=== PATIENT | male | born 1975 | race Caucasian/White ===

== ENCOUNTER 2024-04-26 06:52 | Emergency (ER) | payer MEDICARE, SELFPAY ==
[2024-04-26 06:56] VITALS: BP 160/100; PULSE 75; TEMP 36.6; O2SAT 98; BMI 27.1
[2024-04-26 06:58] VITALS: BP 160/100
[2024-04-26 07:22] VITALS: PULSE 76
--- NOTE | 2024-04-26 07:26 | ECG_ITS ---
[facility] Test Date: 2024-04-26 Pat Name: JEFFRY MARTIN Department: Room: - Gender: Male [employer]: : 1975 Requested By: [id number] Order Number: [id number] Reading MD: OTILIA SAEZ Measurements Intervals [place] Rate: 73 P: 51 NV: 142 QRS: -5 QRSD: 94 T: 39 QT: 372 QTc: 399 Interpretive Statements 1100 Sinus rhythm 2420 RSR (QR) in lead V1/V2, consistent with right ventricular conduction delay 9130 borderline ECG No previous ECG available for comparison Electronically Signed On 04-26-2024 8:58:15 EST by OTILIA SAEZ
--- NOTE | 2024-04-26 07:31 | ED.GENADUL1 ---
HPI HPI - General Adult General Chief complaint: Eye Problems Stated complaint: HEADCH, EYE REDNESS Time Seen by Provider: 04/26/24 07:17 Source: patient Mode of arrival: walk-in History of Present Illness HPI narrative: 49 old male presents to the emergency department for elevated blood pressure and headache. He has been off of his lisinopril for about 5 months. He states he moved to this area a few months ago and has been having trouble finding a PCP. The headache was not of sudden onset. He reports that he saw some redness on the white part of his left eye and there was no direct trauma to it. He states he coughs a great deal and he did not even notice it until a family member pointed it out to him. Denies chest pain or shortness of breath or back pain. Related Data Previous Rx's ?Medication ?Instructions ?Recorded lisinopril 5 mg tablet 5 mg PO DAILY #30 tabs 04/26/24 Allergies Allergy/AdvReac Type Severity Reaction Status Date / Time codeine Allergy Severe Hives Verified 04/26/24 07:00 narcotics AdvReac recovering Uncoded 04/26/24 07:38 addict Opioid HPI Opioid Management Most Recent Opioid Data: No Data to Display Review of Systems ROS Narrative A ten point review of systems is negative except as noted above. PFSH PFSH Social History Little interest or pleasure in doing things: not at all Feeling down, depressed, or hopeless: not at all Exam Narrative Exam Narrative: Nurses note and vital signs reviewed and patient is not hypoxic. General: The patient appears in no apparent distress. Patient is resting comfortably on cart. Skin: Warm, dry, no pallor noted. There is no rash noted. Head: Normocephalic, atraumatic Eye: Left medial subconjunctival hemorrhage present. Ears, Nose, Mouth, and Throat: oral mucosa is moist. Nares patent. Cardiovascular: Regular Rate and Rhythm Respiratory: Patient is in no distress, no accessory muscle use, lungs are clear to auscultation, no wheezing, rales or rhonchi Back: non-tender GI: Soft and nontender Musculoskeletal: The patient has no evidence of calf tenderness, no pitting edema, symmetrical pulses noted bilaterally Neurological: A&O, normal speech Psychiatric: Cooperative Constitutional Vital Signs, click to edit/add: Last Vital Signs Temp 98 F 04/26/24 06:56 Pulse 76 04/26/24 07:22 Resp 17 04/26/24 07:22 BP 142/92 H 04/26/24 08:57 Pulse Ox 98 04/26/24 06:56 Course Vital Signs Vital signs: Vital Signs Temperature 98 F 04/26/24 06:56 Pulse Rate 75 04/26/24 06:56 Respiratory Rate 18 04/26/24 06:56 Blood Pressure 160/100 H 04/26/24 06:56 Pulse Oximetry 98 04/26/24 06:56 Temperature 98 F 04/26/24 06:56 Pulse Rate 76 04/26/24 07:22 Respiratory Rate 17 04/26/24 07:22 Blood Pressure 142/92 H 04/26/24 08:57 Pulse Oximetry 98 04/26/24 06:56 Medical Decision Making MDM Narrative Medical decision making narrative: The latest blood pressure is 142/92 which is down slightly from his presentation blood pressure. He will be placed on a low-dose of lisinopril and was given a list of PCPs that he can follow-up with. Renal function is normal. Additionally he has a subconjunctival hemorrhage on the left and he was reassured. Treatment diagnosis and follow-up were discussed with the patient. Differential Diagnosis Differential Diagnosis: Hypertension, kidney failure Lab Data Lab results reviewed: Yes I reviewed the patient's lab results Labs: Lab Results 04/26/24 Range/Units 07:55 WBC 6.6 (4.0-11.0) 10^3/uL RBC 5.19 (4.70-6.10) 10^6/uL Hgb 17.2 (14.0-18.0) g/dL Hct 47.6 (42.0-54.0) % MCV 91.7 (80.0-94.0) fL MCH 33.1 (25.9-34.0) pg MCHC 36.1 H (29.9-35.2) g/dL RDW 13.1 (11.0-15.0) % Plt Count 146 L (150-450) 10^3/uL MPV 12.0 (9.5-13.5) fL Neut % (Auto) 52.0 (43.0-75.0) % Lymph % (Auto) 38.7 (20.5-60.0) % [place] % (Auto) 6.2 (1.7-12.0) % Eos % (Auto) 2.1 (0.9-7.0) % Baso % (Auto) 0.8 (0.2-2.0) % Neut # (Auto) 3.4 (1.4-6.5) 10^3/uL Lymph # (Auto) 2.6 (1.2-3.8) 10^3/uL [place] # (Auto) 0.4 (0.3-0.8) 10^3/uL Eos # (Auto) 0.1 (0.0-0.7) 10^3/uL Baso # (Auto) 0.1 (0.0-0.1) 10^3/uL Abs Immat Gran (auto) 0.01 (0.00-0.03) 10^3/uL Imm/Tot Granulo (auto) 0.2 (0.0-0.5) % Sodium 143 (136-145) mmol/L Potassium 4.2 (3.5-5.1) mmol/L Chloride 106 (98-107) mmol/L Carbon Dioxide 26.9 (21.0-32.0) mmol/L Anion Gap 14.3 BUN 8.0 (7.0-18.0) mg/dL Creatinine 1.03 (0.70-1.30) mg/dL Est GFR ( Amer) >60 (>=60 mL/min/1.73m^2) Est GFR (Non-Af Amer) >60 (>=60 mL/min/1.73m^2) BUN/Creatinine Ratio 7.8 Glucose 99 (74-106) mg/dL Calcium 9.2 (8.5-10.1) mg/dL ECG Data Attestation: I personally reviewed and interpreted this ECG as follows: (EKG on my interpretation shows sinus rhythm with a rate of 73 and no acute change.) Discharge Plan Discharge Chief Complaint: Eye Problems Clinical Impression: Hypertension, Subconjunctival hemorrhage Patient Disposition: Home, Self-Care Time of Disposition Decision: 09:15 Condition: Good Mode of Transportation: Private Vehicle Prescriptions / Home Meds: New lisinopril 5 mg tablet 5 mg PO DAILY Qty: 30 0RF Print Language: Sudanese Instructions: Chronic Hypertension (ED) Additional Instructions: See list of primary care providers Referrals: Physician,Non-Staff, [Primary Care Provider] - 1 week
[2024-04-26 08:11] LABS: Basophils Absolute Auto 0.1 10^3/uL (0.0-0.1); Basophils Percent Auto 0.8 % (0.2-2.0); Eosinophils Absolute Auto 0.1 10^3/uL (0.0-0.7); Eosinophils Percent Auto 2.1 % (0.9-7.0); Hematocrit 47.6 % (42.0-54.0); Hemoglobin 17.2 g/dL (14.0-18.0); Immature Granulocytes Abs Auto 0.01 10^3/uL (0.00-0.03); Immature Granulocytes Pct Auto 0.2 % (0.0-0.5); Lymphocytes Absolute Auto 2.6 10^3/uL (1.2-3.8); Lymphocytes Percent Auto 38.7 % (20.5-60.0); Mean Corpuscular HGB Conc 36.1 g/dL (29.9-35.2); Mean Corpuscular Hemoglobin 33.1 pg (25.9-34.0); Mean Corpuscular Volume 91.7 fL (80.0-94.0); Monocytes Absolute Auto 0.4 10^3/uL (0.3-0.8); Monocytes Percent Auto 6.2 % (1.7-12.0); Neutrophils Absolute Auto 3.4 10^3/uL (1.4-6.5); Platelet Count 146 10^3/uL (150-450); Red Blood Count 5.19 10^6/uL (4.70-6.10); Red Cell Distribution Width 13.1 % (11.0-15.0); White Blood Count 6.6 10^3/uL (4.0-11.0)
[2024-04-26 08:31] LABS: Anion Gap 14.3; BUN Creatinine Ratio 7.8; Calcium 9.2 mg/dL (8.5-10.1); Carbon Dioxide 26.9 mmol/L (21.0-32.0); Chloride 106 mmol/L (98-107); Estimated GFR (African America >60 (>=60 mL/min/1.73m^2); Estimated GFR (Non-African Ame >60 (>=60 mL/min/1.73m^2); Glucose 99 mg/dL (74-106); Potassium 4.2 mmol/L (3.5-5.1); Sodium 143 mmol/L (136-145)
[2024-04-26 08:37] VITALS: BP 124/82
[2024-04-26 08:57] VITALS: BP 142/92
== END 2024-04-26 09:22 | disposition home or self-care (01) ==
PROVIDERS: Emergency Provider Emergency Medicine
DX: H11.32 Conjunctival hemorrhage, left eye (principal); I10 Essential (primary) hypertension
CPT/HCPCS: 36415; 80048; 85025; 93005; 99284

== ENCOUNTER 2024-07-02 11:26 | Outpatient (OUT) | payer MEDICAID, SELFPAY ==
--- OUTSIDE RECORDS SUMMARY | 2024-07-02 11:43 | XMS_ITS | CCD ---
Author Organization [facility] Care Team Providers Care [employer] Name Role Phone August Unavailable Unavailable August Unavailable Unavailable Sebastian Chirinos Attending Unavailable Sebastian Chirinos Admitting Unavailable Provider, None Primary Care Unavailable Allergies Allergy Classification Reported Allergen(s) Allergy Type Date of Onset Reaction(s) Facility (1 source) NKDA/NO FOOD OR LATEX ALLERGIES; Translations: [NKDA/NO FOOD OR LATEX ALLERGIES] Propensity to adverse reactions (disorder) [facility] Repository (1 source) Codeine; Translations: [codeine] Drug Allergy [facility] Repository Problems Active Problems Problem Classification Problem Date Documented Da te Episodic/Chronic Unclassified (1 source) Unknown / UNK(Unknown) Onset: 11-22-2016 Past or Other Problems Problem Classification Problem Date Documented Da te Episodic/Chronic Cardiac dysrhythmias (2 sources) Tachycardia, unspecified; Translations: [Tachycardia, unspecified] Onset: 11-22-2016 Episodic Nonspecific chest pain (4 sources) Chest pain, unspecified; Translations: [Chest pain] Onset: 11-22-2016 Episodic Results Test Name Value Interpretation Reference Range Facility Coding Summaryon 01-31-2024 [facility] XevdtdjrTDo7ePa+PG hlYWQ+SE3FAVTvG40j rLAsjX5mR4SHGCoUPp wgQVBQTElOSyIgbmFt KI8abGQfIDWr IC8+CR6fZMJhWbzwpG Seh8Q2tOZ6Q16hdn8w XVnctYN5XERaRnCduq txx6xtyXe5TIodKrsu OyBt UWMokQ18GBO9xP37Yq 10sFHswLTyh9ehvTk3 GrLhRFGiCYN0vItwWU amy9MxHWMfV46teVYs c2U6 IGNvbGxhcHNlOyBlbX X2zG4bLPxwvahkp7an cmweUdv3kv26yHMyc8 P1cKM6K5VcamH2GPVz bGQg NdvzxWTHiZ5orsbme7 xvcjogIzAwMDAwMDt0 YLs6NADtjNlnKeWgHI 84AAV1BIYhdfXwB7Ke LWFs tZlzIxF1y0K5Kh9SU2 MQSsmzZ0LIYFZEAYyg dGQ+II00dl18W9QcGo jtBet7ZADsNPE9iQU1 aD0n SEBiCOifk4O9iBJ7Z7 JyaqMmns1gu8lfPKCc JCglW51flUKfg1X2WM HgfKJ8BGNujYosSwXz aG93 Oyc+TXDcuMdoq8LzJm ome5quk2hmzNw6Acfe NBKuwoMqqBeyDSY2d1 JaBu9tAVSoyTE7zZV9 aD0i CvBnQvW9RZfpJ915Jp EjaOXtTgmkE83vT4Vl dXA+PXEgQcq0AXFkvW toNW4iF5DmNJIssbrm bGVm bYvrEE3sAAMzhyulKD NebB3tIHEqX5t2VrEu EvM5IYgvM1TcEEWobl nqTt73wX6xQjDjJcX8 MGlu V3IbusY0IZAhgEAhKZ vdMUK3J15mo4M3QMUc OLVlUER0bAP6oW5jiY lnbjogbGVmdDsgdmVy dGlj BUjyMUllL615ADFloY snPkNvZGluZyBEYXRl OiAgMDkvMTIvMjAyND wvdGQ+UGAmFFY6gJll PSAn pEJbMIxpOh8dgLnbfZ hfAU3mFQFcprduKXDp fD4iJERctTTcsEkwAP 6uTWYqwgkdu165NtJw MHB0 TRLnsOEwL0OfsY0sYr UgQUOrAANaV5FbkRNa JIizU892MFqtSwX8MD KgnjEjX6PkWRTxnHwt OiB0 y7I7Ln6Xw1WemmvjF7 RhdHVzOiAgRmluYWw8 I5BePbefdPP+PC90YW FsFT74GNp8JDQ8eVhi PSdi WXEiZ7ErrR8qYhAaOI RkZGRkOyc+PHRhYmxl IHdpZHRoPScxMDAlJy NfsHywWI5jGm6kOFYu LWNv pAsurHQbYiKro4wgWH RtJPpkMX9prVggH7El yHJ4CHUbp2y2Nq79V2 1oR5HpjAX+PGNvbCB3 aWR0 oJ1qSiCcLqB6IPtsB6 67IbNpdCMmAekbp7te c0vlaBr4FqP5OMQeqz AoxBebZVS1u1KrQy13 Y29s IHdpZHRoPSIxNSUiIH IzcKpoes7hiG4cBk1+ MYHekQW9qDT0fX0iBx RgBoY4EUntP665UsWj cCIv Permx0tes0cfqHy9Fc IwJSIgdmFsaWduPSJ0 j4FoPc50S5KsbQyrd2 DoLmt1cb93kKZmh4M1 bGU9 A2BhYCKmnflblAOqiN xdAK9iACYpxxdlYNTs pT6xVLFaY8k2ZeKcRl Z0MGjfB4TyllB8HHJf bGQg VZDnaKUXsP9jbmdkn4 xvcjogIzAwMDAwMDt0 DSa5FJSxdYkmTuUzET B9OgW9XHA9nJUfuD6i bGln cbcjsP0xAml+UGF0aW OsrQSRQX2aQcbatDN+ LOMhCDI8hFxbKJugZF MszA9pUZRtA9e5NyCx LjA1 TXioZ9KmvhX4CVVorH TsQYWvgGQWwD1tooch l7rpdbvuXlTbTZXcLS m8UGu4JXWomFcrCwGv ZWZ0 QrG3TOP2cSIfxQ5fmB jaoteweY4hCyr+Qmly oXpfIRW9CBa3L7RaCf j9YPYyhEgzZN2ijUHf ZGlu Vl6mfMyfbDqfBD5qXR Mfhxwnp018KcQpk4bj EBVwuUNxMEmuMTH7H0 3zc1F2KXMlKUIfJBM4 dGV4 yH7edYlwbpzpcRLmaE sgdmVydGljYWwtYWxp V471DFUleMdjDkYyAC p2H6SoHcn0DYNyfUof ZT0n zPDbCQhdBx7wnSkdcQ uhQH9fMEXwdbwdu834 YfBls8rgAEGifLDiMZ lxKJM5Q74ng0J4JRLa MDAw AKD6dOF3sL6lzXwurr ogbGVmdDsgdmVydGlj GLufJDlwA880WEUdjQ cmCjUgbQr4I5MvMmm2 ZCBz hNshIB5tbVEmDUkrTu 2amFnslSkgFP5wSYCb cmkuf013AqRhh7iySA XlaSMgZYovYAS9O30u b3I6 ARZvKIWuPKS2sXV5zR 1hbGlnbjogbGVmdDsg dmVydGljYWwtYWxpZ2 46IHRvcDsnPlBhdGll bnQg KKqhFQh8Z6RbPpvruQ I+WJ69GUVxIX06wAZf sDFhd3ktlRj2LzKlUA WdYNP5rPbpZLbyd2Dr ZXIt A28vgBCff2Q2QESyvT kwgNXwNfJtaLF7rJ9m USctflngq0vxrftxVe azz5fjtm30rS63M01n IHdp ZHRoPSIzMCUiIHZhbG nusd3zmD4lGo5+PGNv cSL7nAK0iT1rNCMfQi S2GYfmM390EpWvzDNz Pjxj p8kck7vduYv8DeA0KN AjypVjeMonXSG6v2Ls Xa31K09aISugRNPzAH MnLMTxOEFpxWkeiy2j dG9w Ii8+YYZvzHO1bDW4jF 8hLwEaFmN9VVigU581 RvIplWNbHsizR16rR8 JvdXA+MLQnVfp1VTEu dHls IS0hjFHcKWpxTz7iFD X6QpGeMlPsMWrrT3Pk DLYcdeopnafikEM3QY OuUTPrkT90Ad0ldPzy MTBw aZHCmX5mudlij6vbbg ihYyQaXZSfURl3NGr7 MQOblOboDaAqVVF6Vf T4VNX8uELuxM8zrPav bjog fR4wG2FyISUeqsfnTf 08vA4iOhSyCfM1OLms Oyc+W5KXGF3CEHgwQS FWSUQgRVJJQzwvdGQ+ PHRk CBY1rYnkRDxaYICrnT 8hWVJhP2k9ZqBjHuG6 UHbiM9KyUDUxmgnxAj 34mQ8jVxElNsY7RLlg O2Zv zaH0QWHvhACkYMmbTO W3Q47bd3Z6PSMvQGYe EJU3aMD4gD5poTortz ogbGVmdDsgdmVydGlj YWwt OIgqS125UYWglPavAb D8CaB2PeH4LyL6W7Qu Asm2QMErhCooFM5ayY PxMYxgUk0zbVggaCco MC4w QAYyoiqwMWTqeI4uMK NehPFktQuiEB5oJVRy lgkfl457FpCkZCC6HY SuzHKvG4ZpaH4qIkPf MDAw KBKhN4GcoOSiIZwsY0 55ZDqsRqT2QDJndqOv P4BjNVKczPovBoT4w6 V8Vi05KUHJUVRzsggb dGQ+ OJGaDGG1zXrkDYvcVR XxpV6gIRHpP7y4CcGe NzW9MQobS0GpZGNxxx joCr73vS2pBsYbOxA4 MGlu M2CikwE3CGYynNFvFN lnMAR3R48ip3V6KQTq HNXaPYS7zAM1hS0hvL lnbjogbGVmdDsgdmVy dGlj SFhxANwsA264OYZuhO hwTn4USXP6Y2QgHob4 ECFavIqrXG6xzUVyUU pfQf6adIqsjCipYX1o NTBp loteWLZzpY5uCLUxiA XvnSihIK4pWIMvlnvc r088AwTbZWZ4THCyfL ReT6TywH6sNcCsVVOx MDAw A1YllJYpLCxhU898LO vgKpZ3AGBubfLoX4Ha SRNzgOatSjX9v2K1Hi 9RzDYlF4WrH3p3H2Ny Pjwv dHI+IY05EAUeSQ74jN OrrFWev8trbYb1PvZl YOVzSOW6jGtfMKxtw4 PaGNVcK64saXAbi1T1 IGNv gUxceDCwSuCdoTP2nY 9vWWzfzljxz6uevubw Afgcr5bczp89bX30U5 9sIHdpZHRoPSIzMCUi IHZh fRcapl6ofM1rZd1+PG AtvVN6hBT4nU5oLeIp RaF0LElaC030ZoFqdY TsUcsbg5kos0vhtAe7 IjIw PMPxuoTfxPjdYCE0q5 KxBr39F10kTOphLYMp PSIyMCUiIHZhbGlnbj 2qvF1gPj3+SV7od8cl cm91 fD98lLU+NOFrAFW2sS ynMVtrCHJzdL7bZZfe ZqA3ELNlVrQmtG92fK UnIQwkVn5gaQwhrXnr MC4w NAVnlskbz888IkAgz7 xkIDEwcHQgVGltZXM7 I14bz9K6DJYjYMPxCP I1cRR7yV1okViajoyy bGVm dDsgdmVydGljYWwtYW ncS290IXCndZumBlBq qWTnE8hmunPBVS5nZh wvdGQ+WLJdTUH7eYnd PSdw UAHvtM0wGDSpS8x1Vu YsOkU5ADovU2BkzjA9 IGJvbGQgMTBwdCBUaW 3qsnykx7wozxymOeWk MDAw YEz6NCk6ZWRukKejSv QaOXD6MrK2YLU7wSPh iQ9syVedasflbO6xZs c+RklOOjwvdGQ+PHRk IHN0 jUtyOWjnSHFnyZ9wAW DuJ1e1QpQvFnN1BQtp Y9BibtG2ZKMjeCBcPP ImcKEBqX3kphwld0qm cjog GzNeIHUvCKn0BLc1JQ CitLanXkDyZMC0VqC6 KVS3jKIhmX9wsKyyur civN1xPak+TVJOOjwv dGQ+ EFWuAFC1nYzaQIqkZA KydY3qQSAmH9a3WcIo HvL7RBtfY2ZkedE1UB KjvMTpJHYxiCFKhA0u cztj i3lyoxteHzCwGRIbRI x3FOm4TLMeyBvwMbAq SFU8HlY5YKD6tWAcrU 6rsQjycjkszK6bFri+ UGF5 FLV1ZC37AC39R1DiAp wvdGFibGU+PHRhYmxl IHdpZHRoPScxMDAlJy OvxSdtLX1hLs9kSBTl LWNv bGx (more content not included)... [facility] Coding Summary HTMLBase 64 DlpejhbvECz3wDu+PG hlYWQ+WF6UEZViG05p zUYtcH4qP9LVTNyATr wgQVBQTElOSyIgbmFt UT2mgKFwVHDj IC8+DU3fOCRaSqeroU Ntl4U4pSC1C52yjw6v HLiwrEJ9IFGmRyBbxn kvr2laqRu6BAvzThah OyBt VAGrkO25EIV6aD50Ta 39lYHuvUZzf2kkiEk4 DhGcARVeRTT5hAkwTY vtl7KyRIQfE60qkFZg c2U6 IGNvbGxhcHNlOyBlbX C6uQ1fYXqmieslu3ke ayygSor9xq82mDOfq7 E5oPA6C4FwocZ5WNHw bGQg WotvvCRJrS2akinwz7 xvcjogIzAwMDAwMDt0 BDw4WJBvcBjqDmZcYC 66GBL9SOAefyAnS0Eo LWFs cGsqPnS8y4N6Tr7QX8 TDSotiH7SQYNRMSCmo dGQ+DA85hg82G7VwNp cdXjz8BUFnJNX5yFS6 aD0n HSLdEZvgl5D6dZR0Z7 XvdzYbdn8af3pzCJFw EUqoP58xbYAyt7A5VT NgvAS8HYCnhTjiTiRj aG93 Oyc+OTMbrXpsx8ZmZd kbc5csy9lhhFe6Jzdv BBSzkgLhrGdiWIE1b9 XxZr1bMBRagYX1aNR7 aD0i VyGqSqM7QXifB338Ps QfwXNqZhlrD36vY9Dm dXA+IPRtMvc0MEGnsW zqFL0jK8PtEVLndwgn bGVm uKxvKJ3rDCRybiddWY TodO2bYAAwW1h2KuBs GyE0HWokH3QnNYAduu mnWt44eU4xImLfJzE4 MGlu O9ZmdqV1ZORvkOGgUV sdZGS5V44gb9A4OPBf KBCfAAQ9yHC4cW6ytL lnbjogbGVmdDsgdmVy dGlj FEtfDPjtA911MDToaV snPkNvZGluZyBEYXRl OiAgMDkvMTIvMjAyND wvdGQ+YYUmKST1rIda PSAn qBWnUNnpHn4fsXtguY mvNK3zKMJnuoujKTKs vL8cZMYysPAfuLhnKY 5iLYWpzexrw235AoFc MHB0 HTLehIGqG4OsxF4qUm EwXCFaCRLjE0WqlDJp HApzE039MHguWeA6BL HkfsPvP7IwMOGmnUdg OiB0 e3I2Rc8Is5WzjrwhT5 RhdHVzOiAgRmluYWw8 G5HeQypgdPX+PC90YW QpVT68FXv9BTR5oRpb PSdi JJNkP4YngE8mHiFqIG RkZGRkOyc+PHRhYmxl IHdpZHRoPScxMDAlJy DshTwaRO1zHj9kMNSm LWNv kWxoqKPkZcPuf1lrJA AdVRkvUG4szViuF5Ys mBB2UWJby4u3Tq95D4 1xQ7NhaJJ+PGNvbCB3 aWR0 eH9jVxQeYsY1NLnfB8 62GaOfiZCuFkxim7uz a1boyIe0LnR4ZIHbif AwcBfxOWL4e1ZvIv01 Y29s IHdpZHRoPSIxNSUiIH OptMsxyu4vhO3kJa9+ WEDdwCB2nKF7wA5fWp SkGrX8UCafE022EsZg cCIv Riumx5fpu8rsoKs3Mx IwJSIgdmFsaWduPSJ0 c6VvEg65T9SatGopg9 XqEol7tw36hUQrq7P2 bGU9 D4YiJWOxhdjbxRDgwC crRX0pLOSkdfpuUKUx nS2nTGTkC4u3YrLsKi W3BQksN2AecwH4OYWl bGQg HAOtaLXElX3htkogr8 xvcjogIzAwMDAwMDt0 WGz1EXNwwTynWfIqFT S3CbO2FDN2oAYxaG1f bGln aygkfT4vKmj+UGF0aW NcnBWGQB1qIhlrwSU+ WZXzJBZ0sQanMHstND WhfR6bGPFnQ7e2VnZd LjA1 AAvfT9GhfiW9IGVxcK OkJPHrxZLDeC7dnbip b9xavfyyEyFnOEXpSH n4ZGn6XFNfjDbqDyRj ZWZ0 SmL9PNP1nUOrpV0lcI hazzfwjB1gBtm+Qmly aTnuMPQ6IIi3Y5IaPh o8MTMwbKoqFG6rzOLn ZGlu Hd7lgYxxzYtsAJ8rQE Qovfwpy658NxFqi7gs ADIdmJHnWRnyDCS7V8 3gj0L3XSOnBTMcDWH2 dGV4 pN3vbXtjxxhflSKohF sgdmVydGljYWwtYWxp Q122UWTgpJaiPgQtNB e5S4WaPmx0NFBzxYwf ZT0n fZWcBXcoEd0vrCojuY awBX7aOJFvzykmm901 KdWwd9qfVHBwkLMvPB sgUWI5D83in4J2MADw MDAw UYF7bPH5tZ5hvNerfz ogbGVmdDsgdmVydGlj AOxjJCzmD085FHGveF dyNnJceNd6S8AkLwx4 ZCBz rGjkZK6ynMHgQQpkRf 8arAdzfAfgNT1nZDBz yigax577QdPpv9mvBV GpsVUdGLabKEH7P39n b3I6 QSReGHHmUUO0zZC4cV 1hbGlnbjogbGVmdDsg dmVydGljYWwtYWxpZ2 46IHRvcDsnPlBhdGll bnQg EKqgNNm6Z6ShWdlauE I+BW44PQQsMA25sLXe dVIpv9gydJk7DrOpTE CpMQP3xAjfWTipz1Wp ZXIt R24pfXPvw7E9ASGmvS eqoKIjWrYjbFN6lY6m FFhvuaaqp0sqdxavYd mqq2zcfp02aL48H32v IHdp ZHRoPSIzMCUiIHZhbG pfoa8fsM8pDx7+PGNv uXM1fFV6iG1pTPGuGw A6NWqeJ543RuMbbSOt Pjxj z4bhz8qkmWh0YzE6VJ KrzmFyfSmoVWF3e2Jj Ku62C05oAZulGWMtND BeOSOzRRJeyFfjhv5p dG9w Ii8+OQVpdSW1jKI7nZ 6kRhLzQdL9OEmqD297 GqZizVGmPvmqX89oY2 JvdXA+JHSrEbg1LQIy dHls PJ1luXNsRRxxIi8hPA P3JgZwZdMlFVsqD4Jv EJSwgktijcfueUR3GB OeSQAuxO96Fy5rxJzi MTBw tWWFbS2bkerin5vkho knIiKwJFOnEAn4FSy2 EDMycHkvUsQpMCE6Fj F0SSO4hQHdvV2boMgr bjog bM6hV5NjVAMwldsvFw 08zG9mNhAsBkG0QMfv Oyc+T2SFQL6YNFcyII FWSUQgRVJJQzwvdGQ+ PHRk UEX9pMhgEEqsRYDtyJ 8gUUGnM9r6QyLwHoM0 XWmzI1KaIWJkgcmeAw 92iI4iJtFsRmM2UMoh O2Zv voF0ZGZuhPAwDBbrXZ Z6P39kx6R6XNSlMSVq DWM1zJT6gZ9toMpcrj ogbGVmdDsgdmVydGlj YWwt WItnB513UCBtrSqgOj I5BhY4NqX7ZoR3U1Ly Snr8CXQytXpwOW6wwR GlYJvnOv0nrCwilIog MC4w PUUmrwecJPLtgB6aQT FqpJBfkDcaQK9dMCZy cucdl500QpEmSDN0BM EbyDUiR4WeeS3tIzNs MDAw NDXpF1UprKReKXhbB8 86CGguKmB6VKJvieEa O8EuQREzoYqqQzD0h5 G1Je35YKHHDZRsjdzr dGQ+ YAKaYTK6iGxvHKifCU CqiF9rVASvA8a1UjHs MhN7BKraY7HtITLqmf cwOk42eO0gPsUnYvZ7 MGlu Z7XucoL0GTCkhLVsFK bnGTP8Q14sk7Q4GJMd TZMdHYA9yKX5tZ2hyZ lnbjogbGVmdDsgdmVy dGlj OTswHOkxJ662DUGcsA hoUl0IVUW1Z0WfDfc6 UOYeaFtjOX1txUEpPQ igIn9njCvluGhvCR9h NTBp mzpaTWWsdW8gSVJafP XwsHjxGZ3vAWFpesxr a037JlVcEJU9WRPpuY NsM2YejK8qVnKcLUWl MDAw X5CogHUiMVlsU018YR zaCnI1LDYqsjEtM9Dq YRLurXcmQgB5x5U1Qc 7TgFBxT4TgB7o1U0Zf Pjwv dHI+TJ25KJQwYY55yF UrbVAzw8vxiLm3XkAl RVOzMTM9cVtgVQfte4 PgOJYdC70qwHTje6X5 IGNv cCxhdXNgXsVsbHL5oD 0dOUpskayzj2hbwjpp Cfhbl4jvip46eH92L1 9sIHdpZHRoPSIzMCUi IHZh tGuapf6ynA0vHl4+PG QxsMY7jLK6rX9jMzMc GxB8ZKarR560IhYyyW ObIftkh3aag5nucJk1 IjIw ZRQwjyYdwYyrKHG9f3 SdAc85S76xMOdqQAPm PSIyMCUiIHZhbGlnbj 8okP8vMh3+GT2pe2vt cm91 yE91jUB+IQWnHNM2bX olYRdcSDMzhP8fKOtw SqE8KGCmGuOakO31cR ClPWfjGu5cnUgdcSaq MC4w DNTdvjlgc538XeUpc2 xkIDEwcHQgVGltZXM7 N43jr2R5YKWjIJWmGO H2aVO0pV6bgCgwobep bGVm dDsgdmVydGljYWwtYW mtH278FANloClsSrNi sJOwJ7pqybWGAW5pEv wvdGQ+CUBwVFZ4gJyh PSdw PNGcgT4dGGEwJ8k3Xn RdQiE0NFdnP2KwuxY5 IGJvbGQgMTBwdCBUaW 1ngwfis7jwlvsnHqZn MDAw FZn6TZi0ZYVetNsqXt VyTYC2KaG6JND3wSFk rD2lxShmdybidQ1jAw c+RklOOjwvdGQ+PHRk IHN0 ePmdCHluAFBnwE2oLT NzN3z5TyGhRxW6JObe M9AgkgG1PQUaiLYmKJ YbdQXNzK2ggnmdu7sn cjog FtKnGNTgTMg3CCd5XE UoqAqjSbKjLGD1ZhG4 RRP1oYImjU8pkBbyry qcxY5uIdo+TVJOOjwv dGQ+ ABWiAPN4sEgeLJivUF CfoR5iTLOlL6s0HkUk JcJ9CXkjG0WhxyU8OW NzhWWeXAOlmQDIdA1h cztj b4dqjoayGkUwYSCiTA o4VLq8XKXneKuoTfLi SLO9MpD1MAO5kCGgrW 7nlXkblqcumV4dUha+ UGF5 RZM0US50NS39C7DkIk wvdGFibGU+PHRhYmxl IHdpZHRoPScxMDAlJy KnvGrcKA3xUd9nYWTo LWNv bGx (more content not included)... [facility] .Auto Diff 01-24-2024 Auto Owen % 6 % Normal -12 [facility] Comment on above: Performed By: #### 1 [id number] #### [facility] (DEFAULT) [address] [place] [address] 90204 Baso Abs# 0.1 x10 Normal 0.0-0.2 [facility] Comment on above: Performed By: #### 1 [id number], [id number], [id number] #### [facility] (DEFAULT) [address] [place] [address] 89857 Basophils/100 WBC (Bld) 1.3 % Normal 0.2-2.0 [facility] Comment on above: Performed By: #### 1 [id number], [id number], [id number] #### [facility] (DEFAULT) [address] [place] [address] 06373 Eos Abs# 0.1 x10 Normal 0.0-0.4 [facility] Comment on above: Performed By: #### 1 [id number], [id number], [id number], [id number] #### [facility] (DEFAULT) [address] [place] [address] 12408 Eosinophils/100 WBC (Bld) 1.3 % Normal 0.9-4.0 [facility] Comment on above: Performed By: #### 1 [id number], [id number], [id number], [id number] #### [facility] (DEFAULT) [address] [place] [address] 83461 Lymph Abs# 3.5 x10 High 1.3-2.9 [facility] Comment on above: Performed By: #### 1 [id number], [id number], [id number], [id number], [id number], [id number] #### [facility] (DEFAULT) [address] [place] [address] Lymphocytes/100 WBC (Bld) 44 % Normal 14-48 [facility] Comment on above: Performed By: #### 1 [id number], [id number], [id number], [id number], [id number], [id number] #### [facility] (DEFAULT) [address] [place] [address] Owen Abs# 0.5 x10 Normal 0.0-0.8 [facility] Comment on above: Performed By: #### 1 [id number], [id number], 0015499, 23868841, 1964766353, 1701638 #### [facility] (DEFAULT) [address] [place] [address] Neut Abs# 3.8 x10 Normal 1.5-9.2 [facility] Comment on above: Performed By: #### 1 [id number], 3863912072, 3791277, 66931002, 6865520879, 9230568 #### [facility] (DEFAULT) [address] [place] [address] Neutrophils/100 WBC (Bld) 48 % Normal 44-88 [facility] Comment on above: Performed By: #### 1 [id number], 0001700614, 6760091, 47392647, 6530714318, 4729161 #### [facility] (DEFAULT) [address] [place] [address] CBC w/ Auto Diffon 4 Erythrocyte distribution width (RBC) [Ratio] 13.9 % Normal 11.5-15.0 [facility] Comment on above: Performed By: #### 1 [id number], 6384222179, 6776716, 72670054, 9167451011, 4902688 #### [facility] (DEFAULT) [address] [place] [address] Hematocrit (Bld) [Volume fraction] 46.8 % Normal 34.8-51.9 [facility] Comment on above: Performed By: #### 1 [id number], 9884479112, 2603393, 99524507, 0921945831, 4488178 #### [facility] (DEFAULT) [address] [place] [address] 91767 Hemoglobin (Bld) [Mass/Vol] 16.3 g/dL Normal 11.8-17.7 [facility] Comment on above: Performed By: #### 1 [id number], 4815439663, 4960968, 22700942, 5726245619, 7668133 #### [facility] (DEFAULT) [address] [place] [address] 33521 Man Diff? Auto Invalid Interpretation Code [facility] Comment on above: Performed By: #### 1 [id number], 8486742081, 0636076, 17440893, 2117026047, 8651619 #### [facility] (DEFAULT) [address] [place] [address] 69421 MCH (RBC) [Entitic mass] 32 pg Normal 24-34 [facility] Comment on above: Performed By: #### 1 [id number], 5179168777, 2568740, 83124969, 8204771094, 6317045 #### [facility] (DEFAULT) [address] [place] [address] 09419 MCHC (RBC) [Mass/Vol] 35 g/dL Normal 26-37 [facility] Comment on above: Performed By: #### 1 [id number], 2065666137, 8050795, 58067222, 0362288330, 5421735 #### [facility] (DEFAULT) [address] [place] [address] 46499 MCV (RBC) [Entitic vol] 94 fL Normal 81-100 [facility] Comment on above: Performed By: #### 1 [id number], 5979986791, 8729647, 25450247, 8725061351, 5688821 #### [facility] (DEFAULT) [address] [place] [address] 90561 Platelet 144 x10 Normal 138-427 [facility] Comment on above: Performed By: #### 1 [id number], 2717363263, 4779118, 95590269, 3879013847, 1889724 #### [facility] (DEFAULT) [address] [place] [address] 50281 Platelet mean volume (Bld) [Entitic vol] 11.0 fL High 6.3-10.2 [facility] Comment on above: Performed By: #### 1 [id number], 2478384264, 6088651, 73171550, 9252213473, 3243763 #### [facility] (DEFAULT) [address] [place] [address] RBC 5.00 x10 Normal 3.70-5.30 [facility] Comment on above: Performed By: #### 1 [id number], 7195729451, 0483695, 18370082, 6502421867, 5653974 #### [facility] (DEFAULT) [address] [place] [address] WBC 8.0 x10 Normal 3.5-10.5 [facility] Comment on above: Result Comment: Slid e Reviewed Performed By: #### 1 [id number], 5414043094, 8826181, 37899523, 2200390021, 2095887 #### [facility] (DEFAULT) [address] [place] [address] CMP Standardon 01-24-2024 eGFR Non AA >60 Invalid Interpretation Code [facility] Comment on above: Performed By: #### 1 [id number], 4659331266, 8280125, 55704402, 9706383303, 9428470 #### [facility] (DEFAULT) [address] [place] [address] 80130 eGFR AA >60 Invalid Interpretation Code [facility] Comment on above: Performed By: #### 1 [id number], 7158428400, 4638028, 51865288, 3026212691, 4638854 #### [facility] (DEFAULT) [address] [place] [address] Albumin [Mass/Vol] 4.1 g/dL Normal 3.5-5.0 [facility] Comment on above: Performed By: #### 1 [id number], 2682772184, 0685290, 96405162, 8410767089, 0827413 #### [facility] (DEFAULT) [address] [place] [address] 86423 Albumin/Globulin [Mass ratio] 1.1 {ratio} Low 1.4-2.6 [facility] Comment on above: Performed By: #### 1 [id number], 8409723248, 4805817, 35658961, 2268732962, 9294334 #### [facility] (DEFAULT) [address] [place] [address] 14750 Alk Phos 40 IU/L Normal 32-91 [facility] Comment on above: Performed By: #### 1 [id number], 7899276832, 9317871, 47678032, 5121450729, 7408488 #### [facility] (DEFAULT) [address] [place] [address] 08408 ALT [Catalytic activity/Vol] 145.0 U/L High 17.0-63.0 [facility] Comment on above: Performed By: #### 1 [id number], 2960692943, 9461456, 60627610, 1007912737, 2887372 #### [facility] (DEFAULT) [address] [place] [address] 46191 Anion gap [Moles/Vol] 8.3 mmol/L Normal 5.0-19.0 [facility] Comment on above: Performed By: #### 1 [id number], 8293202185, 8107823, 94137072, 5695153479, 0423576 #### [facility] (DEFAULT) [address] [place] [address] 63001 AST [Catalytic activity/Vol] 97 U/L High 15-41 [facility] Comment on above: Performed By: #### 1 [id number], 0551891577, 4100242, 63037966, 6178945891, 4972940 #### [facility] (DEFAULT) [address] [place] [address] 73211 Bili Total 0.8 mg/dL Normal 0.3-1.2 [facility] Comment on above: Performed By: #### 1 [id number], 7024871926, 0728512, 13513352, 5223144497, 7032293 #### [facility] (DEFAULT) [address] [place] [address] 93139 Calcium [Mass/Vol] 8.8 mg/dL Low 8.9-10.3 [facility] Comment on above: Performed By: #### 1 [id number], 7903494685, 1107953, 32534017, 2395120668, 7930801 #### [facility] (DEFAULT) [address] [place] [address] 50465 Chloride [Moles/Vol] 107 mmol/L Normal 101-111 [facility] Comment on above: Performed By: #### 1 [id number], 2975584106, 0548706, 16709729, 5300173194, 7690245 #### [facility] (DEFAULT) [address] [place] [address] 81508 CO2 [Moles/Vol] 24 mmol/L Normal 21-32 [facility] Comment on above: Performed By: #### 1 [id number], 1064962828, 0070771, 42599723, 3810772656, 6084428 #### [facility] (DEFAULT) [address] [place] [address] 18195 Creatinine [Mass/Vol] 0.90 mg/dL Normal 0.90-1.30 [facility] Comment on above: Performed By: #### 1 [id number], 8402964905, 3264949, 69185521, 7802060548, 1491182 #### [facility] (DEFAULT) [address] [place] [address] 62396 Globulin (S) [Mass/Vol] 3.6 g/dL Normal 1.5-4.3 [facility] Comment on above: Performed By: #### 1 401143469, 5233019981, 6242514, 54710135, 4822685766, 7037765 #### [facility] (DEFAULT) [address] [place] [address] 24340 Glucose [Mass/Vol] 106.0 mg/dL Normal 74.0-118.0 [facility] Comment on above: Performed By: #### 1 [id number], 0212580016, 3010425, 09047067, 5664821248, 5841063 #### [facility] (DEFAULT) [address] [place] [address] 19243 Osmolality 271 mOsm/L Invalid Interpretation Code [facility] Comment on above: Performed By: #### 1 [id number], 6279945183, 0207612, 68900759, 0931104595, 8060079 #### [facility] (DEFAULT) [address] [place] [address] 93534 Potassium [Moles/Vol] 3.3 mmol/L Low 3.6-5.1 [facility] Comment on above: Performed By: #### 1 [id number], 2806526984, 9690149, 20122946, 7610993112, 6914519 #### [facility] (DEFAULT) [address] [place] [address] 69273 Protein [Mass/Vol] 7.7 g/dL Normal 6.5-8.1 [facility] Comment on above: Performed By: #### 1 [id number], 2844210227, 0512114, 88020047, 2656213483, 4302026 #### [facility] (DEFAULT) [address] [place] [address] 05289 Sodium [Moles/Vol] 136.0 mmol/L Normal 136.0-144.0 [facility] Comment on above: Performed By: #### 1 [id number], 4254013062, 0818787, 87300080, 1307299998, 4110519 #### [facility] (DEFAULT) [address] [place] [address] 88896 Urea nitrogen [Mass/Vol] 10 mg/dL Normal 8-26 [facility] Comment on above: Performed By: #### 1 [id number], 8956613290, 3780532, 22260073, 8712618267, 3034365 #### [facility] (DEFAULT) [address] [place] [address] 93304 Urea nitrogen/Creatinine [Mass ratio] 11.1 mg/mg Normal 4.6-16.2 [facility] Comment on above: Performed By: #### 1 [id number], 9773675185, 5493780, 15224332, 5501699191, 7911262 #### [facility] (DEFAULT) [address] [place] [address] ED Clinical Summaryon 2023 ED Clinical Summary [facility] - Emergency Department [address] [place] [address] ED Clinical Summary PERSON INFORMATION Name: JEFFRY MARTIN Age: 49 Years Sex: MALE : 1975 MRN: Acct#: Visit Reason: UC - Muscle Twitches; Diarrhea; Abdominal pain; BILATERAL LEG SPASM, LFT BACK PAIN, DIARRHEA Arrival: 01/24/2024 12:55:30 Discharge: 01/24/2024 16:04:00 LOS: 000 03:09 Check In: 01/24/2024 12:55:30 Checkout:01/24/2024 16:04:00 Address: [address] [place], [place] [id number] PCP: PROVIDER INFORMATION Provider Role Assigned Unassigned Rosita Rios RN ED Nurse 01/24/2024 13:48:43 Sebastian Chirinos MD ED Provider 01/24/2024 13:55:00 Itzel Alfred PA-C ED PA 01/24/2024 13:55:20 01/24/2024 13:58:15 VITALS INFORMATION Vital Sign Triage Latest Temperature Tympanic Temperature Temporal Artery Pulse Rate 75 bpm 75 bpm O2 Sat 97 % 96 % Respiratory Rate 16 br/min 16 br/min Blood Pressure /92 mmHg /92 mmHg MEDICAL INFORMATION Medications Given: Medication Dose Route potassium bicarbonate 25 mEq Oral Allergy Information: codeine PHYSICIAN DOCUMENTATION DISCHARGE INFORMATION: Discharge Disposition: Home Discharge Location: Home PATIENT EDUCATION INFORMATION Instructions: Muscle Cramps and Spasms, [id number]; Hypocalcemia, Adult; Hypokalemia Follow-Up: With: Address: When: TAMIKA SANTIAGOEAN [address] [place] [address] [facility] () Within 5 to 7 days Comments: Review after care instructions. Continue with the current treatment as outlined by the ER physician, Dr Chirinos. Take medication as prescribed. Contact your assigned on-call doctor for a follow-up appointment if you do not have a local family doctor or PCP. Alternatively, you may also follow-up in the [facility]gent [facility] at [facility] if you are not able to get an appointment with a family doctor within the recommended time. Call the emergency department if you have any questions or concerns regarding your treatment today. Return to the emergency department if you have significant symptoms that concerns you. DIAGNOSIS: Acute hypokalemia; Hypocalcemia; Muscle cramps at night Patient Understands: Yes - Patient/family/car egiver verbalizes understanding of instructions given Comment: Normal [facility] ED Note - Physicianon 2023 ED Note - Physician Patient: JEFFRY MARTIN Age: 49 years Sex: MALE : 1975 Associated Diagnoses: Acute hypokalemia; Hypocalcemia; Muscle cramps at night Author: Sebastian Chirinos MD Basic Information Time seen: Date & time 01/24/2024 14:08:00. History source: Patient. Additional information: Chief Complaint from Nursing Triage Note : Chief Complaint 01/24/2024 13:04 EDT Chief Complaint Pt. C/O bilateral leg cramping, diarrhea and abdominal discomfort. . History of Present Illness 49-year-old male with medical history of restless leg syndrome presented to ER for complaint of muscle spasm and cramping. Patient reported that for the past several weeks or so, he has been having increased difficulty with sleeping at night. Also indicated that he has been on gabapentin 800 mg twice daily for restless leg. Stated that he had lived in [place]. Stated that he came appeared to help his mother with recent in the family. Stated that he had been running out of the gabapentin so he has been breaking the medication in half, taking half tablet. He stated that he had schedule appointment to see primary provider but does not yet have an appointment. In the last several nights, has been having some recurrent muscle pain and muscle cramping, bilateral calf area. Stated that he had drank heavily in the past. Stated that he drank at least a gallon of whiskey daily. Stated that he has been told that he had some liver damage. Stated that a year ago he quit. Recently within the last several weeks, he has been drinking at nighttime, 5-6 shots or so to help him sleep. He stated that does not seem to help too much. He noted that in the last several days, he been having loose stool. He stated diarrhea but he said about twice a day, loose consistency. No specific pain. No fever. No vomiting. Also admitted that he drinks soda pop, nonstop throughout the day. Review of Systems Constitutional symptoms: No fever, no chills. Skin symptoms: No jaundice, no rash. ENMT symptoms: No sore throat, Respiratory symptoms: No cough, Cardiovascular symptoms: No chest pain, Gastrointestinal symptoms: Diarrhea, no abdominal pain, no vomiting. Genitourinary symptoms: No dysuria, no hematuria. Musculoskeletal symptoms: Muscle pain. Endocrine symptoms: Negative except as documented in HPI. Health Status Allergies: Allergic Reactions (Selected) Unknown Codeine- No reactions were documented.. Medications: (Selected) Documented Medications Documented gabapentin 800 mg oral tablet: Oral, BID, 0 Refill(s). Past Medical/ Family/ Social History Medical history: No active or resolved past medical history items have been selected or recorded., Reviewed as documented in chart. Surgical history: No active procedure history items have been selected or recorded., Reviewed as documented in chart. Family history: No family history items have been selected or recorded., Reviewed as documented in chart. Social history: Social & Psychosocial Habits Alcohol 01/24/2024 Alcohol Use: Current Type: Liquor Frequency: Daily Comment: 5th a day. - 01/24/2024 13:29 - Emelia Steven RN Substance Use 01/24/2024 Substance use: Past Tobacco 01/24/2024 Smoking tobacco use: Current everyday tobacco Number used per day: 1ppd Electronic Cigarette/Vaping 01/24/2024 Electronic Cigarette Use: Former use, quit more emanuel , Reviewed as documented in chart. Problem list: Active Problems (1) Tobacco user , per nurse's notes. Physical Examination Vital Signs Vital Signs 01/24/2024 14:00 EDT Peripheral Pulse Rate 75 bpm Systolic Blood Pressure 124 mmHg HI Diastolic Blood Pressure 76 mmHg Mean Arterial Pressure, Cuff 92 mmHg Mean Arterial Pressure Cuff 99 mmHg SpO2 96 % 01/24/2024 13:04 EDT Temperature Oral 37 DegC Heart Rate Monitored 78 bpm Respiratory Rate 16 br/min Systolic Blood Pressure 142 mmHg HI Diastolic Blood Pressure 92 mmHg HI SpO2 97 % Oxygen Therapy Room air . Measurements 01/24/2024 13:04 EDT Height 188 cm Weight 90.72 kg Weight Dosing 90.720 kg Body Mass Index Measured 25.67 kg/m2 . General: Alert, no acute distress, Age-appropriate, normal developed 49-year-old male, awake and alert; he appears without obvious distress at this time. Skin: Warm, dry, intact. Head: Normocephalic, atraumatic. Neck: Supple, trachea midline, no tenderness. Eye: Normal conjunctiva. Ears, nose, mouth and throat: ENT evaluation is grossly unremarkable. There are no complaints of ENT symptoms. Hearing is intact and adequate. Nose is normal without rhinorrhea or congestion. No facial swelling or asymmetry. Lips are normal. Oral mucous membranes appear normal. . Cardiovascular: Regular rate and rhythm, No murmur, No edema. Respiratory: Lungs are clear to auscultation, respirations are non-labored, breath sounds are equal. Gastrointestinal: Soft, Nontender, Non distended, Normal bowel sounds. Back: Normal range of motio (more content not included)... [facility] ED Note-Nursingon 01-24-2024 ED Note-Nursing Pt ambulatory back to ED RM 8 C/O having diarrhea for 5 days, along with muscle cramps. Pt is half of 1 pill of gabapentin when usually takes two pills morning and night. Pt also has had a decrease of appetite and intakes of liquids. Pt stated I usually drink pop all day long and fireball before bed and i haven't been doing that The muscle cramps he stated feel like tori horses in the back of my calf Pt denies any belly tenderness. pt has active bowel sounds. Pt denies being around any one who's been sick. pt is A/Ox4 call light within reach [facility] ED Patient Summaryon 024 ED Patient Summary [facility] - Emergency Department [address] [place], [place] [id number] PATIENT DISCHARGE INSTRUCTIONS Patient Information Name: JEFFRY MARTIN Age: 49 Years Date of : 1975 [facility]: [id number] Reason For Visit: UC - Muscle Twitches; Diarrhea; Abdominal pain; BILATERAL LEG SPASM, LFT BACK PAIN, DIARRHEA Arrival Time: 01/24/2024 12:55:30 Primary Care Physician: Attending Physician: Sebastian Chirinos MD Comment: Visit Diagnosis: Diagnoses This Visit Abdominal pain ([id number]) Acute hypokalemia (E87.6) Diarrhea ([id number]) Hypocalcemia (E83.51) Muscle cramps at night (R25.2) UC - Muscle Twitches ([id number]) The Pharmacy at [facility] is open Sunday through Sunday from 9A to 6P and Sunday and Sunday from 9A to 5P Prescription Information: If you have been given a prescription for narcotics, seek immediate medical attention if you have any difficulty breathing or any sudden status changes such as confusion and sleepiness. If you or anyone you know is experiencing suicidal thoughts, mental health, alcohol and/or drug addiction problems; contact the [facility] 11/12 Crisis Hotline -Text 9GHVN bo 437888. If you received any narcotics, sedation, or any other medication that causes drowsiness for the next 24 hours, unless otherwise directed: ? Do not drive a car. ? Do not operate machinery such as power tools, lawn mowers, drills, sewing machines, or stoves ? Avoid alcoholic beverages and drugs for allergies, nerves, or sleep ? Do not make important personal or business decisions or sign any legal documents With: Address: When: TAMIKA MILLERN [address] [place], [place] [id number] Business (1) Within 5 to 7 days Comments: Review after care instructions. Continue with the current treatment as outlined by the ER physician, Dr Chirinos. Take medication as prescribed. Contact your assigned on-call doctor for a follow-up appointment if you do not have a local family doctor or PCP. Alternatively, you may also follow-up in the Urgent Care at [facility] if you are not able to get an appointment with a family doctor within the recommended time. Call the emergency department if you have any questions or concerns regarding your treatment today. Return to the emergency department if you have significant symptoms that concerns you. Medication Information: The exam and treatment you received today in the [facility] Emergency Department were for an urgent problem and are not intended as complete care. It is important for you to follow up with a doctor, nurse practitioner, or physician?s assistant secretary for ongoing care. If your symptoms become worse or you do not improve as expected and you are unable to reach your usual health care provider, you should return to the Emergency Department, we are available 24 hours a day. For those patients who have received Radiology results, the interpretation of your X-ray as given to you by our Emergency Department physician is only a preliminary report. The Radiologist will review your films and if there is a change in the diagnosis you will be notified by phone. Please make sure you have provided a working phone number so we can reach you if necessary. In the event that you had a lab culture while you were a patient in the Emergency Department, you will be notified by phone if there is a need to change your antibiotic. Please make sure you have provided a working phone number so we can reach you if necessary. [facility] Emergency Department has provided you with a complete list of medications post discharge. Please inform your oak tanner/provider of your visit and for further instruction on these medications. Any specific questions regarding your chronic medications and dosages should be discussed with your primary care physician(s) and/or pharmacist. New Medications Printed Prescriptions calcium carbonate (calcium carbonate 500 mg (200 mg elemental calcium) oral tablet, chewable) 1 tab(s) Chewed 2 times per day for 7 Days. Refills: 0. potassium bicarbonate (potassium bicarbonate 25 mEq oral tablet, effervescent) 1 tab(s) Oral (given by mouth) every day for 7 Days. dissolve in water or juice. Refills: 0. Medications to Continue That Have Not Changed Other Medications gabapentin (gabapentin 800 mg oral tablet) Oral (given by mouth) 2 times per day. Visit Information Allergies: Substance Reaction Symptoms Type Comments codeine Drug Vital Signs: Vitals and Measurements this Visit (last charted value for your 01/24/2024 visit) Vital Signs This Visit Temperature Oral: 37 DegC Peripheral Pulse Rate: 75 bpm Heart Rate Monitored: 78 bpm Respiratory Rate: 16 br/min Systolic Blood Pressure: 118 mmHg Diastolic Blood Pressure: 81 mmHg Mean Arterial Pressure, Cuff (more content not included)... Normal [facility] Extra Blueon 01-24-2024 Tube Collected Yes Invalid Interpretation Code [facility] Comment on above: Performed By: #### 1 [id number] #### [facility] (DEFAULT) [address] [place] [address] Magnesiumon 01-24-2024 Magnesium [Mass/Vol] 2.02 mg/dL Normal 1.80-2.50 [facility] Comment on above: Performed By: #### 1 [id number] #### [facility] (DEFAULT) [address] [place] [address] Electrocardiogramon 11-24-19 17 Electrocardiogram Normal [facility] Encounters Encounter Date Encounter Type Care Provider Facility Start: 01-24-2024 End: 01-24-2024 Emergency department patient visit Sebastian Chirinos Facility[facility] Start: 11-22-2016 End: 11-23-2016 Ambulatory Italia Arrington Facility:[facility] Payers Date Payer Category Payer Medicaid [id number] 2016 Medicaid [id number] 1975 Unknown [id number] Clinical Note 01-24-2024 Note Date & Type Note Facility 01-24-2024 Note Education [employer] Endocrinology Hypocalcemia, Adult Hypocalcemia is when the level of calcium in a person's blood is below normal. Calcium is a mineral that is used by the body in many ways. Not having enough blood calcium can affect the nervous system. This can lead to problems with the muscles, the heart, and the brain. What are the causes? This condition may be caused by: ? A deficiency of vitamin D or magnesium or both. ? Decreased levels of parathyroid hormone (hypoparathyroidism). ? Kidney function problems. ? Low levels of a body protein called albumin. ? Inflammation of the pancreas (pancreatitis). ? Not taking in enough vitamins and minerals in the diet or having intestinal problems that interfere with absorption of nutrients. ? Certain medicines. What are the signs or symptoms? Symptoms of this condition may include: ? Numbness and tingling in the fingers, toes, or around the mouth. ? Muscle twitching, aches, or cramps, especially in the legs, feet, and back. ? Spasm of the voice box. This may make it difficult to breathe or speak. ? Fast heartbeats (palpitations) and abnormal heart rhythms (dysrhythmias). ? Shaking uncontrollably (seizures). ? Memory problems, confusion, or difficulty thinking. ? Depression, anxiety, irritability, or changes in personality. Long-term (chronic) symptoms of this condition may include: ? Coarse, brittle hair and nails. ? Dry skin or lasting skin diseases. These include psoriasis, eczema, or dermatitis. ? Dental cavities. ? Clouding of the eye lens (cataracts). Some people may not have any symptoms, especially if they have chronic hypocalcemia. How is this diagnosed? This condition is usually diagnosed with a blood test. You may also have other tests to help determine the underlying cause of the condition. This may include more blood tests and imaging tests. How is this treated? This condition may be treated with: ? Calcium given by mouth or through an IV. The method used for giving calcium will depend on the severity of the condition. If your condition is severe, you may need to be closely monitored in the hospital. ? Giving other minerals (electrolytes), such as magnesium. Other treatment will depend on the cause of the condition. Follow these instructions at home: ? Follow diet instructions from your health care provider or dietitian. ? Take supplements only as told by your health care provider. Do not take an iron supplement within 2 hours of taking a calcium supplement. ? Keep all follow-up visits. This is important. Contact a health care provider if: ? You have increased muscle twitching or cramps. ? You have new swelling in the feet, ankles, or legs. ? You develop changes in mood, memory, or personality. Get help right away if: ? You have chest pain. ? You have persistent rapid or irregular heartbeats. ? You have trouble breathing. ? You faint. ? You start to have seizures. ? You have confusion. These symptoms may represent a serious problem that is an emergency. Do not wait to see if the symptoms will go away. Get medical help right away. Call your local emergency services (911 in the [place] Do not drive yourself to the hospital. Summary ? Hypocalcemia is when the level of calcium in a person's blood is below normal. Not having enough blood calcium can affect the nervous system. ? This condition may be treated with calcium given by mouth or through an IV, or by receiving other minerals. Other treatment depends on the cause of the condition. ? Take supplements only as told by your health care provider. ? Contact a health care provider if you have new or worsening symptoms. ? Keep all follow-up visits. This is important. This information is not intended to replace advice given to you by your health care provider. Make sure you discuss any questions you have with your health care provider. Document Revised: 10/12/2021 Document Reviewed: 10/12/2021 [employer] Patient Education ? 2023 [employer]. Gastroenterology Hypokalemia Hypokalemia means that the amount of potassium in the blood is lower than normal. Potassium is a mineral (electrolyte) that helps regulate the amount of fluid in the body. It also stimulates muscle tightening (contraction) and helps nerves work properly. Normally, most of the body's potassium is inside cells, and only a very small amount is in the blood. Because the amount in the blood is so small, minor changes to potassium levels in the blood can be life-threatening. What are the causes? This condition may be caused by: ? Antibiotic medicine. ? Diarrhea or vomiting. Taking too much of a medicine that helps you have a bowel movement (laxative) can cause diarrhea and lead to hypokalemia. ? Chronic kidney disease (CKD). ? Medicines that help the body get rid of excess fluid (diuretics). ? Eating disorders, such as anorexia or bulimia. ? Low magnesium levels in the bod (more content not included)... [facility] Summary Purpose Family History No Family History Records FoundNo Family History Records Found Advance Directives No Advanced Directives Records FoundNo Advanced Directives Records Found Additional Source Comments (unrecognized sect ion and content) No Status Records FoundNo Status Records Found INFORMATION SOURCE (unrecogn ized section and content) DATE CREATED AUTHOR 11/14/2017 [facility] DATE CREATED AUTHOR AUTHOR'S PATY MAYFIELD 02/01/2024 [facility] FOR RECORDS PERTAINING TO PATIENTS WHO ARE OR HAVE BEEN ENROLLED IN A CHEMICAL DEPENDENCY/SUBSTANCEABUSE PROGRAM, SOME INFORMATION MAY BE OMITTED. This clinical summary was aggregated from multiple sources. Caution should be exercised in using it in the provision of clinical care. This summary normalizes information from multiple sources, and as a consequence, information in this document may materially change the coding, format and clinical context of patient data. In addition, data may be omitted in some cases. CLINICAL DECISIONS SHOULD BE BASED ON THE PRIMARY CLINICAL RECORDS. [facility] [employer] provides no warranty or guarantee of the accuracy or completeness of information in this document.
[2024-07-02 11:52] LABS: Basophils Absolute Auto 0.1 10^3/uL (0.0-0.1); Basophils Percent Auto 0.7 % (0.2-2.0); Eosinophils Absolute Auto 0.2 10^3/uL (0.0-0.7); Eosinophils Percent Auto 2.8 % (0.9-7.0); Hemoglobin 16.8 g/dL (14.0-18.0); Immature Granulocytes Abs Auto 0.02 10^3/uL (0.00-0.03); Immature Granulocytes Pct Auto 0.2 % (0.0-0.5); Lymphocytes Percent Auto 36.5 % (20.5-60.0); Mean Corpuscular HGB Conc 35.7 g/dL (29.9-35.2); Mean Corpuscular Hemoglobin 33.3 pg (25.9-34.0); Mean Corpuscular Volume 93.1 fL (80.0-94.0); Mean Platelet Volume 12.1 fL (9.5-13.5); Monocytes Absolute Auto 0.6 10^3/uL (0.3-0.8); Monocytes Percent Auto 6.8 % (1.7-12.0); Neutrophils Absolute Auto 4.4 10^3/uL (1.4-6.5); Platelet Count 148 10^3/uL (150-450); Red Blood Count 5.05 10^6/uL (4.70-6.10); Red Cell Distribution Width 13.2 % (11.0-15.0); White Blood Count 8.2 10^3/uL (4.0-11.0)
[2024-07-02 12:03] LABS: Estimated Average Glucose 103 mg/dL; Glycohemoglobin A1C 5.2 % (4.5-6.2)
[2024-07-02 12:48] LABS: Alanine Aminotransferase 166 U/L (16-63); Albumin Globulin Ratio 0.9; Albumin Level 3.6 g/dL (3.4-5.0); Alkaline Phosphatase 49 U/L (46-116); Anion Gap 12.2; Aspartate Amino Transferase 151 U/L (15-37); BUN Creatinine Ratio 10.9; Bilirubin Total 0.4 mg/dL (0.2-1.0); Calcium 8.7 mg/dL (8.5-10.1); Carbon Dioxide 26.6 mmol/L (21.0-32.0); Chloride 107 mmol/L (98-107); Estimated GFR (African America >60 (>=60 mL/min/1.73m^2); Estimated GFR (Non-African Ame >60 (>=60 mL/min/1.73m^2); Globulin 3.8 g/dL; Glucose 99 mg/dL (74-106); Magnesium 2.3 mg/dL (1.8-2.4); Potassium 4.8 mmol/L (3.5-5.1); Sodium 141 mmol/L (136-145); Total Protein 7.4 g/dL (6.4-8.2)
== END 2024-07-02 11:27 | disposition home or self-care (01) ==
LOC: LAB 11:31
PROVIDERS: PCP Student in an Organized Health Care Education/Training Program; Visit Provider Student in an Organized Health Care Education/Training Program
DX: R25.2 Cramp and spasm (principal); B18.2 Chronic viral hepatitis C; I10 Essential (primary) hypertension; R63.5 Abnormal weight gain; E87.6 Hypokalemia
CPT/HCPCS: 36415; 80053; 83036; 83735; 84443; 85025; 87522

== ENCOUNTER 2024-07-23 10:30 | Emergency (ER) | payer OTHER, SELFPAY ==
[2024-07-23 10:34] VITALS: BP 170/120; PULSE 89; TEMP 36.5; O2SAT 96; BMI 30.8
--- NOTE | 2024-07-23 11:03 | ED.GENADUL1 ---
HPI HPI - General Adult General Chief complaint: Back Pain/Injury Stated complaint: RIB PAIN Time Seen by Provider: 07/23/24 10:33 Source: patient Mode of arrival: walk-in Limitations: no limitations History of Present Illness HPI narrative: Patient presents to ED complaining of left-sided rib pain. He said he was coughing last night in the middle the night and felt a pop. Said he has not really been sick lately he just smokes a lot and that causes a chronic cough. He also has high blood pressure. He is supposed to take lisinopril but the increase his dose from 5 mg to 20 mg and he felt like it was making him lightheaded so he has not been taking it. I discussed with him cutting his medication in half and taking 10 mg and he said he was going to try that. He said he smokes 2 to 3 packs a day and wants to quit. He quit in the past for about a year but restarted again and has been under a lot of stress. Patient states he has pain in the anterior rib as well as around into the back. No chest pain. Related Data Home Medications ?Medication ?Instructions ?Recorded ?Confirmed lisinopril 20 mg tablet 20 mg PO DAILY 07/23/24 07/23/24 Allergies Allergy/AdvReac Type Severity Reaction Status Date / Time codeine Allergy Severe Hives Verified 04/26/24 07:00 narcotics AdvReac recovering Uncoded 04/26/24 07:38 addict Opioid HPI Opioid Management Most Recent Opioid Data: No Data to Display Review of Systems ROS Status of ROS 10 or more systems reviewed and unremarkable except as noted in history and below PFSH PFSH Social History Little interest or pleasure in doing things: not at all Feeling down, depressed, or hopeless: not at all Exam Narrative Exam Narrative: General: alert, no acute distress Cardiovascular: regular rate and rhythm, normal peripheral perfusion. Respiratory: Lungs CTA, respirations non labored. No crepitus. Tenderness to palpation in the left anterior ribs and left posterior rib rib 5 Extremities: no deformity, no trauma. Neurological: oriented x 4, LOC appropriate for age. Constitutional Vital Signs, click to edit/add: Last Vital Signs Temp 97.7 F 07/23/24 10:34 Pulse 89 07/23/24 10:34 Resp 18 07/23/24 10:34 BP 170/120 H 07/23/24 10:34 Pulse Ox 96 07/23/24 10:34 O2 Del Method Room Air 07/23/24 10:34 Course Vital Signs Vital signs: Vital Signs Temperature 97.7 F 07/23/24 10:34 Pulse Rate 89 07/23/24 10:34 Respiratory Rate 18 07/23/24 10:34 Blood Pressure 170/120 H 07/23/24 10:34 Pulse Oximetry 96 07/23/24 10:34 Oxygen Delivery Method Room Air 07/23/24 10:34 Temperature 97.7 F 07/23/24 10:34 Pulse Rate 89 07/23/24 10:34 Respiratory Rate 18 07/23/24 10:34 Blood Pressure 170/120 H 07/23/24 10:34 Pulse Oximetry 96 07/23/24 10:34 Oxygen Delivery Method Room Air 07/23/24 10:34 Medical Decision Making MDM Narrative Medical decision making narrative: Patient's x-ray shows no acute rib fracture no pneumothorax. Patient counseled on his smoking habits. Patient instructed to take half of his blood pressure pill and see if that helps his symptoms. Return to ED if worsening symptoms. Incentive spirometer sent for home. Take Tylenol and Motrin for pain. Patient has a history of opiate abuse and did not want anything stronger for pain at this time. Patient is comfortable with care plan for home. Differential Diagnosis Differential Diagnosis: Rib fracture rib strain pneumothorax ECG Data Attestation: ?I have reviewed the pertinent ECG results. Smoking Cessation Time spent discussing smoking cessation with patient: 3 to 10 minutes Patient Acknowledges Need for Cessation: Yes Discharge Plan Discharge Chief Complaint: Back Pain/Injury Clinical Impression: Rib sprain Patient Disposition: Home, Self-Care Time of Disposition Decision: 11:09 Condition: Good Mode of Transportation: Private Vehicle Prescriptions / Home Meds: No Action lisinopril 20 mg tablet 20 mg PO DAILY Print Language: Bahraini Instructions: Costochondritis (ED) Referrals: Nakul Patricio DO [Primary Care Provider] - 1 week
== END 2024-07-23 11:19 | disposition home or self-care (01) ==
PROVIDERS: Emergency Provider Emergency Medicine; PCP Student in an Organized Health Care Education/Training Program
DX: S23.41XA Sprain of ribs, initial encounter (principal); X58.XXXA Exposure to other specified factors, initial encounter; I10 Essential (primary) hypertension; R05.3 Chronic cough; T46.4X6A Underdosing of angiotensin-converting-enzyme inhibitors, initial encounter; Z91.128 Patient's intentional underdosing of medication regimen for other reason; F17.210 Nicotine dependence, cigarettes, uncomplicated; F11.11 Opioid abuse, in remission
CPT/HCPCS: 71101; 99283

== ENCOUNTER 2024-08-25 16:03 | Outpatient (OUT) | payer OTHER, SELFPAY ==
[2024-08-25 16:30] LABS: Basophils Absolute Auto 0.1 10^3/uL (0.0-0.1); Basophils Percent Auto 0.8 % (0.2-2.0); Eosinophils Absolute Auto 0.3 10^3/uL (0.0-0.7); Eosinophils Percent Auto 3.9 % (0.9-7.0); Hematocrit 46.8 % (42.0-54.0); Hemoglobin 16.9 g/dL (14.0-18.0); Immature Granulocytes Abs Auto 0.02 10^3/uL (0.00-0.03); Immature Granulocytes Pct Auto 0.2 % (0.0-0.5); Lymphocytes Absolute Auto 3.2 10^3/uL (1.2-3.8); Lymphocytes Percent Auto 38.8 % (20.5-60.0); Mean Corpuscular HGB Conc 36.1 g/dL (29.9-35.2); Mean Corpuscular Hemoglobin 33.4 pg (25.9-34.0); Mean Corpuscular Volume 92.5 fL (80.0-94.0); Mean Platelet Volume 11.8 fL (9.5-13.5); Monocytes Absolute Auto 0.5 10^3/uL (0.3-0.8); Monocytes Percent Auto 6.6 % (1.7-12.0); Neutrophils Absolute Auto 4.1 10^3/uL (1.4-6.5); Neutrophils Percent Auto 49.7 % (43.0-75.0); Platelet Count 153 10^3/uL (150-450); Red Blood Count 5.06 10^6/uL (4.70-6.10); Red Cell Distribution Width 12.7 % (11.0-15.0); White Blood Count 8.2 10^3/uL (4.0-11.0)
[2024-08-25 16:45] LABS: Erythrocyte Sedimentation Rate 13 mm/hr (<=20)
[2024-08-25 16:49] LABS: Alanine Aminotransferase 203 U/L (16-63); Albumin Globulin Ratio 0.8; Albumin Level 3.5 g/dL (3.4-5.0); Alkaline Phosphatase 64 U/L (46-116); Anion Gap 11.2; Aspartate Amino Transferase 121 U/L (15-37); BUN Creatinine Ratio 8.4; Bilirubin Total 0.6 mg/dL (0.2-1.0); C Reactive Protein 0.51 mg/dL (<=0.50); Calcium 9.3 mg/dL (8.5-10.1); Carbon Dioxide 29.5 mmol/L (21.0-32.0); Chloride 103 mmol/L (98-107); Estimated GFR (African America >60 (>=60 mL/min/1.73m^2); Estimated GFR (Non-African Ame >60 (>=60 mL/min/1.73m^2); Globulin 4.2 g/dL; Glucose 127 mg/dL (74-106); Potassium 3.7 mmol/L (3.5-5.1); Sodium 140 mmol/L (136-145); Total Protein 7.7 g/dL (6.4-8.2)
[2024-08-27 06:08] LABS: Rheumatoid Factor (RF) 79.3 IU/mL (<14.0)
[2024-08-27 12:08] LABS: ANA Direct Negative (Negative)
[2024-08-27 14:08] LABS: Anti-CCP Ab, IgG/IgA 7 units (0-19)
== END 2024-08-25 16:04 | disposition home or self-care (01) ==
PROVIDERS: PCP Student in an Organized Health Care Education/Training Program; Visit Provider Student in an Organized Health Care Education/Training Program
DX: M25.50 Pain in unspecified joint (principal)
CPT/HCPCS: 36415; 80053; 85025; 85652; 86038; 86140; 86200; 86431

== ENCOUNTER 2024-09-18 11:57 | Emergency (ER) | payer OTHER, SELFPAY ==
[2024-09-18 12:07] VITALS: BP 132/93; PULSE 77; TEMP 36.8; O2SAT 97; BMI 30.2
--- NOTE | 2024-09-18 12:19 | PC.NURSE ---
laceration to RFA, covered with gauze and Coban.
--- NOTE | 2024-09-18 14:18 | ED_ITS ---
HPI - Skin/Abscess/Foreign Bdy General Chief complaint: Skin/Abscess/Foreign Body Stated complaint: gash in right arm Time Seen by Provider: 09/18/24 14:18 Source: patient Mode of arrival: walk-in History of Present Illness HPI narrative: 49 year old male presents to the ED for a laceration to his right forearm. States he tripped over wiring today and cut himself on a piece of metal. His tetanus status is unknown. Denies weakness, N/T. He has full ROM to his right hand, wrist, digits. Related Data Home Medications ?Medication ?Instructions ?Recorded ?Confirmed lisinopril 20 mg tablet 20 mg PO DAILY 07/23/24 03/0 10/12 Allergies Allergy/AdvReac Type Severity Reaction Status Date / Time codeine Allergy Severe Hives Verified 04/26/24 07:00 narcotics AdvReac recovering Uncoded 04/26/24 07:38 addict Review of Systems ROS Constitutional Denies: fever or chills Ears, nose, mouth, and throat Denies: neck pain Cardiovascular Denies: chest pain Respiratory Denies: shortness of breath Integumentary/Breast Reports: other (right forearm laceration) Neurological Denies: numbness in extremities or weakness in extremities PFSH PFSH Social History Little interest or pleasure in doing things: not at all Feeling down, depressed, or hopeless: not at all Exam Constitutional Vital Signs, click to edit/add: Last Vital Signs Temp 98.3 F 09/18/24 12:07 Pulse 82 09/18/24 14:19 Resp 16 09/18/24 14:19 BP 134/84 09/18/24 14:19 Pulse Ox 96 09/18/24 14:19 O2 Del Method Room Air 09/18/24 12:07 Common normals: no apparent distress and oriented x3 General appearance: cooperative HENMT Common normals: moist oral mucous membranes Eye Common normals: conjunctivae normal and no scleral icterus Neck & C-Spine Common normals: supple Respiratory Common normals: normal respiratory effort Effort & inspection: able to speak in complete sentences and symmetric chest movement Cardio Common normals: regular rate Peripheral pulses: radial pulses present and ulnar pulses present Extremity Other: 4 cm laceration to right posterior forearm. No active bleeding. Sutures indicated. Wound appears superficial. Distal sensation intact. No swelling or deformity. Full ROM to right wrist, hand, and digits. Neuro Common normals: oriented x3, moves all extremities and no focal motor deficits Sensorium/orientation: awake and alert Speech: speech normal Course Vital Signs Vital signs: Vital Signs Temperature 98.3 F 09/18/24 12:07 Pulse Rate 77 09/18/24 12:07 Respiratory Rate 16 09/18/24 12:07 Blood Pressure 132/93 H 09/18/24 12:07 Pulse Oximetry 97 09/18/24 12:07 Oxygen Delivery Method Room Air 09/18/24 12:07 Temperature 98.3 F 09/18/24 12:07 Pulse Rate 82 09/18/24 14:19 Respiratory Rate 16 09/18/24 14:19 Blood Pressure 134/84 09/18/24 14:19 Pulse Oximetry 96 09/18/24 14:19 Oxygen Delivery Method Room Air 09/18/24 12:07 MDM - Skin/Abscess/Foreign Bdy MDM Narrative Medical decision making narrative: His wound was irrigated with NS and sutures were placed. A dressing was applied. Suture removal in 10-14 days. Wound care instructions were discussed. Follow up with pcp for a recheck. Discharge Plan Discharge Chief Complaint: Skin/Abscess/Foreign Body Clinical Impression: Forearm laceration Patient Disposition: Home, Self-Care Time of Disposition Decision: 14:56 Condition: Good Mode of Transportation: Private Vehicle Prescriptions / Home Meds: No Action lisinopril 20 mg tablet 20 mg PO DAILY Print Language: Citizen Of [place] Instructions: Laceration (ED) Additional Instructions: Keep the wound clean and dry. Gentle cleansing with soap and water is okay. Do not soak the wound. Watch for signs of infection: redness, purulent drainage, increased warmth, swelling. The stitches will need to be removed in 10-14 days. Referrals: Nakul Patricio DO [Primary Care Provider] - 1 week Discharge Date/Time: 09/18/24 15:20 Procedures Laceration Laceration Laceration 1: Site: upper extremity Side (if applicable): right Size (cm): 4 Anesthetic used: lidocaine 1% Anesthesia technique: local infiltration Pre-repair: wound explored and irrigated extensively Skin layer closed with: other (Prolene) Size (cm): 3-0 Number of sutures: 8 Technique: simple, interrupted Additional comments: The patient tolerated the procedure well.
[2024-09-18 14:19] VITALS: BP 134/84; PULSE 82; O2SAT 96
[2024-09-18] MEDS: ADACEL DIPH,PERTUSS(ACELL),TET VAC/PF 0.5 ML ADULT SYRINGE IM (14:38)
[2024-09-18] MEDS: LIDOCAINE HCL 1% 100 MG/10 ML MDV 20 ML INJ (15:08)
== END 2024-09-18 15:20 | disposition home or self-care (01) ==
PROVIDERS: Emergency Provider Emergency Medicine; PCP Student in an Organized Health Care Education/Training Program
DX: S51.811A Laceration without foreign body of right forearm, initial encounter (principal); W26.8XXA Contact with other sharp object(s), not elsewhere classified, initial encounter; Z23 Encounter for immunization
CPT/HCPCS: 12002; 90471; 90715; 99283

== ENCOUNTER 2024-11-19 12:37 | Emergency (ER) | payer OTHER, SELFPAY ==
--- OUTSIDE RECORDS SUMMARY | 2024-10-14 09:45 | XMS_ITS ---
Author Organization [facility] es Address [address] [place] [address] Care Team Providers Care Funeral Director Name Role Phone Nakul Patricio Primary Care Provider [phone] REASON FOR VISIT discuss med change Encounters Encounter Location Date Provider Diagnosis [facility] [address] [place] [address] 10/14/2024 Nakul Patricio Plan Of Treatment Next Appt Details Provider Name:Nakul jaramillo, 12/01/2024 03:15:00 PM, [address], [place], [address], Provider Name:Nakul jaramillo, 02/05/2025 02:00:00 PM, [address] [place], [address], Progress Notes * JEFFRY MARTINDOB:1975 (49 yo M)Acc No.[id number]:10/14/2024 Progress Notes Patient: JEFFRY NORTH Provider: Rachael Patricio :1975 A ge:49 Y S ex:Male Date:10/14/2024 Address:[address] [place] [address] , [id number] Subjective: * Chief Complaints: * 1 . Discuss med change. * Medical History: Objective: * Vitals: Assessment: Plan: * Treatment: * Images: * Electronic signature of Drew Patricio DO on 11/19/2024 at 12:49 PM EDT Sign off status: Pending * Provider: Rachael Patricio Date: 0 10/14/2024 Generated for Printi ng/Jaycob/Leodanitting on: 0 11/19/2024 12:49 PM EDT
--- OUTSIDE RECORDS SUMMARY | 2024-10-28 10:15 | XMS_ITS ---
Author Organization [facility] es Address [address] [place] [address] Care Team Providers Care Content Developer Name Role Phone Nakul Patricio Primary Care Provider REASON FOR VISIT discuss med change Encounters Encounter Location Date Provider Diagnosis [facility] [address] [place] [address] 10/28/2024 Nakul Patricio Plan Of Treatment Next Appt Details Provider Name:Nakul jaramillo, 12/01/2024 03:15:00 PM, [address], [place], [address], Provider Name:Nakul jaramillo, 02/05/2025 02:00:00 PM, [address] [place], [address], Progress Notes * JEFFRY MARTINDOB:1975 (49 yo M)Acc No.[id number]:10/28/2024 Progress Notes Patient: JEFFRY NORTH Provider: Rachael Patricio :1975 A ge:49 Y S ex:Male Date:10/28/2024 Address:[address] [place] [address] , [id number] Subjective: * Chief Complaints: * 1 . Discuss med change. * Medical History: Objective: * Vitals: Assessment: Plan: * Treatment: * Images: * Electronic signature of Drew Patricio DO on 11/19/2024 at 12:49 PM EDT Sign off status: Pending * Provider: Rachael Patricio Date: 0 10/28/2024 Generated for Printi ng/Jaycob/Leodanitting on: 0 11/19/2024 12:49 PM EDT
--- OUTSIDE RECORDS SUMMARY | 2024-11-05 09:45 | XMS_ITS ---
Author Organization [facility] Servic es Address [address] [place] [address] Care Team Providers Care Veterinary Milk Specialist Name Role Phone Nakul Patricio Primary Care Provider [phone] Allergies Allergen (clinical drug ingredient) Drug/Non Drug Allergy documented on EMR Reaction Allergy Type Onset Date Status codeine Codeine hives Drug Allergy Active REASON FOR VISIT DISCUSS MED CHANGE Medications Medication SIG (Take, Route, Frequency, Duration) Notes Start Date End Date Status Losartan Potassium 25 MG 1 tablet Orally Once a day; Duration: 30 day(s) 07/28/2024 Active Gabapentin 600 MG 1 capsule Orally thr ee times a day; Duration: 30 days Active Mavyret 100-40 MG 3 tablets Orally Onc e a day; Duration: 84 days 08/01/2024 12/03/2024 Active Social History Sexual Hx: Question Answer Notes Had sex in the last 12 months (vaginal, oral, or anal)? No Have you ever had an STD? No AUDIT-C (Standard) Question Answer Notes Did you have a drink contain ing alcohol in the past year? Yes How often did you have a dri nk containing alcohol in the past year? 2 to 4 times a month (2 points) How many drinks did you have on a typical day when you were drinking in the past year? 3 or 4 drinks (1 point) How often did you have six o r more drinks on one occasion in the past year? 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 Tolerating dose well. Will prescribe this and plan to reevaluate at follow-up 11/05/2024 Other Body Mass Index : Care Instructions material was published, Body Mass Index: Care Instructions material was printed Plan Of Treatment Medication Medication Name Sig Start Date Stop Date Notes Gabapentin 600 MG 1 capsule Orally thr ee times a day; Duration: 30 days Treatment Notes Assessment Notes Neuropathy of right peroneal nerve Patie nt with good benefit from 600 mg tablets. Tolerating dose well. Will prescribe this and plan to reevaluate at follow-up Other Body Mass Index: Car e Instructions material was published, Body Mass Index: Care Instructions material was printed Next Appt Details Follow Up: 3 Months, Reason: chronic care Provider Name:Nakul jaramillo, 12/01/2024 03:15:00 PM, [address] [place], [address], Provider Name:Nakul jaramillo, 02/05/2025 02:00:00 PM, [address] [place], [address], Progress Notes * JEFFRY MARTINDOB:1975 (49 yo M)Acc No.[id number]:11/05/2024 Progress Notes Patient: JEFFRY NORTH Provider: Rachael Patricio :1975 A ge:49 Y S ex:Male Date:11/05/2024 Address:[address] [place], [place] [phone] Subjective: * Chief Complaints: * 1 . DISCUSS MED CHANGE. * HPI: C onstitutional: Patient presents to discuss dosage change on gabapentin. Patient currently taking 400 mg capsules. Patient states he did take with his mom 600 mg tablets and it works muchbetter for him. Patient denies any issues with medication. No other associated plaints or other acute complaints today. * ROS: G eneral Review of Systems: General D enies fever, chills, weight loss. E yes D enies vision changes, no double vision or blurry vision. . H EENT D enies sore throat, ear pain., Denies fevers , chills, Denies nasal congestion, or pressure, Denies hoarseness, change in voice, difficulty swallowing. C ardiovascular D enies chest pain, palpitations, exertional dyspnea. R espiratory D enies cough, dyspnea, wheezing, sputum production, hemoptysis. G astrointestinal D enies abdominal pain, nausea, vomiting, diarrhea, or constipation. Denies blood in stool or changes in bowel habits.. G enitourinary D enies urgency, frequency, dysuria, hematuria. M usculoskeletal D enies joint pain, myalgias. D ermatology D enies rashes or lesions. N eurological D enies any lightheadedness, dizziness, headache, new numbness or tingling in hands or feet. . 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 * Family History: F ather: . M other: alive, diagnosed with Hypertension. 1 brother(s) , 1 sister(s) - healthy. 3 son(s) , 2 daughter(s) . . dad COPD and stroke. * Social History: G eneral: B ehaviors affecting health P oor/Risky Behaviors: D enies- Substance abuse/mental health issues of patient/family P atient - A lcohol Social/Support Concerns P atient: N o Ability to understand healthcare/treatment P atient: G ood Communication Barrier L anguage Barrier?: N ot Needed Sexual Hx H ad sex in the last 12 months (vaginal, oral, or anal)? N o H ave you ever had an STD? N o D rug/Alcohol: A VANESSA-C (Standard) D id you have a drink containing alcohol in the past year? Y es H ow often did you have a drink containing alcohol in the past year? 2 to 4 times a month (2 points) H ow many drinks did you have on a typical day when you were drinking in the past year? 3 or 4 drinks (1 point) H ow often did you have six or more drinks on one occasion in the past year? 2 to 4 times a month (2 points) P oints 5 I nterpretation P ositive * Medications: T aking Mavyret 100-40 MG Tablet 3 tablets Orally Once a day , stop date 12/03/2024, Taking Losartan Potassium 25 MG Tablet 1 tablet Orally Once a day , Taking Gabapentin 400 MG Capsule 1 capsule Orally three times a day , Medication List reviewed and reconciled with the patient * Allergies: C odeine: hives - Allergy. Objective: * Vitals: H t: 72 in, Wt: 235.8 lbs, BMI:31.98Index, Temp: 97.5 F, BP: 120/84 mm Hg, SaO2:100%, HR: 98 /min, RR: 20 /min. * Examination: G eneral Examination: GENERAL APPEARANCE: A lert and oriented, in no acute distress, pleasant. EYES: e xtra ocular muscles intact (EOMI) bilaterally, no discharge, pupils, equal, round, reactive to light and accomodation (PERRLA), sclera clear. NECK/THYROID: t rachea is midline, no adenopathy, normal thyroid without masses or nodules. CARDIOVASCULAR: R egular rate and rhythm, S1/S2 are normal, no murmurs, rubs, or gallops. PERIPHERAL PULSES: r adial pulses +2/4 bilaterally, posterior tibial pulses +2/4 bilaterally. RESPIRATORY: c lear to auscultation bilaterally, good breath sounds bilaterally, no wheezes, rhonchi, rales. GASTROINTESTINAL: A bdomen Soft, not tender, positive bowel sounds in all 4 quadrants, no guarding.. NEUROLOGIC EXAM: C N's II-XII grossly intact , alert and oriented x 3 , normal gait. SKIN: m oist, warm, unremarkable, no rash. EXTREMITIES: b ilaterally no clubbing, cyanosis, or edema.? MUSCULOSKELETAL: N ormal ROM and strength is 5/5 throughout, normal inspection, no effusions, no swelling or deformity. Assessment: * Assessment: 1. N europathy of right peroneal nerve - G57.31 (Primary) Plan: * Treatment: 2. O thers Notes: Body Mass Index: Care Instructions material was published, Body Mass Index: Care Instructions material was printed * Procedure Codes: 3 079F DIAST BP 80-89 MM HG, 3074F SYST BP LT 130 MM HG, 1160F RVW MEDS BY RX/DR IN RD * Preventive Medicine: COUNSELING: C ommunication to patient: Counseling for Nutrition Provided Y es Counseling for Physical Activity Provided Y es BMI management provided Y es Nutrition/Dietary Counseling provided?Yes * Follow Up: 3 Months (Reason: chronic care) * Images: * Sign off status: Completed true * Provider: Rachael Patricio Date: 0 11/05/2024 Generated for Katie de león/Jaycob/Klaudia on: 0 11/19/2024 12:49 PM EDT History and Physical Notes * HPI (History of Present Illness) Category Sub-Category Detail Notes Category Not es Constitutional Patient prese nts to discuss dosage change on gabapentin. Patient currently taking 400 mg capsules. Patient states he did take with his mom 600 mg tablets and it works muchbetter for him. Patient denies any issues with medication. No other associated plaints or other acute complaints today. Examination Category Sub-Category Detail Notes Category Not es General Examination NECK/THYROID: trachea is m idline, no adenopathy, normal thyroid without masses or nodules CARDIOVASCULAR: Regular rate and rhy thm, S1/S2 are normal, no murmurs, rubs, or gallops RESPIRATORY: clear to auscultatio n bilaterally, good breath sounds bilaterally, no wheezes, rhonchi, rales GASTROINTESTINAL: Abdomen Soft, not te nder, positive bowel sounds in all 4 quadrants, no guarding. EXTREMITIES: bilaterally no clubb ing, cyanosis, or edema GENERAL APPEARANCE: Alert and oriented, in no acute distress, pleasant SKIN: moist, warm, unremar kable, no rash NEUROLOGIC EXAM: CN's II-XII grossly intact , alert and oriented x 3 , normal gait PERIPHERAL PULSES: radial pulses +2/4 b ilaterally, posterior tibial pulses +2/4 bilaterally MUSCULOSKELETAL: Normal ROM and stren gth is 5/5 throughout, normal inspection, no effusions, no swelling or deformity EYES: extra ocular muscles intact (EOMI) bilaterally, no discharge, pupils, equal, round, reactive to light and accomodation (PERRLA), sclera clear
[2024-11-19 12:40] VITALS: BP 164/115; PULSE 84; TEMP 37.2; O2SAT 97; BMI 30.2
--- NOTE | 2024-11-19 12:47 | ED.GENADUL1 ---
HPI HPI - General Adult General Chief complaint: Nausea/Vomiting/Diarrhea Stated complaint: DIARRHEA WEAKNESS HEADACHE Time Seen by Provider: 11/19/24 12:39 Source: patient Mode of arrival: walk-in Limitations: no limitations History of Present Illness HPI narrative: 49-year-old male presents to the emergency department for chief complaint of diarrhea which she has had for a week. He has been going multiple times a day and already today has had 3 episodes of diarrhea. No blood in it. He has had no recent hospitalizations or antibiotic use or known ill contacts. He felt a little bit dizzy and weak so he came in to get checked. Related Data Home Medications ?Medication ?Instructions ?Recorded ?Confirmed gabapentin 600 mg tablet 600 mg PO Q8H 11/19/24 11/19/24 losartan 25 mg tablet 25 mg PO DAILY 11/19/24 11/19/24 Allergies Allergy/AdvReac Type Severity Reaction Status Date / Time codeine Allergy Severe Hives Verified 11/19/24 12:47 narcotics AdvReac recovering Uncoded 11/19/24 12:47 addict Review of Systems ROS Narrative A ten point review of systems is negative except as noted above. PFSH PFSH Social History Little interest or pleasure in doing things: not at all Feeling down, depressed, or hopeless: not at all Exam Narrative Exam Narrative: Nurses note and vital signs reviewed and patient is not hypoxic. General: The patient appears well and in no apparent distress. Patient is resting comfortably on cart. Skin: Warm, dry, no pallor noted. There is no rash noted. Head: Normocephalic, atraumatic Eye: Normal conjunctiva, no drainage Ears, Nose, Mouth, and Throat: oral mucosa is moist. Nares patent. Cardiovascular: Regular Rate and Rhythm Respiratory: Patient is in no distress, no accessory muscle use, lungs are clear to auscultation, no wheezing, rales or rhonchi Back: non-tender GI: Soft and nontender Musculoskeletal: The patient has no evidence of calf tenderness, no pitting edema, symmetrical pulses noted bilaterally Neurological: A&O, normal speech Psychiatric: Cooperative Constitutional Vital Signs, click to edit/add: Last Vital Signs Temp 99 F 11/19/24 12:40 Pulse 84 11/19/24 12:40 Resp 18 11/19/24 12:40 BP 164/115 H 11/19/24 12:40 Pulse Ox 97 11/19/24 12:40 O2 Del Method Room Air 11/19/24 12:40 Course Vital Signs Vital signs: Vital Signs Temperature 99 F 11/19/24 12:40 Pulse Rate 84 11/19/24 12:40 Respiratory Rate 18 11/19/24 12:40 Blood Pressure 164/115 H 11/19/24 12:40 Pulse Oximetry 97 11/19/24 12:40 Oxygen Delivery Method Room Air 11/19/24 12:40 Temperature 99 F 11/19/24 12:40 Pulse Rate 84 11/19/24 12:40 Respiratory Rate 18 11/19/24 12:40 Blood Pressure 164/115 H 11/19/24 12:40 Pulse Oximetry 97 11/19/24 12:40 Oxygen Delivery Method Room Air 11/19/24 12:40 Medical Decision Making MDM Narrative Medical decision making narrative: Blood work is essentially normal. He was unable to provide us a stool specimen here and he is able to be discharged home. Treatment diagnosis and follow-up were discussed with the patient. Differential Diagnosis Differential Diagnosis: Gastroenteritis, dehydration Lab Data Lab results reviewed: Yes I reviewed the patient's lab results Labs: Lab Results 11/19/24 Range/Units 13:00 WBC 5.8 (4.0-11.0) 10^3/uL RBC 5.03 (4.70-6.10) 10^6/uL Hgb 17.0 (14.0-18.0) g/dL Hct 47.3 (42.0-54.0) % MCV 94.0 (80.0-94.0) fL MCH 33.8 (25.9-34.0) pg MCHC 35.9 H (29.9-35.2) g/dL RDW 12.8 (11.0-15.0) % Plt Count 147 L (150-450) 10^3/uL MPV 12.6 (9.5-13.5) fL Neut % (Auto) 46.8 (43.0-75.0) % Lymph % (Auto) 41.5 (20.5-60.0) % Clinch % (Auto) 6.8 (1.7-12.0) % Eos % (Auto) 3.5 (0.9-7.0) % Baso % (Auto) 1.2 (0.2-2.0) % Neut # (Auto) 2.7 (1.4-6.5) 10^3/uL Lymph # (Auto) 2.4 (1.2-3.8) 10^3/uL Clinch # (Auto) 0.4 (0.3-0.8) 10^3/uL Eos # (Auto) 0.2 (0.0-0.7) 10^3/uL Baso # (Auto) 0.1 (0.0-0.1) 10^3/uL Abs Immat Gran (auto) 0.01 (0.00-0.03) 10^3/uL Imm/Tot Granulo (auto) 0.2 (0.0-0.5) % Sodium 143 (136-145) mmol/L Potassium 4.3 (3.5-5.1) mmol/L Chloride 106 (98-107) mmol/L Carbon Dioxide 27.0 (21.0-32.0) mmol/L Anion Gap 14.3 BUN 13.0 (7.0-18.0) mg/dL Creatinine 0.94 (0.70-1.30) mg/dL Est GFR ( Amer) >60 (>=60 mL/min/1.73m^2) Est GFR (Non-Af Amer) >60 (>=60 mL/min/1.73m^2) BUN/Creatinine Ratio 13.8 Glucose 116 H (74-106) mg/dL Calcium 8.9 (8.5-10.1) mg/dL Discharge Plan Discharge Chief Complaint: Nausea/Vomiting/Diarrhea Clinical Impression: Gastroenteritis Patient Disposition: Home, Self-Care Time of Disposition Decision: 14:47 Condition: Good Mode of Transportation: Private Vehicle Prescriptions / Home Meds: No Action losartan 25 mg tablet 25 mg PO DAILY gabapentin 600 mg tablet 600 mg PO Q8H Print Language: Mongolian Instructions: Acute Nausea and Vomiting (ED), Acute Diarrhea (ED) Referrals: Nakul Patricio DO [Primary Care Provider] - 1 week
--- OUTSIDE RECORDS SUMMARY | 2024-11-19 12:49 | XMS_ITS | Clinical Summary ---
Author Organization Address [address] [place] [id number] Care Team Providers Care Strategic Account Director Name Role Phone Nakul Patricio DO Unavailable [phone] Nakul Patricio DO Primary Care Provider [phone] Encounters Date Type Department Care Team Description 10/24/2024 Transcribe Orders Referring Physician [address] [place] [id number] Nakul Patricio DO Rheumatoid arthritis, involving unspecified site, unspecified whether rheumatoid factor present (HCC) (Primary Dx) from Last 3 Months Social History Tobacco Use Types Packs/Day Years Used Date Smoking Tobacco: Never Assessed Sex and Gender Information Value Date Recorded Sex Assigned at Not on file Legal Sex Male 3:45 PM EDT Gender Identity Not on file Sexual Orientation Not on file Plan of Treatment Upcoming Encounters Date Type Department Care Team (Latest Contact Info) Description 12/24/2024 2:00 PM EDT [facility] Rheumatology [address] [place] [address] Kobe Berman MD [address] [place] [address] Rheumatoid Arthritis Health Maintenance Due Date Last Done Comments Anxiety Screening 01/23/1992 Depression Screening 01/23/1992 HIV Screening 01/23/1992 Hepatitis C Screening 01/23/1992 DTaP,Tdap,Td Vaccine (1 - Tdap) 1993 Hepatitis B Vaccine (1 of 3 - 19+ 3-dose series) 01/[address] Colonography 2019 Cologuard (FIT-DNA) 2019 Colonoscopy 2019 Colorectal Cancer Screening 2019 Diabetes Screening 2019 Fecal Occult Blood 2019 Sigmoidoscopy 2019 Covid-19 Vaccine (1 - 2023- season) 2024 Pneumococcal Vaccine: 50+ (1 of 1 - PCV) 01/23/2024 Shingrix Vaccine (1 of 2) 01/23/2024 Influenza Vaccine (Season Ended) 2025 Insurance [facility] Care Teams Strategic Account Director Relationship Specialty Start Date End Date Nakul Patricio DO [address] [place] [address] PCP - General Family Medicine 10/24/24 Nakul Patricio DO [address] [place] [address] Referring Family Medicine 10/24/24
--- OUTSIDE RECORDS SUMMARY | 2024-11-19 12:49 | XMS_ITS | Patient Health Record ---
Author Organization [facility] Address [address] [place] [address] Care Team Providers Care [employer]obile [employer] Travel Counselor Name Role Phone Nakul Patricio Primary Care Provider [phone] Allergies Allergen (clinical drug ingredient) Drug/Non Drug Allergy documented on EMR Reaction Allergy Type Onset Date Status codeine Codeine hives Drug Allergy Active Results Component Value Reference Range Notes Hep C RT-PCR, Qnt (Non-Graph ) Reviewed date:08/06/2024 01:14:22 PM Interpretation: Performing Lab:, [facility], [address] [place] Notes/Report: Reason for Exam Chronic hepatitis C without hepatic coma Hepatitis C Quantitation [id number] . [IU]/mL HCV Log10 6.820 . Result Units: l og10 IU/mL Test Information: Comment . The quantitative range of this assay is 15 IU/mL to 100 million IU/mL. Performed at: [address] [id number] Drill Bit Sharpener: Cristo Davalos MD, Phone: [phone] Thyroid Stim Hormone w/Rflx Reviewed date:08/06/2024 01:14:22 PM Interpretation: Performing Lab: Notes/Report: Reason for Exam Hypertension, essential;Calf cramp Reason for Exam Hypokalemia Reason for Exam Weight gain Thyroid Stim Hormone w/Rflx 0.92 0.45-5.33 u[i U]/mL Magnesium Reviewed date:08/06/2024 01:14:22 PM Interpretation: Performing Lab: Notes/Report: Reason for Exam Hypertension, essential;Calf cramp Reason for Exam Hypokalemia Reason for Exam Weight gain Magnesium 2.0 1.9-2.7 mg/dL Comprehensive Metabolic Pane l Reviewed date:08/06/2024 01:14:22 PM Interpretation: Performing Lab:, [facility], [address] Notes/Report: Reason for Exam Hypertension, essential;Calf cramp Reason for Exam Hypokalemia Reason for Exam Weight gain Glucose 87 70-100 mg/dL Random Glucose Reference Range is dependent on time and content of last meal. Glucose of more than 200 mg/dL in a nonstressed, ambulatory subject supports the diagnosis of Diabetes Mellitus. ADA recommended reference range Blood Urea Nitrogen 8 7-25 mg/dL Creatinine 0.92 0.70-1.30 mg/dL Sodium 141 136-145 mmol/L Potassium 4.5 3.5-5.1 mmol/L Chloride 107 98-107 mmol/L Carbon Dioxide 29.5 21.0-31.0 mmol/L Calcium 9.0 8.6-10.3 mg/dL Total Protein 7.2 6.4-8.9 g/dL Albumin Level 4.2 3.5-5.7 g/dL Globulin 3.0 Albumin/Globulin Ratio 1.4 Bilirubin,Total 0.7 0.3-1.0 mg/dL Aspartate Amino Transferase 193 13-39 U/L Alanine Aminotransferase 235 7-52 U/L Alkaline Phosphatase 46 34-104 U/L Estimated GFR >60.0 Anion Gap 9.0 6.0-15.0 meq/L A1C with Estimated Average G mariano Reviewed date:08/06/2024 01:14:22 PM Interpretation: Performing Lab:, [facility], [address] Notes/Report: Reason for Exam Weight gain Hemoglobin A1C 5.3 4.3-5.6 % Increased risk for diabetes: 5.7 - 6.4 diabetes: >6.4 glycemic control for adults with diabetes: <7.0 Estimated Average Glucose 105 Complete Blood Count Auto Di ff Reviewed date:08/06/2024 01:14:22 PM Interpretation: Performing Lab:, [facility], [address] Notes/Report: Reason for Exam Hypertension, essential White Blood Count 7.1 4.1-10.5 10*3/uL Uncorrected WBC 7.1 4.1-10.5 10*3/uL Red Blood Count 4.97 3.90-5.60 10*6/uL Hemoglobin 16.5 13.0-17.0 g/dL Hematocrit 47.0 38.8-50.0 % Mean Corpuscular Volume 94.6 83.5-101 fL Mean Corpuscular Hemoglobin 33.3 27.5-35.2 pg Mean Corpuscular HGB Conc 35.2 32.5-35.6 g/dL Red Cell Distribution Width 13.8 12.0-14.8 % Platelet Count 139 150-450 10*3/uL Mean Platelet Volume 10.9 6.6-10.1 fL Neutrophils % (Auto) 59.2 . % Lymphocytes % (Auto) 31.2 . % Monocytes % (Auto) 6.8 . % Eosinophils % (Auto) 1.9 . % Basophils % (Auto) 0.9 . % NRBC% 0.1 0-0.5 /100{WBC} Neutrophils # (Auto) 4.2 1.8-7.7 10*3/uL Lymphocytes # (Auto) 2.2 1.00-4.8 10*3/uL Monocytes # (Auto) 0.5 0.0-0.8 10*3/uL Eosinophils # (Auto) 0.1 0.0-0.45 10*3/uL Basophils # (Auto) 0.1 0.0-0.2 10*3/uL Reason For Referral Reason SCHEDULED 07/30 pre vious partial Hep C treatment, Hep C rna positive Diagnosis 1 Chronic hepatitis C without hepatic coma (B18.2) Referral Organization [facility] Referring Provider First Name Nakul Referring Provider Last Name Sheng Referring Provider [facility] acosta Referred Provider [facility] , . Referred Provider Specialty Gastroentero logy Referral Priority Routine Reason *FAXED 10/22 TO [facility] RE FERRAL DEPT needs new operational intelligence officer Diagnosis 1 Rheumatoid arthritis involving multiple sites with positive rheumatoid factor (M05.79) Referral Organization [facility] Referring Provider First Name Nakul Referring Provider Desmond Name Sheng Referring Provider [facility] cteliel Referred Provider Specialty Rheumatology Referral Priority Routine Medications Medication SIG (Take, Route, Frequency, Duration) Notes Start Date End Date Status Gabapentin 600 MG 1 capsule Orally thr ee times a day; Duration: 30 days Active Losartan Potassium 25 MG 1 tablet Orally Once a day; Duration: 30 days 07/28/2024 Active Mavyret 100-40 MG 3 tablets Orally Onc e a day; Duration: 84 days 08/01/2024 12/03/2024 Active Social History Tobacco Use: Social History Observation Description Date Details (start date - stop date) Current Smoker NA - NA Sexual Hx: Question Answer Notes Had sex [...] month (2 points) Points 5 Interpretation Positive Tobacco Control (Standard) Question Answer Notes Tobacco use: Current smoker How often do you smoke cigarettes? Every day How many cigarettes a day do you smoke? 6-10 How soon after you wake up d o you smoke your first cigarette? 6-30 minutes Are you interested in quitting? Thinking about q uitting Problems Problem Type SNOMED Code ICD Code Onset Dates Problem Status W/U Status Risk Notes Problem Tobacco user (116967105) Nicotine dependence, unspecified, uncomplicated (F17.200) Active confirmed Problem Essential hypertension (91444735) Hypertension, essential (I10) Active confirmed Problem Chronic hepatitis C (219638320) Chronic hepatitis C without hepatic coma (B18.2) Active confirmed Problem Sciatica (24646823) Lumbago of lumbar region with sciatica (M54.40) Active confirmed Problem Rheumatoid arthritis (78089436) Rheumatoid arthritis involving multiple sites with positive rheumatoid factor (M05.79) Active confirmed Problem Common peroneal nerve lesion (457813364) 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) Active confirmed Problem Common peroneal nerve lesion (708921452) 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) Active confirmed Vital Signs Heart Rate 98 /min 11/05/2024 Temperature 97.5 degrees Fahrenheit 11/05/2024 Respiratory Rate 20 /min 11/05/2024 Oximetry 100 % 11/05/2024 Blood pressure diastolic 84 mm Hg 11/05/2024 Height 72 in 11/05/2024 Blood pressure systolic 120 mm Hg 11/05/2024 Weight 235.8 lbs 11/05/2024 BMI 31.98 kg/m2 11/05/2024 Encounters Encounter Location Date Provider Diagnosis [facility] [address] [place] [address] 06/30/2024 Nakul Patricio Neuropathy of left peroneal nerve G57.32 ; Hypertension, essential I10 ; Neuropathy of right peroneal nerve G57.31 ; Lumbago of lumbar region with sciatica M54.40 ; Nicotine dependence, unspecified, uncomplicated F17.200 ; Chronic hepatitis C without hepatic coma B18.2 ; Calf cramp R25.2 ; Hypokalemia E87.6 and Weight gain R63.5 [facility] [address] [place] [address] 07/28/2024 Nakul Patricio Hypertension, essent ial I10 and Neuropathy of right peroneal nerve G57.31 [facility] [address] [place] [address] 08/25/2024 Nakul Patricio Polyarthralgia M25.5 0 and Neuropathy of right peroneal nerve G57.31 [facility] [address] [place] [address] 11/05/2024 Nakul Patricio Neuropathy of right peroneal nerve G57.31 [facility] [address] [place] [address] 07/11/2024 Nakul Patricio Chronic hepatitis C without hepatic coma B18.2 [facility] [place] [address] 08/01/2024 Nakul Patricio [facility] [address] [place] [address] 08/25/2024 Nakul Patricio Hypertension, essent ial I10 [facility] [address] [place] [address] 08/26/2024 Nakul Patricio [facility] [address] [place] [address] 08/27/2024 Nakul Patricio [address] [place] [address] 09/05/2024 Nakul Patricio Rheumatoid arthritis involving multiple sites with positive rheumatoid factor M05.79 [facility] [address] [place] [address] 09/10/2024 Nakul Patricio [facility] [address] [place] [address] 10/10/2024 Nakul Patricio Hypertension, essent ial I10 and Neuropathy of right peroneal nerve G57.31 [facility] [address] [place] [address] 11/14/2024 Nakul Patricio Hypertension, essent ial I10 Assessments Encounter Date Diagnosis (ICD Code) Assessment Notes Treatment Notes Treatment Clinical Notes Section Notes 06/30/2024 Hypertension, essential (ICD-10 - I10) Patient with elevated blood pressure and will increase to 20 mg he was previously on with lisinopril as he is tolerating it well. Will plan to reevaluate at follow-up. 06/30/2024 Neuropathy of left peroneal nerve (ICD-10 - G57.32) Patient with bilateral peroneal neuropathy potentially related to history of low back injury as onset is associated with low back injury from falling off a barn. Patient not getting much benefit from the gabapentin that he would like. We did discuss switch to Lyrica at this time. Will plan to reevaluate at follow-up. May consider further physical therapy or other workup for the back in the future. 07/11/2024 Chronic hepatitis C without hepatic coma (ICD-10 - B18.2) 07/28/2024 Hypertension, essential (ICD-10 - I10) Patient poorly tolerating lisinopril. We did discuss discontinuation we will start losartan at this time. Signs and symptoms that warrant return to clinic were discussed. Signs and symptoms that would warrant going to the nearest ER or calling 911 were also discussed. 07/28/2024 Neuropathy of right peroneal nerve (ICD-10 - G57.31) Patient with benefit from Lyrica. We did discuss restarting gabapentin at this time. Previously tolerated medication well. Will plan to reevaluate at follow-up 08/25/2024 Polyarthralgia (ICD-10 - M25.50) Patient with reported history of RA. We did discuss checking labs and for referral to rheumatology to verify as specialist would like these labs for the referral. Patient to get labs done at his earliest convenience. 08/25/2024 Neuropathy of right peroneal nerve (ICD-10 - G57.31) Patient with symptoms well-controlled at this time. No side effects from medication. Will continue with current treatment plan. PDMP checked and without aberrant prescribing. 08/25/2024 Hypertension, essential (ICD-10 - I10) 09/05/2024 Rheumatoid arthritis involving multiple sites with positive rheumatoid factor (ICD-10 - M05.79) 10/10/2024 Hypertension, essential (ICD-10 - I10) 11/05/2024 Neuropathy of right peroneal nerve (ICD-10 - G57.31) Patient with good benefit from 600 mg tablets. Tolerating dose well. Will prescribe this and plan to reevaluate at follow-up 11/14/2024 Hypertension, essential (ICD-10 - I10) 10/10/2024 Neuropathy of right peroneal nerve (ICD-10 - G57.31) 06/30/2024 Neuropathy of right peroneal nerve (ICD-10 - G57.31) 06/30/2024 Lumbago of lumbar region with sciatica (ICD-10 - M54.40) 06/30/2024 Nicotine dependence, unspecified, uncomplicated (ICD-10 - F17.200) Quitting Tobacco: Care Instructions material was published, Quitting Tobacco: Care Instructions material was printed 06/30/2024 Chronic hepatitis C without hepatic coma (ICD-10 - B18.2) Patient with history of chronic hep C and completed a partial course of antiviral therapy for this. We did discuss checking RNA load. If positive would refer to GI for further treatment. 06/30/2024 Calf cramp (ICD-10 - R25.2) Patient with calf cramps similar to previous episodes of hypokalemia. We did discuss potassium and magnesium as potential causes for this. Will check labs and start magnesium at this time as patient has increased potassium intake in his diet. 06/30/2024 Hypokalemia (ICD-10 - E87.6) 06/30/2024 Weight gain (ICD-10 - R63.5) Patient with weight gain without other associated symptoms. As the patient is more likely related to more sedentary lifestyle with his neuropathy present. Will check labs. 06/30/2024 Other Body Mass Index : Care Instructions material was published 08/25/2024 Other Body Mass Index : Care Instructions material was published, Body Mass Index: Care Instructions material was printed 11/05/2024 Other Body Mass Index : Care Instructions material was published, Body Mass Index: Care Instructions material was printed Plan Of Treatment Pending Test Test Name Order Date A1C with Estimated Average Glu Comprehensive Metabolic Panel 06/30/2024 Comprehensive Metabolic Panel 08/25/2024 C-Reactive Protein 08/25/2024 Magnesium 06/30/2024 Thyroid Stim Hormone w/Rflx 06/30/2024 Complete Blood Count Auto Diff Complete Blood Count Auto Diff Erythrocyte Sedimentation Rate Cyclic Citrulliated Pep Ab 08/25/2024 Hep C RT-PCR, Qnt (Non-Graph) 06/30/2024 Rheumatoid Factor 08/25/2024 KINZA with Reflex 08/25/2024 Next Appt Details Provider Name:Nakul jaramillo, 12/01/2024 03:15:00 PM, [address] [place], [address], Provider Name:Nakul jaramillo, 02/05/2025 02:00:00 PM, [address] [place], [address], Insurance Providers Payer Name Payer Address Payer Phone Subscriber Number Group Number Insured Name Patient Relationship to Insured Coverage Start Date Coverage End Date [employer] [place] Medicaid [address] [place] [address] [id number] JEFFRY MARTIN Self - patient is the insured 5 [employer] [facility] [address] [place] [address] [phone] [id number] JEFFRY MARTIN Self - patient is the insured 5 [place] [address] [place] [address] [id number] JEFFRY MARTIN Self - patient is the insured 5 Medical (General) History Medical History History ICD Code neuropathy migraines 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
[2024-11-19 13:08] LABS: Hematocrit 47.3 % (42.0-54.0); Hemoglobin 17.0 g/dL (14.0-18.0); Immature Granulocytes Abs Auto 0.01 10^3/uL (0.00-0.03); Immature Granulocytes Pct Auto 0.2 % (0.0-0.5); Lymphocytes Absolute Auto 2.4 10^3/uL (1.2-3.8); Mean Corpuscular HGB Conc 35.9 g/dL (29.9-35.2); Mean Corpuscular Hemoglobin 33.8 pg (25.9-34.0); Mean Corpuscular Volume 94.0 fL (80.0-94.0); Platelet Count 147 10^3/uL (150-450); Red Blood Count 5.03 10^6/uL (4.70-6.10); White Blood Count 5.8 10^3/uL (4.0-11.0)
[2024-11-19 13:16] LABS: Anion Gap 14.3; Blood Urea Nitrogen 13.0 mg/dL (7.0-18.0); Calcium 8.9 mg/dL (8.5-10.1); Carbon Dioxide 27.0 mmol/L (21.0-32.0); Chloride 106 mmol/L (98-107); Estimated GFR (African America >60 (>=60 mL/min/1.73m^2); Estimated GFR (Non-African Ame >60 (>=60 mL/min/1.73m^2); Glucose 116 mg/dL (74-106); Potassium 4.3 mmol/L (3.5-5.1); Sodium 143 mmol/L (136-145)
[2024-11-19] MEDS: 0.9 % SODIUM CHLORIDE 1,000 ML 1000 ML IV (13:17)
--- NOTE | 2024-11-19 16:47 | ECG_ITS ---
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 Measurements Intervals [place] Rate: 76 P: 54 DC: 148 QRS: -14 QRSD: 94 T: 51 QT: 372 QTc: 402 Interpretive Statements 1100 Sinus rhythm 2420 RSR (QR) in lead V1/V2, consistent with right ventricular conduction delay 6220 Possible left atrial enlargement 8102 Low QRS voltage in chest leads 9130 borderline ECG Compared to ECG 04/26/2024 07:22:29 Low QRS voltage now present Electronically Signed On 11-20-2024 18:22:40 EDT by JIN DIEHL M.D.
== END 2024-11-19 15:03 | disposition home or self-care (01) ==
PROVIDERS: Emergency Provider Emergency Medicine; PCP Student in an Organized Health Care Education/Training Program
DX: K52.9 Noninfective gastroenteritis and colitis, unspecified (principal)
CPT/HCPCS: 36415; 80048; 85025; 87045; 87046; 87427; 87493; 93005; 96360; 96361; 99284

== ENCOUNTER 2025-01-15 06:19 | Emergency (ER) | payer OTHER, SELFPAY ==
--- OUTSIDE RECORDS SUMMARY | 2024-10-28 10:15 | XMS_ITS ---
Author Organization [facility] Serv[facility] es Address [address] [place] [address] Care Team Providers Care Wind Tunnel Technician Name Role Phone Nakul Patricio Primary Care Provider REASON FOR VISIT discuss med change Encounters Encounter Location Date Provider Diagnosis [facility] [address] [place] [address] 10/28/2024 Nakul Patricio Plan Of Treatment Next Appt Details Provider Name:Nakul jaramillo, 02/05/2025 02:00:00 PM, [address] [place], [address], Progress Notes * DONNAElina JEFFRYDOB:1975 (49 yo M)Acc No.[id number]:10/28/2024 Progress Notes Patient: JEFFRY NORTH Provider: Rachael Patricio :1975 A ge:49 Y S ex:Male Date:10/28/2024 Address:[address] [place], [place] [phone] Subjective: * Chief Complaints: * 1 . Discuss med change. * Medical History: Objective: * Vitals: Assessment: Plan: * Treatment: * Images: * Electronic signature of Drew Patricio DO on 01/15/2025 at 06:29 AM EDT Sign off status: Pending * Provider: Rachael Patricio Date: 0 10/28/2024 Generated for Noéi ng/Faxing/eTransmitting on: 0 01/15/2025 06:29 AM EDT
--- OUTSIDE RECORDS SUMMARY | 2025-01-01 12:30 | XMS_ITS | Continuity of Care Document ---
Author Organization [facility] Address [address] [place] [address] Phone Care Team Providers Care Laborer Mine Name Role Phone Family Health, Services Primary Care Provider Nakul Patricio DO Other Provider Enrike Fatima MD Attending Provider Nakul Patricio DO Attending Provider Liya Hill APRN Emergency Provider Care Teams Patient Care Team Team Status: Active Member Role Status Dates Services Family Health Primary Care Provider Active Visit Care Team Team Status: Active Member Role Status Dates Services Family Health Primary Care Provider Active Start: December 10, 2024 Nakul Patricio DO Other Provider Active Start: December 10, 2024 Enrike Fatima MD Attending Provider Active Start: December 10, 2024 Visit Care Team Team Status: Inactive Member Role Status Dates Services Family Health Primary Care Provider Active Start: December 15, 2024 End: December 15, 2024 Nakul Patricio DO Attending Provider Active St art: December 15, 2024 End: December 15, 2024 Visit Care Team Team Status: Inactive Member Role Status Dates Services Family Health Primary Care Provider Active Start: January 01, 2025 End: January 01, 2025 Liya Hill APRN Emergency Provider Active S tart: January 01, 2025 End: January 01, 2025 Chief Complaint and Reason for Visit Chief Complaint Admit Date R06.02 R05.3 December 10, 2024 8:07 am M79.10 December 15, 2024 8:17 am vomiting, diarrhea January 01, 2025 11 :53am Allergies, Adverse Reactions, Alerts Allergen Type Severity Reaction Last Updated Verified Status Comments codeine Allergy Unknown Unknown Reaction January 01, 2025 12:31pm Yes Active opiates Allergy Unknown Unknown Reaction January 01, 2025 12:31pm No Active previous drug user Social History Smoking Status Status Start Date End Date Date of Observa tion Smokes tobacco daily (finding) January 01, 2025 12:12pm Observation Status Observation Response Date of Response Legal Sex Male (finding) Sex Assigned At Male 1975 Family History Relationship Condition Age at Onset Recorded Date/T maco father Chronic obstructive pulmonary disease Unk nown Heart disease Unknown Problems Active Problems Medical Problem Onset Date Status Fatty liver Unknown Active Diarrhea Unknown Active Hepatitis C Unknown Active Nausea and vomiting Unknown Active Abdominal pain Unknown Active Chest pain Unknown Active Medications Medication Status Dose Units Route Directions Qty Days St art Date Stop Date End Date Instructions Adherence Ondansetron 4 mg tablet,disi ntegrating Active 4 MG PO Every 8 hours as needed for nausea and vomiting 14 5 January 01, 2025 12:00a m Unknown Losartan 25 mg tablet Active 25 MG PO Daily July 30, 2024 12:00a m Complies with drug therapy Gabapentin 400 mg capsule Active 600 MG PO Three times daily July 30, 2024 12:00a m Complies with drug therapy Procedures Procedure Date Performed Status CT abdomen pelvis w con January 01, 2025 12:15p m completed XR chest 2V* January 01, 2025 12:14pm comple verónica Relevant Diagnostic Tests and/or Laboratory Data Laboratory Results Test Collection Date/Time Result Date/Time Result Interpretation Reference Range Result Comment Performing Site Correcte d White Blood Count January 01, 2025 12:10pm January 01, 2025 1:03pm 4.5 10*3/uL 4.1-10.5 [facility] [id number] [address] [facility] [address] Uncorrec verónica WBC Count January 01, 2025 12:10pm January 01, 2025 1:03pm 4.5 10*3/uL 4.1-10.5 [facility] [id number] [address] [facility] [address]698 Red Blood Count January 01, 2025 12:10pm January 01, 2025 1:03pm 5.22 10*6/uL 3.90-5.60 [facility] [id number] [address] [facility] [address] Hemoglob in January 01, 2025 12:10pm January 01, 2025 1:03pm 17.6 g/dL Above high normal 13.0-17.0 [facility] [id number] [address] [facility] [address] Hematocr it January 01, 2025 12:10pm January 01, 2025 1:03pm 50.6 % Above high normal 38.8-50.0 [facility] [id number] [address] [facility] [address] Mean Corpuscu lar Volume January 01, 2025 12:10pm January 01, 2025 1:03pm 96.9 fL 83.5-101 [facility] [id number] [address] [facility] [address] Mean Corpuscu lar Hemoglob in January 01, 2025 12:10pm January 01, 2025 1:03pm 33.7 pg 27.5-35.2 [facility] [id number] [address] [facility] [address] Mean Corpuscu lar Hemoglob in Concent January 01, 2025 12:10pm January 01, 2025 1:03pm 34.8 g/dL 32.5-35.6 [facility] [id number] [address] [place] [address] Red Cell Distribu tion Width January 01, 2025 12:10pm January 01, 2025 1:03pm 13.8 % 12.0-14.8 [facility] [id number] [address] [facility] [address] Platelet Count January 01, 2025 12:10pm January 01, 2025 1:03pm 118 10*3/uL Below low normal 150-450 [facility] [id number] [address] [facility] 985[address] Mean Platelet Volume January 01, 2025 12:10pm January 01, 2025 1:03pm 10.9 fL Above high normal 6.6-10.1 [facility] [id number] [address] [facility] [address] Monocyte Distribu tion Width January 01, 2025 12:10pm January 01, 2025 1:05pm 19.73 % 0.00-20.00 [facility] [id number] [address] [facility] 035[address] Neutroph ils (%) (Auto) January 01, 2025 12:10pm January 01, 2025 1:03pm 45.8 % . [facility] [id number] [address] [facility] [address] Lymphocy nathan (%) (Auto) January 01, 2025 12:10pm January 01, 2025 1:03pm 46.3 % . [facility] [id number] [address] [facility] 84189 Monocyte s (%) (Auto) January 01, 2025 12:10pm January 01, 2025 1:03pm 7.1 % . [facility] [id number] [address] [facility] [address] Eosinoph ils (%) (Auto) January 01, 2025 12:10pm January 01, 2025 1:03pm 0.6 % . [facility] [id number] [address] [facility] [address] Basophil s (%) (Auto) January 01, 2025 12:10pm January 01, 2025 1:03pm 0.2 % . [facility] [id number] [address] [facility] [address]1974 Nucleate d RBC Relative Count (auto) January 01, 2025 12:10pm January 01, 2025 1:03pm 0.3 /100{WBC} 0-0.5 [facility] [id number] [address] [facility] 164[address] Neutroph ils # (Auto) January 01, 2025 12:10pm January 01, 2025 1:03pm 2.1 10*3/uL 1.8-7.7 [facility] [id number] [address] [facility] 5[address]39 Lymphocy nathan # (Auto) January 01, 2025 12:10pm January 01, 2025 1:03pm 2.1 10*3/uL 1.00-4.8 [facility] [id number] [address] [place] [id number] Monocyte s # (Auto) January 01, 2025 12:10pm January 01, 2025 1:03pm 0.3 10*3/uL 0.0-0.8 [facility] [id number] [address] [facility] [address] Eosinoph ils # (Auto) January 01, 2025 12:10pm January 01, 2025 1:03pm 0.0 10*3/uL 0.0-0.45 [facility] [id number] [address] [facility] [address] Basophil s # (Auto) January 01, 2025 12:10pm January 01, 2025 1:03pm 0.0 10*3/uL 0.0-0.2 [facility] [id number] [address] [facility] [address] Prothrom bin Time January 01, 2025 12:10pm January 01, 2025 1:03pm 13.0 s Above high normal 9.0-12.9 A hematocrit value greater than 55% may lead to inaccurate results in coagulation testing. Patients having hematocrit values >55% require a special collection tube for coagulation studies. Please contact the laboratory at for redraw instruction s. [facility] [id number] [address] [facility] [address] Prothrom b Time Internat ional Ratio January 01, 2025 12:10pm January 01, 2025 1:03pm 1.1 INR Therapeutic Range A) Pre- and Peroperativ e OAT started two weeks before surgery. NOT HIP SURGERY: 1.5 - 2.5 HIP SURGERY: 2 - 3B) Primary and secondary prevention of venous THROMBOSIS: 2 - 3C) Active venous thrombosis, pulmonary embolismand prevention of recurrent venous thrombosis: 2 - 3D) Prevention of arterial thromboembo lismincludi ng patients with mechanical heart valves: 3 - 4.5 [facility] [id number] [address] [place] [address] D-Dimer Quantita tive (PE/DVT) January 01, 2025 12:10pm January 01, 2025 2:15pm < 200 ng/mL 0-243 The reference range for D-dimer is <243 ng/mL D-dimer units.D-dim er results must be used in conjunction with a clinicalpre test probability (PTP) assessment model for deep veinthrombo sis (DVT) and pulmonary embolism (PE). Results <230ng/mL d-dimer units can be used as a negative predictor inpatients with low or moderate probability for DVT/PE.Resu lts above the exclusion threshold of 230 ng/ml D-dimerunit s for DVT/PE may indicate the need for furtherdiag nostic testing.D-D dereje can be increased in hospitalize d patients due toco-morbid conditions. A hematocrit value greater than 55% may lead to inaccurate results in coagulation testing. Patients having hematocrit values >55% require a special collection tube for coagulation studies. Please contact the laboratory at for redraw instruction s. [facility] [id number] [address] [facility] [address] Urine Color January 01, 2025 12:04pm January 01, 2025 12:48pm Yellow Yellow [facility] [id number] [address] [facility] [address] Urine Appearan ce January 01, 2025 12:04pm January 01, 2025 12:48pm Clear Clear [facility] [id number] [address] [facility] [address] Urine Specific Peggs January 01, 2025 12:04pm January 01, 2025 12:48pm 1.013 1.001-1.03 0 [facility] [id number] [address] [facility] [address] Urine pH January 01, 2025 12:04pm January 01, 2025 12:48pm 6.0 5.0-9.0 [facility] [id number] [address] [facility] 39686 Urine Leukocyt e Esterase January 01, 2025 12:04pm January 01, 2025 12:48pm Negative Negative [facility] [id number] [address] [facility] [address] Urine Nitrite January 01, 2025 12:04pm January 01, 2025 12:48pm Negative Negative [facility] [id number] [address] [facility] [address]656 Urine Protein January 01, 2025 12:04pm January 01, 2025 12:48pm Negative mg/dL Negative [facility] [id number] [address] [facility] [address] Urine Glucose (UA) January 01, 2025 12:04pm January 01, 2025 12:48pm Normal mg/dL Normal [facility] [id number] [address] [facility] [address] Urine Ketones January 01, 2025 12:04pm January 01, 2025 12:48pm Negative Negative [facility] [id number] [address] [facility] [address] Urine Urobilin ogen January 01, 2025 12:04pm January 01, 2025 12:48pm Normal mg/dL Normal [facility] [id number] [address] [facility] 6[address] Urine Bilirubi n January 01, 2025 12:04pm January 01, 2025 12:48pm Negative Negative [facility] [id number] [address] [facility] 31712 Urine Occult Blood January 01, 2025 12:04pm January 01, 2025 12:48pm Negative Negative [facility] [id number] [address] [facility] 8[address]24 Glucose Level December 15, 2024 8:33am December 15, 2024 9:38am 96 mg/dL 70-100 ADA recommended reference rangeRandom Glucose Reference Range is dependent on time and content of last meal. Glucose of more than 200 mg/dL in a nonstressed , ambulatory subject supports the diagnosis of Diabetes Mellitus. [facility] [id number] [address] [facility] [address] Glucose Level January 01, 2025 12:10pm January 01, 2025 1:12pm 90 mg/dL 70-100 ADA recommended reference rangeRandom Glucose Reference Range is dependent on time and content of last meal. Glucose of more than 200 mg/dL in a nonstressed , ambulatory subject supports the diagnosis of Diabetes Mellitus. [facility] [id number] [address] [facility] 15462 Blood Urea Nitrogen December 15, 2024 8:33am December 15, 2024 9:38am 14 mg/dL 7-25 [facility] [id number] [address] [place], [place] [address] Blood Urea Nitrogen January 01, 2025 12:10pm January 01, 2025 1:12pm 9 mg/dL 7-25 [facility] [id number] [address] [facility] [address] Creatini ne December 15, 2024 8:33am December 15, 2024 9:38am 0.90 mg/dL 0.70-1.30 [facility] [id number] [address] [facility] [address] Creatini ne January 01, 2025 12:10pm January 01, 2025 1:12pm 0.96 mg/dL 0.70-1.30 [facility] [id number] [address] [place] [address] Estimate d GFR (CKD-EPI ) December 15, 2024 8:33am December 15, 2024 9:38am > 60.0 mL/Min [facility] [id number] [address] [place], [place] [address] Estimate d GFR (CKD-EPI ) January 01, 2025 12:10pm January 01, 2025 1:12pm > 60.0 mL/Min [facility] [id number] [address] [place] [address]337 Sodium Level December 15, 2024 8:33am December 15, 2024 9:38am 141 mmol/L 136-145 [facility] [id number] [address] [place], [place] [address] Sodium Level January 01, 2025 12:10pm January 01, 2025 1:12pm 135 mmol/L Below low normal 136-145 [facility] [id number] [address] [place], [place] [address] Potassiu m Level December 15, 2024 8:33am December 15, 2024 9:38am 4.4 mmol/L 3.5-5.1 [facility] [id number] [address] [place], [place] [address] Potassiu m Level January 01, 2025 12:10pm January 01, 2025 1:12pm 4.0 mmol/L 3.5-5.1 Hemolysis is present at a level that could interfere with the result.Cont act lab if redraw is required [facility] [id number] [address] [place], [place] [address] Chloride Level December 15, 2024 8:33am December 15, 2024 9:38am 109 mmol/L Above high normal 98-107 [facility] [id number] [address] [facility] [address]006 Chloride Level January 01, 2025 12:10pm January 01, 2025 1:12pm 107 mmol/L 98-107 [facility] [id number] [address] [place] [address]07 Carbon Dioxide Level December 15, 2024 8:33am December 15, 2024 9:38am 26.9 mmol/L 21.0-31.0 [facility] [id number] [address] [place] [address] Carbon Dioxide Level January 01, 2025 12:10pm January 01, 2025 1:12pm 20.8 mmol/L Below low normal 21.0-31.0 [facility] [id number] [address] [place] [address] Anion Gap December 15, 2024 8:33am December 15, 2024 9:38am 9.5 mEq/L 6.0-15.0 [facility] [id number] [address] [place] [address] Anion Gap January 01, 2025 12:10pm January 01, 2025 1:12pm 11.2 mEq/L 6.0-15.0 [facility] [id number] [address] [place] [address] Calcium Level December 15, 2024 8:33am December 15, 2024 9:38am 9.2 mg/dL 8.6-10.3 [facility] [id number] [address] [place] [address] Calcium Level January 01, 2025 12:10pm January 01, 2025 1:12pm 8.8 mg/dL 8.6-10.3 [facility] [id number] [address] [place] [address] Magnesiu m Level December 15, 2024 8:33am December 15, 2024 9:38am 2.1 mg/dL 1.9-2.7 [facility] [id number] [address] [place], [place] [address] Magnesiu m Level January 01, 2025 12:10pm January 01, 2025 1:13pm 2.0 mg/dL 1.9-2.7 [facility] [id number] [address] [facility] [address] Total Protein December 15, 2024 8:33am December 15, 2024 9:38am 7.3 g/dL 6.4-8.9 [facility] [id number] [address] [facility] 97685 Total Protein January 01, 2025 12:10pm January 01, 2025 1:12pm 7.8 g/dL 6.4-8.9 [facility] [id number] [address] [facility] 75371 Albumin December 15, 2024 8:33am December 15, 2024 9:38am 4.1 g/dL 3.5-5.7 [facility] [id number] [address] [facility] 0[address]96 Albumin January 01, 2025 12:10pm January 01, 2025 1:12pm 4.1 g/dL 3.5-5.7 [facility] [id number] [address] [facility] 23805 Globulin December 15, 2024 8:33am December 15, 2024 9:38am 3.2 g/dL [facility] [id number] [address] [facility] 52671 Globulin January 01, 2025 12:10pm January 01, 2025 1:12pm 3.7 g/dL [facility] [id number] [address] [facility] 0[address]98 Albumin/ Globulin Ratio December 15, 2024 8:33am December 15, 2024 9:38am 1.3 [facility] [id number] [address] [place] [address]137 Albumin/ Globulin Ratio January 01, 2025 12:10pm January 01, 2025 1:12pm 1.1 [facility] [id number] [address] [facility] 22944 Total Bilirubi n December 15, 2024 8:33am December 15, 2024 9:38am 0.9 mg/dL 0.3-1.0 [facility] [id number] [address] [place] [address] Total Bilirubi n January 01, 2025 12:10pm January 01, 2025 1:12pm 0.7 mg/dL 0.3-1.0 [facility] [id number] [address] [place], [place] [address] Aspartat e Amino Transf (AST/SGO T) December 15, 2024 8:33am December 15, 2024 9:38am 264 U/L Above high normal 39 [facility] [id number] [address] [place], [place] [address] Aspartat e Amino Transf (AST/SGO T) January 01, 2025 12:10pm January 01, 2025 1:13pm 307 U/L Above high normal 39 [facility] [id number] [address] [place], [place] [address] Alanine Aminotra nsferase (ALT/SGP T) December 15, 2024 8:33am December 15, 2024 9:38am 277 U/L Above high normal [facility] [id number] [address] [place] [address] Alanine Aminotra nsferase (ALT/SGP T) January 01, 2025 12:10pm January 01, 2025 1:12pm 231 U/L Above high normal [facility] [id number] [address] [place], [place] [address] Alkaline Phosphat ase December 15, 2024 8:33am December 15, 2024 9:38am 58 U/L 34-104 [facility] [id number] [address] [place] [address] 13292 Alkaline Phosphat ase January 01, 2025 12:10pm January 01, 2025 1:12pm 63 U/L 34-104 [facility] [id number] [address] [place], [place] [address] Amylase Level January 01, 2025 12:10pm January 01, 2025 1:12pm 45 U/L 29-103 [facility] [id number] [address] [place] [address] 26277 Lipase January 01, 2025 12:10pm January 01, 2025 1:12pm 166.0 U/L Above high normal 11.0-82.0 [facility] [id number] [address] [place], [place] [address] Total Creatine Kinase December 15, 2024 8:33am December 15, 2024 9:36am 179 U/L 30-223 [facility] [id number] [address] [place], [place] [address] Troponin I High Sensitiv ity January 01, 2025 3:07pm January 01, 2025 3:50pm 7 ng/L 0-20 The Troponin units of report have been changed to meet the Chest Pain Accreditati on requirement , element EC5.M1l2. Troponin units are changed from pg/ml to ng/L. Also, the decimal is removed and results are in whole numbers. [facility] [id number] [address] [place], [place] [address] Pharmacy Creatini ne Clearanc e (Chem December 15, 2024 8:33am December 15, 2024 9:38am N/A [facility] [id number] [address] [place], [place] [address] Pharmacy Creatini ne Clearanc e (Chem January 01, 2025 12:10pm January 01, 2025 1:12pm 120.47 [facility] [id number] [address] [place], [place] [address] Diagnostic Imaging Reports Author Rufus Cruz [facility] Report Date/Time January 01, 2025 1: 51pm [facility] Main [place] [id number] CT Scan Report Signed Patient: Gonzalez Aguilar MR#: [id number] : 1975 Acct:[id number] Age/Sex: 49 / M ADM Date: 5 Loc: ER Room: Type: [facility] ER Attending Dr: Copies to: Liya Hill APRN~ Ordering Provider: Liya Hill APRN Date of Service: 01/01/25 CT/CT abdomen pelvis w con: nausea, vomiting, diarrhea CT ABDOMEN AND PELVIS WITH INTRAVENOUS CONTRAST: CLINICAL HISTORY: Diarrhea for one month vomiting hep C. COMPARISON: None TECHNIQUE: Spiral images were obtained through the abdomen and pelvis followingthe administration of intravenous contrast. This CT exam was performed using one or more following dose reduction techniques: Automated exposure control, adjustment of the mA and/or kV according to patient size, or use of iterative reconstruction technique. FINDINGS: Lung Bases: [No acute findings.] Organs:Hepatic steatosis. Liver and splenic granulomas. Gallbladder portal vein pancreas adrenal glands and kidneys all appear unremarkable. Aorta is normal in caliber. GI: Stomach is grossly unremarkable. Small bowel appears nondilated. Appendix is normal. No acute colonic abnormality.[ Pelvis:[Urinary bladder and prostate gland appear unremarkable.] Peritoneum/Retroperitoneum:No free air or free fluid or lymphadenopathy.[ Abd wall/Bones:Abdominal wall demonstrate no acute findings. Osseous structures demonstrate degenerative change.[ CT/CT abdomen pelvis w con IMPRESSION: No acute findings. Hepatic steatosis. Impression dictated by: Rufus Cruz Jr., D.O. 01/01/2025 1:51 PM Dictation Location: [place] [address] Transcribed By: [facility] 01/01/25 1351 Dictated By: Rufus Cruz Jr, DO 01/01/25 1348 Signed By: <Electronically signed by Rufus Cruz Jr, DO in OV> 01/01/25 1351 Author Rufus Cruz [facility] Report Date/Time January 01, 2025 1: 52pm [facility] [place] [address] XRay Report Signed Patient: Gonzalez Aguilar MR#: [id number] : 1975 Acct:[id number] Age/Sex: 49 / M ADM Date: 5 Loc: ER Room: Type: [facility] ER Attending Dr: Copies to: Liya Hill APRN~ Ordering Provider: Liya Hill APRN Date of Service: 01/01/25 XR/XR chest 2V*: shortness of breath Chest 2 views CLINICAL HISTORY: Diarrhea for one month abdominal pain shortness of breath for months. COMPARISON: Chest 12/10/2024 FINDINGS: Heart normal size. Lungs are clear. No free air. XR/XR chest 2V* IMPRESSION: NO ACUTE CARDIOPULMONARY ABNORMALITY. Impression dictated by: Harpreet Iverson Jr.OYolanda 01/01/2025 1:52 PM Dictation Location: RADIO--23 Transcribed By: SERGIO 01/01/25 1352 Dictated By: Rufus Cruz Jr, DO 01/01/25 1351 Signed By: <Electronically signed by Rufus Cruz Jr, DO in OV> 01/01/25 1352 Vital Signs Vital Reading Result Reference Range Collection Date/Time Height 74 [in_i] January 01 12:00pm Weight 108.00 kg January 01 12:00pm Body Temperature 97.9 [degF] 97.6-99.0 December 12:00pm Heart Rate 65 /min 60-100 January 01 4:20pm Respiratory rate 16 /min 12-24 December 4:20pm Oxygen saturation by Pulse oximetry 99 % 95-100 January 01, 2025 4: 20pm BP Systolic 134 mm[Hg] 100-140 January 01 3:06pm BP Diastolic 95 mm[Hg] 60-100 January 01 3:06pm Advance Directives Advance Directive Response Recorded Date/ Time Advance Directives No June 05, 2024 2:58pm Insurance Providers Guarantor Gonzalez Aguilar Address [address] [place] [phone] Contact Info. Home Phone: Payer Policy Id Subscriber's Name Subscriber Id Effectiv e Date Expiration Date Medicaid [id number] Gonzalez Aguilar [id number] Encounters Encounter Location(s) Arrival/Admit Date Discharge/Depart Date Provider(s) Non-patient / Non-visit -[facility] December 10, 2024 8:07am Enrike Fatima MD Departed Clinical -Lab Main [place] December 15, 2024 8:17am December 15, 2024 8:18am Nakul Patricio DO Departed Emergency -Emergency Room January 01, 2025 11:53am January 01, 2025 4:29pm Plan of Treatment Future Tests Future scheduled test information is unavailable Pending Tests Pending diagnostic test information is unavailable Future Visits Future appointment information is unavailable Referrals to Other Providers Reason for Referral Referral Start Date Provider Provider Contact Information Provider Address [facility] Work Phone: [address] [place], [place] [phone] Future Procedures Future procedure information is unavailable Future Medications Future medication information is unavailable Patient Instructions Instruction Admit Date Diarrhea in adults - ED disc harge instructions Nausea and vomiting in adults - ED discharge instructions January 01, 2025 11:53am Hospital Discharge Instructions Additional Instructions Rest. Push fluids. Take the Zofran 4 mg ODT every 8 hours as needed for nausea and vomiting. Continue to avoid any alcohol. Eat a healthy diet focused on Whole Foods, lean proteins, fibers, healthy fats. Avoid excessive sugars and carbohydrates and saturated fats. Follow-up with primary care provider in the next 3 to 5 days as you may need a GI [email or web address] Return here if symptoms persist or worsen.
--- OUTSIDE RECORDS SUMMARY | 2025-01-15 06:28 | XMS_ITS | CCD ---
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 Name Role Phone August Unavailable Unavailable August Unavailable Unavailable Le, Sebastian K Attending Unavailable Candis, Sebastian K Admitting Unavailable Provider, None Primary Care Unavailable [facility] Primary Care Provider Vel Sevilla APRN Attending Provider Crystal Meehan MD Attending Provider Fibroscan, Temporary Attending Provider UnavailVel Nam APRN Referring Provider Nakul Patricio DO Unavailable [phone] Nakul Patricio DO Primary Care Provider [facility] Primary Care Provider Nakul Patricio DO Other Provider [phone] Enrike Fatima MD Attending Provider Nakul Patricio DO Attending Provider Liya Hill APRN Emergency Provider [phone] [facility] Primary Care Unavaila Liay Raymond Admitting Unavailable Liya Hill Attending Unavailable [facility] Primary Care Unavaila Nakul Thurman Admitting Unavailable aNkul Patricio Attending Unavailable [facility] Primary Care Unavaila Nakul Thurman Admitting Unavailable Nakul Patricio Attending Unavailable Vel Sevilla Admitting Unavailable [facility] Primary Care Unavaila Vel Kincaid Attending Unavailable Vel Sevilla Admitting Unavailable Vel Sevilla Attending Unavailable [facility] Primary Care Unavaila Vel Kincaid Attending Unavailable Vel Sevilla Admitting Unavailable [facility] Primary Care Unavaila Vel Kincaid Attending Unavailable Vel Sevilla Admitting Unavailable [facility], Services Primary Care Unavaila ble Tomas Sanchez Admitting Unavailable Tomas Sanchez Attending Unavailable Vel Sevilla Referring Unavailable [facility] Services Primary Care Unavaila ble Asaad, Imad Admitting Unavailable Asaad, Imad Attending Unavailable [facility] Services Primary Care Unavaila ble Allergies Allergy Classification Reported Allergen(s) Allergy Type Date of Onset Reaction(s) Facility (1 source) NKDA/NO FOOD OR LATEX ALLERGIES; Translations: [NKDA/NO FOOD OR LATEX ALLERGIES] Propensity to adverse reactions (disorder) [facility] Repository (4 sources) Codeine; Translations: [codeine] Drug Allergy 1 Unknown [facility] Repository (1 source) opiates Allergy to substance 5 Unknown Reaction [facility] Comment on above: previous drug user Medications Current Medications Medication Drug Class(es) Dates Sig (Normalized) Sig (Original) [id number] 200 actuat albuterol 0.09 mg/actuat metered dose inhaler (1 source) beta2-Adrenergic Agonist Start: 12-01-2024 take 1 puff(s) by inhalation every six hours as needed albuterol HFA (PROVENTIL HFA, VENTOLIN HFA) 90 mcg/actuation inhaler Inhale 1 puff as instructed every 6 hours as needed. 12/01/2024 Active gabapentin 600 mg oral tablet (10 sources) Anti-epileptic Agent Start: 12-15-2024 take 1 tablet by mouth three times daily gabapentin (NEURONTIN) 600 mg tablet Take 600 mg by mouth three times a day. 12/15/2024 Active Start: 07-30-2024 Gabapentin 400 mg capsule Active 600 MG PO Three times daily July 30, 2024 12:00am Complies with drug therapy Start: 07-30-2024 take 1 capsule by [facility] three times daily losartan potassium 25 mg oral tablet (10 sources) Angiotensin 2 Receptor Jake Start: 07-30-2024 take 1 tablet by mouth once daily losartan (COZAAR) 25 mg tablet Take 1 tablet by mouth once daily. 12/13/2024 Active ondansetron 4 mg disintegrating oral tablet (1 source) Serotonin-3 Receptor Antagonist Start: 01-01-2025 take 1 tablet by mouth every eight hours as needed for nausea and vomiting Problems Active Problems Problem Classification Problem Date Documented Da te Episodic/Chronic Abdominal pain (15 sources) Abdominal pain; Translations: [Unspecified abdominal pain] 07-30-2024 Episodic Essential hypertension (1 source) Essential (primary) hypertension; Translations: [Essential (primary) hypertension] Onset: 08-04-2024 Chronic Hepatitis (1 source) Chronic viral hepatitis C; Translations: [Chronic viral hepatitis C] Onset: 08-04-2024 Chronic Nausea and vomiting (1 source) Nausea and vomiting; Translations: [Nausea with vomiting, unspecified] 01-01-2025 Episodic Nonspecific chest pain (5 sources) Chest pain, unspecified; Translations: [Chest pain] Onset: 11-22-2016 01-01-2025 Episodic Other connective tissue disease (1 source) Myalgia, unspecified site; Translations: [Myalgia, unspecified site] Onset: 12-15-2024 Episodic Other gastrointestinal disorders (1 source) Diarrhea; Translations: [Diarrhea, unspecified] 01-01-2025 Episodic Other liver diseases (1 source) Steatosis of liver; Translations: [Fatty (change of) liver, not elsewhere classified] 01-01-2025 Chronic Other liver diseases (1 source) Fatty (change of) liver, not elsewhere classified; Translations: [Fatty (change of) liver, not elsewhere classified] Onset: 08-13-2024 Chronic Other lower respiratory disease (1 source) Shortness of breath; Translations: [Shortness of breath] Onset: 12-10-2024 Episodic Rheumatoid arthritis and related disease (2 sources) Rheumatoid arthritis; Translations: [Rheumatoid arthritis, unspecified] 10-24-2024 Chronic Unclassified (1 source) Unknown / UNK(Unknown) Onset: 11-22-2016 Past or Other Problems Problem Classification Problem Date Documented Da te Episodic/Chronic Cardiac dysrhythmias (2 sources) Tachycardia, unspecified; Translations: [Tachycardia, unspecified] Onset: 11-22-2016 Episodic Fluid and electrolyte disorders (1 source) Hypokalemia; Translations: [Hypokalemia] Onset: 08-04-2024 Episodic Hepatitis (16 sources) Viral hepatitis C; Translations: [Unspecified viral hepatitis C without hepatic coma] Onset: 08-01-2024 08-01-2024 Episodic Other connective tissue disease (1 source) Cramp and spasm; Translations: [Cramp and spasm] Onset: 08-04-2024 Episodic Other nutritional; endocrine; and metabolic disorders (1 source) Abnormal weight gain; Translations: [Abnormal weight gain] Onset: 08-04-2024 Episodic Other screening for suspected conditions (not mental disorders or infectious disease) (1 source) Encounter for screening for malignant neoplasm of colon; Translations: [Encounter for screening for malignant neoplasm of colon] Onset: 08-11-2024 Episodic Results Test Name Value Interpretation Reference Range Facility Alanine aminotransferase [En zymatic activity/volume] in Serum or PlasmaOrdered By: Liya Hill on 01-01-2025 ALT [Catalytic activity/Vol] 231 U/L High 7-52 [facility] Comment on above: Performed By: #### H BSAG, HCV RX PCR, HIVRNAPCR, HBCAB, HBSAB #### [facility] , #### CMP, PT, CBC #### [facility] [address] [place] [address] [place] Albumin [Mass/volume] in Ser um or Plasma by Bromocresol green (BCG) dye binding methoOrdered By: Liya Hill on 01-01-2025 Albumin BCG dye [Mass/Vol] 4.1 g/dL 3.5-5.7 [facility] Alkaline phosphatase [Enzyma tic activity/volume] in Serum or PlasmaOrdered By: Liya Hill on 01-01-2025 ALP [Catalytic activity/Vol] 63 U/L Normal 34-104 [facility] Comment on above: Performed By: #### H BSAG, HCV RX PCR, HIVRNAPCR, HBCAB, HBSAB #### [facility] , #### CMP, PT, CBC #### [facility] [address] [place] [address] [place] Amylase [Enzymatic activity/ volume] in Serum or PlasmaOrdered By: Liya Hill on 01-01-2025 Amylase [Catalytic activity/Vol] 45 U/L Normal 29-103 [facility] Comment on above: Performed By: #### H BSAG, HCV RX PCR, HIVRNAPCR, HBCAB, HBSAB #### [facility] , #### CMP, PT, CBC #### [facility] [address] [place] [address] Appearance of UrineOrdered B y: Liya Hill on 01-01-2025 Appearance (U) Clear Normal Clear [facility] Comment on above: Order Comment: Name Collection Type:: Clean-Voided Midstream Performed By: #### H BSAG, HCV RX PCR, HIVRNAPCR, HBCAB, HBSAB #### [facility] , #### CMP, PT, CBC #### [facility] [address] [place] [address] Aspartate aminotransferase [ Enzymatic activity/volume] in Serum or PlasmaOrdered By: Liya Hill on 01-01-2025 AST [Catalytic activity/Vol] 307 U/L High 13-39 [facility] Comment on above: Performed By: #### H BSAG, HCV RX PCR, HIVRNAPCR, HBCAB, HBSAB #### [facility] , #### CMP, PT, CBC #### [facility] [address] [place] [address] [place] Basophils [#/volume] in Bloo d by Automated countOrdered By: Liya Hill on 01-01-2025 Basophils (Bld) [#/Vol] 0.0 10*3/uL Normal 0.0-0.2 [facility] Comment on above: Result Comment: PERF ORMED BY: [place] [id number] PATHOLOGIST OPTICAL ASSISTANT TAMEKA CALDERA M.D. Performed By: #### H BSAG, HCV RX PCR, HIVRNAPCR, HBCAB, HBSAB #### [facility] , #### CMP, PT, CBC #### [facility] [address] [place] [address] [place] Basophils/100 leukocytes in Blood by Automated countOrdered By: Liya Hill on 01-01-2025 Basophils/100 WBC (Bld) 0.2 % Normal . [facility] Comment on above: Performed By: #### H BSAG, HCV RX PCR, HIVRNAPCR, HBCAB, HBSAB #### [facility] , #### CMP, PT, CBC #### [facility] [address] [place] [address] Bilirubin Test strip Ql (U)O rdered By: Liya Hill on 01-01-2025 Bilirubin Ql (U) Negative Negative [facility] Bilirubin.total [Mass/volume ] in Serum or PlasmaOrdered By: Liya Hill on 01-01-2025 Bilirubin [Mass/Vol] 0.7 mg/dL Normal 0.3-1.[address] [facility] Comment on above: Performed By: #### H BSAG, HCV RX PCR, HIVRNAPCR, HBCAB, HBSAB #### [facility] , #### CMP, PT, CBC #### [facility] [address] [place] [address] CT abdomen pelvis w conon CT abdomen pelvis w con [facility] Main [place] [address] [place] [address] CT Scan Report Signed Patient: Jeffry Aguilar MR#: [id number] : 1975 Acct:[id number] Age/Sex: 49 / M ADM Date: 01/01/25 Loc: ER Room: Type: [facility] Attending Dr: Copies to: Liya Hill APRN Ordering Provider: Liya Hill APRN Date of Service: 01/01/25 CT/CT abdomen pelvis w con: nausea, vomiting, diarrhea CT ABDOMEN AND PELVIS WITH INTRAVENOUS CONTRAST: CLINICAL HISTORY: Diarrhea for one month vomiting hep C. COMPARISON: None TECHNIQUE: Spiral images were obtained through the abdomen and pelvis following the administration of intravenous contrast. This CT exam [...] Pelvis:[Urinary bladder and prostate gland appear unremarkable.] Peritoneum/Retroperitoneum: No free air or free fluid or lymphadenopathy.[ Abd wall/Bones:Abdominal wall demonstrate no acute findings. Osseous structures demonstrate degenerative change.[ CT/CT abdomen pelvis w con IMPRESSION: No acute findings. Hepatic steatosis. Impression dictated by: Rufus Cruz Jr., Ronit 01/01/2025 1:51 PM Dictation Location: [place] [address] Transcribed By: [facility] 01/01/25 1351 Dictated By: Rufus Cruz Jr, DO 01/01/25 1348 Signed By: 01/01/25 1351 Normal [facility] Calcium [Mass/volume] in Ser um or PlasmaOrdered By: Liya Hill on 01-01-2025 Calcium [Mass/Vol] 8.8 mg/dL Normal 8.6-10.3 [facility] Comment on above: Performed By: #### H BSAG, HCV RX PCR, HIVRNAPCR, HBCAB, HBSAB #### [facility] , #### CMP, PT, CBC #### [facility] [address] [place] [address] [place] Carbon dioxide, total [Moles /volume] in Serum or PlasmaOrdered By: Liya Hill on 01-01-2025 CO2 [Moles/Vol] 20.8 mmol/L Low 21.0-31.0 [facility] Comment on above: Performed By: #### H BSAG, HCV RX PCR, HIVRNAPCR, HBCAB, HBSAB #### [facility] , #### CMP, PT, CBC #### [facility] [address] [place] [address] [place] Chloride [Moles/volume] in S charu or PlasmaOrdered By: Liya Hill on 01-01-2025 Chloride [Moles/Vol] 107 mmol/L Normal 98-[address] [facility] Comment on above: Performed By: #### H BSAG, HCV RX PCR, HIVRNAPCR, HBCAB, HBSAB #### [facility] , #### CMP, PT, CBC #### [address] Color of Urine by AutoOrdere d By: Liya Hill on 01-01-2025 Color (U) Yellow Normal Yellow [facility] Comment on above: Order Comment: Name Collection Type:: Clean-Voided Midstream Performed By: #### H BSAG, HCV RX PCR, HIVRNAPCR, HBCAB, HBSAB #### [facility] , #### CMP, PT, CBC #### [address] Complete Blood Count Auto Di ffon 01-01-2025 Mean Corpuscular HGB Conc 34.8 g/dL Normal 32.5-35.6 [facility] Comment on above: Performed By: #### H BSAG, HCV RX PCR, HIVRNAPCR, HBCAB, HBSAB #### [facility] , #### CMP, PT, CBC #### [place] [address] [place] Monocytes/100 WBC (Bld) 19.73 % Normal 0.00-20.00 [facility] Comment on above: Performed By: #### H BSAG, HCV RX PCR, HIVRNAPCR, HBCAB, HBSAB #### [facility] , #### CMP, PT, CBC #### [facility] [address] [place] [address] [place] NRBC% 0.3 /100{WBC} Normal 0-0.5 [facility] Comment on above: Performed By: #### H BSAG, HCV RX PCR, HIVRNAPCR, HBCAB, HBSAB #### [facility] , #### CMP, PT, CBC #### [address] White Blood Count 4.5 [CFU]/mL Normal 4.1-10.5 [facility] Comment on above: Performed By: #### H BSAG, HCV RX PCR, HIVRNAPCR, HBCAB, HBSAB #### [facility] , #### CMP, PT, CBC #### [facility] [address] [place] [address] Comprehensive Metabolic Pane jolene 01-01-2025 Albumin [Mass/Vol] 4.1 g/dL Normal 3.5-5.7 [facility] Comment on above: Performed By: #### H BSAG, HCV RX PCR, HIVRNAPCR, HBCAB, HBSAB #### [facility] , #### CMP, PT, CBC #### [facility] [address] [place] [address] Creatinine Clr Calc Pharmacy 120.47 Normal [facility] Comment on above: Performed By: #### H BSAG, HCV RX PCR, HIVRNAPCR, HBCAB, HBSAB #### [facility] , #### CMP, PT, CBC #### [facility] [address] [place] [address] GFR/1.73 sq M.predicted MDRD (S/P/Bld) [Vol rate/Area] mL/min/{1.73_m2} Normal [facility] Comment on above: Performed By: #### H BSAG, HCV RX PCR, HIVRNAPCR, HBCAB, HBSAB #### [facility] , #### CMP, PT, CBC #### [facility] [address] [place] [address] Creatinine [Mass/volume] in Serum or PlasmaOrdered By: Liya Hill on 01-01-2025 Creatinine [Mass/Vol] 0.96 mg/dL Normal 0.70-1.30 [place] Comment on above: Performed By: #### H BSAG, HCV RX PCR, HIVRNAPCR, HBCAB, HBSAB #### [facility] , #### CMP, PT, CBC #### [facility] [address] [place] [address] D-Dimer High Sensitivityon 0 01-01-2025 D-Dimer High Sensitivity <200 Normal 0-243 [facility] Comment on above: Result Comment: The reference range for D-dimer is <243 ng/mL D-dimer units. D-dimer results must be used in conjunction with a clinical pretest probability (PTP) assessment model for deep vein thrombosis (DVT) and pulmonary embolism (PE). Results <230 ng/mL d-dimer units can be used as a negative predictor in patients with low or moderate probability for DVT/PE. Results above the exclusion threshold of 230 ng/ml D-dimer units for DVT/PE may indicate the need for further diagnostic testing. D-Dimer can be increased in hospitalized patients due to co-morbid conditions. A hematocrit value greater than 55% may lead to inaccurate results in coagulation testing. Patients having hematocrit values >55% require a special collection tube for coagulation studies. Please contact the laboratory at [phone] for redraw instructions. PERFORMED BY: [place] [id number] PATHOLOGIST OPTICAL ASSISTANT TAMEKA CALDERA M.D. Performed By: #### H BSAG, HCV RX PCR, HIVRNAPCR, HBCAB, HBSAB #### [facility] , #### CMP, PT, CBC #### [place] [id number] [facility] ECG 12 lead ECGon 01-01-2025 ECG 12 lead ECG [facility] [place] [address] Electrocardiograph Report Signed Patient: Jeffry Aguilar MR#: [id number] : 1975 Acct:[id number] Age/Sex: 49 / M ADM Date: 01/01/25 Loc: ER Room: Type: [facility] ER Attending Dr: Ordering Provider: Liya Hill APRN Date of Service: 01/01/25 ECG/ECG 12 lead ECG: Nausea/Vomiting/Diarrhea Copies to: Test Reason : Blood Pressure : 142/97 mmHG Vent. Rate : 80 BPM Atrial Rate : 80 BPM P-R Int : 140 ms QRS Dur : 86 ms QT Int : 376 ms P-R-T Axes : 58 42 49 degrees QTcB Int : 433 ms Normal sinus rhythm Normal ECG No previous ECGs available Confirmed by SHANE GONZALEZ DO ([id number]) on 01/01/2025 4:09:48 PM Referred By: Electronically Signed By: SHANE GONZALEZ DO Transcribed By: [facility] Signed By Shane Gonzalez DO 1609 Normal [facility] Eosinophils [#/volume] in Bl ood by Automated countOrdered By: Liya Hill on 01-01-2025 Eosinophils (Bld) [#/Vol] 0.0 10*3/uL Normal 0.0-0.45 [facility] Comment on above: Performed By: #### H BSAG, HCV RX PCR, HIVRNAPCR, HBCAB, HBSAB #### [facility] , #### CMP, PT, CBC #### [facility] [address] [place] [address] [place] Eosinophils/100 leukocytes i n Blood by Automated countOrdered By: Liya Hill on 01-01-2025 Eosinophils/100 WBC (Bld) 0.6 % Normal . [facility] Comment on above: Performed By: #### H BSAG, HCV RX PCR, HIVRNAPCR, HBCAB, HBSAB #### [facility] , #### CMP, PT, CBC #### [facility] [address] [place] [address] Erythrocyte distribution wid th [Ratio] by Automated countOrdered By: Liya Hill on 01-01-2025 Erythrocyte distribution width (RBC) [Ratio] 13.8 % Normal 12.0-14.8 [facility] Comment on above: Performed By: #### H BSAG, HCV RX PCR, HIVRNAPCR, HBCAB, HBSAB #### [facility] , #### CMP, PT, CBC #### [facility] [address] [place] [address] [place] Erythrocytes [#/volume] in B lood by Automated countOrdered By: Liya Hill on 01-01-2025 RBC (Bld) [#/Vol] 5.22 10*6/uL Normal 3.90-5.60 [facility] Comment on above: Performed By: #### H BSAG, HCV RX PCR, HIVRNAPCR, HBCAB, HBSAB #### [facility] , #### CMP, PT, CBC #### [facility] [address] Fibrin D-dimer [Presence] in Platelet poor plasma by Latex agglutinationOrdered By: Liya Hill on 01-01-2025 Fibrin D-dimer LA Ql (PPP) < 200 ng/mL 0-243 [facility] Comment on above: The reference range for D-dimer is <243 ng/mL D-dimer units.D-dimer results must be used in conjunction with a clinicalpretest probability (PTP) assessment model for deep veinthrombosis (DVT) and pulmonary embolism (PE). Results <230ng/mL d-dimer units can be used as a negative predictor inpatients with low or moderate probability for DVT/PE.Results above the exclusion threshold of 230 ng/ml D-dimerunits for DVT/PE may indicate the need for furtherdiagnostic testing.D-Dimer can be increased in hospitalized patients due toco-morbid conditions.A hematocrit value greater than 55% may lead to inaccurate results in coagulation testing. Patients having hematocrit values >55% require a special collection tube for coagulation studies. Please contact the laboratory at [phone] for redraw instructions. Glucose [Mass/volume] in Ser um or PlasmaOrdered By: Liya Hill on 01-01-2025 Glucose [Mass/Vol] 90 mg/dL Normal 70-100 [facility] Comment on above: ADA recommended refe rence rangeRandom Glucose Reference Range is dependent on time and content of last meal. Glucose of more than 200 mg/dL in a nonstressed, ambulatory subject supports the diagnosis of Diabetes Mellitus. Result Comment: [place] om Glucose Reference Range is dependent on time and content of last meal. Glucose of more than 200 mg/dL in a nonstressed, ambulatory subject supports the diagnosis of Diabetes Mellitus. ADA recommended reference range Performed By: #### H BSAG, HCV RX PCR, HIVRNAPCR, HBCAB, HBSAB #### [facility] , #### CMP, PT, CBC #### [facility] [address] [place] [address] Glucose [Mass/volume] in Uri ne by Test stripOrdered By: Liya Hill on 01-01-2025 Glucose Test strip (U) [Mass/Vol] Normal mg/dL Normal [facility] Hematocrit [Volume Fraction] of Blood by Automated countOrdered By: Liya Hill on 01-01-2025 Hematocrit (Bld) [Volume fraction] 50.6 % High 38.8-50.0 [facility] Comment on above: Performed By: #### H BSAG, HCV RX PCR, HIVRNAPCR, HBCAB, HBSAB #### [facility] , #### CMP, PT, CBC #### [address] Hemoglobin Test strip Ql (U) Ordered By: Liya Hill on 01-01-2025 Hemoglobin Ql (U) Negative Negative [facility] Hemoglobin [Mass/volume] in BloodOrdered By: Liya Hill on 01-01-2025 Hemoglobin (Bld) [Mass/Vol] 17.6 g/dL High 13.0-17.0 [facility] Comment on above: Performed By: #### H BSAG, HCV RX PCR, HIVRNAPCR, HBCAB, HBSAB #### [facility] , #### CMP, PT, CBC #### [facility] [address] [place] [address] INR in Platelet poor plasma by Coagulation assayOrdered By: Liya Hill on 01-01-2025 INR Coag (PPP) [Relative time] 1.1 {INR} Normal [facility] Comment on above: INR Therapeutic Rang e A) Pre- and Peroperative OAT started two weeks before surgery. NOT HIP SURGERY: 1.5 - 2.5 HIP SURGERY: 2 - 3B) Primary and secondary prevention of venous THROMBOSIS: 2 - 3C) Active venous thrombosis, pulmonary embolismand prevention of recurrent venous thrombosis: 2 - 3D) Prevention of arterial thromboembolismincluding patients with mechanical heart valves: 3 - 4.5 Result Comment: INR Therapeutic Range A) Pre- and Peroperative OAT started two weeks before surgery. NOT HIP SURGERY: 1.5 - 2.5 HIP SURGERY: 2 - 3 B) Primary and secondary prevention of venous THROMBOSIS: 2 - 3 C) Active venous thrombosis, pulmonary embolism and prevention of recurrent venous thrombosis: 2 - 3 D) Prevention of arterial thromboembolism including patients with mechanical heart valves: 3 - 4.5 Performed By: #### H BSAG, HCV RX PCR, HIVRNAPCR, HBCAB, HBSAB #### [facility] , #### CMP, PT, CBC #### [facility] [address] [place] [address] [place] Ketones [Presence] in Urine by Test stripOrdered By: Liya Hill on 01-01-2025 Ketones Ql (U) Negative Normal Negative [facility] Comment on above: Order Comment: Name Collection Type:: Clean-Voided Midstream Performed By: #### H BSAG, HCV RX PCR, HIVRNAPCR, HBCAB, HBSAB #### [facility] , #### CMP, PT, CBC #### [facility] [address] [place] [address] [place] Leukocyte esterase [Presence ] in Urine by Test stripOrdered By: iLya Hill on 01-01-2025 Leukocyte esterase Test strip Ql (U) Negative Normal Negative [facility] Comment on above: Order Comment: Name Collection Type:: Clean-Voided Midstream Performed By: #### H BSAG, HCV RX PCR, HIVRNAPCR, HBCAB, HBSAB #### [facility] , #### CMP, PT, CBC #### [facility] [address] [place] [address] [place] Leukocytes [#/volume] correc verónica for nucleated erythrocytes in Blood by Automated counOrdered By: Liya Hill on 01-01-2025 WBC corrected for nucl RBC Auto (Bld) [#/Vol] 4.5 10*3/uL 4.1-10.5 [facility] Leukocytes [#/volume] in Blo od by Automated countOrdered By: Liya Hill on 01-01-2025 WBC (Bld) [#/Vol] 4.5 10*3/uL Normal 4.1-10.5 [facility] Comment on above: Performed By: #### H BSAG, HCV RX PCR, HIVRNAPCR, HBCAB, HBSAB #### [facility] , #### CMP, PT, CBC #### [address] Lipase [Enzymatic activity/v olume] in Serum or PlasmaOrdered By: Liya Hill on 01-01-2025 Lipase [Catalytic activity/Vol] 166.0 U/L High 11.0-82.0 [facility] Comment on above: Result Comment: PERF ORMED BY: [place] [id number] PATHOLOGIST OPTICAL ASSISTANT TAMEKA CALDERA M.D. Performed By: #### H BSAG, HCV RX PCR, HIVRNAPCR, HBCAB, HBSAB #### [facility] , #### CMP, PT, CBC #### [place] [address] [place] Lymphocytes [#/volume] in Bl ood by Automated countOrdered By: Liya Hill on 01-01-2025 Lymphocytes (Bld) [#/Vol] 2.1 10*3/uL Normal 1.00-4.8 [facility] Comment on above: Performed By: #### H BSAG, HCV RX PCR, HIVRNAPCR, HBCAB, HBSAB #### [facility] , #### CMP, PT, CBC #### [place] [address] [place] Lymphocytes/100 leukocytes i n Blood by Automated countOrdered By: Liya Hill on 01-01-2025 Lymphocytes/100 WBC (Bld) 46.3 % Normal . [facility] Comment on above: Performed By: #### H BSAG, HCV RX PCR, HIVRNAPCR, HBCAB, HBSAB #### [facility] , #### CMP, PT, CBC #### [address] [place] [address] [place] MCH [Entitic mass] by Automa verónica countOrdered By: Liya Hill on 01-01-2025 MCH (RBC) [Entitic mass] 33.7 pg Normal 27.5-35.2 [facility] Comment on above: Performed By: #### H BSAG, HCV RX PCR, HIVRNAPCR, HBCAB, HBSAB #### [facility] , #### CMP, PT, CBC #### [facility] [address] [place] [address] MCHC Auto (RBC) [Mass/Vol]Or dered By: Liya Hill on 01-01-2025 MCHC (RBC) [Mass/Vol] 34.8 g/dL 32.5-35.6 [place] MCV [Entitic volume] by Auto mated countOrdered By: Liya Hill on 01-01-2025 MCV (RBC) [Entitic vol] 96.9 fL Normal 83.5-101 [facility] Comment on above: Performed By: #### H BSAG, HCV RX PCR, HIVRNAPCR, HBCAB, HBSAB #### [facility] , #### CMP, PT, CBC #### [facility] [address] [place] [address] Magnesium [Mass/volume] in S charu or PlasmaOrdered By: Liya Hill on 01-01-2025 Magnesium [Mass/Vol] 2.0 mg/dL Normal 1.9-2.[address] [facility] Comment on above: Performed By: #### H BSAG, HCV RX PCR, HIVRNAPCR, HBCAB, HBSAB #### [facility] , #### CMP, PT, CBC #### [facility] [address] [place] [address] Monocyte distribution width [Entitic volume] in Blood by AutomatedOrdered By: Liya Hill on 01-01-2025 Monocyte distribution width Auto (Bld) [Entitic vol] 19.73 % 0.00-20.00 [facility] Monocytes [#/volume] in Bloo d by Automated countOrdered By: Liya Hill on 01-01-2025 Monocytes (Bld) [#/Vol] 0.3 10*3/uL Normal 0.0-0.8 [facility] Comment on above: Performed By: #### H BSAG, HCV RX PCR, HIVRNAPCR, HBCAB, HBSAB #### [facility] , #### CMP, PT, CBC #### [place] [address] [place] Monocytes/100 leukocytes in Blood by Automated countOrdered By: Liya Hill on 01-01-2025 Monocytes/100 WBC (Bld) 7.1 % Normal . [facility] Comment on above: Performed By: #### H BSAG, HCV RX PCR, HIVRNAPCR, HBCAB, HBSAB #### [facility] , #### CMP, PT, CBC #### [place] [address] [place] Neutrophils [#/volume] in Bl ood by Automated countOrdered By: Liya Hill on 01-01-2025 Neutrophils (Bld) [#/Vol] 2.1 10*3/uL Normal 1.8-7.7 [facility] Comment on above: Performed By: #### H BSAG, HCV RX PCR, HIVRNAPCR, HBCAB, HBSAB #### [facility] , #### CMP, PT, CBC #### [place] [address] [place] Neutrophils/100 leukocytes i n Blood by Automated countOrdered By: Liya Hill on 01-01-2025 Neutrophils/100 WBC (Bld) 45.8 % Normal . [facility] Comment on above: Performed By: #### H BSAG, HCV RX PCR, HIVRNAPCR, HBCAB, HBSAB #### [facility] , #### CMP, PT, CBC #### [address] Nitrite Test strip Ql (U)Ord ered By: Liya Hill on 01-01-2025 Nitrite Ql (U) Negative Negative [facility] No Panel InformationOrdered By: Liya Hill on 01-01-2025 Estimated GFR (CKD-EPI) > 60.0 mL/Min [facility] Creatinine Clearance (Chem 120.47 [facility] Nucleated erythrocytes [Pres ence] in Blood by Automated countOrdered By: Liya Hill on 01-01-2025 Nucleated RBC Auto Ql (Bld) 0.3 /100{WBC} 0-0.5 [facility] Platelet mean volume [Entiti c volume] in Blood by Automated countOrdered By: Liya Hill on 01-01-2025 Platelet mean volume (Bld) [Entitic vol] 10.9 fL High 6.6-10.1 [facility] Comment on above: Performed By: #### H BSAG, HCV RX PCR, HIVRNAPCR, HBCAB, HBSAB #### [facility] , #### CMP, PT, CBC #### [facility] [address] Platelets [#/volume] in Bloo d by Automated countOrdered By: Liya Hill on 01-01-2025 Platelets (Bld) [#/Vol] 118 10*3/uL Low 150-450 [facility] Comment on above: Performed By: #### H BSAG, HCV RX PCR, HIVRNAPCR, HBCAB, HBSAB #### [facility] , #### CMP, PT, CBC #### [facility] [address] Potassium [Moles/volume] in Serum or PlasmaOrdered By: Liya Hill on 01-01-2025 Potassium [Moles/Vol] 4.0 mmol/L Normal 3.5-5.1 [place] Comment on above: Hemolysis is present at a level that could interfere with the result.Contact lab if redraw is required Result Comment: Hemo lysis is present at a level that could interfere with the result. Contact lab if redraw is required Performed By: #### H BSAG, HCV RX PCR, HIVRNAPCR, HBCAB, HBSAB #### [facility] , #### CMP, PT, CBC #### [facility] [address] Protein Test strip (U) [Mass /Vol]Ordered By: Liya Hill on 01-01-2025 Protein (U) [Mass/Vol] Negative Negative [facility] Protein [Mass/volume] in Ser um or PlasmaOrdered By: Liya Hill on 01-01-2025 Protein [Mass/Vol] 7.8 g/dL Normal 6.4-8.9 [facility] Comment on above: Performed By: #### H BSAG, HCV RX PCR, HIVRNAPCR, HBCAB, HBSAB #### [facility] , #### CMP, PT, CBC #### [address] Prothrombin time (PT)Ordered By: Liya Hill on 01-01-2025 PT Coag (PPP) [Time] 13.0 s High 9.0-12.[address] [facility] Comment on above: A hematocrit value g reater than 55% may lead to inaccurate results in coagulation testing. Patients having hematocrit values >55% require a special collection tube for coagulation studies. Please contact the laboratory at [phone] for redraw instructions. Result Comment: A he matocrit value greater than 55% may lead to inaccurate results in coagulation testing. Patients having hematocrit values >55% require a special collection tube for coagulation studies. Please contact the laboratory at [phone] for redraw instructions. Performed By: #### H BSAG, HCV RX PCR, HIVRNAPCR, HBCAB, HBSAB #### [facility] , #### CMP, PT, CBC #### [address] Serum globulin measurement b y calculation (mass/volume)Ordered By: Liya Hill on 01-01-2025 Globulin (S) [Mass/Vol] 3.7 g/dL Normal [facility] Comment on above: Performed By: #### H BSAG, HCV RX PCR, HIVRNAPCR, HBCAB, HBSAB #### [facility] , #### CMP, PT, CBC #### [address] Serum or plasma albumin/glob ulin mass ratioOrdered By: Liya Hill on 01-01-2025 Albumin/Globulin [Mass ratio] 1.1 {ratio} Normal [facility] Comment on above: Performed By: #### H BSAG, HCV RX PCR, HIVRNAPCR, HBCAB, HBSAB #### [facility] , #### CMP, PT, CBC #### [facility] [address] [place] [address] Serum or plasma anion gap de terminationOrdered By: Liya Hill on 01-01-2025 Anion gap [Moles/Vol] 11.2 mmol/L Normal 6.0-15.0 [facility] Comment on above: Performed By: #### H BSAG, HCV RX PCR, HIVRNAPCR, HBCAB, HBSAB #### [facility] , #### CMP, PT, CBC #### [address] Sodium [Moles/volume] in Ser um or PlasmaOrdered By: Liya Hill on 01-01-2025 Sodium [Moles/Vol] 135 mmol/L Low 136-145 [facility] Comment on above: Performed By: #### H BSAG, HCV RX PCR, HIVRNAPCR, HBCAB, HBSAB #### [facility] , #### CMP, PT, CBC #### [facility] [address] [place] [address] Specific gravity Test strip (U) [Rel density]Ordered By: Liya Hill on 01-01-2025 Specific gravity (U) [Rel density] 1.013 1.001-1.03 0 [facility] Troponin I High Sensitivityo n 01-01-2025 Troponin I High Sensitivity 7 Normal 0-20 [facility] Comment on above: Result Comment: The Troponin units of report have been changed to meet the Chest Pain Accreditation requirement, element EC5.M1l2. Troponin units are changed from pg/ml to ng/L. Also, the decimal is removed and results are in whole numbers. PERFORMED BY: [place] [id number] PATHOLOGIST OPTICAL ASSISTANT TAMEKA CALDERA M.D. Performed By: #### H BSAG, HCV RX PCR, HIVRNAPCR, HBCAB, HBSAB #### [facility] , #### CMP, PT, CBC #### [facility] [address] [place] [address] Troponin I High Sensitivity 6 Normal 0-20 [facility] Comment on above: Result Comment: The Troponin units of report have been changed to meet the Chest Pain Accreditation requirement, element EC5.M1l2. Troponin units are changed from pg/ml to ng/L. Also, the decimal is removed and results are in whole numbers. PERFORMED BY: [place] [id number] PATHOLOGIST OPTICAL ASSISTANT TAMEKA CALDERA M.D. Performed By: #### H BSAG, HCV RX PCR, HIVRNAPCR, HBCAB, HBSAB #### [facility] , #### CMP, PT, CBC #### [facility] [address] [place] [address] [place] Troponin I.cardiac [Mass/vol ume] in Serum or Plasma by Detection limit <= 0.01 ng/mLOrdered By: Liya Hill on 01-01-2025 Troponin I.cardiac DL <= 0.01 ng/mL [Mass/Vol] 7 ng/L 0-20 [facility] Comment on above: The Troponin units o f report have been changed to meet the Chest Pain Accreditation requirement, element EC5.M1l2. Troponin units are changed from pg/ml to ng/L. Also, the decimal is removed and results are in whole numbers. Urea nitrogen [Mass/volume] in Serum or PlasmaOrdered By: Liya Hill on 01-01-2025 Urea nitrogen [Mass/Vol] 9 mg/dL Normal 7-25 [facility] Comment on above: Performed By: #### H BSAG, HCV RX PCR, HIVRNAPCR, HBCAB, HBSAB #### [facility] , #### CMP, PT, CBC #### [address] Urinalysison 01-01-2025 Bilirubin,Urine Negative Normal Negative [facility] Comment on above: Order Comment: Name Collection Type:: Clean-Voided Midstream Performed By: #### H BSAG, HCV RX PCR, HIVRNAPCR, HBCAB, HBSAB #### [facility] , #### CMP, PT, CBC #### [facility] [address] [place] [address] Glucose Ql (U) Normal Normal Normal [facility] Comment on above: Order Comment: Name Collection Type:: Clean-Voided Midstream Performed By: #### H BSAG, HCV RX PCR, HIVRNAPCR, HBCAB, HBSAB #### [facility] , #### CMP, PT, CBC #### [facility] [address] [place] [address] Nitrite,Urine Negative Normal Negative [facility] Comment on above: Order Comment: Name Collection Type:: Clean-Voided Midstream Performed By: #### H BSAG, HCV RX PCR, HIVRNAPCR, HBCAB, HBSAB #### [facility] , #### CMP, PT, CBC #### [facility] [address] [place] [address] Occult Blood,Urine Negative Normal Negative [facility] Comment on above: Order Comment: Name Collection Type:: Clean-Voided Midstream Result Comment: PERF ORMED BY: [place] [id number] PATHOLOGIST OPTICAL ASSISTANT TAMEKA CALDERA M.D. Performed By: #### H BSAG, HCV RX PCR, HIVRNAPCR, HBCAB, HBSAB #### [facility] , #### CMP, PT, CBC #### [address] Protein,Urine Negative Normal Negative [facility] Comment on above: Order Comment: Name Collection Type:: Clean-Voided Midstream Performed By: #### H BSAG, HCV RX PCR, HIVRNAPCR, HBCAB, HBSAB #### [facility] , #### CMP, PT, CBC #### [address] Specificy [place],Urine 1.013 Normal 1.001-1.03 0 [facility] Comment on above: Order Comment: Name Collection Type:: Clean-Voided Midstream Performed By: #### H BSAG, HCV RX PCR, HIVRNAPCR, HBCAB, HBSAB #### [facility] , #### CMP, PT, CBC #### [address] Urobilinogen,Urine Normal Normal Normal [facility] Comment on above: Order Comment: Name Collection Type:: Clean-Voided Midstream Performed By: #### H BSAG, HCV RX PCR, HIVRNAPCR, HBCAB, HBSAB #### [facility] , #### CMP, PT, CBC #### [address] Urobilinogen Test strip (U) [Mass/Vol]Ordered By: Liya Hill on 01-01-2025 Urobilinogen (U) [Mass/Vol] Normal mg/dL Normal [facility] X-ray reportOrdered By: José Luis Cruz on 01-01-2025 Study report [facility] [place] [address] XRay Report Signed Patient: Jeffry Aguilar MR#: [id number] : 1975 Acct:[id number] Age/Sex: 49 / M ADM Date: 5 Loc: ER Room: Type: [facility] ER Attending Dr: Copies to: Liya Hill APRN~ Ordering Provider: Liya Hill APRN Date of Service: 01/01/25 XR/XR chest 2V*: shortness of breath Chest 2 views CLINICAL HISTORY: Diarrhea for one month abdominal pain shortness of breath for months. COMPARISON: Chest 12/10/2024 FINDINGS: Heart normal size. Lungs are clear. No free air. XR/XR chest 2V* IMPRESSION: NO ACUTE CARDIOPULMONARY ABNORMALITY. Impression dictated by: Rufus Cruz Jr., D.O. 01/01/2025 1:52 PM Dictation Location: RADIO-PC-23 Transcribed By: SERGIO 01/01/25 1352 Dictated By: Rufus Cruz Jr, DO 01/01/25 135 Signed By: 01/01/25 1352 [facility] XR chest 2V*on 01-01-2025 XR chest 2V* [facility] [place] [address] XRay Report Signed Patient: Jeffry Aguilar MR#: [id number] : 1975 Acct:[id number] Age/Sex: 49 / M ADM Date: 01/01/25 Loc: ER Room: Type: [facility] ER Attending Dr: Copies to: Liya Hill APRN Ordering Provider: Liya Hill APRN Date of Service: 01/01/25 XR/XR chest 2V*: shortness of breath Chest 2 views CLINICAL HISTORY: Diarrhea for one month abdominal pain shortness of breath for months. COMPARISON: Chest 12/10/2024 FINDINGS: Heart normal size. Lungs are clear. No free air. XR/XR chest 2V* IMPRESSION: NO ACUTE CARDIOPULMONARY ABNORMALITY. Impression dictated by: Rufus Cruz Jr., D.O. 01/01/2025 1:52 PM Dictation Location: RADIO-PC-23 Transcribed By: SREGIO 01/01/25 1352 Dictated By: Rufus Cruz Jr, DO 01/01/25 1351 Signed By: 01/01/25 1352 Normal [facility] pH of Urine by Test stripOrd ered By: Liya Hill on 01-01-2025 pH (U) 6.0 [pH] Normal 5.0-9.0 [facility] Comment on above: Order Comment: Name Collection Type:: Clean-Voided Midstream Performed By: #### H BSAG, HCV RX PCR, HIVRNAPCR, HBCAB, HBSAB #### [facility] , #### CMP, PT, CBC #### [facility] [address] CNPJudi 12-24-2024 CNPN Telephone (RHEULN) JEFFRY AGUILAR ([id number]) 1975 M Date Time Provider Department 12/24/24 KOBE BERMAN During your visit today, we recorded the following information about you: Leonela Martinez MA 12/24/2024 2:49 PM Signed Please contact pt to reschedule his missed VV appt that was scheduled today @2pm .with Dr Berman - new consults Marielos De Anda 12/25/2024 10:15 AM Signed 1st attempt, left voicemail for patient to call back and schedule new pt appt 2nd, mychart sent Leonela Martinez MA 01/02/2025 10:00 AM Signed Pt has not read [employer] messages please follow up with patient for scheduling new consult for Carleen Kaplan 01/02/2025 11:04 AM Signed Called patient several times Straight to LM on VM (x2) and My Chart asking to call and reschedule missed appointment Carleen Suero January 02, 2025 11:04 AM Allergies As of Date: 12/24/2024 Noted Allergy Reaction CODEINE 02/26/2021 16 - Unknown Date Reviewed: Never Reviewed Reason for Visit: Appointment Rescheduled [1024] Prescriptions as of 01/02/2025 - albuterol HFA (PROVENTIL HFA, VENTOLIN HFA) 90 mcg/actuation inhaler Inhale 1 puff as instructed every 6 hours as needed. - gabapentin (NEURONTIN) 600 mg tablet Take 600 mg by mouth three times a day. - losartan (COZAAR) 25 mg tablet Take 1 tablet by mouth once daily. Problem List As Of Date: 12/24/2024 (None) Encounter Status:Closed by CARLEEN SUERO on 01/02/25 Normal [facility] Alanine aminotransferase [En zymatic activity/volume] in Serum or PlasmaOrdered By: Nakul Patricio on 12-15-2024 ALT [Catalytic activity/Vol] 277 U/L High 7-52 [facility] Comment on above: Order Comment: Reaso n for Exam Myalgia Performed By: #### H BSAG, HCV RX PCR, HIVRNAPCR, HBCAB, HBSAB #### [facility] , #### CMP, PT, CBC #### [facility] [address] [place] [address] [place] Albumin [Mass/volume] in Ser um or Plasma by Bromocresol green (BCG) dye binding methoOrdered By: Nakul Patricio on 12-15-2024 Albumin BCG dye [Mass/Vol] 4.1 g/dL 3.5-5.7 [facility] Alkaline phosphatase [Enzyma tic activity/volume] in Serum or PlasmaOrdered By: Nakul Patricio on 12-15-2024 ALP [Catalytic activity/Vol] 58 U/L Normal 34-104 [facility] Comment on above: Order Comment: Reaso n for Exam Myalgia Performed By: #### H BSAG, HCV RX PCR, HIVRNAPCR, HBCAB, HBSAB #### [facility] , #### CMP, PT, CBC #### [facility] [address] [place] [address] [place] Aspartate aminotransferase [ Enzymatic activity/volume] in Serum or PlasmaOrdered By: Nakul Patricio on 12-15-2024 AST [Catalytic activity/Vol] 264 U/L High 13-39 [facility] Comment on above: Order Comment: Reaso n for Exam Myalgia Performed By: #### H BSAG, HCV RX PCR, HIVRNAPCR, HBCAB, HBSAB #### [facility] , #### CMP, PT, CBC #### [facility] [address] Bilirubin.total [Mass/volume ] in Serum or PlasmaOrdered By: Nakul Patricio on 12-15-2024 Bilirubin [Mass/Vol] 0.9 mg/dL Normal 0.3-1.[address] [facility] Comment on above: Order Comment: Reaso n for Exam Myalgia Performed By: #### H BSAG, HCV RX PCR, HIVRNAPCR, HBCAB, HBSAB #### [facility] , #### CMP, PT, CBC #### [facility] [address] [place] [address] Calcium [Mass/volume] in Ser um or PlasmaOrdered By: Nakul Patricio on 12-15-2024 Calcium [Mass/Vol] 9.2 mg/dL Normal 8.6-10.3 [facility] Comment on above: Order Comment: Reaso n for Exam Myalgia Performed By: #### H BSAG, HCV RX PCR, HIVRNAPCR, HBCAB, HBSAB #### [facility] , #### CMP, PT, CBC #### [facility] [address] [place] [address] Carbon dioxide, total [Moles /volume] in Serum or PlasmaOrdered By: Nakul Patricio on 12-15-2024 CO2 [Moles/Vol] 26.9 mmol/L Normal 21.0-31.0 [facility] Comment on above: Order Comment: Reaso n for Exam Myalgia Performed By: #### H BSAG, HCV RX PCR, HIVRNAPCR, HBCAB, HBSAB #### [facility] , #### CMP, PT, CBC #### [facility] [address] [place] [address] [place] Chloride [Moles/volume] in S charu or PlasmaOrdered By: Nakul Patricio on 12-15-2024 Chloride [Moles/Vol] 109 mmol/L High 98-[address] [facility] Comment on above: Order Comment: Reaso n for Exam Myalgia Performed By: #### H BSAG, HCV RX PCR, HIVRNAPCR, HBCAB, HBSAB #### [facility] , #### CMP, PT, CBC #### [facility] [address] Comprehensive Metabolic Pane jolene 12-15-2024 Albumin [Mass/Vol] 4.1 g/dL Normal 3.5-5.7 [facility] Comment on above: Order Comment: Reaso n for Exam Myalgia Performed By: #### H BSAG, HCV RX PCR, HIVRNAPCR, HBCAB, HBSAB #### [facility] , #### CMP, PT, CBC #### [facility] [address] GFR/1.73 sq M.predicted MDRD (S/P/Bld) [Vol rate/Area] mL/min/{1.73_m2} Normal [facility] Comment on above: Order Comment: Reaso n for Exam Myalgia Performed By: #### H BSAG, HCV RX PCR, HIVRNAPCR, HBCAB, HBSAB #### [facility] , #### CMP, PT, CBC #### [facility] [address] Creatine kinase [Enzymatic a ctivity/volume] in Serum or PlasmaOrdered By: Nakul Patricio on 12-15-2024 CK [Catalytic activity/Vol] 179 U/L Normal 30-223 [facility] Comment on above: Order Comment: Reaso n for Exam Myalgia Result Comment: PERF ORMED BY: [place] [id number] PATHOLOGIST OPTICAL ASSISTANT TAMEKA CALDERA M.D. Performed By: #### H BSAG, HCV RX PCR, HIVRNAPCR, HBCAB, HBSAB #### [facility] , #### CMP, PT, CBC #### [facility] [address] Creatinine [Mass/volume] in Serum or PlasmaOrdered By: Nakul Patricio on 12-15-2024 Creatinine [Mass/Vol] 0.90 mg/dL Normal 0.70-1.30 [place] Comment on above: Order Comment: Reaso n for Exam Myalgia Performed By: #### H BSAG, HCV RX PCR, HIVRNAPCR, HBCAB, HBSAB #### [facility] , #### CMP, PT, CBC #### [facility] [address] Glucose [Mass/volume] in Ser um or PlasmaOrdered By: Nakul Patricio on 12-15-2024 Glucose [Mass/Vol] 96 mg/dL Normal 70-100 [facility] Comment on above: ADA recommended refe rence rangeRandom Glucose Reference Range is dependent on time and content of last meal. Glucose of more than 200 mg/dL in a nonstressed, ambulatory subject supports the diagnosis of Diabetes Mellitus. Order Comment: Reaso n for Exam Myalgia Result Comment: [place] om Glucose Reference Range is dependent on time and content of last meal. Glucose of more than 200 mg/dL in a nonstressed, ambulatory subject supports the diagnosis of Diabetes Mellitus. ADA recommended reference range Performed By: #### H BSAG, HCV RX PCR, HIVRNAPCR, HBCAB, HBSAB #### [facility] , #### CMP, PT, CBC #### [facility] [address] [place] [address] [place] Magnesium [Mass/volume] in S charu or PlasmaOrdered By: Nakul Patricio on 12-15-2024 Magnesium [Mass/Vol] 2.1 mg/dL Normal 1.9-2.[address] [facility] Comment on above: Order Comment: Reaso n for Exam Myalgia Result Comment: PERF ORMED BY: [place] [id number] PATHOLOGIST OPTICAL ASSISTANT TAMEKA CALDERA M.D. Performed By: #### H BSAG, HCV RX PCR, HIVRNAPCR, HBCAB, HBSAB #### [facility] , #### CMP, PT, CBC #### [facility] [address] [place] [address] No Panel InformationOrdered By: Nakul Patricio on 12-15-2024 Estimated GFR (CKD-EPI) > 60.0 mL/Min [facility] Creatinine Clearance (Chem N/A [facility] Potassium [Moles/volume] in Serum or PlasmaOrdered By: Nakul Patricio on 12-15-2024 Potassium [Moles/Vol] 4.4 mmol/L Normal 3.5-5.1 [place] Comment on above: Order Comment: Reaso n for Exam Myalgia Performed By: #### H BSAG, HCV RX PCR, HIVRNAPCR, HBCAB, HBSAB #### [facility] , #### CMP, PT, CBC #### [facility] [address] [place] [address] Protein [Mass/volume] in Ser um or PlasmaOrdered By: Nakul Patricio on 12-15-2024 Protein [Mass/Vol] 7.3 g/dL Normal 6.4-8.9 [facility] Comment on above: Order Comment: Reaso n for Exam Myalgia Performed By: #### H BSAG, HCV RX PCR, HIVRNAPCR, HBCAB, HBSAB #### [facility] , #### CMP, PT, CBC #### [facility] [address] [place] [address] Serum globulin measurement b y calculation (mass/volume)Ordered By: Nakul Patricio on 12-15-2024 Globulin (S) [Mass/Vol] 3.2 g/dL Normal [facility] Comment on above: Order Comment: Reaso n for Exam Myalgia Performed By: #### H BSAG, HCV RX PCR, HIVRNAPCR, HBCAB, HBSAB #### [facility] , #### CMP, PT, CBC #### [facility] [address] [place] [address] Serum or plasma albumin/glob ulin mass ratioOrdered By: Nakul Patricio on 12-15-2024 Albumin/Globulin [Mass ratio] 1.3 {ratio} Normal [facility] Comment on above: Order Comment: Reaso n for Exam Myalgia Performed By: #### H BSAG, HCV RX PCR, HIVRNAPCR, HBCAB, HBSAB #### [facility] , #### CMP, PT, CBC #### [facility] [address] Serum or plasma anion gap de terminationOrdered By: Nakul Patricio on 12-15-2024 Anion gap [Moles/Vol] 9.5 mmol/L Normal 6.0-15.0 [place] Comment on above: Order Comment: Reaso n for Exam Myalgia Performed By: #### H BSAG, HCV RX PCR, HIVRNAPCR, HBCAB, HBSAB #### [facility] , #### CMP, PT, CBC #### [facility] [address] [place] [address] Sodium [Moles/volume] in Ser um or PlasmaOrdered By: Nakul Patricio on 12-15-2024 Sodium [Moles/Vol] 141 mmol/L Normal 136-145 [facility] Comment on above: Order Comment: Reaso n for Exam Myalgia Performed By: #### H BSAG, HCV RX PCR, HIVRNAPCR, HBCAB, HBSAB #### [facility] , #### CMP, PT, CBC #### [facility] [address] Urea nitrogen [Mass/volume] in Serum or PlasmaOrdered By: Nakul Patricio on 12-15-2024 Urea nitrogen [Mass/Vol] 14 mg/dL Normal 7-25 [facility] Comment on above: Order Comment: Reaso n for Exam Myalgia Performed By: #### H BSAG, HCV RX PCR, HIVRNAPCR, HBCAB, HBSAB #### [facility] , #### CMP, PT, CBC #### [facility] [address] [place] [id number] [place] XR chest 2V*on 12-10-2024 XR chest 2V* [facility] [address] [place] [address] [place] [address] XRay Report Signed Patient: Jeffry Aguilar MR#: [id number] : 1975 Acct:[id number] Age/Sex: 49 / M ADM Date: 12/10/24 Loc: RT Room: [facility] Attending Dr: Nakul Patricio DO Copies to: Nakul Patricio DO Ordering Provider: Nakul Patricio DO Date of Service: 12/10/24 XR/XR chest 2V*: Shortness of breath Plain film chest 2 view HISTORY: Productive cough COMPARISON: None FINDINGS: SUPPORT DEVICES: None POSTSURGICAL CHANGES: None HEART: Within normal limits PULMONARY GLADIS: Within normal limits MEDIASTINUM: Unremarkable LUNGS AND PLEURA: No acute lung process, pleural effusion or pneumothorax identified. BONY STRUCTURES: Intact ADDITIONAL FINDINGS None XR/XR chest 2V* IMPRESSION: No acute process. Impression dictated by: Fredy Spencer M.D. 12/10/2024 2:54 PM Dictation Location: [place] [address] Transcribed By: [facility] 12/10/24 1454 Dictated By: Fredy Spencer DO 12/10/24 1451 Signed By: 12/10/24 1454 Normal [facility] Amphetamine Screen Ql (U)Ord ered By: Crystal Meehan on 08-11-2024 Amphetamines Ql (U) Amphetamines screen Negativ e [facility] Barbiturates [Presence] in U rine by Screen methodOrdered By: Crystal Meehan on 08-11-2024 Barbiturates Screen Ql (U) Barbiturates [Presence] in Urine by Screen method Negative [facility] Benzodiazepines Screen Ql (U )Ordered By: Crystal Meehan on 08-11-2024 Benzodiazepines Ql (U) Benzodiazepines [ Presence] in Urine by Screen method Negative [facility] Benzoylecgonine [Presence] i n Urine by Screen methodOrdered By: Crystal Meehan on 08-11-2024 Benzoylecgonine Screen Ql (U) Benzoylecgonine [Presence] in Urine by Screen method Negative [facility] Cannabinoids [Presence] in U rine by Screen methodOrdered By: Crystal Meehan on 08-11-2024 Cannabinoids Screen Ql (U) Cannabinoids [Presence] in Urine by Screen method High Negative [facility] Comment on above: These are unconfirme d results and should not be used for legal purposes. Drug Cut-Off Concentration: AMPH 1000 ng/mL BILLIE 200 ng/mL LOREE 200 ng/mL COCM 300 ng/mL OP 300 ng/mL PCP 25 ng/mL THC 20 ng/mL Drug Screen,Urineon 08-12-19 Amphetamine Screen,Urine Negative Normal Negative [facility] Comment on above: Performed By: #### H BSAG, HCV RX PCR, HIVRNAPCR, HBCAB, HBSAB #### [facility] , #### CMP, PT, CBC #### [address] Barbiturate Screen,Urine Negative Normal Negative [facility] Comment on above: Performed By: #### H BSAG, HCV RX PCR, HIVRNAPCR, HBCAB, HBSAB #### [facility] , #### CMP, PT, CBC #### [place] [address] [place] Benzodiazepines Screen,Urine Negative Normal Negative [facility] Comment on above: Performed By: #### H BSAG, HCV RX PCR, HIVRNAPCR, HBCAB, HBSAB #### [facility] , #### CMP, PT, CBC #### [place] [address] [place] Cannabinoid Screen,Urine Positive High Negative [facility] Comment on above: Result Comment: Thes e are unconfirmed results and should not be used for legal purposes. Drug Cut-Off Concentration: AMPH 1000 ng/mL BILLIE 200 ng/mL LOREE 200 ng/mL COCM 300 ng/mL OP 300 ng/mL PCP 25 ng/mL THC 20 ng/mL PERFORMED BY: [place] [address] PATHOLOGIST OPTICAL ASSISTANT REJI FERNANDES M.D. Performed By: #### H BSAG, HCV RX PCR, HIVRNAPCR, HBCAB, HBSAB #### [facility] , #### CMP, PT, CBC #### [address] Cocaine Screen,Urine Negative Normal Negative [facility] Comment on above: Performed By: #### H BSAG, HCV RX PCR, HIVRNAPCR, HBCAB, HBSAB #### [facility] , #### CMP, PT, CBC #### [address] Opiate Screen,Urine Negative Normal Negative [facility] Comment on above: Performed By: #### H BSAG, HCV RX PCR, HIVRNAPCR, HBCAB, HBSAB #### [facility] , #### CMP, PT, CBC #### [address] Phencyclidine Screen,Urine Negative Normal Negative [facility] Comment on above: Performed By: #### H BSAG, HCV RX PCR, HIVRNAPCR, HBCAB, HBSAB #### [facility] , #### CMP, PT, CBC #### [address] 08-11-2024 ------- Specimen: [id number] Received: 08/11/24 Status: MILDRED Abad Num: [id number] Spec Type: Surgical Subm Dr: Crystal Meehan MD Tissues: A Colon Biopsy (CECAL POLYP COLONOSCOPY) B Colon Biopsy (SIGMOID POLYPS) Procedures: HE/4, Gross/Micro L4/2 Age/ Patient Sex Location Account Attending Physician Jeffry Aguilar /[facility] [id number] Crystal Meehan MD SPEC NUM: [id number] RECD: 08/11/24 STATUS: MILDRED ABAD NUM: [id number] CRISTIN: 08/11/24-[address] [facility] [address]: Crystal Meehan MD ENTERED: 08/11/[address] [facility] [address]: VESTA TYPE: Surgical DEPT: S ENTERED BY: [id number] RECV BY: [id number] ORDERED: HE, Gross/Micro L4/2 ORDERED: , Gross/Micro L4/2 Pathological Diagnosis A. Colon, cecum, polypectomy: - Hyperplastic polyp B. Colon, sigmoid, polypectomy: - Hyperplastic polyp and tubular adenoma. Clinical Information Screening, colon polyps. Gross Description Part A is received in formalin labeled with the patients name, date of , and cecal polyp is a quiroz-toney, focally erythematous, friable, 0.7 cm in greatest dimension polypoid strip. The specimen is entirely submitted in a single cassette. (1, ns, [id number] A) JG Part B is received in formalin labeled with the patients name, date of , and sigmoid colon are two quiroz-toney, focally erythematous, friable, 0.3 and 0.4 cm in greatest dimension polypoid fragments with adherent vegetative material. The specimen is entirely submitted in a single cassette. (1, ns, B) JG Specimen: Received: 08/11/24 Status: MILDRED Z[place] Num: [id number] Spec Type: Surgical Subm Dr: Crystal Meehan MD Tissues: A Colon Biopsy (CECAL POLYP COLONOSCOPY) B Colon Biopsy (SIGMOID POLYPS) Procedures: HE/4, Gross/Micro L4/2 Patient: Jeffry Aguilar [id number] (Continued) Specimen: Received: 08/11/24 (Continued) Signed (signature on file) Duane Pompa MD 08/12/24 1213 Specimen: [id number] Received: 08/11/24 Status: MILDRED Abad Num: [id number] Spec Type: Surgical Subm Dr: Crystal Meehan MD Tissues: A Colon Biopsy (CECAL POLYP COLONOSCOPY) B Colon Biopsy (SIGMOID POLYPS) Procedures: HE/Eleno, Gross/Micro L4/2 Patient: Jeffry Aguilar [id number] (Continued) Specimen: [id number] Received: 08/11/24 (Continued) Microscopic Description A B: Microscopic examination is performed. CPT Codes 61969 x2 Specimen: [id number] Received: 08/11/24 Status: MILDRED Abad Num: [id number] Spec Type: Surgical Subm Dr: Crystal Meehan MD Tissues: A Colon Biopsy (CECAL POLYP COLONOSCOPY) B Colon Biopsy (SIGMOID POLYPS) Procedures: THOMAS/Eleno, Gross/Micro L4/2 Patient: Jeffry Aguilar [id number] (Continued) Signed (signature on file) Duane Pompa MD 08/12/24 1213 Normal [facility] Opiates [Presence] in Urine by Screen methodOrdered By: Crystal Meehan on 08-11-2024 Opiates Screen Ql (U) Opiates [Presence] in Urine by Screen method Negative [facility] Phencyclidine Screen Ql (U)O rdered By: Crystal Meehan on 08-11-2024 Phencyclidine Ql (U) Phencyclidine [Pres ence] in Urine by Screen method Negative [facility] US liveron 08-08-2024 liver [facility] Main [place] [id number] Ultrasound Report Signed Patient: Jeffry Aguilar MR#: [id number] 441 : 1975 Acct:[id number] Age/Sex: 49 / M ADM Date: 08/08/24 Loc: Room: [facility] Attending Dr: Vel Sevilla APRN Ordering Provider: Vel Sevilla APRN Date of Service: 08/08/24 US/US liver: B19.20 - Unspecified viral hepatitis C without hepatic coma Copies to: Vel Sevilla APRN LIMITED ABDOMINAL ULTRASOUND - liver CLINICAL HISTORY: Hepatitis C COMPARISON: None The gallbladder is physiologically distended without shadowing calculi, wall thickening or pericholecystic fluid. No intra- or extrahepatic biliary dilatation is evident. The common duct measures 4 - 5 mm. The liver shows increased echogenicity and decreased penetration, possibly due to fatty infiltration. No focal intrahepatic masses are seen. There is appropriate hepatopetal flow within the main portal vein. The pancreas is poorly visualized for assessment. Cursory evaluation of the right kidney reveals no hydronephrosis or fluid within Owusu's pouch. US/US liver IMPRESSION: NO GALLBLADDER PATHOLOGY. POTENTIAL FATTY LIVER. Impression dictated by: Rose Marie Levine M.D.08/08/2024 1:47 PM Dictation Location: [place] [address] Tech: Penny Bundy Transcribed By: SERGIO 08/08/24 1347 Dictated By: Rose Marie Levine MD 08/08/24 1345 Signed By: 08/08/24 1347 Normal [facility] Hep B Real-Time PCR, Quanton 08-06-2024 HBV As IU/mL Not detected Normal . [facility] Comment on above: Performed By: #### H BV PCR #### [facility] , Log10 HBV (As IU/mL) Normal . [facility] Comment on above: Result Comment: Resu lt Units: log10 IU/mL Unable to calculate result since non-numeric result obtained for component test. Performed By: #### H BV PCR #### [facility] , Test Information: Comment Normal . [facility] Comment on above: Result Comment: The reportable range for this assay is 10 IU/mL to 1 billion IU/mL. Performed at: - [facility] [id number] Car Wrecker: Cristo Davalos MD, Phone: [phone] PERFORMED BY: [facility] [address] [place] [address] PATHOLOGIST OPTICAL ASSISTANT REJI FERNANDES M.D. Performed By: #### H BV PCR #### [facility] , No Panel InformationOrdered By: Vel Sevilla on 08-06-2024 Hepatitis B DNA Test Information Comment . [facility] Comment on above: The reportable range for this assay is 10 IU/mL to 1billion IU/mL.Performed at: [facility] - [facility] [employer] [id number] Director: Cristo Davalos MD, Phone: [phone] Serum or plasma hepatitis B virus DNA measurement (units/volume) (viral load) by probOrdered By: Vel Sevilla on 08-06-2024 HBV DNA HEATHER+probe Qn Serum or plasma hep atitis B virus DNA measurement (units/volume) (viral load) by prob . [facility] Serum or plasma hepatitis B virus DNA viral load by probe and target amplification meOrdered By: Vel Sevilla on 08-06-2024 HBV DNA HEATHER+probe [#/Vol] Serum or plasma hepatitis B virus DNA viral load by probe and target amplification [facility] HBV DNA HEATHER+probe [Log units/Vol] Serum or plasma hepatitis B virus DNA viral load by probe and target amplification me . [facility] Comment on above: Result Units: log10 IU/mLUnable to calculate result since non-numeric resultobtained for component test. A1C with Estimated Average G luon 08-04-2024 Glucose [Mass/Vol] 105 mg/dL Normal [facility] Comment on above: Order Comment: Reaso n for Exam Weight gain Result Comment: PERF ORMED BY: [place] [address] PATHOLOGIST OPTICAL ASSISTANT REJI FERNANDES M.D. Performed By: #### H BSAG, HCV RX PCR, HIVRNAPCR, HBCAB, HBSAB #### [facility] , #### CMP, PT, CBC #### [facility] [address] [place] [address] HbA1c (Bld) [Mass fraction] 5.3 % Normal 4.3-5.6 [facility] Comment on above: Order Comment: Reaso n for Exam Weight gain Result Comment: Incr eased risk for diabetes: 5.7 - 6.4 diabetes: >6.4 glycemic control for adults with diabetes: <7.0 Performed By: #### H BSAG, HCV RX PCR, HIVRNAPCR, HBCAB, HBSAB #### [facility] , #### CMP, PT, CBC #### [facility] [address] [place] [address] Alanine aminotransferase [En zymatic activity/volume] in Serum or PlasmaOrdered By: Nakul Patricio on 08-04-2024 ALT [Catalytic activity/Vol] Alanine aminotransferase [Enzymatic activity/volume] in Serum or Plasma High 7-52 [facility] Albumin [Mass/volume] in Ser um or Plasma by Bromocresol green (BCG) dye binding methoOrdered By: Nakul Patricio on 08-04-2024 Albumin BCG dye [Mass/Vol] Albumin [Mass/volume] in Serum or Plasma by Bromocresol green (BCG) dye binding metho 3.5-5.7 [facility] Alkaline phosphatase [Enzyma tic activity/volume] in Serum or PlasmaOrdered By: Nakul Patricio on 08-04-2024 ALP [Catalytic activity/Vol] Alkaline phosphatase [Enzymatic activity/volume] in Serum or Plasma 34-104 [facility] Aspartate aminotransferase [ Enzymatic activity/volume] in Serum or PlasmaOrdered By: Nakul Patricio on 08-04-2024 AST [Catalytic activity/Vol] Aspartate aminotransferase [Enzymatic activity/volume] in Serum or Plasma High 13-39 [facility] Basophils Auto (Bld) [#/Vol] Ordered By: Nakul Patricio on 08-04-2024 Basophils (Bld) [#/Vol] Automated basophil count 0.0-0.2 [facility] Basophils/100 WBC Auto (Bld) Ordered By: Nakul Patricio on 08-04-2024 Basophils/100 WBC (Bld) Automated basophil % . [facility] Bilirubin.total [Mass/volume ] in Serum or PlasmaOrdered By: Nakul Patricio on 08-04-2024 Bilirubin [Mass/Vol] Bilirubin.total [Mass/volume] in Serum or Plasma 0.3-1.0 [facility] Blood estimated average gluc ose determination by estimation from glycated hemoglobinOrdered By: Nakul Patricio on 08-04-2024 Average glucose Estimated from glycated hemoglobin (Bld) [Mass/Vol] Glucose mean value [Mass/volume] in Blood Estimated from glycated hemoglobin [facility] Calcium [Mass/volume] in Ser um or PlasmaOrdered By: Nakul Patricio on 08-04-2024 Calcium [Mass/Vol] Calcium [Mass/volume ] in Serum or Plasma 8.6-10.3 [facility] Carbon dioxide, total [Moles /volume] in Serum or PlasmaOrdered By: Nakul Patricio on 08-04-2024 CO2 [Moles/Vol] Carbon dioxide, tota l [Moles/volume] in Serum or Plasma 21.0-31.0 [facility] Chloride [Moles/volume] in S charu or PlasmaOrdered By: Nakul Patricio on 08-04-2024 Chloride [Moles/Vol] Chloride [Moles/vol ume] in Serum or Plasma 98-107 [facility] Complete Blood Count Auto Di ffon 08-04-2024 Basophils (Bld) [#/Vol] 0.1 10*3/uL Normal 0.0-0.2 [facility] Comment on above: Order Comment: Reaso n for Exam Hypertension, essential Result Comment: PERF ORMED BY: [facility] [address] [place] [address] PATHOLOGIST OPTICAL ASSISTANT REJI FERNANDES M.D. Performed By: #### H BSAG, HCV RX PCR, HIVRNAPCR, HBCAB, HBSAB #### [facility] , #### CMP, PT, CBC #### [place] [address] [place] Basophils/100 WBC (Bld) 0.9 % Normal . [facility] Comment on above: Order Comment: Reaso n for Exam Hypertension, essential Performed By: #### H BSAG, HCV RX PCR, HIVRNAPCR, HBCAB, HBSAB #### [facility] , #### CMP, PT, CBC #### [address] Eosinophils (Bld) [#/Vol] 0.1 10*3/uL Normal 0.0-0.45 [facility] Comment on above: Order Comment: Reaso n for Exam Hypertension, essential Performed By: #### H BSAG, HCV RX PCR, HIVRNAPCR, HBCAB, HBSAB #### [facility] , #### CMP, PT, CBC #### [place] [address] [place] Eosinophils/100 WBC (Bld) 1.9 % Normal . [facility] Comment on above: Order Comment: Reaso n for Exam Hypertension, essential Performed By: #### H BSAG, HCV RX PCR, HIVRNAPCR, HBCAB, HBSAB #### [facility] , #### CMP, PT, CBC #### [address] Erythrocyte distribution width (RBC) [Ratio] 13.8 % Normal 12.0-14.8 [facility] Comment on above: Order Comment: Reaso n for Exam Hypertension, essential Performed By: #### H BSAG, HCV RX PCR, HIVRNAPCR, HBCAB, HBSAB #### [facility] , #### CMP, PT, CBC #### [address] Hematocrit (Bld) [Volume fraction] 47.0 % Normal 38.8-50.0 [facility] Comment on above: Order Comment: Reaso n for Exam Hypertension, essential Performed By: #### H BSAG, HCV RX PCR, HIVRNAPCR, HBCAB, HBSAB #### [facility] , #### CMP, PT, CBC #### [address] Hemoglobin (Bld) [Mass/Vol] 16.5 g/dL Normal 13.0-17.0 [facility] Comment on above: Order Comment: Reaso n for Exam Hypertension, essential Performed By: #### H BSAG, HCV RX PCR, HIVRNAPCR, HBCAB, HBSAB #### [facility] , #### CMP, PT, CBC #### [address] Lymphocytes (Bld) [#/Vol] 2.2 10*3/uL Normal 1.00-4.8 [facility] Comment on above: Order Comment: Reaso n for Exam Hypertension, essential Performed By: #### H BSAG, HCV RX PCR, HIVRNAPCR, HBCAB, HBSAB #### [facility] , #### CMP, PT, CBC #### [address] Lymphocytes/100 WBC (Bld) 31.2 % Normal . [facility] Comment on above: Order Comment: Reaso n for Exam Hypertension, essential Performed By: #### H BSAG, HCV RX PCR, HIVRNAPCR, HBCAB, HBSAB #### [facility] , #### CMP, PT, CBC #### [address] MCH (RBC) [Entitic mass] 33.3 pg Normal 27.5-35.2 [facility] Comment on above: Order Comment: Reaso n for Exam Hypertension, essential Performed By: #### H BSAG, HCV RX PCR, HIVRNAPCR, HBCAB, HBSAB #### [facility] , #### CMP, PT, CBC #### [address] MCV (RBC) [Entitic vol] 94.6 fL Normal 83.5-101 [facility] Comment on above: Order Comment: Reaso n for Exam Hypertension, essential Performed By: #### H BSAG, HCV RX PCR, HIVRNAPCR, HBCAB, HBSAB #### [facility] , #### CMP, PT, CBC #### [address] Mean Corpuscular HGB Conc 35.2 g/dL Normal 32.5-35.6 [facility] Comment on above: Order Comment: Reaso n for Exam Hypertension, essential Performed By: #### H BSAG, HCV RX PCR, HIVRNAPCR, HBCAB, HBSAB #### [facility] , #### CMP, PT, CBC #### [address] Monocytes (Bld) [#/Vol] 0.5 10*3/uL Normal 0.0-0.8 [facility] Comment on above: Order Comment: Reaso n for Exam Hypertension, essential Performed By: #### H BSAG, HCV RX PCR, HIVRNAPCR, HBCAB, HBSAB #### [facility] , #### CMP, PT, CBC #### [address] Monocytes/100 WBC (Bld) 6.8 % Normal . [facility] Comment on above: Order Comment: Reaso n for Exam Hypertension, essential Performed By: #### H BSAG, HCV RX PCR, HIVRNAPCR, HBCAB, HBSAB #### [facility] , #### CMP, PT, CBC #### [address] Neutrophils (Bld) [#/Vol] 4.2 10*3/uL Normal 1.8-7.7 [facility] Comment on above: Order Comment: Reaso n for Exam Hypertension, essential Performed By: #### H BSAG, HCV RX PCR, HIVRNAPCR, HBCAB, HBSAB #### [facility] , #### CMP, PT, CBC #### [facility] [address] [place] [address] Neutrophils/100 WBC (Bld) 59.2 % Normal . [facility] Comment on above: Order Comment: Reaso n for Exam Hypertension, essential Performed By: #### H BSAG, HCV RX PCR, HIVRNAPCR, HBCAB, HBSAB #### [facility] , #### CMP, PT, CBC #### [facility] [address] [place] [address] NRBC% 0.1 /100{WBC} Normal 0-0.5 [facility] Comment on above: Order Comment: Reaso n for Exam Hypertension, essential Performed By: #### H BSAG, HCV RX PCR, HIVRNAPCR, HBCAB, HBSAB #### [facility] , #### CMP, PT, CBC #### [facility] [address] [place] [address] Platelet mean volume (Bld) [Entitic vol] 10.9 fL High 6.6-10.1 [facility] Comment on above: Order Comment: Reaso n for Exam Hypertension, essential Performed By: #### H BSAG, HCV RX PCR, HIVRNAPCR, HBCAB, HBSAB #### [facility] , #### CMP, PT, CBC #### [facility] [address] [place] [address] [place] Platelets (Bld) [#/Vol] 139 10*3/uL Low 150-450 [facility] Comment on above: Order Comment: Reaso n for Exam Hypertension, essential Performed By: #### H BSAG, HCV RX PCR, HIVRNAPCR, HBCAB, HBSAB #### [facility] , #### CMP, PT, CBC #### [address] RBC (Bld) [#/Vol] 4.97 10*6/uL Normal 3.90-5.60 [facility] Comment on above: Order Comment: Reaso n for Exam Hypertension, essential Performed By: #### H BSAG, HCV RX PCR, HIVRNAPCR, HBCAB, HBSAB #### [facility] , #### CMP, PT, CBC #### [address] WBC (Bld) [#/Vol] 7.1 10*3/uL Normal 4.1-10.5 [facility] Comment on above: Order Comment: Reaso n for Exam Hypertension, essential Performed By: #### H BSAG, HCV RX PCR, HIVRNAPCR, HBCAB, HBSAB #### [facility] , #### CMP, PT, CBC #### [address] Comprehensive Metabolic Pane [facility] 08-04-2024 Albumin [Mass/Vol] 4.2 g/dL Normal 3.5-5.7 [facility] Comment on above: Order Comment: Reaso n for Exam Hypertension, essential;Calf cramp Reason for Exam Hypokalemia Reason for Exam Weight gain Performed By: #### H BSAG, HCV RX PCR, HIVRNAPCR, HBCAB, HBSAB #### [facility] , #### CMP, PT, CBC #### [address] Albumin/Globulin [Mass ratio] 1.4 {ratio} Normal [facility] Comment on above: Order Comment: Reaso n for Exam Hypertension, essential;Calf cramp Reason for Exam Hypokalemia Reason for Exam Weight gain Performed By: #### H BSAG, HCV RX PCR, HIVRNAPCR, HBCAB, HBSAB #### [facility] , #### CMP, PT, CBC #### [address] ALP [Catalytic activity/Vol] 46 U/L Normal 34-104 [facility] Comment on above: Order Comment: Reaso n for Exam Hypertension, essential;Calf cramp Reason for Exam Hypokalemia Reason for Exam Weight gain Performed By: #### H BSAG, HCV RX PCR, HIVRNAPCR, HBCAB, HBSAB #### [facility] , #### CMP, PT, CBC #### [facility] [address] [place] [address] [place] ALT [Catalytic activity/Vol] 235 U/L High 7-52 [facility] Comment on above: Order Comment: Reaso n for Exam Hypertension, essential;Calf cramp Reason for Exam Hypokalemia Reason for Exam Weight gain Performed By: #### H BSAG, HCV RX PCR, HIVRNAPCR, HBCAB, HBSAB #### [facility] , #### CMP, PT, CBC #### [facility] [address] Anion gap [Moles/Vol] 9.0 mmol/L Normal 6.0-15.0 [facility] Comment on above: Order Comment: Reaso n for Exam Hypertension, essential;Calf cramp Reason for Exam Hypokalemia Reason for Exam Weight gain Performed By: #### H BSAG, HCV RX PCR, HIVRNAPCR, HBCAB, HBSAB #### [facility] , #### CMP, PT, CBC #### [facility] [address] [place], [place] [id number] [place] AST [Catalytic activity/Vol] 193 U/L High 13-39 [facility] Comment on above: Order Comment: Reaso n for Exam Hypertension, essential;Calf cramp Reason for Exam Hypokalemia Reason for Exam Weight gain Performed By: #### H BSAG, HCV RX PCR, HIVRNAPCR, HBCAB, HBSAB #### [facility] , #### CMP, PT, CBC #### [facility] [address] [place] [id number] [place] Bilirubin [Mass/Vol] 0.7 mg/dL Normal 0.3-1.0 [facility] Comment on above: Order Comment: Reaso n for Exam Hypertension, essential;Calf cramp Reason for Exam Hypokalemia Reason for Exam Weight gain Performed By: #### H BSAG, HCV RX PCR, HIVRNAPCR, HBCAB, HBSAB #### [facility] , #### CMP, PT, CBC #### [facility] [address] [place] [address] [place] Calcium [Mass/Vol] 9.0 mg/dL Normal 8.6-10.3 [facility] Comment on above: Order Comment: Reaso n for Exam Hypertension, essential;Calf cramp Reason for Exam Hypokalemia Reason for Exam Weight gain Performed By: #### H BSAG, HCV RX PCR, HIVRNAPCR, HBCAB, HBSAB #### [facility] , #### CMP, PT, CBC #### [place] [address] [place] Chloride [Moles/Vol] 107 mmol/L Normal 98-107 [facility] Comment on above: Order Comment: Reaso n for Exam Hypertension, essential;Calf cramp Reason for Exam Hypokalemia Reason for Exam Weight gain Performed By: #### H BSAG, HCV RX PCR, HIVRNAPCR, HBCAB, HBSAB #### [facility] , #### CMP, PT, CBC #### [facility] [address] [place], [place] [id number] [place] CO2 [Moles/Vol] 29.5 mmol/L Normal 21.0-31.0 [facility] Comment on above: Order Comment: Reaso n for Exam Hypertension, essential;Calf cramp Reason for Exam Hypokalemia Reason for Exam Weight gain Performed By: #### H BSAG, HCV RX PCR, HIVRNAPCR, HBCAB, HBSAB #### [facility] , #### CMP, PT, CBC #### [facility] [address] [place] [id number] [place] Creatinine [Mass/Vol] 0.92 mg/dL Normal 0.70-1.30 [facility] Comment on above: Order Comment: Reaso n for Exam Hypertension, essential;Calf cramp Reason for Exam Hypokalemia Reason for Exam Weight gain Performed By: #### H BSAG, HCV RX PCR, HIVRNAPCR, HBCAB, HBSAB #### [facility] , #### CMP, PT, CBC #### [facility] [address] GFR/1.73 sq M.predicted MDRD (S/P/Bld) [Vol rate/Area] mL/min/{1.73_m2} Normal [facility] Comment on above: Order Comment: Reaso n for Exam Hypertension, essential;Calf cramp Reason for Exam Hypokalemia Reason for Exam Weight gain Performed By: #### H BSAG, HCV RX PCR, HIVRNAPCR, HBCAB, HBSAB #### [facility] , #### CMP, PT, CBC #### [address] Globulin (S) [Mass/Vol] 3.0 g/dL Normal [facility] Comment on above: Order Comment: Reaso n for Exam Hypertension, essential;Calf cramp Reason for Exam Hypokalemia Reason for Exam Weight gain Performed By: #### H BSAG, HCV RX PCR, HIVRNAPCR, HBCAB, HBSAB #### [facility] , #### CMP, PT, CBC #### [address] Glucose [Mass/Vol] 87 mg/dL Normal 70-100 [facility] Comment on above: Order Comment: Reaso n for Exam Hypertension, essential;Calf cramp Reason for Exam Hypokalemia Reason for Exam Weight gain Result Comment: [place] Glucose Reference Range is dependent on time and content of last meal. Glucose of more than 200 mg/dL in a nonstressed, ambulatory subject supports the diagnosis of Diabetes Mellitus. ADA recommended reference range Performed By: #### H BSAG, HCV RX PCR, HIVRNAPCR, HBCAB, HBSAB #### [facility] , #### CMP, PT, CBC #### [facility] [address] [place] [address] [place] Potassium [Moles/Vol] 4.5 mmol/L Normal 3.5-5.1 [facility] Comment on above: Order Comment: Reaso n for Exam Hypertension, essential;Calf cramp Reason for Exam Hypokalemia Reason for Exam Weight gain Performed By: #### H BSAG, HCV RX PCR, HIVRNAPCR, HBCAB, HBSAB #### [facility] , #### CMP, PT, CBC #### [facility] [address] [place] [address] [place] Protein [Mass/Vol] 7.2 g/dL Normal 6.4-8.9 [facility] Comment on above: Order Comment: Reaso n for Exam Hypertension, essential;Calf cramp Reason for Exam Hypokalemia Reason for Exam Weight gain Performed By: #### H BSAG, HCV RX PCR, HIVRNAPCR, HBCAB, HBSAB #### [facility] , #### CMP, PT, CBC #### [place] [address] [place] Sodium [Moles/Vol] 141 mmol/L Normal 136-145 [facility] Comment on above: Order Comment: Reaso n for Exam Hypertension, essential;Calf cramp Reason for Exam Hypokalemia Reason for Exam Weight gain Performed By: #### H BSAG, HCV RX PCR, HIVRNAPCR, HBCAB, HBSAB #### [facility] , #### CMP, PT, CBC #### [facility] [address] [place] [address] [place] Urea nitrogen [Mass/Vol] 8 mg/dL Normal 7-25 [facility] Comment on above: Order Comment: Reaso n for Exam Hypertension, essential;Calf cramp Reason for Exam Hypokalemia Reason for Exam Weight gain Performed By: #### H BSAG, HCV RX PCR, HIVRNAPCR, HBCAB, HBSAB #### [facility] , #### CMP, PT, CBC #### [facility] [address] [place], [place] [id number] [facility] Creatinine [Mass/volume] in Serum or PlasmaOrdered By: Nakul Patricio on 08-04-2024 Creatinine [Mass/Vol] Creatinine [Mass/v olume] in Serum or Plasma 0.70-1.30 [facility] Eosinophils Auto (Bld) [#/Vo l]Ordered By: Nakul Patricio on 08-04-2024 Eosinophils (Bld) [#/Vol] Automated eosinophil count 0.0-0.45 [facility] Eosinophils/100 WBC Auto (Bl d)Ordered By: Nakul Patricio on 08-04-2024 Eosinophils/100 WBC (Bld) Automated eosinophil % . [facility] Erythrocyte distribution wid th Auto (RBC) [Ratio]Ordered By: Nakul Patricio on 08-04-2024 Erythrocyte distribution width (RBC) [Ratio] Erythrocyte distribution width [Ratio] by Automated count 12.0-14.8 [facility] Globulin Calc (S) [Mass/Vol] Ordered By: Nakul Patricio on 08-04-2024 Globulin (S) [Mass/Vol] Serum globulin measurement by calculation (mass/volume) [facility] Glucose [Mass/volume] in Ser um or PlasmaOrdered By: Nakul Patricio on 08-04-2024 Glucose [Mass/Vol] Glucose [Mass/volume ] in Serum or Plasma 70-100 [facility] Comment on above: ADA recommended refe rence rangeRandom Glucose Reference Range is dependent on time and content of last meal. Glucose of more than 200 mg/dL in a nonstressed, ambulatory subject supports the diagnosis of Diabetes Mellitus. Hematocrit Auto (Bld) [Volum e fraction]Ordered By: Nakul Patricio on 08-04-2024 Hematocrit (Bld) [Volume fraction] Hematocrit [Volume Fraction] of Blood by Automated count 38.8-50.0 [facility] Hemoglobin A1c/Hemoglobin.to iris in BloodOrdered By: Nakul Patricio on 08-04-2024 HbA1c (Bld) [Mass fraction] Hemoglobin A1c percentage 4.3-5.6 [facility] Comment on above: Increased risk for d iabetes: 5.7 - 6.4diabetes: >6.4glycemic control for adults with diabetes: <7.0 Hemoglobin [Mass/volume] in BloodOrdered By: Nakul Patricio on 08-04-2024 Hemoglobin (Bld) [Mass/Vol] Hemoglobin [Mass/volume] in Blood 13.0-17.0 [facility] Hep C RT-PCR, Qnt (Non-Graph )on 08-04-2024 HCV Log10 6.820 Normal . [facility] Comment on above: Order Comment: Reaso n for Exam Chronic hepatitis C without hepatic coma Result Comment: Resu lt Units: log10 IU/mL Performed By: #### H BSAG, HCV RX PCR, HIVRNAPCR, HBCAB, HBSAB #### [facility] , #### CMP, PT, CBC #### [address] Hepatitis C Quantitation [id number] [IU]/mL Normal . [facility] Comment on above: Order Comment: Reaso n for Exam Chronic hepatitis C without hepatic coma Performed By: #### H BSAG, HCV RX PCR, HIVRNAPCR, HBCAB, HBSAB #### [facility] , #### CMP, PT, CBC #### [facility] [address] [place] [address] Test Information: Comment Normal . [facility] Comment on above: Order Comment: Reaso n for Exam Chronic hepatitis C without hepatic coma Result Comment: The quantitative range of this assay is 15 IU/mL to 100 million IU/mL. Performed at: [address] [id number] Car Wrecker: Cristo Davalos MD, Phone: [phone] PERFORMED BY: [place] [address] PATHOLOGIST OPTICAL ASSISTANT REJI FERNANDES M.D. Performed By: #### H BSAG, HCV RX PCR, HIVRNAPCR, HBCAB, HBSAB #### [facility] , #### CMP, PT, CBC #### [address] Leukocytes [#/volume] correc verónica for nucleated erythrocytes in Blood by Automated counOrdered By: Nakul Patricio on 08-04-2024 WBC corrected for nucl RBC Auto (Bld) [#/Vol] Leukocytes [#/volume] corrected for nucleated erythrocytes in Blood by Automated coun 4.1-10.5 [facility] Lymphocytes Auto (Bld) [#/Vo l]Ordered By: Nakul Patricio on 08-04-2024 Lymphocytes (Bld) [#/Vol] Lymphocytes [#/volume] in Blood by Automated count 1.00-4.8 [facility] Lymphocytes/100 WBC Auto (Bl d)Ordered By: Nakul Patricio on 08-04-2024 Lymphocytes/100 WBC (Bld) Lymphocytes/100 leukocytes in Blood by Automated count . [facility] MCH Auto (RBC) [Entitic mass ]Ordered By: Nakul Patricio on 08-04-2024 MCH (RBC) [Entitic mass] MCH [Entitic mass] by Automated count 27.5-35.2 [facility] MCHC Auto (RBC) [Mass/Vol]Or dered By: Nakul Patricio on 08-04-2024 MCHC (RBC) [Mass/Vol] MCHC [Mass/volume] by Automated count 32.5-35.6 [facility] MCV Auto (RBC) [Entitic vol] Ordered By: Nakul Patricio on 08-04-2024 MCV (RBC) [Entitic vol] MCV [Entitic volume] by Automated count 83.5-101 [facility] Magnesiumon 08-04-2024 Magnesium [Mass/Vol] 2.0 mg/dL Normal 1.9-2.7 [facility] Comment on above: Order Comment: Reaso n for Exam Hypertension, essential;Calf cramp Reason for Exam Hypokalemia Reason for Exam Weight gain Performed By: #### H BSAG, HCV RX PCR, HIVRNAPCR, HBCAB, HBSAB #### [facility] , #### CMP, PT, CBC #### [facility] [address] [place] [address] Magnesium [Mass/volume] in S charu or PlasmaOrdered By: Nakul Patricio on 08-04-2024 Magnesium [Mass/Vol] Magnesium [Mass/vol ume] in Serum or Plasma 1.9-2.7 [facility] Monocytes Auto (Bld) [#/Vol] Ordered By: Nakul Patricio on 08-04-2024 Monocytes (Bld) [#/Vol] Automated blood monocyte count 0.0-0.8 [facility] Monocytes/100 WBC Auto (Bld) Ordered By: Nakul Patricio on 08-04-2024 Monocytes/100 WBC (Bld) Automated monocyte % . [facility] Neutrophils Auto (Bld) [#/Vo l]Ordered By: Nakul Patricio on 08-04-2024 Neutrophils (Bld) [#/Vol] Neutrophils [#/volume] in Blood by Automated count 1.8-7.7 [facility] Neutrophils/100 WBC Auto (Bl d)Ordered By: Nakul Patricio on 08-04-2024 Neutrophils/100 WBC (Bld) Automated neutrophil % . [facility] No Panel InformationOrdered By: Nakul Patricio on 08-04-2024 Estimated GFR (CKD-EPI) > 60.0 mL/Min [facility] Hepatitis C RNA (PCR) Interpret Comment . [facility] Comment on above: The quantitative ran ge of this assay is 15 IU/mL to 100million IU/mL.Performed at: - [address] [id number] Director: Cristo Davalos MD, Phone: [phone] Pharmacy Creatinine Clearance (Chem N/A [facility] Nucleated erythrocytes [Pres ence] in Blood by Automated countOrdered By: Nakul Patricio on 08-04-2024 Nucleated RBC Auto Ql (Bld) Nucleated erythrocytes [Presence] in Blood by Automated count 0-0.5 [facility] Platelet mean volume Auto (B ld) [Entitic vol]Ordered By: Nakul Patricio on 08-04-2024 Platelet mean volume (Bld) [Entitic vol] Platelet mean volume [Entitic volume] in Blood by Automated count High 6.6-10.1 [facility] Platelets Auto (Bld) [#/Vol] Ordered By: Nakul Patricio on 08-04-2024 Platelets (Bld) [#/Vol] Platelets [#/volume] in Blood by Automated count Low 150-450 [facility] Potassium [Moles/volume] in Serum or PlasmaOrdered By: Nakul Patricio on 08-04-2024 Potassium [Moles/Vol] Potassium [Moles/v olume] in Serum or Plasma 3.5-5.1 [facility] Protein [Mass/volume] in Ser um or PlasmaOrdered By: Nakul Patricio on 08-04-2024 Protein [Mass/Vol] Protein [Mass/volume ] in Serum or Plasma 6.4-8.9 [facility] RBC Auto (Bld) [#/Vol]Ordere d By: Nakul Patricio on 08-04-2024 RBC (Bld) [#/Vol] Erythrocytes [#/volu me] in Blood by Automated count 3.90-5.60 [facility] Serum or plasma albumin/glob ulin mass ratioOrdered By: Nakul Patricio on 08-04-2024 Albumin/Globulin [Mass ratio] Serum or plasma albumin/globulin mass ratio [facility] Serum or plasma anion gap de terminationOrdered By: Nakul Patricio on 08-04-2024 Anion gap [Moles/Vol] Serum or plasma an ion gap determination 6.0-15.0 [facility] Serum or plasma hepatitis C virus RNA viral load by probe and target amplification meOrdered By: Nakul Patricio on 08-04-2024 HCV RNA HEATHER+probe [Log units/Vol] Hepatitis C virus RNA [log units/volume] (viral load) in Serum or Plasma by HEATHER with . [facility] Comment on above: Result Units: log10 IU/mL Sodium [Moles/volume] in Ser um or PlasmaOrdered By: Nakul Patricio on 08-04-2024 Sodium [Moles/Vol] Sodium [Moles/volume ] in Serum or Plasma 136-145 [facility] Thyroid Stim Hormone w/Rflxo n 08-04-2024 Thyroid Stim Hormone w/Rflx 0.92 u[iU]/mL Normal 0.45-5.33 [facility] Comment on above: Order Comment: Reaso n for Exam Hypertension, essential;Calf cramp Reason for Exam Hypokalemia Reason for Exam Weight gain Result Comment: PERF ORMED BY: [address] [place] [address] PATHOLOGIST OPTICAL ASSISTANT REJI FERNANDES M.D. Performed By: #### H BSAG, HCV RX PCR, HIVRNAPCR, HBCAB, HBSAB #### [facility] , #### CMP, PT, CBC #### [facility] [address] Thyrotropin [Units/volume] i n Serum or PlasmaOrdered By: Nakul Patricio on 08-04-2024 TSH Qn Thyrotropin [Units/v olume] in Serum or Plasma 0.45-5.33 [facility] Urea nitrogen [Mass/volume] in Serum or PlasmaOrdered By: Nakul Patricio on 08-04-2024 Urea nitrogen [Mass/Vol] Urea nitrogen [Mass/volume] in Serum or Plasma 7-25 [facility] WBC Auto (Bld) [#/Vol]Ordere d By: Nakul Patricio on 08-04-2024 WBC (Bld) [#/Vol] Leukocytes [#/volume ] in Blood by Automated count 4.1-10.5 [facility] Alanine aminotransferase [En zymatic activity/volume] in Serum or PlasmaOrdered By: Vel Sevilla on 08-01-2024 ALT [Catalytic activity/Vol] Alanine aminotransferase [Enzymatic activity/volume] in Serum or Plasma High 7-52 [facility] Albumin [Mass/volume] in Ser um or Plasma by Bromocresol green (BCG) dye binding methoOrdered By: Vel Sevilla on 08-01-2024 Albumin BCG dye [Mass/Vol] Albumin [Mass/volume] in Serum or Plasma by Bromocresol green (BCG) dye binding metho 3.5-5.7 [facility] Comment on above: Specimen hemolyzed, redraw requested Alkaline phosphatase [Enzyma tic activity/volume] in Serum or PlasmaOrdered By: Vel Sevilla on 08-01-2024 ALP [Catalytic activity/Vol] Alkaline phosphatase [Enzymatic activity/volume] in Serum or Plasma 34-104 [facility] Aspartate aminotransferase [ Enzymatic activity/volume] in Serum or PlasmaOrdered By: Vel Sevilla on 08-01-2024 AST [Catalytic activity/Vol] Aspartate aminotransferase [Enzymatic activity/volume] in Serum or Plasma 13-39 [facility] Comment on above: Specimen hemolyzed, redraw requested Basophils Auto (Bld) [#/Vol] Ordered By: Vel Sevilla on 08-01-2024 Basophils (Bld) [#/Vol] Automated basophil count 0.0-0.2 [facility] Basophils/100 WBC Auto (Bld) Ordered By: Vel Sevilla on 08-01-2024 Basophils/100 WBC (Bld) Automated basophil % . [facility] Bilirubin.total [Mass/volume ] in Serum or PlasmaOrdered By: Vel Sevilla on 08-01-2024 Bilirubin [Mass/Vol] Bilirubin.total [Mass/volume] in Serum or Plasma 0.3-1.0 [facility] Calcium [Mass/volume] in Ser um or PlasmaOrdered By: Vel Sevilla on 08-01-2024 Calcium [Mass/Vol] Calcium [Mass/volume ] in Serum or Plasma 8.6-10.3 [facility] Carbon dioxide, total [Moles /volume] in Serum or PlasmaOrdered By: Vel Sevilla on 08-01-2024 CO2 [Moles/Vol] Carbon dioxide, tota l [Moles/volume] in Serum or Plasma 21.0-31.0 [facility] Chloride [Moles/volume] in S charu or PlasmaOrdered By: Vel Sevilla on 08-01-2024 Chloride [Moles/Vol] Chloride [Moles/vol ume] in Serum or Plasma 98-107 [facility] Complete Blood Count Auto Di ffon 08-01-2024 Basophils (Bld) [#/Vol] 0.1 10*3/uL Normal 0.0-0.2 [facility] Comment on above: Result Comment: PERF ORMED BY: [facility] [address] [place] [address] PATHOLOGIST OPTICAL ASSISTANT REJI FERNANDES M.D. Performed By: #### H BSAG, HCV RX PCR, HIVRNAPCR, HBCAB, HBSAB #### [facility] , #### CMP, PT, CBC #### [facility] [address] Basophils/100 WBC (Bld) 1.3 % Normal . [facility] Comment on above: Performed By: #### H BSAG, HCV RX PCR, HIVRNAPCR, HBCAB, HBSAB #### [facility] , #### CMP, PT, CBC #### [address] Eosinophils (Bld) [#/Vol] 0.3 10*3/uL Normal 0.0-0.45 [facility] Comment on above: Performed By: #### H BSAG, HCV RX PCR, HIVRNAPCR, HBCAB, HBSAB #### [facility] , #### CMP, PT, CBC #### [address] Eosinophils/100 WBC (Bld) 3.6 % Normal . [facility] Comment on above: Performed By: #### H BSAG, HCV RX PCR, HIVRNAPCR, HBCAB, HBSAB #### [facility] , #### CMP, PT, CBC #### [address] Erythrocyte distribution width (RBC) [Ratio] 13.7 % Normal 12.0-14.8 [facility] Comment on above: Performed By: #### H BSAG, HCV RX PCR, HIVRNAPCR, HBCAB, HBSAB #### [facility] , #### CMP, PT, CBC #### [address] Hematocrit (Bld) [Volume fraction] 48.9 % Normal 38.8-50.0 [facility] Comment on above: Performed By: #### H BSAG, HCV RX PCR, HIVRNAPCR, HBCAB, HBSAB #### [facility] , #### CMP, PT, CBC #### [address] Hemoglobin (Bld) [Mass/Vol] 17.3 g/dL High 13.0-17.0 [facility] Comment on above: Performed By: #### H BSAG, HCV RX PCR, HIVRNAPCR, HBCAB, HBSAB #### [facility] , #### CMP, PT, CBC #### [address] Lymphocytes (Bld) [#/Vol] 2.4 10*3/uL Normal 1.00-4.8 [facility] Comment on above: Performed By: #### H BSAG, HCV RX PCR, HIVRNAPCR, HBCAB, HBSAB #### [facility] , #### CMP, PT, CBC #### [address] Lymphocytes/100 WBC (Bld) 29.3 % Normal . [facility] Comment on above: Performed By: #### H BSAG, HCV RX PCR, HIVRNAPCR, HBCAB, HBSAB #### [facility] , #### CMP, PT, CBC #### [address] MCH (RBC) [Entitic mass] 33.3 pg Normal 27.5-35.2 [facility] Comment on above: Performed By: #### H BSAG, HCV RX PCR, HIVRNAPCR, HBCAB, HBSAB #### [facility] , #### CMP, PT, CBC #### [address] MCV (RBC) [Entitic vol] 94.2 fL Normal 83.5-101 [facility] Comment on above: Performed By: #### H BSAG, HCV RX PCR, HIVRNAPCR, HBCAB, HBSAB #### [facility] , #### CMP, PT, CBC #### [address] Mean Corpuscular HGB Conc 35.3 g/dL Normal 32.5-35.6 [facility] Comment on above: Performed By: #### H BSAG, HCV RX PCR, HIVRNAPCR, HBCAB, HBSAB #### [facility] , #### CMP, PT, CBC #### [address] Monocytes (Bld) [#/Vol] 0.6 10*3/uL Normal 0.0-0.8 [facility] Comment on above: Performed By: #### H BSAG, HCV RX PCR, HIVRNAPCR, HBCAB, HBSAB #### [facility] , #### CMP, PT, CBC #### [place] [address] [place] Monocytes/100 WBC (Bld) 7.1 % Normal . [facility] Comment on above: Performed By: #### H BSAG, HCV RX PCR, HIVRNAPCR, HBCAB, HBSAB #### [facility] , #### CMP, PT, CBC #### [place] [address] [place] Neutrophils (Bld) [#/Vol] 4.9 10*3/uL Normal 1.8-7.7 [facility] Comment on above: Performed By: #### H BSAG, HCV RX PCR, HIVRNAPCR, HBCAB, HBSAB #### [facility] , #### CMP, PT, CBC #### [place] [address] [place] Neutrophils/100 WBC (Bld) 58.7 % Normal . [facility] Comment on above: Performed By: #### H BSAG, HCV RX PCR, HIVRNAPCR, HBCAB, HBSAB #### [facility] , #### CMP, PT, CBC #### [place] [address] [place] NRBC% 0.1 /100{WBC} Normal 0-0.5 [facility] Comment on above: Performed By: #### H BSAG, HCV RX PCR, HIVRNAPCR, HBCAB, HBSAB #### [facility] , #### CMP, PT, CBC #### [address] Platelet mean volume (Bld) [Entitic vol] 10.8 fL High 6.6-10.1 [facility] Comment on above: Performed By: #### H BSAG, HCV RX PCR, HIVRNAPCR, HBCAB, HBSAB #### [facility] , #### CMP, PT, CBC #### [address] Platelets (Bld) [#/Vol] 132 10*3/uL Low 150-450 [facility] Comment on above: Performed By: #### H BSAG, HCV RX PCR, HIVRNAPCR, HBCAB, HBSAB #### [facility] , #### CMP, PT, CBC #### [address] RBC (Bld) [#/Vol] 5.19 10*6/uL Normal 3.90-5.60 [facility] Comment on above: Performed By: #### H BSAG, HCV RX PCR, HIVRNAPCR, HBCAB, HBSAB #### [facility] , #### CMP, PT, CBC #### [address] WBC (Bld) [#/Vol] 8.4 10*3/uL Normal 4.1-10.5 [facility] Comment on above: Performed By: #### H BSAG, HCV RX PCR, HIVRNAPCR, HBCAB, HBSAB #### [facility] , #### CMP, PT, CBC #### [address] Comprehensive Metabolic Pane jolene 08-01-2024 Albumin Level Normal 3.5-5.7 [facility] Comment on above: Result Comment: Spec imen hemolyzed, redraw requested Performed By: #### H BSAG, HCV RX PCR, HIVRNAPCR, HBCAB, HBSAB #### [facility] , #### CMP, PT, CBC #### [address] Albumin/Globulin Ratio Normal [facility] Comment on above: Result Comment: Spec imen hemolyzed, redraw requested Performed By: #### H BSAG, HCV RX PCR, HIVRNAPCR, HBCAB, HBSAB #### [facility] , #### CMP, PT, CBC #### [address] ALP [Catalytic activity/Vol] 36 U/L Normal 34-104 [facility] Comment on above: Result Comment: PERF ORMED BY: [place] [id number] PATHOLOGIST OPTICAL ASSISTANT REJI FERNANDES M.D. Performed By: #### H BSAG, HCV RX PCR, HIVRNAPCR, HBCAB, HBSAB #### [facility] , #### CMP, PT, CBC #### [address] ALT [Catalytic activity/Vol] 250 U/L High 7-52 [facility] Comment on above: Performed By: #### H BSAG, HCV RX PCR, HIVRNAPCR, HBCAB, HBSAB #### [facility] , #### CMP, PT, CBC #### [address] Anion gap [Moles/Vol] Not performed Normal 6.0-15.0 [facility] Comment on above: Performed By: #### H BSAG, HCV RX PCR, HIVRNAPCR, HBCAB, HBSAB #### [facility] , #### CMP, PT, CBC #### [address] Aspartate Amino Transferase Normal 13-39 [facility] Comment on above: Result Comment: Spec imen hemolyzed, redraw requested Performed By: #### H BSAG, HCV RX PCR, HIVRNAPCR, HBCAB, HBSAB #### [facility] , #### CMP, PT, CBC #### [address] Bilirubin [Mass/Vol] 1.0 mg/dL Normal 0.3-1.0 [facility] Comment on above: Performed By: #### H BSAG, HCV RX PCR, HIVRNAPCR, HBCAB, HBSAB #### [facility] , #### CMP, PT, CBC #### [address] Calcium [Mass/Vol] 9.2 mg/dL Normal 8.6-10.3 [facility] Comment on above: Performed By: #### H BSAG, HCV RX PCR, HIVRNAPCR, HBCAB, HBSAB #### [facility] , #### CMP, PT, CBC #### [place] [address] [place] Chloride [Moles/Vol] 106 mmol/L Normal 98-107 [facility] Comment on above: Performed By: #### H BSAG, HCV RX PCR, HIVRNAPCR, HBCAB, HBSAB #### [facility] , #### CMP, PT, CBC #### [place] [address] [place] CO2 [Moles/Vol] 25.1 mmol/L Normal 21.0-31.0 [facility] Comment on above: Performed By: #### H BSAG, HCV RX PCR, HIVRNAPCR, HBCAB, HBSAB #### [facility] , #### CMP, PT, CBC #### [place] [address] [place] Creatinine [Mass/Vol] 0.99 mg/dL Normal 0.70-1.30 [facility] Comment on above: Performed By: #### H BSAG, HCV RX PCR, HIVRNAPCR, HBCAB, HBSAB #### [facility] , #### CMP, PT, CBC #### [facility] [address] GFR/1.73 sq M.predicted MDRD (S/P/Bld) [Vol rate/Area] mL/min/{1.73_m2} Normal [facility] Comment on above: Performed By: #### H BSAG, HCV RX PCR, HIVRNAPCR, HBCAB, HBSAB #### [facility] , #### CMP, PT, CBC #### [facility] [address] [place] [address] Globulin Normal [facility] Comment on above: Result Comment: Spec imen hemolyzed, redraw requested Performed By: #### H BSAG, HCV RX PCR, HIVRNAPCR, HBCAB, HBSAB #### [facility] , #### CMP, PT, CBC #### [address] Glucose [Mass/Vol] 102 mg/dL High 70-100 [facility] Comment on above: Result Comment: [place] Glucose Reference Range is dependent on time and content of last meal. Glucose of more than 200 mg/dL in a nonstressed, ambulatory subject supports the diagnosis of Diabetes Mellitus. ADA recommended reference range Performed By: #### H BSAG, HCV RX PCR, HIVRNAPCR, HBCAB, HBSAB #### [facility] , #### CMP, PT, CBC #### [facility] [address] [place] [address] Potassium Normal 3.5-5.1 [facility] Comment on above: Result Comment: Spec imen hemolyzed, redraw requested Performed By: #### H BSAG, HCV RX PCR, HIVRNAPCR, HBCAB, HBSAB #### [facility] , #### CMP, PT, CBC #### [facility] [address] Sodium Normal 136-145 [facility] Comment on above: Result Comment: Spec imen hemolyzed, redraw requested Performed By: #### H BSAG, HCV RX PCR, HIVRNAPCR, HBCAB, HBSAB #### [facility] , #### CMP, PT, CBC #### [facility] [address] [place] [address] Total Protein Normal 6.4-8.9 [facility] Comment on above: Result Comment: Spec imen hemolyzed, redraw requested Performed By: #### H BSAG, HCV RX PCR, HIVRNAPCR, HBCAB, HBSAB #### [facility] , #### CMP, PT, CBC #### [address] Urea nitrogen [Mass/Vol] 10 mg/dL Normal 7-25 [facility] Comment on above: Performed By: #### H BSAG, HCV RX PCR, HIVRNAPCR, HBCAB, HBSAB #### [facility] , #### CMP, PT, CBC #### [address] Creatinine [Mass/volume] in Serum or PlasmaOrdered By: Vel Sevilla on 08-01-2024 Creatinine [Mass/Vol] Creatinine [Mass/v olume] in Serum or Plasma 0.70-1.30 [facility] Diagnostic impression interp retation by molecular genetics method narrativeOrdered By: Vel Sevilla on 08-01-2024 Diagnostic impression Molgen Aung (Unsp spec) [Interp] Diagnostic impression [Interpretation] in Specimen Narrative . [facility] Comment on above: Positive HCV antibod y screen with the presence of HCV RNAis consistent with active infection.Performed at: [facility] [address] [id number] Director: Narendra Aquino PhD, Phone: [phone] at: [facility] [address] [id number] Director: Cristo Davalos MD, Phone: [phone] Eosinophils Auto (Bld) [#/Vo l]Ordered By: Vel Sevilla on 08-01-2024 Eosinophils (Bld) [#/Vol] Automated eosinophil count 0.0-0.45 [facility] Eosinophils/100 WBC Auto (Bl d)Ordered By: Vel Sevilla on 08-01-2024 Eosinophils/100 WBC (Bld) Automated eosinophil % . [facility] Erythrocyte distribution wid th Auto (RBC) [Ratio]Ordered By: Vel Sevilla on 08-01-2024 Erythrocyte distribution width (RBC) [Ratio] Erythrocyte distribution width [Ratio] by Automated count 12.0-14.8 [facility] Globulin Calc (S) [Mass/Vol] Ordered By: Vel Sevilla on 08-01-2024 Globulin (S) [Mass/Vol] Serum globulin measurement by calculation (mass/volume) [facility] Comment on above: Specimen hemolyzed, redraw requested Glucose [Mass/volume] in Ser um or PlasmaOrdered By: Vel Sevilla on 08-01-2024 Glucose [Mass/Vol] Glucose [Mass/volume ] in Serum or Plasma High 70-100 [facility] Comment on above: ADA recommended refe rence rangeRandom Glucose Reference Range is dependent on time and content of last meal. Glucose of more than 200 mg/dL in a nonstressed, ambulatory subject supports the diagnosis of Diabetes Mellitus. HIV 1 RNA viral load measure ment (log number/volume)Ordered By: Vel Sevilla on 08-01-2024 HIV 1 RNA HEATHER+probe (Unsp spec) [Log #/Vol] HIV 1 RNA viral load measurement (log number/volume) . [facility] Comment on above: Result Units: log10c opy/mLUnable to calculate result since non-numeric resultobtained for component test.Performed at: - [address] [id number] Director: Cristo Davalos MD, Phone: [phone] HIV 1 RNA viral load measure ment by probe and target amplification method (number/volOrdered By: Vel Sevilla on 08-01-2024 HIV 1 RNA HEATHER+probe (Unsp spec) [#/Vol] HIV 1 RNA viral load measurement by probe and target amplification method (number/vol . [facility] Comment on above: HIV-1 RNA not detect edThe reportable range for this assay is 20 to 10,000,000copies HIV-1 RNA/mL. HIV RNA, Real Time PCRon HIV 1 RNA HEATHER+probe [#/Vol] {copies}/mL Normal . [facility] Comment on above: Result Comment: HIV- 1 RNA not detected The reportable range for this assay is 20 to 10,000,000 copies HIV-1 RNA/mL. Performed By: #### H BSAG, HCV RX PCR, HIVRNAPCR, HBCAB, HBSAB #### [facility] , #### CMP, PT, CBC #### [address] Log10 HIV-1 RNA Normal . [facility] Comment on above: Result Comment: Resu lt Units: ecn28saqz/mL Unable to calculate result since non-numeric result obtained for component test. Performed at: - [facility] [id number] Car Wrecker: Cristo Davalos MD, Phone: [phone] PERFORMED BY: [place] [id number] PATHOLOGIST OPTICAL ASSISTANT REJI FERNANDES M.D. Performed By: #### H BSAG, HCV RX PCR, HIVRNAPCR, HBCAB, HBSAB #### [facility] , #### CMP, PT, CBC #### [facility] [address] [place] [address] Hematocrit Auto (Bld) [Volum e fraction]Ordered By: Vel Sevilla on 08-01-2024 Hematocrit (Bld) [Volume fraction] Hematocrit [Volume Fraction] of Blood by Automated count 38.8-50.0 [facility] Hemoglobin [Mass/volume] in BloodOrdered By: Vel Sevilla on 08-01-2024 Hemoglobin (Bld) [Mass/Vol] Hemoglobin [Mass/volume] in Blood High 13.0-17.0 [facility] Hep C Ab wRfx to Qnt PCRon 0 08-01-2024 HCV Log10 6.512 Normal . [facility] Comment on above: Result Comment: Resu lt Units: log10 IU/mL Performed By: #### H BSAG, HCV RX PCR, HIVRNAPCR, HBCAB, HBSAB #### [facility] , #### CMP, PT, CBC #### [facility] [address] [place] [address] Hepatitis C Quantitation [id number] [IU]/mL Normal . [facility] Comment on above: Performed By: #### H BSAG, HCV RX PCR, HIVRNAPCR, HBCAB, HBSAB #### [facility] , #### CMP, PT, CBC #### [address] Hepatitis C Virus Antibody Reactive Critically abnormal Non Reactive [facility] Comment on above: Performed By: #### H BSAG, HCV RX PCR, HIVRNAPCR, HBCAB, HBSAB #### [facility] , #### CMP, PT, CBC #### [facility] [address] [place] [address] Interpretation Comment Normal . [facility] Comment on above: Result Comment: Posi tive HCV antibody screen with the presence of HCV RNA is consistent with active infection. Performed at: - [address] [id number] Car Wrecker: Narendra Aquino PhD, Phone: [phone] Performed at: [facility] [address] [id number] Car Wrecker: Cristo Davalos MD, Phone: [phone] Performed By: #### H BSAG, HCV RX PCR, HIVRNAPCR, HBCAB, HBSAB #### [facility] , #### CMP, PT, CBC #### [address] Test Information: Comment Normal . [facility] Comment on above: Result Comment: The quantitative range of this assay is 15 IU/mL to 100 million IU/mL. Performed By: #### H BSAG, HCV RX PCR, HIVRNAPCR, HBCAB, HBSAB #### [facility] , #### CMP, PT, CBC #### [address] Hepatitis B Core Antibodyon 08-01-2024 Hepatitis B Core Antibody Positive Critically abnormal Negative [facility] Comment on above: Result Comment: Perf ormed at: - [facility] [address] [id number] Car Wrecker: Narendra Aqiuno PhD, Phone: [phone] Performed By: #### H BSAG, HCV RX PCR, HIVRNAPCR, HBCAB, HBSAB #### [facility] , #### CMP, PT, CBC #### [address] Hepatitis B Surface Antibody on 08-01-2024 Hepatitis B Surface Antibody Reactive Normal . [facility] Comment on above: Result Comment: Non Reactive: Not immune to HBV infection. Equivocal: Unable to determine if anti-HBs is present at levels consistent with immunity. Reactive: Anti-HBs concentration detected at greater than 10 mIU/mL. Individual is considered to be immune to infection with HBV. Performed By: #### H BSAG, HCV RX PCR, HIVRNAPCR, HBCAB, HBSAB #### [facility] , #### CMP, PT, CBC #### [address] Hepatitis B Surface Antigeno n 08-01-2024 HBsAg Screen Negative Normal Negative [facility] Comment on above: Result Comment: PERF ORMED BY: [place] [address] PATHOLOGIST OPTICAL ASSISTANT REJI FERNANDES M.D. Performed By: #### H BSAG, HCV RX PCR, HIVRNAPCR, HBCAB, HBSAB #### [facility] , #### CMP, PT, CBC #### [facility] [address] Hepatitis B virus core antib ravin assayOrdered By: Vel Sevilla on 08-01-2024 Hepatitis B Core Total Antibody Positive Abnormal Negative [facility] Comment on above: Performed at: - [id number] [place], [place] [id number] Director: Narendra Aquino PhD, Phone: [phone] Hepatitis C virus IgG Ab [Pr esence] in Serum or Plasma by ImmunoassayOrdered By: Vel Sevilla on 08-01-2024 HCV IgG IA Ql Hepatitis C virus Ig G Ab [Presence] in Serum or Plasma by Immunoassay Abnormal Non Reactive [facility] INR in Platelet poor plasma by Coagulation assayOrdered By: Vel Sevilla on 08-01-2024 INR Coag (PPP) [Relative time] INR in Platelet poor plasma by Coagulation assay [facility] Comment on above: INR Therapeutic Rang e A) Pre- and Peroperative OAT started two weeks before surgery. NOT HIP SURGERY: 1.5 - 2.5 HIP SURGERY: 2 - 3B) Primary and secondary prevention of venous THROMBOSIS: 2 - 3C) Active venous thrombosis, pulmonary embolismand prevention of recurrent venous thrombosis: 2 - 3D) Prevention of arterial thromboembolismincluding patients with mechanical heart valves: 3 - 4.5 Leukocytes [#/volume] correc verónica for nucleated erythrocytes in Blood by Automated counOrdered By: Vel Sevilla on 08-01-2024 WBC corrected for nucl RBC Auto (Bld) [#/Vol] Leukocytes [#/volume] corrected for nucleated erythrocytes in Blood by Automated coun 4.1-10.5 [facility] Lymphocytes Auto (Bld) [#/Vo l]Ordered By: Vel Sevilla on 08-01-2024 Lymphocytes (Bld) [#/Vol] Lymphocytes [#/volume] in Blood by Automated count 1.00-4.8 [facility] Lymphocytes/100 WBC Auto (Bl d)Ordered By: Vel Sevilla on 08-01-2024 Lymphocytes/100 WBC (Bld) Lymphocytes/100 leukocytes in Blood by Automated count . [facility] MCH Auto (RBC) [Entitic mass ]Ordered By: Vel Sevilla on 08-01-2024 MCH (RBC) [Entitic mass] MCH [Entitic mass] by Automated count 27.5-35.2 [facility] MCHC Auto (RBC) [Mass/Vol]Or dered By: Vel Sevilla on 08-01-2024 MCHC (RBC) [Mass/Vol] MCHC [Mass/volume] by Automated count 32.5-35.6 [facility] MCV Auto (RBC) [Entitic vol] Ordered By: Vel Sevilla on 08-01-2024 MCV (RBC) [Entitic vol] MCV [Entitic volume] by Automated count 83.5-101 [facility] Monocytes Auto (Bld) [#/Vol] Ordered By: Vel Sevilla on 08-01-2024 Monocytes (Bld) [#/Vol] Automated blood monocyte count 0.0-0.8 [facility] Monocytes/100 WBC Auto (Bld) Ordered By: Vel Sevilla on 08-01-2024 Monocytes/100 WBC (Bld) Automated monocyte % . [facility] Neutrophils Auto (Bld) [#/Vo l]Ordered By: Vel Sevilla on 08-01-2024 Neutrophils (Bld) [#/Vol] Neutrophils [#/volume] in Blood by Automated count 1.8-7.7 [facility] Neutrophils/100 WBC Auto (Bl d)Ordered By: Vel Sevilla on 08-01-2024 Neutrophils/100 WBC (Bld) Automated neutrophil % . [facility] No Panel InformationOrdered By: Vel Sevilla on 08-01-2024 Estimated GFR (CKD-EPI) > 60.0 mL/Min [facility] Hepatitis C RNA Qnt (PCR) Test Info Comment . [facility] Comment on above: The quantitative ran ge of this assay is 15 IU/mL to 100million IU/mL. Pharmacy Creatinine Clearance (Chem N/A [facility] Nucleated erythrocytes [Pres ence] in Blood by Automated countOrdered By: Vel Sevilla on 08-01-2024 Nucleated RBC Auto Ql (Bld) Nucleated erythrocytes [Presence] in Blood by Automated count 0-0.5 [facility] Platelet mean volume Auto (B ld) [Entitic vol]Ordered By: Vel Sevilla on 08-01-2024 Platelet mean volume (Bld) [Entitic vol] Platelet mean volume [Entitic volume] in Blood by Automated count High 6.6-10.1 [facility] Platelets Auto (Bld) [#/Vol] Ordered By: Vel Sevilla on 08-01-2024 Platelets (Bld) [#/Vol] Platelets [#/volume] in Blood by Automated count Low 150-450 [facility] Potassium [Moles/volume] in Serum or PlasmaOrdered By: Vel Sevilla on 08-01-2024 Potassium [Moles/Vol] Potassium [Moles/v olume] in Serum or Plasma 3.5-5.1 [facility] Comment on above: Specimen hemolyzed, redraw requested Protein [Mass/volume] in Ser um or PlasmaOrdered By: Vel Sevilla on 08-01-2024 Protein [Mass/Vol] Protein [Mass/volume ] in Serum or Plasma 6.4-8.9 [facility] Comment on above: Specimen hemolyzed, redraw requested Prothrombin Time INRon 08-01 INR Coag (PPP) [Relative time] 1.1 {INR} Normal [facility] Comment on above: Result Comment: INR Therapeutic Range A) Pre- and Peroperative OAT started two weeks before surgery. NOT HIP SURGERY: 1.5 - 2.5 HIP SURGERY: 2 - 3 B) Primary and secondary prevention of venous THROMBOSIS: 2 - 3 C) Active venous thrombosis, pulmonary embolism and prevention of recurrent venous thrombosis: 2 - 3 D) Prevention of arterial thromboembolism including patients with mechanical heart valves: 3 - 4.5 PERFORMED BY: [place] [id number] PATHOLOGIST OPTICAL ASSISTANT REJI FERNANDES M.D. Performed By: #### H BSAG, HCV RX PCR, HIVRNAPCR, HBCAB, HBSAB #### [facility] , #### CMP, PT, CBC #### [address] PT Coag (PPP) [Time] 12.7 s Normal 9.0-12.9 [facility] Comment on above: Result Comment: A he matocrit value greater than 55% may lead to inaccurate results in coagulation testing. Patients having hematocrit values >55% require a special collection tube for coagulation studies. Please contact the laboratory at [phone] for redraw instructions. Performed By: #### H BSAG, HCV RX PCR, HIVRNAPCR, HBCAB, HBSAB #### [facility] , #### CMP, PT, CBC #### [address] Prothrombin time (PT)Ordered By: Vel Sevilla on 08-01-2024 PT Coag (PPP) [Time] Prothrombin time (PT) 9.0- 12.9 [facility] Comment on above: A hematocrit value g reater than 55% may lead to inaccurate results in coagulation testing. Patients having hematocrit values >55% require a special collection tube for coagulation studies. Please contact the laboratory at [phone] for redraw instructions. RBC Auto (Bld) [#/Vol]Ordere d By: Vel Sevilla on 08-01-2024 RBC (Bld) [#/Vol] Erythrocytes [#/volu me] in Blood by Automated count 3.90-5.60 [facility] Serum hepatitis B virus surf magdy antibody detectionOrdered By: Vel Sevilla on 08-01-2024 HBV surface Ab Ql (S) Hepatitis B virus surface Ab [Presence] in Serum . [facility] Comment on above: Non Reactive: Not im mune to HBV infection. Equivocal: Unable to determine if anti-HBs is present at levels consistent with immunity. Reactive: Anti-HBs concentration detected at greater than 10 mIU/mL. Individual is considered to be immune to infection with HBV. Serum or plasma albumin/glob ulin mass ratioOrdered By: Vel Sevilla on 08-01-2024 Albumin/Globulin [Mass ratio] Serum or plasma albumin/globulin mass ratio [facility] Comment on above: Specimen hemolyzed, redraw requested Serum or plasma anion gap de terminationOrdered By: Vel Sevilla on 08-01-2024 Anion gap [Moles/Vol] Serum or plasma an ion gap determination [facility] Comment on above: Test not performed Serum or plasma hepatitis B virus surface antigen detection by immunoassayOrdered By: Vel Sevilla on 08-01-2024 HBV surface Ag IA Ql Hepatitis B virus s urface Ag [Presence] in Serum or Plasma by Immunoassay Negative [facility] Serum or plasma hepatitis C virus RNA viral load by probe and target amplification meOrdered By: Vel Sevilla on 08-01-2024 HCV RNA HEATHER+probe [Log units/Vol] Hepatitis C virus RNA [log units/volume] (viral load) in Serum or Plasma by HEATHER with . [facility] Comment on above: Result Units: log10 IU/mL Serum or plasma hepatitis C virus genotype identification by probe and target amplifiOrdered By: Vel Sevilla on 08-01-2024 HCV genotype HEATHER+probe Nom HCV genotyping ser/plas amplified probe . [facility] Comment on above: This test was develo ped and its performance characteristicsdetermined by [employer]. It has not been cleared orapproved by the Food and Drug Administration.Performed at: [address] [id number] Director: Cristo Davalos MD, Phone: [phone] Sodium [Moles/volume] in Ser um or PlasmaOrdered By: Vel Sevilla on 08-01-2024 Sodium [Moles/Vol] Sodium [Moles/volume ] in Serum or Plasma 136-145 [facility] Comment on above: Specimen hemolyzed, redraw requested Urea nitrogen [Mass/volume] in Serum or PlasmaOrdered By: Vel Sevilla on 08-01-2024 Urea nitrogen [Mass/Vol] Urea nitrogen [Mass/volume] in Serum or Plasma 7-25 [facility] WBC Auto (Bld) [#/Vol]Ordere d By: Vel Sevilla on 08-01-2024 WBC (Bld) [#/Vol] Leukocytes [#/volume ] in Blood by Automated count 4.1-10.5 [facility] Coding Summaryon 01-31-2024 Coding Summary HTMLBase 64 DjpgwislFWi0bYx+PGhlYWQ+PE1 DIBZaL76npWEthJ9yR7BNEUuWGa jmXPNXOJiZAbEslrFnNV5ojINeO XJu IC8+AR0dQZCoAoestSAqw4W2mQK 7K78tit3lSNquvFV0GHWuLtTlwh tip9wfuIg2MMfrKwnaPxAa ZJPdnZ18JEA2fQ30Pq83nUSjuXP iv5czrOf2OqZlSYEvFIK0pRioKE pry6MuZGKwB39rgURtb3T4 COQyqUvbtEFwVyYtaDU2eD2aHHb ihssbq0opfqfyVgo5sr83zBGgp5 N9bPU6X4HamdR7HKZceQDb GdpbsOPZnI5fcocqd3ccoufaVwR kXFOcNTw0WEz1GCZldLfyHxRiUG 96EKC4LVNtzkEvN1GbXFVe fFdvEaM2d4N5Mz7XF1MLKchlM9T NTUFSWTwvdGQ+XD81ub59U3TiDy ypUzn6NHVvFZX3xQB6vL6u TIOdNYgni0K5wJK0C9TggwLapj1 vc1ktCCWyRIbmO64cyLCng1D4WZ RmoUQ3BCJneQtjVjSxsW95 Oyc+SVQsnTxwa0FdIfcdk0pgc1r niLh5VlciZPEsscNxrXcoLUB5x2 OaDh6yDSIgwCK4eXW5nF5a JyUoZyA4DLfzT546CiJqwNEdEet aH10jU0NkdMH+CCFeLbw4BWCbaN ycHO5lZ8BnCXFckcrohYJa tTakWT0jRERtflffYCHknT0pIUU mN7w5JxLuUyC6QKtgS7ReULHftl giZx79dI7gJrMxDeV5XHtx L9IimxH4NDTkfCEeRTseDON3R39 wa2Q8XCNlEYPuHFZ5pGY1eE7hxR lnbjogbGVmdDsgdmVydGlj BIwgYRpiA805NFPfuDjeCcWiJQf uZyBEYXRlOiAgMDkvMTIvMjAyND wvdGQ+RDPlQZL7fMwgCBTm sSWgTTblVl2kiSgypQhxQK0dHJT djkffEXEjxE5sGJOjlUJhyPnaWP 8sWOCwfycbs715HgVdERP1 DTSokTRmP9PdfG9gFyIrDBRwSWX eY5YkgOXuDShoZ483QBqnFnV8LR TfqmGeN7FkBRXjvNdtEqW3 t7Y6Od4Zs2CspgqgA9CylZQgTnP gAcagKSi8A6XkChuknLP+PC90YW GoLL68NFe5JCP4nSssGLcp UPVjB1HgxY4fQtMiEESfUBUcIkg +PHRhYmxlIHdpZHRoPScxMDAlJy DtuZrtUK4bIo9jZEGdAIFc uLyxcQQuSbDdf1fuKTMiMOtrCE7 hkGpcL6NivEP5TVUsf7w4Py79H3 3hL7KudQI+JRGdjHG7aRP2 wC5cDxZuIfI8FUijQ776DfYgxBO gAygko7xwf1gdxYx2FpQ7YYCgou EljMagDTP8a5YkCm26A62k IHdpZHRoPSIxNSUiIHZhbGlnbj0 ewT2mZj2+RKGkqYZ8kOA1tU6qRn JrIoI6TJwdZ701OjYjsFIp Tsrsd9xus2wmnZw6VtWhYMItbkO piWziUGI2w3OxYo23X8JznWrvi9 GcQue8ta52rTQhm9Q3xIV0 X4LeJVHjrtzkjQWxgJvcHW0uILM ohfdzPHQptX0uYGPtQ8j0DwApPq E2BQkdC2ToysO1JRTmaRPb RXBsxFQJwR9rjkqkc8awphplHzO fCNMjVEx0IEv4VULxdJpjNrHhAE F1SbP6YRY1bSJcgO7lySyn xnvhbW7zCzj+MTO2aWLpeOJWLO9 lOjwvdGQ+MIOnRDF6vYquXHmfUV WfmQ5rYVReO4r8JgBlDxU7 FGbdR3NmlgM6AEBfoJXcTKKfoPR TtI8ioafdx2doxfhoKiGfSVXrJE l2KAi4MXKbvVymJzTcTSA9 DnV9TTI1yVAlnJ7hoRkurmdveN3 wOyc+HvbdsWsrWOP4RYy2W0DoTj v6OCFdsSedXD4zgGKxAFqk Gv6hiSbrdOgwTH3hFDSttowxa54 9DvInb5llALGflFDqCEddMJI5F1 1vg4V9AODnRNIfRUN9yBY9 qO9rxBgbvrixvRCbgGeoyhMjpAy pDNdeJPbnA122XVOdyCqzBlQzEO h1Z3WhEen0FUJgyUbuPJ3d oSNfKJgqTz3nfFvdfOaiWL7vHWX hjgpii883FpQiw6vwGRCeiBJlST llLQB9T04yr7C3OAYzILQf FPL7lMD8aS6xzHexievltNDekGy vexZvpIoyCSooHFftH580UPKgxD wqGqNmhUk6T8DfAgy4TYKt jOcyPM9adXDoNAyuAx9ndGzzmVv zBK6gJOUbshksf984LnIdg5dnRB GfeMYnPLvcDND3F59sp3E9 RLJbNHTtQRD7vTO0iG7roAgdnlc gbGVmdDsgdmVydGljYWwtYWxpZ2 46IHRvcDsnPlBhdGllbnQg KKpaMWz5L2FxWjteqVK+JD20UFA uKP50cTDkpVVeh8uccXc2HlUuWD PdYZL8iTnwPFdqr1VjYTXo L39zjTJgv3C6JWDkfJdjaOWaXzZ lnKA2fN9vGJdciowmj3jyupzgSj kzx6ghaq20uR61H20jXQox HEZaABGeSDChKQGchPuzcd0ioQ1 wIi8+TMUexXV0oGX1uZ4jEBRzKu U8AOvxS642FgXehAFxXlva b4ufw8lraHh8GmG2FGTbhoKolFm jZVY9r1TzSy14C17gPDbeWLDeUS CxSEHnAAPtgTfaoi7idV8q Ii8+FMPqdJF3bZS2zJ0rHrIaFbU 3EVgaN240OzHjfUXsBzeoF72tS1 JvdXA+IDGjAjx6UKBktDjs YR5spHZuSYunKa5fUVX3HoWvPgM tCLcdF6DeSPIbslkqwgkpqSO5NI AyODLuoW91Re1fmRkkOEXg eDHPuX1qdhysi1jbgulzZsEyJKJ nBQp9JEk6CANlpGjpEtSvCCP7Is M6FAX1rSBdqL0ecGqtnnog wX4zD7DwFPWaxnoiOj43xG5aCfL jUgL7SZnxNfj+H9TWSO3KDKftDW FWSUQgRVJJQzwvdGQ+PHRk OTO8mCmzQRqeGTRfgB6iDLWaA3c 7PoMbHcG3IRzrP3ReZZDuivrmTu 87nF7aVqScMwC3LWoeX7At lnU9DOHvbOPeQQzuXTW6Q73lc7Y 5DOChQSRyRPX5gAQ6nP8tpZmqsd ogbGVmdDsgdmVydGljYWwt XOwoW390OQKefNdjOqW8RkF4NbB 6BdU0K8CeGsn4NKUexSuqRE1rqN UjOYovXg2pyEafpIsdOX1b HMKxhajfOYTjdJ9aVLYxsLXycCd xKE4pVXTftnqsp933FhUuXPX2QQ DhrXNuI9RsjH6rMkGbCZYs SUUxV0GyhWDwOStdR856QAnqHcM 5XMOlakDeJ3WjAHMjyDblZmO2d1 K1Yv14SBJUCVThexnwaUI+ XFWbIBO2jPxoOPzpPNFhjM3vALW cD0j4IdTeNeG9TQpyK8XoCGXarc ikHu18oQ1zCfLoAfT1AQxa I6JkpsI0LKYozPUaSLzfLKS9U46 eq8I3BHRfGUObSTF7uDY9nZ2goI lnbjogbGVmdDsgdmVydGlj GSiiESjyR251VROjwYxtJb6WNOR 8W7HoImu4KKCvgVsoVC3tvJLvXS rvBh7tnEypnXpmYE7uZAXd ealuUZEclG1dTUDuiBYpaOnlTH8 gGCFsdlmzv594IuMzEFF4KMHjyX PkV3SsrX8pXfIhPICbOINb P3NihNUqPMwkV924NEwgYvV0ORB rfwVpJ9TcTCMnlVmfNwS6q4F6Eb 6NrSRlM2WfI6u1S0DvBzlg dHI+YG81ASRwTU92yDQfeQElv5b lsXx4IzLnFYIyUJG9tYhbFXgzh6 DpRUOuY12ldYIvi8X4LDPd mGtcqILcLaTfqNV4rZ2tSUjddmd nd7osjpmkNmigz7ttyp86sT29A4 9sIHdpZHRoPSIzMCUiIHZh mKxhhk0opN2jJv4+AOEygTE8wLS 3wX3fAhVaWgQ3RHrkT489VbQmeC AxCpizw9gjq4ofqVm8CcVd GXQihwAryCzfJZK3k6MwWu35O63 sIHdpZHRoPSIyMCUiIHZhbGlnbj 8wuD2lYk2+YE3wg0wear27 aY59aUW+CTDfVBM7iCjbQHapVSM apI3pELemGfG6HIWfTgMpjQ01tR UgFEneDu9jbQdakNsfSB9z YWLcphehv027PePet4zzZJDqmTF pFSzzIWV5W57qc8H6GWPhGDPhQQ R2bCM9dN7caElnnintpGWi uOgjloQcfFnoLRsfNHokD678IXR yvKpjZvXvhEGvY0zebiQNWT2wBg wvdGQ+AYSyOLX0vTsoLDuo IKDlaW4oVKIaD2o8JvXoRwL5TZg aK6DfjtS3ZBIslHBqAHBouBQKdG 2imtjqb6jackflRvFrSJCz RXg4DYj7FWQkoMvmFvJfYDC7VfH 0QMZ0rDGvtY3lnYcxhjbcbR5sVy c+RklOOjwvdGQ+PHRkIHN0 kTqmOSalTZSxsP5gBMChK6s4TtD wQoX5IMcdG5ZwkxR3POZqyRPlWK FemIZQrH6ogyouw4huarad BoPqUYUyWSh9BFf6IIQfwSjgWwP oAVU7AsF3OCV2lQAjfC6ilTqvxw iobM8wKrv+TVJOOjwvdGQ+ KPBnQLW2qMvtOTjiZJBweD9uDTN uH8b5AwOrMoJ1XNboO4AasrV8NL ViwLFkIVQqhMHVrI5mbzqf z3qnrvffCmIdHLThDIa5DFd6VZD ujYrdJrBmXFT5BuK3CRF3gUZdyW 6qfHyftprvkS8kMlp+UGF5 YLH0EZ46YL44R4QtZtmtyNXbkJR +PHRhYmxlIHdpZHRoPScxMDAlJy XqvAxzQE6pLh5oMEXaDTMh bGx (more content not included)... [facility] Coding Summary HTMLBase 64 KjmrubbsFLy0iWk+PGhlYWQ+PE1 DSAKnM21psTNjjJ4cW7XUTAtWSq djAJTNKCxDFyFtwsQdVJ1yuHTxF XJu IC8+QL6aROOaPsfolARll9Z6uTH 8T08zoo7fRRatlVR6VKXrCbUwyb kvn1vkeXh5HBisAblbFkLk HMWcvP94LMO3cV58Yu34lLMmvQA ww5tqnTo6TePjECKfLOM3ePmzAO ciz5BzLHUeN76jpZMyq0Q1 HHBjwGdlgSWbLoCeuSZ1fA8yELs eqjyjn1vyqyioNcz9yt21vFHme3 N6rIG1X4IfrtR2HLNfhCZg MenzsBMSvH4hittxa5drekzmCwN aMXFwYBg3HHb1GTFvsKhaFwPnNX 75LNG0KVNxvnVpP4HpCLFe nTkeBmR5o8J1Ke3BC9HOBggcA1O NTUFSWTwvdGQ+GP52tb30Q1JcZk fhRnf9VPQtCBS8hEL9zE8h HUPgRMnjh0I5hBE1S6HxiyKtgq2 tv3yhYXYwMRnwN28lnHPfg2W3OW UpiXN5NQJehZcdEqXycM62 Oyc+RDMkxMyfb9AlOyzbl7tao3x faZo8HdqfNGLdvmYndJktMTY4c4 YgBb3lDZKdkKK3uTD1rB8a YjJjVlP5NDshF232HoFevEMbGnx jS05hY0QheCA+MZLrZmq1REVudF ukEE9nA8QzTJRlbfrtlRCv hCvbPE7lPLShwfoxUFDruI8oMTS dY2s2YiGcOcR0XTcpN9VlXYIaqw amZx27oE1sOzGeIpZ4PWga G0LghqP1JFNowBRvXYoyVZN1U61 pd7H1TBMkAZKwRHL2nTU3nH0prK lnbjogbGVmdDsgdmVydGlj HVlpZFelA760QSHutHkyNuSeVGv uZyBEYXRlOiAgMDkvMTIvMjAyND wvdGQ+UVCcWMF5iOmkDELo ePJtPEirIq0qjFaduPyaJF0bDXU rwlkpCEEwdB3tYDJvtXGqyOyvCP 8lZSVrujfha394ElDyEPY3 WJQkqDKhW3CrxU8gKuZfCIUsQBL uI3LboEOeQDtzD775CXtyNmL0WU FtdvRjD9SgNKIkoKknLqF9 l8Y7Ae7Ps6EsfijpE9CabZWfAkV zZdlzKHu1G8NgDcfumIQ+PC90YW ZgEP44YWb7ZHR3xGhvPCrr MRFkM9OuvY6dSvNaQHAwOJIfTsz +PHRhYmxlIHdpZHRoPScxMDAlJy TfvGzmMG7xNc1vGUSfEMUo bNukcAJdGaXka0reADSqBRpdVH7 wcKelR0FshCP6JUTxn3z9Zp50E2 5gT6EcgPF+IPNvkEX2oAQ1 gX6nCrEyPjF1KZcjW981CpOqcBZ yJijvu2pou9hwsBe4IlC1AAUrai UpfAmlXRP0r1SqFx04G04s IHdpZHRoPSIxNSUiIHZhbGlnbj0 nxH2xTg8+HUBktEH3kYU8eG1rKq BhDfN3EPvwC651WsIwpBMs Rkpag4qrd2hbhLy0ZuKqLUIyieL znLqrBYC7r3XlZk73K2IdkMrko9 JoWsn9rl92qMCyg7D4nWP4 C2RsLNEudvmmqCOzbLjyFS1sHAR gdhzjSQYteM3kVIJsE4g6AvGkTe N2XTvfR9VrqhW2QLJyuMCq YONwySCTgH1wxxfsk6fxuzirLxI gAHXoJBg8SAg2FHKwtUmiMbElTX G5JzC0SXT7fEHyqP0hlRnf lmhbiI0vVvs+LGM3hIKvuVAZAZ3 lOjwvdGQ+RMUwTMU0lBlbNJjnMI YikM2mACMsW0u4MsSrHrF4 NYsqL4CfokR5ZPHuaMSkBZTeiRJ AmI7hugbsd4cwnxrkMnGvGNFbXD c2GOl5RRGoeVytDlSfXRN6 GvL0VOX8jXHgoS2ufRevcuhonD6 wOyc+CymmvZxzIWF9MXf5P4PbXh f6WSWmtUbcNY0raWOtAIhv Xh8vbIkzmXvbKK5rPIRokhrby42 0NoCkg0zoLLUhpJRmBRzrZXP4S5 2ik1N8CAEzQVOpBPO0wQU2 cX6tqUxljilwaIZrpIklefMszCj fEEtqKDaeD733KYYbdKxdWtVoQW a5E7VcSnj6FKCveOfrSD4o oBCkIMfxNt0ydYhdjCddMF7lTEW widjyi112DnKdy7ceSQJsiXNlXB ysLYG4K57vs1L4QUPeDWDb NRQ4rXZ8cX0sqCrguvsckBCxdLp yymVlhUfnNBphRLfdI110LCJuwJ fxXzQbkDi1M3TqCvs5IITk cFwtRG1kzSZtFAyhCj7qsFgasKb uPZ7mCLOttelmj527MaElj7tyCX RqqSVvMXesUSE9L52rt6R7 MBNdBBXsEQG1hGM2rI5qdDqxojh gbGVmdDsgdmVydGljYWwtYWxpZ2 46IHRvcDsnPlBhdGllbnQg GHraBNs4Q3KlPuvxaTG+BQ84CPY nXN19aCBeoFZgu7judHj7YaNbTV BoMBA3gVpbIRwzq6JxSAKl M69pkRKxh0A0UMNvxOkrzQZsIrW teUX7tA6pSTvmtqrze7sgxqswGb pvl3ghlh81sO10I94kKJmh PXTsXXSpDBHzLTMznIfjpv2fsD5 wIi8+DNSytQP2iGN5tX1nIGTcUb T1GIpqO598ScWjeQOiTdvc k8izg4wuiVd1RnT7GIPnkuDpqDg hPDB4q8WbCk15L83qFMymCLFqIE GdVYKeEJNexStrrf1xwD8h Ii8+KEPswHB8yBW3qD9qPyJnEkZ 4SMieH509LtBabQZhMxcgD65eT6 JvdXA+BXIwJnx8ZNOogPrj ES0mfGQcVRdsBp5bSSK5BwNiCiD jCGojJ0WqPIYetaywoyoecDC1QW WuEWKanL39Mc0vaPfqOZKe yEIVyT0uivnhs9elgecgYxJjYDV qCCn7VOt6EEHeiPdgEpZySRF2Jb Q8EAQ0hGKfaH7onZqslmmh sY7eX3VoTERyduecPr16tN3vDrA mVuP1HMurCxd+H7JBKZ1HIFpiQO FWSUQgRVJJQzwvdGQ+PHRk IFY4zZhuCNesYEZupF7sTEOmP5y 2YjHsPwM7WXvvE2TpCMVnaglzGl 50uJ4hMuIjIwA8PXqwT6Cp drX6VQUbdTZoWCkwTTM1M91vi8F 8TOYtJMSlHBO4tGP9gZ5xnRemxw ogbGVmdDsgdmVydGljYWwt CHqmA334WHIccKrvBrU4VqI0SyV 7UcN2P1YyPjm4YRAavShrEZ1roL JbNGylBq4fiGikeNswFC9j STZqyexjCAWijV7jARSijQVmiUv tKD1nNGXcttgem668OrMoWLI7JL MjpDSkH1PqsO1fOhQiOMPb QMIiF4BgmHEyLGlgL563GInjTrG 6LIDbmjZqV8PtOXOctHgkViU1j0 L7Cy75UYZBCMZgzvlxaTS+ WTZjJPI6yOzuXGclWOTdcO1vTBU cG4j2JcOcIsZ6XEgiQ8FuIJRkky pgHe80xW8pXrBuWcW5ZJve D0WjomL1ZPXdoZIvJCadZSQ5U58 qa5Z0FVKyGTVfATD7bFV1pH3exA lnbjogbGVmdDsgdmVydGlj LTdmVHkzG087VXYjsTuzOf2ZXOY 5C3FnIiu6QIGxhZdvEY6maFSvFY fdYr1zpIljiDdmXC0xJLUh dbiqPVKgiT5xEDSqlQXnvOajUZ2 vQKDgewjhh464DvZeUSG3JRMjuV BaL2AiaD7iSsJxINMcRXTn W6ClxJIuVDnjG188IZpePvE6OOJ bmpVjC5NdPIZmhBcdAbY3v9P7Fn 2WvKUuQ5QzL2y1K1SkOwic dHI+IH21GMJrQR00nBVwcVXig6q iuJg2XnJeCZNmHEP8wLqmDPolo7 WfBDOhY85zoXGzm4C1DGVe aFpifVYbDrKwvOZ7nZ9gMXnegqu ke6ysuaqgStweo4gnda32fT97B0 9sIHdpZHRoPSIzMCUiIHZh wWater5cvR6tYg4+GIUpiUK1hIG 4aF2iLrDgDmV1RKklO624QeByeT LlMhmud7cqy7stsJk3GkEv NXGsyaVbmZotJFC6g3XdBv97T32 sIHdpZHRoPSIyMCUiIHZhbGlnbj 1jeW8oVg8+JN8yi0vvhg89 xN69mML+FZTcWLM1zUdzZBslXIB hrO8eJAjrSpA6EQEsWdOzeR14eM MeXFaxLq9nyEqkdRgfVB2b MGMwzjpic817EkNlu0ucOJOneKS zJEhwTGV2L06qa1L2PSIaITUnTB A2rAA5aT1luZksmefbbUGm zUdekmYdqAccQNyhUOzgM624PTL wjGyzHtVqdUHpM2hqurWBKU8gCq wvdGQ+ISIaZRQ1tKpmWLfk HGAztC3sTKMwU8x0UbCeFnV1LBm iU4GsymB4XUKkgVTzOHSxhUUFyH 1flbdmw9qaxzezAyHlUNEi FWf8UAz8JJOjdBakZaHgCAC6DnJ 9XUQ5cNOttR2taEbjiuxyxD1zYq c+RklOOjwvdGQ+PHRkIHN0 cDxoUSbiXJNxaO8jMXVfV6j1ItO pHeO3TFloX1RmdeO7SONakMUcYN YxdDOBtB1jwxglx0dqmspw IbJjUDVzHBy3AHv5MFFefSldXvG jVBR2KcO1WIP7xDRxgK5jaCnfqi lywZ5gFpw+TVJOOjwvdGQ+ FYNnABF9cFcuFYufFSTrfG8cQNJ yE4g3MlDyGtO7SBayZ8RjlrE7RZ DniNQcGOSitBKKfX3mzqgz g6zqiyfqVgJdFUPcUSt9ASu6LNO pjObbOzMjDUG6ZgX3QBM3mNCrsL 3saJijzsvucN3fUdr+UGF5 RTG7NO58OU76B8UbSffciNMayZL +PHRhYmxlIHdpZHRoPScxMDAlJy XziAiuQJ0cXh8lRCWnNKVc bGx (more content not included)... Normal [facility] .Auto Diff 01-24-2024 Auto Harlan % 6 % Normal 06-01 [facility] Comment on above: Performed By: #### 1 [id number], [id number], [id number], [id number], [id number] #### [facility] (DEFAULT) [address] [place] [address] Baso Abs# 0.1 x10 Normal 0.0-0.2 [facility] Comment on above: Performed By: #### 1 [id number], [id number], [id number], [id number], [id number], [id number] #### [facility] (DEFAULT) [address] [place] [address] [id number] Basophils/100 WBC (Bld) 1.3 % Normal 0.2-2.0 [facility] Comment on above: Performed By: #### 1 [id number], [id number], [id number], [id number], [id number], [id number] #### [facility] (DEFAULT) [address] [place] [address] 78[address] Eos Abs# 0.1 x10 Normal 0.0-0.4 [facility] Comment on above: Performed By: #### 1 [id number], [id number], [id number], [id number], [id number], [id number] #### [facility] (DEFAULT) [address] [place] [address] 40641 Eosinophils/100 WBC (Bld) 1.3 % Normal 0.9-4.0 [facility] Comment on above: Performed By: #### 1 [id number], [id number], [id number], [id number], [id number], [id number] #### [facility] (DEFAULT) [address] [place] [address] Lymph Abs# 3.5 x10 High 1.3-2.9 [facility] Comment on above: Performed By: #### 1 [id number], [id number], [id number], [id number], [id number], [id number] #### [facility] (DEFAULT) [address] [place] [address] Lymphocytes/100 WBC (Bld) 44 % Normal 14-48 [facility] Comment on above: Performed By: #### 1 [id number], [id number], [id number], [id number], [id number], [id number] #### [facility] (DEFAULT) [address] [place] [address] Harlan Abs# 0.5 x10 Normal 0.0-0.8 [facility] Comment on above: Performed By: #### 1 [id number], [id number], [id number], [id number], [id number], [id number] #### [facility] (DEFAULT) [address] [place] [address] Neut Abs# 3.8 x10 Normal 1.5-9.2 [facility] Comment on above: Performed By: #### 1 [id number], [id number], [id number], [id number], [id number], [id number] #### [facility] (DEFAULT) [address] [place] [address] Neutrophils/100 WBC (Bld) 48 % Normal 44-88 [facility] Comment on above: Performed By: #### 1 [id number], [id number], [id number], [id number], [id number], [id number] #### [facility] (DEFAULT) [address] [place] [address] CBC w/ Auto Diffon 4 Erythrocyte distribution width (RBC) [Ratio] 13.9 % Normal 11.5-15.0 [facility] Comment on above: Performed By: #### 1 [id number], [id number], [id number], [id number], [id number], [id number] #### [facility] (DEFAULT) [address] [place] [address] Hematocrit (Bld) [Volume fraction] 46.8 % Normal 34.8-51.9 [facility] Comment on above: Performed By: #### 1 [id number], [id number], [id number], [id number], [id number], [id number] #### [facility] (DEFAULT) [address] [place] [address] Hemoglobin (Bld) [Mass/Vol] 16.3 g/dL Normal 11.8-17.7 [facility] Comment on above: Performed By: #### 1 [id number], [id number], [id number], [id number], [id number], [id number] #### [facility] (DEFAULT) [address] [place] [address] Man Diff? Auto Invalid Interpretation Code [facility] Comment on above: Performed By: #### 1 [id number], [id number], 3065851, 79831119, 0031884044, 9419374 #### [facility] (DEFAULT) [address] [place] [address] MCH (RBC) [Entitic mass] 32 pg Normal 24-34 [facility] Comment on above: Performed By: #### 1 [id number], 7225099194, 5658934, 69379228, 7417807946, 2828724 #### [facility] (DEFAULT) [address] [place] [address] MCHC (RBC) [Mass/Vol] 35 g/dL Normal 26-37 [facility] Comment on above: Performed By: #### 1 [id number], 8641140045, 6373455, 41297983, 2323657073, 9757928 #### [facility] (DEFAULT) [address] [place] [address] MCV (RBC) [Entitic vol] 94 fL Normal 81-100 [facility] Comment on above: Performed By: #### 1 [id number], 6851312519, 8798019, 61159104, 6402476014, 0323646 #### [facility] (DEFAULT) [address] [place] [address] Platelet 144 x10 Normal 138-427 [facility] Comment on above: Performed By: #### 1 [id number], 2973604670, 8914465, 01081159, 7458797613, 1181026 #### [facility] (DEFAULT) [address] [place] [address] Platelet mean volume (Bld) [Entitic vol] 11.0 fL High 6.3-10.2 [facility] Comment on above: Performed By: #### 1 [id number], 4562142008, 5834614, 80314701, 2077545378, 6806656 #### [facility] (DEFAULT) [address] [place] [address] RBC 5.00 x10 Normal 3.70-5.30 [facility] Comment on above: Performed By: #### 1 [id number], 6722403433, 9933580, 04684738, 4004241748, 3523642 #### [facility] (DEFAULT) [address] [place] [address] WBC 8.0 x10 Normal 3.5-10.5 [facility] Comment on above: Result Comment: Slid e Reviewed Performed By: #### 1 [id number], 4735273932, 4234006, 04033702, 3982907546, 3885403 #### [facility] (DEFAULT) [address] [place] [address] CMP Standardon 01-24-2024 eGFR Non AA >60 Invalid Interpretation Code [facility] Comment on above: Performed By: #### 1 [id number], 9216561004, 1825341, 53238039, 4641420152, 3543837 #### [facility] (DEFAULT) [address] [place] [address] eGFR AA >60 Invalid Interpretation Code [facility] Comment on above: Performed By: #### 1 [id number], 4145066178, 1519035, 12002558, 4651218718, 3124635 #### [facility] (DEFAULT) [address] [place] [address] Albumin [Mass/Vol] 4.1 g/dL Normal 3.5-5.0 [facility] Comment on above: Performed By: #### 1 [id number], 0104749459, 9635343, 89753423, 0742681820, 8568558 #### [facility] (DEFAULT) [address] [place] [address] Albumin/Globulin [Mass ratio] 1.1 {ratio} Low 1.4-2.6 [facility] Comment on above: Performed By: #### 1 [id number], 3960299440, 7612276, 97146505, 2848446384, 0380610 #### [facility] (DEFAULT) [address] [place] [address] Alk Phos 40 IU/L Normal 32-91 [facility] Comment on above: Performed By: #### 1 [id number], 1438056907, 7216544, 27791835, 7874009328, 0493768 #### [facility] (DEFAULT) [address] [place] [address] ALT [Catalytic activity/Vol] 145.0 U/L High 17.0-63.0 [facility] Comment on above: Performed By: #### 1 [id number], 8465163360, 6387792, 94936137, 3261025355, 6714988 #### [facility] (DEFAULT) [address] [place] [address] Anion gap [Moles/Vol] 8.3 mmol/L Normal 5.0-19.0 [facility] Comment on above: Performed By: #### 1 [id number], 0707282652, 0780418, 32832217, 5836572071, 6354593 #### [facility] (DEFAULT) [address] [place] [address] 99763 AST [Catalytic activity/Vol] 97 U/L High 15-41 [facility] Comment on above: Performed By: #### 1 [id number], 0571330751, 3082512, 59594998, 1286015886, 6091372 #### [facility] (DEFAULT) [address] [place] [address] 92244 Bili Total 0.8 mg/dL Normal 0.3-1.2 [facility] Comment on above: Performed By: #### 1 [id number], 1962030533, 6869096, 03117042, 6977303174, 7328122 #### [facility] (DEFAULT) [address] [place] [address] 33402 Calcium [Mass/Vol] 8.8 mg/dL Low 8.9-10.3 [facility] Comment on above: Performed By: #### 1 [id number], 0506715963, 5632364, 81699988, 8460332077, 5125694 #### [facility] (DEFAULT) [address] [place] [address] 35480 Chloride [Moles/Vol] 107 mmol/L Normal 101-111 [facility] Comment on above: Performed By: #### 1 [id number], 4423941468, 5818711, 80170421, 4319192445, 4356943 #### [facility] (DEFAULT) [address] [place] [address] 22613 CO2 [Moles/Vol] 24 mmol/L Normal 21-32 [facility] Comment on above: Performed By: #### 1 221110660, 2651877992, 2072465, 73185046, 6660156120, 6009046 #### [facility] (DEFAULT) [address] [place] [address] 18914 Creatinine [Mass/Vol] 0.90 mg/dL Normal 0.90-1.30 [facility] Comment on above: Performed By: #### 1 [id number], 9770032461, 9893086, 17516068, 4345790994, 6990012 #### [facility] (DEFAULT) [address] [place] [address] 47107 Globulin (S) [Mass/Vol] 3.6 g/dL Normal 1.5-4.3 [facility] Comment on above: Performed By: #### 1 [id number], 8871317657, 9412598, 37509544, 1807263608, 6185947 #### [facility] (DEFAULT) [address] [place] [address] 02820 Glucose [Mass/Vol] 106.0 mg/dL Normal 74.0-118.0 [facility] Comment on above: Performed By: #### 1 [id number], 7971505529, 6887471, 89764209, 7868320342, 9652995 #### [facility] (DEFAULT) [address] [place] [address] 54411 Osmolality 271 mOsm/L Invalid Interpretation Code [facility] Comment on above: Performed By: #### 1 [id number], 0320192282, 2676046, 20771042, 1069684498, 1698635 #### [facility] (DEFAULT) [address] [place] [address] 21699 Potassium [Moles/Vol] 3.3 mmol/L Low 3.6-5.1 [facility] Comment on above: Performed By: #### 1 [id number], 4883545778, 2038924, 55292257, 3658269565, 8983456 #### [facility] (DEFAULT) [address] [place] [address] 27696 Protein [Mass/Vol] 7.7 g/dL Normal 6.5-8.1 [facility] Comment on above: Performed By: #### 1 [id number], 4201496625, 4980656, 22284116, 8809536374, 0979420 #### [facility] (DEFAULT) [address] [place] [address] 54100 Sodium [Moles/Vol] 136.0 mmol/L Normal 136.0-144 . 0 [facility] Comment on above: Performed By: #### 1 352927261, 9668359444, 2013452, 77932827, 9024308839, 7803830 #### [facility] (DEFAULT) [address] [place] [address] 68725 Urea nitrogen [Mass/Vol] 10 mg/dL Normal 8-26 [facility] Comment on above: Performed By: #### 1 [id number], 6199267626, 2343721, 81227204, 5915812340, 5021630 #### [facility] (DEFAULT) [address] [place] [address] 60492 Urea nitrogen/Creatinine [Mass ratio] 11.1 mg/mg Normal 4.6-16.2 [facility] Comment on above: Performed By: #### 1 513602851, 0734557337, 6526307, 07017218, 6072251653, 2191275 #### [facility] (DEFAULT) [address] [place] [address] 22729 ED Clinical Summaryon 2023 ED Clinical Summary [facility] - Emergency Department [address] [place] [address]10 ED Clinical Summary PERSON INFORMATION Name: JEFFRY AGUILAR Age: 49 Years Sex: MALE : 1975 MRN: Acct#: Visit Reason: UC - Muscle Twitches; Diarrhea; Abdominal pain; BILATERAL LEG SPASM, LFT BACK PAIN, DIARRHEA Arrival: 01/24/2024 12:55:30 Discharge: 01/24/2024 16:04:00 LOS: 000 03:09 Check In: 01/24/2024 12:55:30 Checkout:01/24/2024 16:04:00 Address: [address] [place], [place] [address] PCP: PROVIDER INFORMATION Provider Role Assigned Unassigned [...] potassium bicarbonate 25 mEq Oral Allergy Information: elin PHYSICIAN DOCUMENTATION DISCHARGE INFORMATION: Discharge Disposition: Home Discharge Location: Home PATIENT EDUCATION INFORMATION Instructions: Muscle Cramps and Spasms, [id number]; Hypocalcemia, Adult; Hypokalemia Follow-Up: With: Address: When: TAMIKA FRIEDMAN [address] [place], [place] [address] Business (1) Within 5 to 7 days Comments: Review after care instructions. Continue with the current treatment as outlined by the ER physician, Dr Chirinos. Take medication as prescribed. Contact your assigned on-call doctor for a follow-up appointment if you do not have a local family doctor or PCP. Alternatively, you may also follow-up in the Urgent Care at [facility] if you are not able to get an appointment with a family doctor within the recommended time. Call the emergency department if you have any questions or concerns regarding your treatment today. Return to the emergency department if you have significant symptoms that concerns you. DIAGNOSIS: Acute hypokalemia; Hypocalcemia; Muscle cramps at night Patient Understands: Yes - Patient/family/caregiver verbalizes understanding of instructions given Comment: Normal [facility] ED Note - Physicianon 2023 ED Note - Physician Patient: PINEDA AGUILAR Age: 49 years Sex: MALE : 1975 [...] leg. Stated that he had lived in [place]. Stated that he came appeared to help [...] range of motio (more content not included)... Normal [facility] ED Note-Nursingon 01-24-2024 ED Note-Nursing Pt ambulatory back t o ED RM 8 C/O having diarrhea for [...] pt is A/Ox4 call light within reach Normal [facility] ED Patient Summaryon 024 ED Patient Summary [facility] - Emergency Department [address] [place], [place] [id number] PATIENT DISCHARGE INSTRUCTIONS Patient Information Name: JEFFRY AGUILAR Age: 49 Years Date of : 1975 Reason For Visit: UC - Muscle Twitches; Diarrhea; Abdominal pain; BILATERAL LEG SPASM, LFT BACK PAIN, DIARRHEA Arrival Time: 01/24/2024 12:55:30 Primary Care Physician: Attending Physician: Sebastian Chirinos MD Comment: Visit Diagnosis: Diagnoses This Visit Abdominal pain ([id number]) Acute hypokalemia (E87.6) Diarrhea ([id number]) Hypocalcemia (E83.51) Muscle cramps at night (R25.2) UC - Muscle Twitches ([id number]) The Pharm[facility] at [facility] [place] [facility] is open Sunday through Sunday from [...] alcohol and/or drug addiction problems; contact the [facility] 11/12 Crisis Hotline -Text 0QIKI iq [phone]. If you received any narcotics, sedation, or [...] any legal documents With: Address: When: TAMIKA FRIEDMAN [address] [place] [address] Business (1) Within 5 to 7 days Comments: Review after care instructions. Continue with the current treatment as outlined by the ER physician, Dr Chirinos. Take medication as prescribed. Contact your assigned on-call doctor for a follow-up appointment if you do not have a local family doctor or PCP. Alternatively, you may also follow-up in the Urgent Care at [facility] if you are not able to get an appointment with a family doctor within the recommended time. Call the emergency department if you have any questions or concerns regarding your treatment today. Return to the emergency department if you have significant symptoms that concerns you. Medication Information: The exam and treatment you received today in the [facility] Emergency Department were for an urgent problem and are not intended as complete care. It is important for you to follow up with a doctor, nurse practitioner, or physician?s health education assistant for ongoing care. If your symptoms become [...] so we can reach you if necessary. [facility] Emergency Department has provided you with a complete list of medications post discharge. 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 Normal [facility] Extra Blue 01-24-2024 Tube Collected Yes Invalid Interpretation Code [facility] Comment on above: Performed By: #### 1 [id number], [id number] #### [facility] (DEFAULT) [address] [place] [id number] Magnesiumon 01-24-2024 Magnesium [Mass/Vol] 2.02 mg/dL Normal 1.80-2.50 [facility] Comment on above: Performed By: #### 1 [id number] #### [facility] (DEFAULT) [address] [place] [id number] Electrocardiogramon 11-24-19 17 Electrocardiogram Normal [facility] Vital Signs Date Time Vital Sign Value Performing Clinician Ras jack 01-01-2025 16:20-0400 Heart rate 65 /min Services [facility] Work Phone: [facility] 01-01-2025 16:20-0400 Respiratory rate 16 /min Services [facility] Work Phone: [facility] 01-01-2025 16:20-0400 SaO2% (BldA) [Mass fraction] 99 % Services [facility] Work Phone: [facility] 01-01-2025 15:06-0400 Diastolic blood pressure 95 mm[Hg] [facility] Work Phone: [facility] 01-01-2025 15:06-0400 Systolic blood pressure 134 mm[Hg] [facility] Work Phone: [facility] 01-01-2025 12:00-0400 Body height 187.96 cm [facility] Work Phone: [facility] 01-01-2025 12:00-0400 Body temperature 97.9 [degF] [facility] Work Phone: [facility] 01-01-2025 12:00-0400 Body weight 108 kg [facility] Work Phone: [facility] 08-11-2024 13:35-0400 Diastolic blood pressure 84 mm[Hg] [facility] Work Phone: [facility] 08-11-2024 13:35-0400 Heart rate 57 /min [facility] Work Phone: [facility] 08-11-2024 13:35-0400 Respiratory rate 18 /min [facility] Work Phone: [facility] 08-11-2024 13:35-0400 SaO2% (BldA) [Mass fraction] 97 % [facility] Work Phone: [facility] 08-11-2024 13:35-0400 Systolic blood pressure 120 mm[Hg] [facility] Work Phone: [facility] 08-11-2024 11:06-0400 Body height 187.96 cm [facility] Work Phone: [facility] 08-11-2024 11:06-0400 Body weight 106.59 kg [facility] Work Phone: [facility] 07-30-2024 09:05-0400 Body height 187.96 cm [facility] Work Phone: [facility] 07-30-2024 09:05-0400 Body mass index (BMI) [Ratio] 30.2 kg/m2 Services [facility] Work Phone: [facility] 07-30-2024 09:05-0400 Body weight 106.59 kg Services [facility] Work Phone: [facility] Encounters Encounter Date Encounter Type Care Provider Facility Start: 01-01-2025 End: 01-01-2025 Emergency department patient visit [facility] Work Phone: -Emergency Room Work Phone: Start: 12-24-2024 End: 01-02-2025 Telephone encounter Kobe Berman MD Work Phone: Rheumatology Comment on above: Appointment Reschedu led Start: 12-15-2024 End: 12-15-2024 Patient encounter procedure Nakul Patricio DO -Lab [facility] Work Phone: Start: 12-15-2024 End: 12-15-2024 ambulatory Services [facility] Work Phone: [facility] Work Phone: Start: 12-10-2024 End: 12-10-2024 ambulatory Services [facility] Facility:[facility] Start: 12-10-2024 Non-patient / Non-visit [facility] Work Phone: Start: 10-24-2024 End: 10-24-2024 Transcribe Orders Nakul Patricio DO Work Phone: Referring Physician Comment on above: Rheumatoid arthritis , involving unspecified site, unspecified whether rheumatoid factor present (HCC) (Primary Dx) Start: 08-13-2024 End: 08-13-2024 Patient encounter procedure Services [facility] Work Phone: [facility] Work Phone: Start: 08-13-2024 End: 08-13-2024 ambulatory Services [facility] Work Phone: [facility] Work Phone: Start: 08-11-2024 Non-patient / Non-visit [facility] Work Phone: [facility] Work Phone: Start: 08-11-2024 End: 08-11-2024 Admission to same day surgery center [facility] Work Phone: [facility] Work Phone: Start: 08-11-2024 End: 08-11-2024 ambulatory [facility] Work Phone: [facility] Work Phone: Start: 08-08-2024 End: 08-08-2024 Patient encounter procedure [facility] Work Phone: [facility] [place] Work Phone: Start: 08-08-2024 End: 08-08-2024 ambulatory [facility] Work Phone: [facility] Work Phone: Start: 08-06-2024 End: 08-06-2024 Patient encounter procedure [facility] Work Phone: [facility] [place] Work Phone: Start: 08-06-2024 End: 08-06-2024 ambulatory [facility] Work Phone: [facility] Work Phone: Start: 08-04-2024 End: 08-04-2024 Patient encounter procedure [facility] Work Phone: [facility] [place] Work Phone: Start: 08-04-2024 End: 08-04-2024 ambulatory [facility] Work Phone: [facility] Work Phone: Start: 08-01-2024 End: 08-01-2024 Patient encounter procedure [facility] Work Phone: [facility] [place] Work Phone: Start: 08-01-2024 End: 08-01-2024 ambulatory Services [facility] Work Phone: [facility] Work Phone: Start: 07-30-2024 End: 07-30-2024 Patient encounter procedure Services [facility] Work Phone: [facility] Work Phone: Start: 01-24-2024 End: 01-24-2024 Emergency department patient visit Sebastian Chirinos Facility:[facility] Start: 11-22-2016 End: 11-23-2016 Ambulatory Italia Dowell Facility:[facility] Procedures Date Procedure Procedure Detail Performing Clinician Start: 01-01-2025 Computed tomography of abdomen and pelvis with contrast [facility] Work Phone: Start: 01-01-2025 Plain chest X-ray Servi xenia [facility] Work Phone: Start: 08-13-2024 Ultrasound elastogra phy of liver Services [facility] Work Phone: Start: 08-11-2024 Screening colonoscopy S ervices [facility] Work Phone: Start: 08-08-2024 Ultrasonography of liver Services [facility] Phone: Plan of Treatment Date Care Activity Detail Author Start: 05-28-2025 Diabetes Screening Diabetes Screening [facility] Start: 01-19-2025 Influenza vaccination [facility] Start: 08-13-2024 [facility] Start: 08-11-2024 [facility] Start: 08-01-2024 Hepatitis B core antibody measurement [facility] Start: 08-01-2024 Hepatitis B virus surface Ab [Presence] in Serum [facility] Start: 08-01-2024 [facility] Start: 01-23-2024 Pneumococcal Vaccine: 50+ (1 of 1 - PCV) Pneumococcal Vaccine: 50+ (1 of 1 - PCV) [facility] Start: 01-23-2024 Shingrix Vaccine (1 of 2) Shingrix Vaccine (1 of 2) [facility] Start: 2019 Screening for malignant neoplasm of colon [facility] Start: 2009 Lipid panel Lipid Screening [facility] Start: 1993 Hepatitis B Vaccine (1 of 3 - 19+ 3-dose series) Hepatitis B Vaccine (1 of 3 - 19+ 3-dose series) [facility] Start: 1993 Urine microalbumin profile DTaP,Tdap,Td Vaccine (1 - Tdap) [facility] Start: 01-23-1992 Anxiety Screening Anxiety Screening [facility] Start: 01-23-1992 Depression Screening Depression Screening [facility] Start: 01-23-1992 Hepatitis C screening Hepatitis C Screening [facility] Start: 01-23-1992 HIV screening HIV Screening [facility] Glucose measurement estimated from glycated hemoglobin [facility] Hemoglobin A1c/Hemoglobin.total in Blood [facility] Hepatitis B virus DN A [#/volume] (viral load) in Serum or Plasma by HEATHER with probe detection [facility] Hepatitis B virus DN A [log units/volume] (viral load) in Serum or Plasma by HEATHER with probe detection [facility] Hepatitis B virus DN A [Units/volume] (viral load) in Serum or Plasma by HEATHER with probe detection [facility] Hepatitis B virus surface Ag [Presence] in Serum or Plasma by Immunoassay [facility] Hepatitis C virus Ig G Ab [Presence] in Serum or Plasma by Immunoassay [facility] Hepatitis C virus RN A [log units/volume] (viral load) in Serum or Plasma by HEATHER with probe detection [facility] HIV 1 RNA [#/volume] (viral load) in Unspecified specimen by HEATHER with probe detection [facility] HIV 1 RNA [Log #/vol ume] (viral load) in Unspecified specimen by HEATHER with probe detection [facility] Patient Education [facility] Work Phone: Patient referral [facility] Work Phone: [facility] Payers Date Payer Category Payer Medicaid [id number] 2024 Self-pay 2024 Medicaid [facility] [employer] Member Subscriber Plan / Payer (Effective 2024-Present) Name: Jeffry Aguilar Relation to Subscriber: Self Name: Jeffry Aguilar Payer ID: Not on file Group ID: Not on file Type: Medicaid Address: [place] [id number] 2024 Medicaid [id number] 2016 Medicaid [id number] 1975 Unknown [id number] Unknown [id number] Unknown [id number] Unknown [id number] Unknown [id number] Unknown [id number] Unknown [id number] Unknown [id number] Unknown [id number] Unknown [id number] Social History Date Type Detail Facility Start: 08-01-2024 End: 08-11-2024 Tobacco smoking status NHIS Smoker (finding) [facility] Start: 08-02-2024 End: 08-13-2024 Sex Male (finding) [facility] Start: 1975 Sex Assigned At Male F [facility] Tobacco smoking stat us NHIS Tobacco smoking consumption unknown [facility] Start: 1975 Sex assigned at Not on file [facility] Start: 12-17-2024 End: 12-24-2024 Gender identity Not on file [facility] Start: 08-11-2024 End: 01-01-2025 Tobacco smoking status NHIS Smokes tobacco daily (finding) [facility] Start: 12-17-2024 End: 12-24-2024 History of Social function [facility] Start: 10-24-2024 Adult Depression Screening Assessment 5 [facility] Goals Date Patient Goal Desired Activity /State Clinical Notes 01-24-2024 to 01-02-2025 Telephone Encounter - Carleen Suero - 01/02/2025 11:03 AM EDTTelephone Encounter - Carleen Suero - 01/02/2025 11:03 AM EDTTelephone Encounter - Leonela Martinez MA - 01/02/2025 9:59 AM EDT Note Date & Type Note Facility 01-02-2025 Telephone encount er Note Called patient several times Straight to VM LM on VM (x2) and My Chart asking to call and reschedule missed appointment Carleen Suero January 02, 2025 11:04 AM [facility] 01-02-2025 Miscellaneous Notes Formattin g of this note might be different from the original. Called patient several times Straight to VM LM on VM (x2) and My Chart asking to call and reschedule missed appointment Carleen Suero January 02, 2025 11:04 AM Pt has not read mychart messages please follow up with patient for scheduling new consult for RA 1st attempt, left voicemail for patient to call back and schedule new pt appt 2nd, mychart sent Please contact pt to reschedule his missed VV appt that was scheduled today @2pm .with Dr Berman - new consults RA documented in this encounter [facility] 01-02-2025 Telephone encount er Note Pt has not read [employer] messages please follow up with patient for scheduling new consult for RA [facility] 01-01-2025 Radiology Diagnostic study note [facility] [place] [address] [place] [address] CT Scan Report Signed Patient: Jeffry Aguilar MR#: [id number] : 1975 Acct:[id number] Age/Sex: 49 / M ADM Date: 5 Loc: ER Room: Type: [facility] ER Attending Dr: Copies to: Liya Hill [...] steatosis. Impression dictated by: Rufus Cruz Jr., Ronit 01/01/2025 1:51 PM Dictation Location: [place] [address] Transcribed By: [facility] 01/01/25 1351 Dictated By: Rufus Cruz Jr, DO 01/01/25 1348 Signed By: 01/01/25 1351 [facility] 01-01-2025 Hospital Discharg e instructions Additional Instructions Rest. Push fluids. Take the [...] Return here if symptoms persist or worsen. [facility] Work Phone: 12-25-2024 Telephone encount er Note 1st attempt, left voicemail for patient to call back and schedule new pt appt 2nd, mychart sent [facility] 12-24-2024 Telephone encount er Note Please contact pt to reschedule his missed VV appt that was scheduled today @2pm .with Dr Cullen lynn consults RA [facility] 08-11-2024 Procedure note [facility] enter 08-08-2024 Radiology Diagnostic study note [facility] [place] [address] Ultrasound Report Signed Patient: Jeffry Aguilar MR#: [id number] : 1975 Acct:[id number] Age/Sex: 49 / M ADM Date: 5 Loc: Room: Type[facility] Attending Dr: Vel Sevilla BUILDINGS AND GROUNDS DIRECTOR Ordering Provider: Vel Sevilla APRN Date of Service: 08/08/24 US/US liver: B19.20 - Unspecified viral hepatitis C without hepatic coma Copies to: Vel Sevilla APRN~ LIMITED ABDOMINAL ULTRASOUND - liver CLINICAL HISTORY: Hepatitis C COMPARISON: None The gallbladder is physiologically distended without shadowing calculi, wall thickening or pericholecystic fluid. No intra- or extrahepatic biliary dilatation is evident. The common duct measures 4 - 5 mm. The liver shows increased echogenicity and decreased penetration, possibly due to fatty infiltration. No focal intrahepatic masses are seen. There is appropriate hepatopetal flow within the main portal vein. The pancreas is poorly visualizedfor assessment. Cursory evaluation of the right kidney reveals no hydronephrosisor fluid within Owusu's pouch. US/US liver IMPRESSION: NO GALLBLADDER PATHOLOGY. POTENTIAL FATTY LIVER. Impression dictated by: Rose Marie Levine M.D.08/08/2024 1:47 PM Dictation Location: [place] [address] Tech: Penny Bundy Transcribed By: SERGIO 08/08/24 1347 Dictated By: Rose Marie Levine MD 08/08/24 134 Signed By: 08/08/24 1347 [facility] Work Phone: 07-30-2024 Evaluation note Diagnosis Onset Date Resolution Abdominal pain acute July 8:58am Hepatitis C acute July 30 8:58am [facility] Work Phone: 1(850) 534-987509-05-2024 NoteEducation Materials Endocrinology Hypocalcemia, Adult Hypocalcemia is when the level of calcium in a person's blood is below normal. Calcium is a mineralthat is used by the body in many [...] provider. Do not take an iron supplement within2 hours of taking a calcium supplement. ? [...] or through an IV, or by receiving otherminerals. Other treatment depends on the cause of [...] provider. Document Revised: 10/12/2021 Document Reviewed: 10/12/2021 Elsevier Patient Education ? 2023 SimpleOrder. Gastroenterology Hypokalemia Hypokalemia means that the amount [...] levels in the bod (more content not included)...[facility] Rheumatoid arthritis, involving unspecified site, unspecified whether rheumatoid factor present (HCC)- Primary [facility] noteNo assessment information availableSt. [facility] Work Phone: Reason for referral (narrative)No reason for referral information availableSt. Francis Hospital Work Phone: Summary Purpose Family History No Family History Records Found Relationship Condition Age at Onset Recorded Date/T maco father Chronic obstructive pulmonary disease Unk nown Heart disease Unknown Advance Directives No Advanced Directives Records Found Advance Directive Response Recorded Date/ Time Advance Directives No June 05, 2024 2:58pm Chief Complaint and Reason for Visit Chief Complaint Admit Date Refer by S: Hep C July 30, 2024 8:5 8am B19.20 August 01, 2024 1:3 1pm Reason for Visit Admit Date Abdominal pain July 30, 2024 8:5 8am Hepatitis C July 30, 2024 8:5 8am Chief Complaint Admit Date Refer by [facility]: Hep C July 30, 2024 8:5 8am B19.20 August 01, 2024 1:3 1pm B19.20 - Unspecified viral hepatitis C w ithout hep August 04, 2024 1:21pm Chief Complaint Admit Date Refer by S: Hep C July 30, 2024 8:5 8am B19.20 August 01, 2024 1:3 1pm B19.20 - Unspecified viral hepatitis C w ithout hep August 04, 2024 1:21pm B19.20 August 06, 2024 2:1 5pm Chief Complaint Admit Date Refer by S: Hep C July 30, 2024 8:5 8am B19.20 August 01, 2024 1:3 1pm B19.20 - Unspecified viral hepatitis C w ithout hep August 04, 2024 1:21pm B19.20 August 06, 2024 2:1 5pm b19.20 August 08, 2024 10: 08am Chief Complaint Admit Date Refer by S: Hep C July 30, 2024 8:5 8am B19.20 August 01, 2024 1:3 1pm B19.20 - Unspecified viral hepatitis C w ithout hep August 04, 2024 1:21pm B19.20 August 06, 2024 2:1 5pm b19.20 August 08, 2024 10: 08am Screening August 11, 2024 10: 52am Screening August 11, 2024 12: 45pm Chief Complaint Admit Date Refer by S: Hep C July 30, 2024 8:5 8am B19.20 August 01, 2024 1:3 1pm B19.20 - Unspecified viral hepatitis C w ithout hep August 04, 2024 1:21pm B19.20 August 06, 2024 2:1 5pm [email or web address] August 08, 2024 10: 08am Screening August 11, 2024 10: 52am Screening August 11, 2024 12: 45pm Hepatitis C August 13, 2024 12: 53pm Chief Complaint Admit Date R06.02 R05.3 December 10, 2024 8:07 am Chief Complaint Admit Date R06.02 R05.3 December 10, 2024 8:07 am M79.10 December 15, 2024 8:17 am Chief Complaint Admit Date R06.02 R05.3 December 10, 2024 8:07 am M79.10 December 15, 2024 8:17 am vomiting, diarrhea January 01, 2025 11 :53am Additional Source Comments (unrecognized sect ion and content) No Status Records FoundNo Status Records FoundNo Status Records FoundNo Status Records Found INFORMATION SOURCE (unrecogn ized section and content) DATE CREATED AUTHOR [facility]/14/2017 [facility] DATE CREATED AUTHOR AUTHOR'S ORGANIZ ATION 02/01/[address] [facility] DATE CREATED AUTHOR AUTHOR'S ORGANIZ ATION 01/03/2025 [facility] DATE CREATED AUTHOR AUTHOR'S ORGANIZ ATION 01/04/2025 [facility] Care Teams (unrecognized sec tion and content) Team Status: Active Member Role Status Dates Services [facility] Primary Care Provider Active Team Status: Active Member Role Status Dates Services [facility] Primary Care Provider Active Start: December 10, 2024 Nakul Patricio DO Other Provider Active Start: December 10, 2024 Enrike Fatima MD Attending Provider Active Start: December 10, 2024 Team Status: Inactive Member Role Status Dates Vel Sevilla APRN Attending Provider Active Start: July 30, 2024 End: July 30, 2024 Services [facility] Primary Care Provider Active Start: July 30, 2024 End: July 30, 2024 Nakul Patricio DO Referring Provider Active St art: July 30, 2024 End: July 30, 2024 Team Status: Inactive Member Role Status Dates Services [facility] Primary Care Provider Active Start: August 01, 2024 End: August 01, 2024 eVl Sevilla APRN Attending Provider Active Start: August 01, 2024 End: August 01, 2024 Team Status: Inactive Member Role Status Dates Services [facility] Primary Care Provider Active Start: August 04, 2024 End: August 04, 2024 Vel Sevilla APRN Attending Provider Active Start: August 04, 2024 End: August 04, 2024 Team Status: Inactive Member Role Status Dates Services [facility] Primary Care Provider Active Start: August 06, 2024 End: August 06, 2024 Vel Sevilla APRN Attending Provider Active Start: August 06, 2024 End: August 06, 2024 Team Status: Inactive Member Role Status Dates Services [facility] Primary Care Provider Active Start: August 08, 2024 End: August 08, 2024 Vel Sevilla APRN Attending Provider Active Start: August 08, 2024 End: August 08, 2024 Team Status: Inactive Member Role Status Dates Services [facility] Primary Care Provider Active Start: August 11, 2024 End: August 11, 2024 Crystal Meehan MD Attending Provider Active Start: August 11, 2024 End: August 11, 2024 Team Status: Active Member Role Status Dates Services [facility] Primary Care Provider Active Start: August 11, 2024 Crystal Meehan MD Attending Provider, Other Provider Active Start: August 11, 2024 Team Status: Inactive Member Role Status Dates Services Family [facility] Primary Care Provider Active Start: August 13, 2024 End: August 13, 2024 Temporary Fibroscan Attending Provider Active St art: August 13, 2024 End: August 13, 2024 Vel Sevilla APRN Referring Provider Active Start: August 13, 2024 End: August 13, 2024 Cosmetics Machine Operator Relationship Specialty Start Date End Date Nakul Patricio DO [address] [place] [address] PCP - General Family Medicine 10/24/24 Nakul Patricio DO [address] [place] [address] Referring Family Medicine 10/24/24 Team Status: Inactive Member Role Status Dates Services [facility] Primary Care Provider Active Start: December 15, 2024 End: December 15, 2024 Nakul Patricio DO Attending Provider Active St art: December 15, 2024 End: December 15, 2024 Team Status: Inactive Member Role Status Dates Services [facility] Primary Care Provider Active Start: January 01, 2025 End: January 01, 2025 Liya Hill APRN Emergency Provider Active S tart: January 01, 2025 End: January 01, 2025 Cosmetics Machine Operator Relationship Specialty Start Date End Date Nakul Patricio DO [address] [place] [address] PCP - General Family Medicine 10/24/24 Nakul Patricio DO [address] [place] [place] [address] Referring Family Medicine 10/24/24 Goals (unrecognized section and content) Goals may be documented in a n alternate sectionGoals may be documented in an alternate sectionGoals may be documented in an alternate sectionGoals may be documented in an alternate sectionGoals may be documented in an alternate sectionGoals may be documented in an alternate sectionGoals may be documented in an alternate section Source Comments (unrecognize d section and content) In the event this informatio n is protected by the Federal Confidentiality of Alcohol and Drug Abuse Patient Records regulations: The Federal rules restrict any use of the information to criminally investigate or prosecute any alcohol or drug abuse patient.[facility] the event this information is protected by the Federal Confidentiality of Alcohol and Drug Abuse Patient Records regulations: The Federal rules restrict any use of the information to criminally investigate or prosecute any alcohol or drug abuse patient.[facility] Reason for Visit (unrecogniz ed section and content) Reason Comments Appointment Rescheduled FOR RECORDS PERTAINING TO PATIENTS WHO ARE [...] BE BASED ON THE PRIMARY CLINICAL RECORDS. [facility] [employer] [facility]. provides no warranty or guarantee of the accuracy or completeness of information in this document.
--- OUTSIDE RECORDS SUMMARY | 2025-01-15 06:29 | XMS_ITS | Patient Health Record ---
Author Organization [facility] [facility] Domains Income es Address [address] [place] [address] Care Team Providers Care Physical Science Professor Name Role Phone Nakul Patricio Primary Care Provider Allergies Allergen (clinical drug ingredient) Drug/Non Drug Allergy documented on EMR Reaction Allergy Type Onset Date Status codeine Codeine hives Drug Allergy Active Results Component Value Reference Range Notes A1C with Estimated Average G mariano Reviewed date:08/06/2024 01:14:22 PM Interpretation: Performing Lab:, [facility], [address] [place] Notes/Report: Reason for Exam Weight gain Hemoglobin A1C 5.3 4.3-5.6 % Increased risk for diabetes: 5.7 - 6.4 diabetes: >6.4 glycemic control for adults with diabetes: <7.0 Estimated Average Glucose 105 Creatine Kinase Reviewed date:12/30/2024 08:02:11 AM Interpretation: Performing Lab:, [facility], [address] [place] Notes/Report: Reason for Exam Myalgia Creatine Kinase 179 30-223 U/L Comprehensive Metabolic Pane l Reviewed date:12/30/2024 08:02:11 AM Interpretation: Performing Lab:, [facility], [address] Notes/Report: Reason for Exam Myalgia Glucose 96 70-100 mg/dL Random Glucose Reference Range is dependent on time and content of last meal. Glucose of more than 200 mg/dL in a nonstressed, ambulatory subject supports the diagnosis of Diabetes Mellitus. ADA recommended reference range Blood Urea Nitrogen 14 7-25 mg/dL Creatinine 0.90 0.70-1.30 mg/dL Sodium 141 136-145 mmol/L Potassium 4.4 3.5-5.1 mmol/L Chloride 109 98-107 mmol/L Carbon Dioxide 26.9 21.0-31.0 mmol/L Calcium 9.2 8.6-10.3 mg/dL Total Protein 7.3 6.4-8.9 g/dL Albumin Level 4.1 3.5-5.7 g/dL Globulin 3.2 Albumin/Globulin Ratio 1.3 Bilirubin,Total 0.9 0.3-1.0 mg/dL Aspartate Amino Transferase 264 13-39 U/L Alanine Aminotransferase 277 7-52 U/L Alkaline Phosphatase 58 34-104 U/L Estimated GFR >60.0 Anion Gap 9.5 6.0-15.0 Magnesium Reviewed date:12/30/2024 08:02:11 AM Interpretation: Performing Lab: Notes/Report: Reason for Exam Myalgia Magnesium 2.1 1.9-2.7 mg/dL Complete Pulmonary Function (Not yet reviewed by provider) Interpretation: Performing Lab: Notes/Report: XR chest 2V* Reviewed date:12/30/2024 08:08:53 AM Interpretation: Performing Lab: Notes/Report: [facility] [place] [address] XRay Report Signed Patient: Jeffry Aguilar MR#: [id number] : 1975 Acct:[id number] Age/Sex: 49 / M ADM Date: 12/10/24 Loc: RT Room: Type: [facility] Attending Dr: Nakul Patricio DO Copies [...] Spencer M.D. 12/10/2024 2:54 PM Dictation Location: RADIO-PC-20 Transcribed By: SERGIO 12/10/24 1454 Dictated By: Fredy Spencer DO 12/10/24 1451 Signed By: <Electronically signed by Fredy Spencer DO in OV> 12/10/24 145 Hep C RT-PCR, Qnt (Non-Graph ) Reviewed date:08/06/2024 01:14:22 PM Interpretation: Performing Lab:, [facility], [address] Notes/Report: Reason for Exam Chronic hepatitis C without hepatic coma Hepatitis C Quantitation [id number] . [IU]/mL HCV Log10 6.820 . Result Units: l og10 IU/mL Test Information: Comment . The quantitative range of this assay is 15 IU/mL to 100 million IU/mL. Performed at: [address] [id number] Range Conservationist: Cristo Davalos MD, Phone: [phone] Comprehensive Metabolic Pane l Reviewed date:08/06/2024 01:14:22 PM Interpretation: Performing Lab:, [facility], [address] Notes/Report: Reason for Exam Hypertension, essential;Calf cramp [...] GFR >60.0 Anion Gap 9.0 6.0-15.0 meq/L Magnesium Reviewed date:08/06/2024 01:14:22 PM Interpretation: Performing Lab: Notes/Report: Reason for Exam Hypertension, essential;Calf cramp Reason for Exam Hypokalemia Reason for Exam Weight gain Magnesium 2.0 1.9-2.7 mg/dL Thyroid Stim Hormone w/Rflx Reviewed date:08/06/2024 01:14:22 PM Interpretation: Performing Lab: Notes/Report: Reason for Exam Hypertension, essential;Calf cramp Reason for Exam Hypokalemia Reason for Exam Weight gain Thyroid Stim Hormone w/Rflx 0.92 0.45-5.33 u[i U]/mL Complete Blood Count Auto Di ff Reviewed date:08/06/2024 01:14:22 PM Interpretation: Performing Lab:, [facility], [address] [place] Notes/Report: Reason for Exam Hypertension, essential White [...] C without hepatic coma (B18.2) Referral Organization [facility] Referring Provider First Name Nakul Referring Provider Last Name hSeng Referring Provider [facility] Family Vera cteliel Referred Provider [facility] GASTROENTEROLOGY , . 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 Diagnosis 1 Rheumatoid arthritis involving multiple sites with positive rheumatoid factor (M05.79) Referral Organization [facility] Referring Provider First Name Nakul Referring Provider Last Name Sheng Referring Provider [facility] ctice Referred Provider Specialty Rheumatology Referral Priority Routine Medications Medication SIG (Take, Route, Frequency, Duration) Notes Start Date End Date Status Losartan Potassium 25 MG 1 tablet Orally Once a day; Duration: 30 days 07/28/2024 Active Albuterol Sulfate 108 (90 Base) MCG/ACT 1 puff as needed Inhalation every 4 hrs; Duration: 10 days 12/01/2024 Active Gabapentin 600 MG 1 capsule Orally thr ee times a day; Duration: 30 days Active Social History Tobacco Use: Social History Observation Description Date Details (start date - stop date) Current Smoker NA - NA Sexual Hx: Question Answer Notes Had sex in the last 12 months (vaginal, oral, or anal)? No Have you ever had an STD? No Depression Screening (PHQ-9): Question Answer Notes Little interest or pleasure in doing things Not at all Feeling down, depressed, or hopeless Not at all Trouble falling or staying asleep, or sleeping t oo much Not at all Feeling tired or having little energy Not at all Poor appetite or overeating Not at all Feeling bad about yourself-o r that you are a failure or have let yourself or your family down Not at all Trouble concentrating on thi ngs, such as reading the newspaper or watching television Not at all Moving or speaking so slowly that other people could have noticed. Or the opposite being so fidgety or restless that you have been moving around a lot more than usual Not at all Thoughts that you would be b sinan off , or of hurting yourself in some way Not at all Total Score 0 AUDIT-C (Standard) Question Answer Notes Did you [...] W/U Status Risk Notes Problem Tobacco user (199843126) Nicotine dependence, unspecified, uncomplicated (F17.200) Active confirmed Problem Essential hypertension (75850529) Hypertension, essential (I10) Active confirmed Problem Chronic hepatitis C (135295449) Chronic hepatitis C without hepatic coma (B18.2) Active confirmed Problem Sciatica (59210407) Lumbago of lumbar region with sciatica (M54.40) Active confirmed Problem Rheumatoid arthritis (15325198) Rheumatoid arthritis involving multiple sites with positive rheumatoid factor (M05.79) Active confirmed Problem Common peroneal nerve lesion (829362340) 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) Active confirmed Problem Common peroneal nerve lesion (825556989) 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) Active confirmed Vital Signs Heart Rate 104 /min 12/01/2024 Temperature 97.5 degrees Fahrenheit 11/05/2024 Respiratory Rate 20 /min 12/01/2024 Oximetry 95 % 12/01/2024 Blood pressure diastolic 136 mm Hg 12/01/2024 Height 72 in 12/01/2024 Blood pressure systolic 164 mm Hg 12/01/2024 Weight 235 lbs 12/01/2024 BMI 31.87 kg/m2 12/01/2024 Encounters Encounter Location Date Provider Diagnosis [facility] [address] [place] [address] 07/11/2024 Nakul Patricio Chronic hepatitis C without hepatic coma B18.2 [place] [address] [address] 08/01/2024 Nakul Patricio [facility] [address] [place] [address] 08/25/2024 Nakul Patricio Hypertension, essent ial I10 [place] [place] [address] 08/26/2024 Nakul Patricio [facility] [address] [place] [address] 08/27/2024 Nakul Patricio [place] [place] [address] 09/05/2024 Nakul Patricio Rheumatoid arthritis involving multiple sites with positive rheumatoid factor M05.79 [place] [address] [place] [address] 09/10/2024 Nakul Patricio [place] [place] [address] 10/10/2024 Nakul Patricio Hypertension, essent ial I10 and Neuropathy of right peroneal nerve G57.31 [place] [place] [place] [address] 11/14/2024 Nakul Patricio Hypertension, essent ial I10 [facility] [address] [facility] [place] [address] 06/30/2024 Nakul Patricio Neuropathy of left peroneal nerve G57.32 ; Hypertension, essential I10 ; Neuropathy of right peroneal nerve G57.31 ; Lumbago of lumbar region with sciatica M54.40 ; Nicotine dependence, unspecified, uncomplicated F17.200 ; Chronic hepatitis C without hepatic coma B18.2 ; Calf cramp R25.2 ; Hypokalemia E87.6 and Weight gain R63.5 [facility] [address] [facility] [address] 07/28/2024 Nakul Patricio Hypertension, essent ial I10 and Neuropathy of right peroneal nerve G57.31 [facility] [address] [facility] [place] [address] 08/25/2024 Nakul Patricio Polyarthralgia M25.5 0 and Neuropathy of right peroneal nerve G57.31 [facility] [address] [place] [address] 11/05/2024 Nakul Patricio Neuropathy of right peroneal nerve G57.31 [facility] [address] [place] [address] 12/01/2024 Nakul Patricio Myalgia M79.10 ; Shortness of breath R06.02 and Chronic cough R05.3 Assessments Encounter Date Diagnosis (ICD Code) Assessment Notes Treatment Notes Treatment Clinical Notes Section Notes 08/25/2024 Polyarthralgia (ICD-10 - M25.50) Patient with [...] plan. PDMP checked and without aberrant prescribing. 11/05/2024 Neuropathy of right peroneal nerve (ICD-10 - G57.31) Patient with good benefit from 600 mg tablets. Tolerating dose well. Will prescribe this and plan to reevaluate at follow-up 12/01/2024 Shortness of breath (ICD-10 - R06.02) Patient with shortness of breath and cough that are worrisome for potential COPD. He does have wheezing on exam. Will treat for bronchitis today. We discussed chest x-ray and PFTs. Patient also with body aches that are quite correlate with the other symptoms. We did discuss checking labs for these at this time as well. Further planning pending lab results. 12/01/2024 Myalgia (ICD-10 - M79.10) 09/05/2024 Rheumatoid arthritis involving multiple sites with positive rheumatoid factor (ICD-10 - M05.79) 08/25/2024 Hypertension, essential (ICD-10 - I10) 07/28/2024 Hypertension, essential (ICD-10 - I10) Patient [...] well. Will plan to reevaluate at follow-up 06/30/2024 Hypertension, essential (ICD-10 - I10) Patient [...] workup for the back in the future. 10/10/2024 Hypertension, essential (ICD-10 - I10) 11/14/2024 Hypertension, essential (ICD-10 - I10) 07/11/2024 Chronic hepatitis C without hepatic coma (ICD-10 - B18.2) 10/10/2024 Neuropathy of right peroneal nerve (ICD-10 - G57.31) 06/30/2024 Neuropathy of right peroneal nerve (ICD-10 - G57.31) 12/01/2024 Chronic cough (ICD-10 - R05.3) 06/30/2024 Lumbago of lumbar region with sciatica [...] Treatment Pending Test Test Name Order Date Comprehensive Metabolic Panel 08/25/2024 C-Reactive Protein 08/25/2024 Complete Blood Count Auto Diff Erythrocyte Sedimentation Rate Cyclic Citrulliated Pep Ab 08/25/2024 Rheumatoid Factor 08/25/2024 Complete Pulmonary Function 12/01/2024 KINZA with Reflex 08/25/2024 Next Appt Details Provider Name:Nakul Araujo , 02/05/2025 02:00:00 PM, [address] [place], [address], Insurance Providers Payer Name Payer Address Payer Phone Subscriber Number Group Number Insured Name Patient Relationship to Insured Coverage Start Date Coverage End Date [employer] [place] Medicaid [address] [place] [address] [id number] JEFFRY AGUILAR Self - patient is the insured 5 [employer] [facility] [address] [place] [address] [phone] [id number] JEFFRY AGUILAR Self - patient is the insured 5 [place] [address] [place] [address] [id number] JEFFRY AGUILAR Self - patient is the insured Medical (General) History Medical History History ICD Code neuropathy migraines 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
--- OUTSIDE RECORDS SUMMARY | 2025-01-15 06:29 | XMS_ITS | Encounter Summary ---
Author Organization [facility] Address [address] [place] [address] Care Team Providers Care Salt Refiner Name Role Phone Nakul Patricio DO Unavailable [phone] Nakul Patricio DO Primary Care Provider [phone] Source Comments In the event this information is protected by the Federal Confidentiality of Alcohol and Drug AbusePatient Records regulations: The Federal rules restrict any use of the information to criminally investigate or prosecute any alcohol or drug abuse patient.[facility] Reason for Visit * Reason Comments Appointment Rescheduled Encounter Details Date Type Department Care Team (Late st Contact Info) Description 12/24/2024 Telephone Rheumatology [address] [place] [address] Kobe Berman MD [address], [place] [address] Appointment Rescheduled Social History Tobacco Use Types Packs/Day Years Used Date Smoking Tobacco: Never Assessed PHQ-2 Answer Date Recorded PHQ-2 score 5 12/17/2024 Area Deprivation Index Answer Date Shai rded National Score (1-100), lower number is lower ri sk 78 12/24/2024 State Score (1-10), lower number is lower risk 6 12/24/2024 Data from: https://www.neighborhoodatlas.medicine.[facility].edu/. Last address used for calculation [address] [place] [address] 12/24/2024 Sex and Gender Information Value Date Recorded Sex Assigned at Not on file Legal Sex Male 3:45 PM EDT Gender Identity Not on file Sexual Orientation Not on file documented as of this encounter Miscellaneous Notes * Telephone Encounter - Andi Braxton - 01/02/2025 11:03 AM EDT Called patient several times Straight to LM on VM (x2) and My Chart asking to call and reschedule missed appointment Andi Braxton January 02, 2025 11:04 AM * Telephone Encounter - Leonela Martinez MA - 01/02/2025 9:59 AM EDT Pt has not read mychart messages please follow up with patient for scheduling new consult for RA * Telephone Encounter - Marielos Orozco - 12/25/2024 10:14 AM EDT 1st attempt, left voicemail for patient to call back and schedule new pt appt 2nd, mychart sent * Telephone Encounter - Leonela Martinez MA - 12/24/2024 2:48 PM EDT Please contact pt to reschedule his missed VV appt that was scheduled today @2pm .with Dr Berman - new consults RA documented in this encounter Plan of Treatment Not on file documented as of this encounter Visit Diagnoses Not on filedocumented in this encounter Care Teams Salt Refiner Relationship Specialty Start Date End Date Nakul Patricio DO [facility] [place] [address] PCP - General Family Medicine 10/24/24 Nakul Patricio DO [address] [place] [address] Referring Family Medicine 10/24/24 documented as of this encounter
--- OUTSIDE RECORDS SUMMARY | 2025-01-15 06:29 | XMS_ITS | Encounter Summary ---
Author Organization [facility] Address [address] [place] [address] Care Team Providers Care Director Of Field Sales Name Role Phone Nakul Patriico DO Unavailable [phone] ShengLauryon DO Primary Care Provider [phone] Source Comments In the event this information is protected by the Federal Confidentiality of Alcohol and Drug AbusePatient Records regulations: The Federal rules restrict any use of the information to criminally investigate or prosecute any alcohol or drug abuse patient.[facility] Encounter Details Date Type Department Care Team (Late st Contact Info) Description 12/30/2024 Patient Msg Referring Physician [address] [place] [phone] Provider, [facility] rheumatology referral Social History Tobacco Use Types Packs/Day Years Used Date Smoking Tobacco: Never Assessed PHQ-2 Answer Date Recorded PHQ-2 score 5 12/17/2024 Area Deprivation Index Answer Date Shai rded National Score (1-100), lower number is lower ri sk 78 12/24/2024 State Score (1-10), lower number is lower risk 6 12/24/2024 Data from: https://www.neighborhoodatlas.medicine.[facility].edu/. Last address used for calculation [address] [place] [address] [address] 12/24/2024 Sex and Gender Information Value Date Recorded Sex Assigned at Not on file Legal Sex Male 3:45 PM EDT Gender Identity Not on file Sexual Orientation Not on file documented as of this encounter Plan of Treatment Not on file documented as of this encounter Visit Diagnoses Not on filedocumented in this encounter Care Teams Director Of Field Sales Relationship Specialty Start Date End Date Nakul Patricio DO [address] [place] [address] PCP - General Family Medicine 10/24/24 Nakul Patricio DO [address] [place] [address] Referring Family Medicine 10/24/24 documented as of this encounter
--- OUTSIDE RECORDS SUMMARY | 2025-01-15 06:29 | XMS_ITS | Clinical Summary ---
Author Organization [facility] Address [place] [address] Care Team Providers Care Cellulose Insulation Helper Name Role Phone Nakul Patricio DO Unavailable [phone] Nakul Patricio DO Primary Care Provider [phone] Allergies Active Allergy Reactions Criticality Noted Date Comments Codeine Unknown 02/26/2021 Medications albuterol HFA (PROVENTIL HFA, VENTOLIN HFA) 90 mcg/actuation inhaler Inhale 1 puff as instructed every 6 hours as needed. 5 Active gabapentin (NEURONTIN) 600 mg tablet Take 600 mg by mouth three times a day. Active losartan (COZAAR) 25 mg tablet Take 1 tablet by mouth once daily. Active azithromycin (ZITHROMAX) 250 mg tablet 5 12/18/19 25 Encounters Date Type Department Care Team Description 12/30/2024 Patient Msg Referring Physician [address] [place] [phone] Provider, [facility] rheumatology referral 12/24/2024 Telephone Rheumatology [address] [facility] [place] [address] Kobe Berman MD Appointment Rescheduled 12/24/2024 Orders Only Rheumatology [address] [facility] [address] [facility] [place], [place] [address] Leonela Martinez MA 12/17/2024 Travel 10/24/2024 Transcribe Orders Referring Physician [address] [place] [address] Nakul Patricio DO Rheumatoid arthritis, involving unspecified [...] is lower risk 6 12/24/2024 Data from: https://www.neighborhoodatlas.medicine.[facility]/. Last address used for calculation [address] [place] [address] [address] 12/24/2024 Sex and Gender Information Value Date Recorded Sex Assigned at Not on file Legal Sex Male 3:45 PM EDT Gender Identity Not on file Sexual Orientation Not on file Plan of Treatment Health Maintenance Due Date Last Done Comments Anxiety Screening 01/23/1992 Depression Screening 01/23/1992 HIV Screening 01/23/1992 Hepatitis C Screening 01/23/1992 DTaP,Tdap,Td Vaccine (1 - Tdap) 1993 Hepatitis B Vaccine (1 of 3 - 19+ 3-dose series) [address] Colonography 2019 Cologuard (FIT-DNA) 2019 Colonoscopy 2019 Colorectal Cancer Screening 2019 Fecal Occult Blood 2019 Sigmoidoscopy 2019 Pneumococcal Vaccine: 50+ (1 of 1 - PCV) 01/23/2024 Shingrix Vaccine (1 of 2) 01/23/2024 Influenza Vaccine (#1) 2025 Diabetes Screening 05/28/2025 05/28/2022, 12/06/[address] [place] [address] [facility] Care Teams Cellulose Insulation Helper Relationship Specialty Start Date End Date Nakul Patricio DO [address] [place] [address] PCP - General Family Medicine 10/24/24 Nakul Patricio DO [address] [place] [address] Referring Family Medicine 10/24/24
[2025-01-15 06:44] VITALS: BP 136/87; PULSE 73; TEMP 36.5; O2SAT 97; BMI 30.2
--- NOTE | 2025-01-15 06:50 | CT_ITS ---
The [address] [address] Patient Name: JEFFRY MARTIN MRN: [id number] date: 1975 Sex: M Assigned Patient Location: ED.MAIN Current Patient Location: ED.MAIN Accession/Order Number: [id number] Exam Date: 01/15/2025 07:23 Report Date: 01/15/2025 10:01 At the request of: MATT CABRAL MD Procedure: CT abdomen pelvis w con CT ABDOMEN AND PELVIS WITH CONTRAST COMPARISON: None CLINICAL DATA: Left lower quadrant and flank pain for the past few days. Diarrhea and weight gain. Spiral images were obtained through the abdomen and pelvis following 100 mL of Isovue-300. This CT exam was performed using one or more following dose reduction techniques: Automated exposure control, adjustment of the mA and/or kV according to patient size, or use of iterative reconstruction technique. Limited cuts through the lung bases show no contributory findings. There is fatty infiltration of the liver. Calcified hepatic and splenic granulomas are seen. No calcified gallstones are identified. The pancreas and adrenal glands show no acute findings. The renal nephrograms are symmetric. No hydronephrosis is visualized. The abdominal aorta is normal caliber. Scattered retroperitoneal and mesenteric lymph nodes are present, largest in the periportal region. No ascites is identified. The small bowel loops are not distended. Mild stool is present along the colon. There is slight levoscoliotic curvature and degenerative changes at the spine. Images through the pelvis show no appendiceal inflammation. No dilated small bowel loops are seen. The distal colon is decompressed. No diverticular disease is noted. The urinary bladder is not well distended for assessment. No ascites is seen. There are small bilateral inguinal and distal external iliac lymph nodes. CT/CT abdomen pelvis w con IMPRESSION: FATTY LIVER. GRANULOMATOUS CHANGES. NO BOWEL OR URINARY TRACT OBSTRUCTION. NONSPECIFIC LYMPH NODES. NO OTHER ACUTE FINDINGS. Impression dictated by: Rose Marie Levine M.D. 01/15/2025 10:01 AM Dictation Location: [employer] Electronically authenticated by: [id number] Y Date: 01/15/2025 10:01
--- NOTE | 2025-01-15 06:52 | ED.BACK1 ---
HPI HPI - Back Pain/Injury General Chief Complaint: Back Pain/Injury Stated Complaint: FLANK/BACK PAIN Time Seen by Provider: 01/15/25 06:46 Source: patient Mode of arrival: walk-in History of Present Illness HPI Narrative: This 49-year-old male with a history of alcohol dependence in the past who only now drinks 1 beer per night and also has a history of tobacco use presents for evaluation of left low back pain and left lower quadrant abdominal pain that has been present for the past several days. He states the pain is worse with movement. He does have a large lipoma in his left upper flank region. He states this is also somewhat tender but unchanged. He has not had any weight loss. He denies any urinary symptoms. He denies any nausea or vomiting. He has had chronic diarrhea for the past several months. He denies any chest pain. Has a history of COPD with ongoing shortness of breath. Related Data Home Medications ?Medication ?Instructions ?Recorded ?Confirmed gabapentin 600 mg tablet 600 mg PO Q8H 11/19/24 01/15/25 losartan 25 mg tablet 25 mg PO DAILY 11/19/24 01/15/25 Previous Rx's ?Medication ?Instructions ?Recorded meloxicam 15 mg tablet 15 mg PO DAILY PRN pain #10 tabs 01/15/25 orphenadrine citrate 100 mg 100 mg PO BID PRN muscle spasm #10 01/15/25 tablet,extended release tabs Allergies Allergy/AdvReac Type Severity Reaction Status Date / Time codeine Allergy Severe Hives Verified 01/15/25 06:52 narcotics AdvReac recovering Uncoded 01/15/25 06:52 addict Opioid HPI Opioid Management Most Recent Opioid Data: Last Pain Scale 8 Today, 07:09 Last MAR Pain Assessment Today, 07:09 Review of Systems ROS Status of ROS 10 or more systems reviewed and unremarkable except as noted in history and below [facility] Medical History (Updated 01/15/25 @ 06:56 by Naa Austin RN) Opiate addiction ?F11.20 - Opioid dependence, uncomplicated (ICD-10) Fatty liver ?K76.0 - Fatty (change of) liver, not elsewhere classified (ICD-10) Social History (Updated 01/15/25 @ 07:19 by Naa Austin RN) Smoking status: Current every day smoker Non-prescribed substance use: former substance user Little interest or pleasure in doing things: not at all Feeling down, depressed, or hopeless: not at all Exam Narrative Exam Narrative: Vital signs and Nursing Notes reviewed: Patient is afebrile with a normal pulse, normal blood pressure, he is not hypoxic with pulse ox of 97% on room air General: Awake, alert, oriented, no acute distress, lying comfortably on the stretcher HEENT: Normocephalic atraumatic, mucous membranes are moist and pink, eyes are clear, normal conjunctiva, vision is grossly intact, posterior pharynx is normal in appearance. Neck: Supple Chest: Lungs are clear to auscultation with good air entry, there is no wheezing rhonchi or rales appreciated no accessory muscle use, patient is speaking in complete sentences-no chest wall tenderness to palpation CVS: Regular rate and rhythm S1-S2, no murmurs rubs or gallops, pulses are brisk and equal bilaterally ABD: Obese, soft, nondistended, mild tenderness in the left lower quadrant and left lateral flank area. No rebound guarding or rigidity, no abdominal bruits appreciated, Musc: In the left upper flank region there is a soft tissue mass consistent with a lipoma which is mildly tender Extremities: Moving all extremities, no lower extremity tenderness or swelling noted, negative Homans' sign, pulses are brisk and equal bilaterally Skin: Normal in appearance without rash,pallor, petechiae or purpura Neuro: No focal deficits Constitutional Vital Signs, click to edit/add: Last Vital Signs Temp 97.7 F 01/15/25 06:44 Pulse 73 01/15/25 06:44 Resp 16 01/15/25 06:44 BP 136/87 01/15/25 06:44 Pulse Ox 97 01/15/25 06:44 O2 Del Method Room Air 01/15/25 06:44 Course Vital Signs Vital signs: Vital Signs Temperature 97.7 F 01/15/25 06:44 Pulse Rate 73 01/15/25 06:44 Respiratory Rate 16 01/15/25 06:44 Blood Pressure 136/87 01/15/25 06:44 Pulse Oximetry 97 01/15/25 06:44 Oxygen Delivery Method Room Air 01/15/25 06:44 Temperature 97.7 F 01/15/25 06:44 Pulse Rate 73 01/15/25 06:44 Respiratory Rate 16 08/28/25 06:44 Blood Pressure 136/87 08/28/25 06:44 Pulse Oximetry 97 01/15/25 06:44 Oxygen Delivery Method Room Air 01/15/25 06:44 MDM - Back Pain/Injury Lab Data Labs: Lab Results 01/15/25 01/15/25 Range/Units 07:04 07:06 WBC 6.4 (4.0-11.0) 10^3/uL RBC 5.01 (4.70-6.10) 10^6/uL Hgb 16.9 (14.0-18.0) g/dL Hct 48.1 (42.0-54.0) % MCV 96.0 H (80.0-94.0) fL MCH 33.7 (25.9-34.0) pg MCHC 35.1 (29.9-35.2) g/dL RDW 12.4 (11.0-15.0) % Plt Count 140 L (150-450) 10^3/uL MPV 12.4 (9.5-13.5) fL Neut % (Auto) 39.7 L (43.0-75.0) % Lymph % (Auto) 47.8 (20.5-60.0) % [place] % (Auto) 8.3 (1.7-12.0) % Eos % (Auto) 3.0 (0.9-7.0) % Baso % (Auto) 0.9 (0.2-2.0) % Neut # (Auto) 2.5 (1.4-6.5) 10^3/uL Lymph # (Auto) 3.0 (1.2-3.8) 10^3/uL [place] # (Auto) 0.5 (0.3-0.8) 10^3/uL Eos # (Auto) 0.2 (0.0-0.7) 10^3/uL Baso # (Auto) 0.1 (0.0-0.1) 10^3/uL Abs Immat Gran (auto) 0.02 (0.00-0.03) 10^3/uL Imm/Tot Granulo (auto) 0.3 (0.0-0.5) % Sodium 144 (136-145) mmol/L Potassium 3.9 (3.5-5.1) mmol/L Chloride 108 H (98-107) mmol/L Carbon Dioxide 27.0 (21.0-32.0) mmol/L Anion Gap 12.9 BUN 8.0 (7.0-18.0) mg/dL Creatinine 0.89 (0.70-1.30) mg/dL Est GFR ( Amer) >60 (>=60 mL/min/1.73m^2) Est GFR (Non-Af Amer) >60 (>=60 mL/min/1.73m^2) BUN/Creatinine Ratio 9.0 Glucose 87 (74-106) mg/dL Lactate 1.3 (0.4-2.0) mmol/L Calcium 9.0 (8.5-10.1) mg/dL Total Bilirubin 0.6 (0.2-1.0) mg/dL AST 90 H (15-37) U/L ALT 145 H (16-63) U/L Alkaline Phosphatase 66 (46-116) U/L Total Protein 8.0 (6.4-8.2) g/dL Albumin 3.6 (3.4-5.0) g/dL Globulin 4.4 g/dL Albumin/Globulin Ratio 0.8 Urine Color Lt. yellow (YELLOW) Urine Clarity Clear (CLEAR) Urine pH 6.0 (5.0-9.0) Ur Specific [place] 1.015 (1.005-1.025) Urine Protein Negative (NEG/TRACE) mg/dL Urine Glucose (UA) Negative (NEGATIVE) mg/dL Urine Ketones Negative (NEGATIVE) mg/dL Urine Occult Blood Negative (NEGATIVE) Urine Nitrite Negative (NEGATIVE) Urine Bilirubin Negative (NEGATIVE) Urine Urobilinogen 0.2 (0.2-1.0) EU/dL Ur Leukocyte Esterase Negative (NEGATIVE) Urine RBC None seen (0-2) #/HPF Urine WBC None seen (NONE SEEN) #/HPF Ur Squamous Epith Cells None seen (NONE/RARE) #/LPF Urine Crystals None seen (None Seen) #/HPF Urine Bacteria None seen (NONE SEEN) #/HPF Urine Casts None seen (NONE SEEN) #/LPF Urine Mucus Trace A (NONE SEEN) Ur Culture Indicated? No Discharge Plan Discharge Chief Complaint: Back Pain/Injury Clinical Impression: Acute left flank pain Patient Disposition: Home, Self-Care Time of Disposition Decision: 10:32 Condition: Good Prescriptions / Home Meds: New meloxicam 15 mg tablet 15 mg PO DAILY PRN (Reason: pain) Qty: 10 0RF orphenadrine citrate 100 mg tablet extended release 100 mg PO BID PRN (Reason: muscle spasm) Qty: 10 0RF No Action losartan 25 mg tablet 25 mg PO DAILY gabapentin 600 mg tablet 600 mg PO Q8H Print Language: Bolivian Instructions: Abdominal Pain (ED) Referrals: Nakul Patricio DO [Primary Care Provider] - 1 week Discharge Date/Time: 01/15/25 10:46
[2025-01-15] MEDS: KETOROLAC TROMETHAMINE 30 MG/ML VIAL IVP (07:09)
[2025-01-15 07:14] LABS: Hematocrit 48.1 % (42.0-54.0); Hemoglobin 16.9 g/dL (14.0-18.0); Immature Granulocytes Abs Auto 0.02 10^3/uL (0.00-0.03); Immature Granulocytes Pct Auto 0.3 % (0.0-0.5); Lymphocytes Absolute Auto 3.0 10^3/uL (1.2-3.8); Mean Corpuscular HGB Conc 35.1 g/dL (29.9-35.2); Mean Corpuscular Hemoglobin 33.7 pg (25.9-34.0); Mean Corpuscular Volume 96.0 fL (80.0-94.0); Platelet Count 140 10^3/uL (150-450); Red Blood Count 5.01 10^6/uL (4.70-6.10); White Blood Count 6.4 10^3/uL (4.0-11.0)
[2025-01-15 07:15] LABS: Glucose Urine UA NEGATIVE (NEGATIVE)
--- NOTE | 2025-01-15 07:17 | PC.NURSE ---
reports a weight gain from 190 to 235 over the last couple months. Chronic diarrhea. pain wraps around from back to left mid abd. Abd tender to palpation with Dr. Valero physical exam.
[2025-01-15 07:29] LABS: Cast Seen? NONE SEEN #/LPF (NONE SEEN); Crystals Seen? None Seen #/HPF (None Seen); Urine Culture Indicated NO
[2025-01-15 07:35] LABS: Lactate/Lactic Acid 1.3 mmol/L (0.4-2.0)
[2025-01-15 07:44] LABS: Alanine Aminotransferase 145 U/L (16-63); Albumin Globulin Ratio 0.8; Albumin Level 3.6 g/dL (3.4-5.0); Alkaline Phosphatase 66 U/L (46-116); Anion Gap 12.9; Aspartate Amino Transferase 90 U/L (15-37); Blood Urea Nitrogen 8.0 mg/dL (7.0-18.0); Calcium 9.0 mg/dL (8.5-10.1); Carbon Dioxide 27.0 mmol/L (21.0-32.0); Chloride 108 mmol/L (98-107); Estimated GFR (African America >60 (>=60 mL/min/1.73m^2); Estimated GFR (Non-African Ame >60 (>=60 mL/min/1.73m^2); Globulin 4.4 g/dL; Glucose 87 mg/dL (74-106); Potassium 3.9 mmol/L (3.5-5.1); Sodium 144 mmol/L (136-145); Total Protein 8.0 g/dL (6.4-8.2)
--- NOTE | 2025-01-15 10:23 | ED_ITS ---
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 feel that sometimes pain is related to movement He denies any nausea vomiting or any other concerns and he is not using anything [id number] for the pain Related Data Home Medications ?Medication ?Instructions ?Recorded ?Confirmed gabapentin 600 mg tablet 600 mg PO Q8H 11/19/2401/15 losartan 25 mg tablet 25 mg PO DAILY 11/19/2412/20 Previous Rx's ?Medication ?Instructions ?Recorded meloxicam 15 mg tablet 15 mg PO DAILY PRN pain #10 tabs 01/15/25 orphenadrine citrate 100 mg 100 mg PO BID PRN muscle s pasm #10 01/15/25 tablet,extended release tabs Allergies Allergy/AdvReac Type Severity Reaction Status Date / Time codeine Allergy Severe Hives Verified 01/15/25 06:52 narcotics AdvReac recovering Uncoded 01/15/25 06:52 addict Opioid HPI Opioid Management Most Recent Opioid Data: Last Pain Scale 8 Today, 07:09 Last MAR Pain Assessment Today, 07:09 Review of Systems ROS Status of ROS 10 or more systems reviewed and unremark able except as noted in history and below [facility] Medical History (Updated 01/15/25 @ 06:56 by Naa Austin, [place]) Opiate addiction ?F11.20 - Opioid dependence, uncomplicated (ICD-10) Fatty liver ?K76.0 - Fatty (change of) liver, not elsewhere classified (ICD-10) Social History (Updated 01/15/25 @ 07:19 by Naa Austin, [place]) Smoking status: Current every day smoker Non-prescribed substance use: former substance user Little interest or pleasure in doing things: not at all Feeling down, depressed, or hopeless: not at all Exam Narrative Exam Narrative: Nurses notes and vital signs reviewed and patient is not hypoxic. General: Well-appearing and in no apparent distress. Skin: Warm, dry, no pallor noted. No rash. Head: Normocephalic, atraumatic. Neck: Supple, non-tender. Eye: Pupils are equal, round and EOMI. No scleral icterus. Ears, Nose, Mouth, and Throat: TM are clear, no nasal mucosal hypertrophy. Oral mucosa is moist, no posterior oropharynx erythema, uvula is mid-line Cardiovascular: Regular Rate and Rhythm without murmur, gallop or rub. Respiratory: No accessory muscle use or respiratory distress. Lungs are clear to auscultation, no wheezing, rales or rhonchi Chest Wall: no tenderness Back: No midline thoracic or lumbar vertebral tenderness. No CVA tenderness the patient is pointing to a possible lipoma just in the left upper lumbar paraspinal level measuring almost 2 x 3 cm soft and according to the patient has been there for a long time no signs of infection or inflammation Musculoskeletal: normal ROM, no calf or popliteal tenderness, no lower extremity edema/swelling GI: Abdomen is soft, non-distended. Normal bowel sounds. No masses appreciated. No tenderness to palpation. No rebound, guarding, or rigidity noted. Neurological: A&O x4. No cranial nerve dysfunction observed. No truncal ataxia. Moves all extremities. Sensation intact. Psychiatric: Cooperative and interactive. Normal mood and affect. Constitutional Vital Signs, click to edit/add: Last Vital Signs Temp 97.7 F 01/15/25 06:44 Pulse 73 01/15/25 06:44 Resp 16 01/15/25 06:44 BP 136/87 01/15/25 06:44 Pulse Ox 97 01/15/25 06:44 O2 Del Method Room Air 01/15/25 06:44 Course Vital Signs Vital signs: Vital Signs Temperature 97.7 F 01/15/25 06:44 Pulse Rate 73 01/15/25 06:44 Respiratory Rate 16 01/15/25 06:44 Blood Pressure 136/87 01/15/25 06:44 Pulse Oximetry 97 01/15/25 06:44 Oxygen Delivery Method Room Air 01/15/25 06:44 Temperature 97.7 F 01/15/25 06:44 Pulse Rate 73 01/15/25 06:44 Respiratory Rate 16 01/15/25 06:44 Blood Pressure 136/87 01/15/25 06:44 Pulse Oximetry 97 08/28/25 06:44 Oxygen Delivery Method Room Air 01/15/25 06:44 Medical Decision Making MDM Narrative Medical decision making narrative: The patient care transferred to ks awaiting the results of the blood workup and urine as well as the CAT scan CT of the abdomen and pelvis showed the patient have no acute pathology although he does have some granulomatous disease with multiple lymph nodes scattered in the abdomen as well as the iliac area I did speak with the patient evaluate him and his presentation could be secondary to musculoskeletal although is also could be secondary to atypical abdominal pain presentation The patient need to follow-up with his primary care doctor for further evaluation of the cranial lymph disease or possible lymphadenopathy The patient was provided with Mobic and Norflex to go home with with instruction to come back in case of any worsening of symptoms including pain or fever or any increasing pain The patient CBC and chemistry showed no acute pathology as well as a urinalysis Patient provided with report of the CAT scan The patient is to follow up with primary care physician in next 2-3 days or to return to the emergency department should any of the signs or symptoms worsen or new symptoms develop. The patient agrees with the following Diagnosis and Treatment plan and the patient will be discharged home. Lab Data Labs: Lab Results 01/15/25 01/15/25 Range/Units 07:04 07:06 WBC 6.4 (4.0-11.0) 10^3/uL RBC 5.01 (4.70-6.10) 10^6/uL Hgb 16.9 (14.0-18.0) g/dL Hct 48.1 (42.0-54.0) % MCV 96.0 H (80.0-94.0) fL MCH 33.7 (25.9-34.0) pg MCHC 35.1 (29.9-35.2) g/dL RDW 12.4 (11.0-15.0) % Plt Count 140 L (150-450) 10^3/uL MPV 12.4 (9.5-13.5) fL Neut % (Auto) 39.7 L (43.0-75.0) % Lymph % (Auto) 47.8 (20.5-60.0) % [place] % (Auto) 8.3 (1.7-12.0) % Eos % (Auto) 3.0 (0.9-7.0) % Baso % (Auto) 0.9 (0.2-2.0) % Neut # (Auto) 2.5 (1.4-6.5) 10^3/uL Lymph # (Auto) 3.0 (1.2-3.8) 10^3/uL [place] # (Auto) 0.5 (0.3-0.8) 10^3/uL Eos # (Auto) 0.2 (0.0-0.7) 10^3/uL Baso # (Auto) 0.1 (0.0-0.1) 10^3/uL Abs Immat Gran (auto) 0.02 (0.00-0.03) 10^3/uL Imm/Tot Granulo (auto) 0.3 (0.0-0.5) % Sodium 144 (136-145) mmol/L Potassium 3.9 (3.5-5.1) mmol/L Chloride 108 H (98-107) mmol/L Carbon Dioxide 27.0 (21.0-32.0) mmol/L Anion Gap 12.9 BUN 8.0 (7.0-18.0) mg/dL Creatinine 0.89 (0.70-1.30) mg/dL Est GFR ( Amer) >60 (>=60 mL/min/1.73m^2) Est GFR (Non-Af Amer) >60 (>=60 mL/min/1.73m^2) BUN/Creatinine Ratio 9.0 Glucose 87 (74-106) mg/dL Lactate 1.3 (0.4-2.0) mmol/L Calcium 9.0 (8.5-10.1) mg/dL Total Bilirubin 0.6 (0.2-1.0) mg/dL AST 90 H (15-37) U/L ALT 145 H (16-63) U/L Alkaline Phosphatase 66 (46-116) U/L Total Protein 8.0 (6.4-8.2) g/dL Albumin 3.6 (3.4-5.0) g/dL Globulin 4.4 g/dL Albumin/Globulin Ratio 0.8 Urine Color Lt. yellow (YELLOW) Urine Clarity Clear (CLEAR) Urine pH 6.0 (5.0-9.0) Ur Specific [place] 1.015 (1.005-1.025) Urine Protein Negative (NEG/TRACE) mg/dL Urine Glucose (UA) Negative (NEGATIVE) mg/dL Urine Ketones Negative (NEGATIVE) mg/dL Urine Occult Blood Negative (NEGATIVE) Urine Nitrite Negative (NEGATIVE) Urine Bilirubin Negative (NEGATIVE) Urine Urobilinogen 0.2 (0.2-1.0) EU/dL Ur Leukocyte Esterase Negative (NEGATIVE) Urine RBC None seen (0-2) #/HPF Urine WBC None seen (NONE SEEN) #/HPF Ur Squamous Epith Cells None seen (NONE/RARE) #/LPF Urine Crystals None seen (None Seen) #/HPF Urine Bacteria None seen (NONE SEEN) #/HPF Urine Casts None seen (NONE SEEN) #/LPF Urine Mucus Trace A (NONE SEEN) Ur Culture Indicated? No Discharge Plan Discharge Chief Complaint: Back Pain/Injury Clinical Impression: Acute left flank pain Patient Disposition: Home, Self-Care Time of Disposition Decision: 10:32 Condition: Good Prescriptions / Home Meds: New meloxicam 15 mg tablet 15 mg PO DAILY PRN (Reason: pain) Qty: 10 0RF orphenadrine citrate 100 mg tablet extended release 100 mg PO BID PRN (Reason: muscle spasm) Qty: 10 0RF No Action losartan 25 mg tablet 25 mg PO DAILY gabapentin 600 mg tablet 600 mg PO Q8H Print Language: Bur[place]ian Instructions: Abdominal Pain (ED) Referrals: Nakul Patricio DO [Primary Care Provider] - 1 week Discharge Date/Time: 01/15/25 10:46
== END 2025-01-15 10:46 | disposition home or self-care (01) ==
PROVIDERS: Emergency Provider Emergency Medicine; PCP Student in an Organized Health Care Education/Training Program
DX: R10.32 Left lower quadrant pain (principal); F10.21 Alcohol dependence, in remission; R06.02 Shortness of breath; J44.9 Chronic obstructive pulmonary disease, unspecified; F17.200 Nicotine dependence, unspecified, uncomplicated; D17.1 Benign lipomatous neoplasm of skin and subcutaneous tissue of trunk
CPT/HCPCS: 36415; 74177; 80053; 81001; 83605; 85025; 96374; 99285; J1885; Q9967

== ENCOUNTER 2025-01-23 10:16 | Emergency (ER) | payer OTHER, SELFPAY ==
--- OUTSIDE RECORDS SUMMARY | 2024-10-14 09:45 | XMS_ITS ---
Author Organization [facility] Servic es Address [address] [place] [address] Care Team Providers Care Stacker Name Role Phone Nakul Patricio Primary Care Provider REASON FOR VISIT discuss med change Encounters Encounter Location Date Provider Diagnosis [facility] [address] [place] [address] 10/14/2024 Nakul Patricio Plan Of Treatment Next Appt Details Provider Name:Nakul jaramillo, 02/05/2025 02:00:00 PM, [address] [place], [address], Progress Notes * THEOJEFFRY LASSITERDOB:1975 (50 yo M)Acc No.[id number]:10/14/2024 Progress Notes Patient: JEFFRY NORTH Provider: Rachael Patricio :1975 A ge:49 Y S ex:Male Date:10/14/2024 Address:[address] [place], [place] [id number] Subjective: * Chief Complaints: * 1 . Discuss med change. * Medical History: Objective: * Vitals: Assessment: Plan: * Treatment: * Images: * Electronic signature of Drew Patricio DO on 01/23/2025 at 10:25 AM EDT Sign off status: Pending * Provider: Rachael Patricio Date: 0 10/14/2024 Generated for Noéi ng/Faxing/eTransmitting on: 0 01/23/2025 10:25 AM EDT
--- OUTSIDE RECORDS SUMMARY | 2024-10-28 10:15 | XMS_ITS ---
Author Organization [facility] Servic es Address [address] [place] [address] Care Team Providers Care Precision Lens Centerer And Edger Name Role Phone Nakul Patricio Primary Care Provider [phone] REASON FOR VISIT discuss med change Encounters Encounter Location Date Provider Diagnosis [facility] [address] [place] [address] 10/28/2024 Nakul Patricio Plan Of Treatment Next Appt Details Provider Name:Nakul jaramillo, 02/05/2025 02:00:00 PM, [address] [place], [address], Progress Notes * THEOJEFFRY LASSITERDOB:1975 (50 yo M)Acc No.[id number]:10/28/2024 Progress Notes Patient: JEFFRY NORTH Provider: Rachael Patricio :1975 A ge:49 Y S ex:Male Date:10/28/2024 Address:[address] [place], [place] [phone] Subjective: * Chief Complaints: * 1 . Discuss med change. * Medical History: Objective: * Vitals: Assessment: Plan: * Treatment: * Images: * Electronic signature of Drew Patricio DO on 01/23/2025 at 10:25 AM EDT Sign off status: Pending * Provider: Rachael Patricio Date: 0 10/28/2024 Generated for Noéi ng/Faxing/eTransmitting on: 0 01/23/2025 10:25 AM EDT
--- OUTSIDE RECORDS SUMMARY | 2025-01-16 06:45 | XMS_ITS ---
Author Organization [facility] es Address [address] [place] [address] Care Team Providers Care It Assistant Name Role Phone Nakul Patricio Primary Care Provider Allergies Allergen (clinical drug ingredient) Drug/Non Drug Allergy documented on EMR Reaction Allergy Type Onset Date Status codeine Codeine hives Drug Allergy Active Reason For Referral Reason *FAXED 01/20 multipl e lipomas of flank, some tender Diagnosis 1 Multiple lipomas (D1 7.9) Referral Organization [facility] Referring Provider First Name Nakul Referring Provider Last Name Sheng Referring Provider Speciality Family Pra ctice Referred Provider TRICIA NATHAN Referred Provider Specialty General Surg giuliana Referral Priority Routine REASON FOR VISIT Lymph Nodes against pancreas and stomach Medications Medication SIG (Take, Route, Frequency, Duration) Notes Start Date End Date Status Meloxicam 15 MG 1 tablet Orally Once a day was given at ER on 01-15 Active Orphenadrine Citrate ER 100 MG 1 tablet Orally Twice a day was given at ER on 01-15 Active Albuterol Sulfate 108 (90 Base) MCG/ACT 1 puff as needed Inhalation every 4 hrs; Duration: 10 days 12/01/2024 Active Losartan Potassium 25 MG 1 tablet Orally Once a day; Duration: 30 days 07/28/2024 Active Gabapentin 600 MG 1 capsule Orally three times a day; Duration: 30 days Active [...] interested in quitting? Thinking about q uitting Vital Signs Height 72 in 01/16/2025 Weight 241 lbs 01/16/2025 BMI 32.68 kg/m2 01/16/2025 Blood pressure systolic 144 mm Hg 01/17/20 25 Blood pressure diastolic 94 mm Hg 025 Oximetry 95 % 01/16/2025 Heart Rate 74 /min 01/16/2025 Respiratory Rate 20 /min 01/16/2025 Encounters Encounter Location Date Provider Diagnosis [address] [phone] 01/16/2025 Nakul Patricio Lt flank pain R10.9 ; Lymphadenopathy R59.1 and Multiple lipomas D17.9 Assessments Encounter Date Diagnosis (ICD Code) Assessment Notes Treatment Notes Treatment Clinical Notes Section Notes 01/16/2025 Lt flank pain (ICD-10 - R10.9) Pain improving with meds received from ER. No chnages to these today. Expect MSK component to gradually resolve. 01/16/2025 Lymphadenopathy (ICD-10 - R59.1) ER report from 01/15 stating LAD in abdomen likely infectious. WIll obtain copy of report to determine any further management needs at thsi time. 01/16/2025 Multiple lipomas (ICD-10 - D17.9) PT with multiple tender lipomas and history of previous exicsion for same issue. DIscussed referral to genral surgery at this time. Plan Of Treatment Treatment Notes Assessment Notes Lt flank pain Pain improving with meds received from ER. No chnages to these today. Expect MSK component to gradually resolve. Lymphadenopathy ER report from 01/15 stating LAD in abdomen likely infectious. WIll obtain copy of report to determine any further management needs at thsi time. Multiple lipomas PT with multiple ten jay jay lipomas and history of previous exicsion for same issue. DIscussed referral to genral surgery at this time. Referrals Referral Date Details 01/16/2025 01/16/2025, *FAXED multiple lipomas of flank, some tender, TRICIA NATHAN Next Appt Details Follow Up: as scheduled, [place] son: Provider Name:Nakul jaramillo, 02/05/2025 02:00:00 PM, [address] [place], [address], Progress Notes * JEFFRY AGUILARDOB:1975 (49 yo M)Acc No.[id number]:01/16/2025 PROGRESS NOTES Patient: JEFFRY NORTH Provider: Rachael Patricio :1975 A ge:49 Y S ex:Male Date:01/16/2025 Address:[address] [place], [place] [id number] Subjective: * Chief Complaints: * 1 . Lymph Nodes against pancreas and stomach. * HPI: C onstitutional: Jeffry Aguilar, a 49-year-old male, presented for an acute visit focused on abdominal pain and recurrent nodules. He described persistent pain in his abdomen, which worsens with pressure or leaning forward, and is accompanied by multiple knots or nodules in the abdominal area. Some of these nodules are large and feel hot to the touch, and the pain has been severe enough to wake him multiple times during the night. He noted additional discomfort in the lower abdomen and reported feeling lightheaded after eating at [employer]. While he denied pain at the specific area touched by the provider, he expressed concern about the cause of the enlarged lymph nodes and nodules, questioning whether the knots are responsible for his symptoms and voicing uncertainty about a possible infection.Jeffry has a history of recurrent nodules, with a couple previously removed in [facility], leaving a scar from past procedures. He has engaged with both GI and general surgery in the past, including attempts to obtain medication for hepatitis C, which was denied by insurance. He actively uses a health jeff to access his medical records and has been coordinating care between his GI specialist and current provider, including efforts to obtain and fax his CT report. To manage his pain, he takes meloxicam and a muscle relaxer, and is considering further removal of nodules as part of his ongoing strategy to address his symptoms. D epression Screening: PHQ-2 (2015 Edition) L ittle interest or pleasure in doing things??Not at all F eeling down, depressed, or hopeless? N ot at all T otal Score 0 * ROS: 1 0 point ROS completed otherwise negative except as per HPI. 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 * Family History: F ather: . M other: alive, diagnosed with Hypertension. 1 brother(s) , 1 sister(s) - healthy. 3 son(s) , 2 daughter(s) . . dad COPD and stroke. * Social History: D rug/Alcohol: A VANESSA-C (Standard) D id [...] P oints 5 I nterpretation P ositive G eneral: D epression Screening (PHQ-9) L ittle interest or pleasure in doing things?Not at all F eeling down, depressed, or hopeless N ot at all T rouble falling or staying asleep, or sleeping too much N ot at all F eeling tired or having little energy N ot at all P oor appetite or overeating N ot at all F eeling bad about yourself-or that you are a failure or have let yourself or your family down N ot at all T rouble concentrating on things, such as reading the newspaper or watching television N ot at all M oving or speaking so slowly that other people could have noticed. Or the opposite being so fidgety or restless that you have been moving around a lot more than usual N ot at all T houghts that you would be better off , or of hurting yourself in some way N ot at all T otal Score 0 Behaviors affecting health P oor/Risky Behaviors: D enies- [...] you ever had an STD? N o T obacco Use: T obacco Control (Standard) T obacco use: C urrent smoker H ow often do you smoke cigarettes? E very day H ow many cigarettes a day do you smoke? 6 -10 H ow soon after you wake up do you smoke your first cigarette? 6 -30 minutes A re you interested in quitting? T hinking about quitting * Medications: T aking Orphenadrine Citrate ER 100 MG Tablet Extended Release 12 Hour 1 tablet Orally Twice a day , Notes to Pharmacist: was given at ER on 01-15, Taking Meloxicam 15 MG Tablet 1 tablet Orally Once a day , Notes to Pharmacist: was given at ER on , Taking Gabapentin 600 MG Tablet 1 capsule Orally three times a day , Taking Losartan Potassium 25 MG Tablet 1 tablet Orally Once a day , Taking Albuterol Sulfate 108 (90 Base) MCG/ACT Aerosol Powder Breath Activated 1 puff as needed Inhalation every 4 hrs , Medication List reviewed and reconciled with the patient * Allergies: C odeine: hives - Allergy. Objective: * Vitals: H t: 72 in, Wt: 241 lbs, BMI:32.68Index, BP: 144/94 mm Hg, SaO2:95%, HR: 74 /min, RR: 20 /min. * Examination: G [...] oriented x 3 , normal gait. SKIN: L UQ and Left flank just posterior to posterior axiallry line with rubbery, mobile subcutaneous masses with TTP. EXTREMITIES: b ilaterally no clubbing, cyanosis, or edema.? MUSCULOSKELETAL: N ormal ROM and strength is 5/5 throughout, normal inspection, no effusions, no swelling or deformity. Assessment: * Assessment: 1. L t flank pain - R10.9 (Primary) 2 . L ymphadenopathy - R59.1 3 . M ultiple lipomas - D17.9 Plan: * Treatment: 2. L ymphadenopathy Notes: ER report from 01/15 stating LAD in abdomen likely infectious. WIll obtain copy of report to determine any further management needs at [facility] time. 3. M ultiple lipomas Notes: PT with multiple tender lipomas and history of previous exicsion for same issue. DIscussed referral to genral surgery at this time. Referral To:General Surgery Reason:multiple lipomas of flank, some tender * Procedure Codes: 3 080F DIAST BP = 90 MM HG, 1160F RVW MEDS BY RX/DR IN RCRD, 3077F SYST BP >= 140 MM HG * Follow Up: a s scheduled * Images: * Sign off status: Completed true * Provider: Rachael Patricio Date: 0 01/16/2025 Generated for Katie de león/Jaycob/Klaudia on: 0 01/23/2025 10:25 AM EDT History and Physical Notes * HPI (History of Present Illness) Category Sub-Category Detail Notes Category Not es Depression Screening PHQ-2 (2015 Edition) Little interest or pleasure in doing things?: Not at all Feeling down, depressed, or hopeless?: N ot at all Total Score: 0 Constitutional Jeffry Aguilar , a 49-year-old male, presented for an acute visit focused on abdominal pain and recurrent nodules. He described persistent pain in his abdomen, which worsens with pressure or leaning forward, and is accompanied by multiple knots or nodules in the abdominal area. Some of these nodules are large and feel hot to the touch, and the pain has been severe enough to wake him multiple times during the night. He noted additional discomfort in the lower abdomen and reported feeling lightheaded after eating at [employer]. While he denied pain at the specific area touched by the provider, he expressed concern about the cause of the enlarged lymph nodes and nodules, questioning whether the knots are responsible for his symptoms and voicing uncertainty about a possible infection.Jeffry has a history of recurrent nodules, with a couple previously removed in [facility], leaving a scar from past procedures. He has engaged with both GI and general surgery in the past, including attempts to obtain medication for hepatitis C, which was denied by insurance. He actively uses a health jeff to access his medical records and has been coordinating care between his GI specialist and current provider, including efforts to obtain and fax his CT report. To manage his pain, he takes meloxicam and a muscle relaxer, and is considering further removal of nodules as part of his ongoing strategy to address his symptoms. Examination Category Sub-Category Detail Notes Category Not [...] oriented, in no acute distress, pleasant SKIN: LUQ and Left flank j ust posterior to posterior axiallry line with rubbery, mobile subcutaneous masses with TTP NEUROLOGIC EXAM: CN's II-XII grossly intact , [...] to light and accomodation (PERRLA), sclera clear Consultation Request Notes Referral Date Referring Provider Referred Provider Not es 01/16/2025 Nakul Patricio PAUL *FAXED 01/20 multiple lipomas of flank, some tender
[2025-01-23 10:21] VITALS: BP 180/115; PULSE 85; TEMP 37; O2SAT 97; BMI 31.1
--- OUTSIDE RECORDS SUMMARY | 2025-01-23 10:25 | XMS_ITS | Encounter Summary ---
Author Organization [facility] Address [address] [place] [address] Care Team Providers Care Music Composer Name Role Phone Nakul Patricio DO Unavailable [phone] ShengLauryon DO Primary Care Provider [phone] Source Comments In the event this information is protected by the Federal Confidentiality of Alcohol and Drug AbusePatient Records regulations: The Federal rules restrict any use of the information to criminally investigate or prosecute any alcohol or drug abuse patient.[facility] Encounter Details Date Type Department Care Team (Late st Contact Info) Description 12/30/2024 Patient Msg Referring Physician [address] [place] [phone] Provider, [facility]ology referral Social History Tobacco Use Types Packs/Day Years Used Date Smoking Tobacco: Never Assessed PHQ-2 Answer Date Recorded PHQ-2 score 5 12/17/2024 Area Deprivation Index Answer Date Shai rded National Score (1-100), lower number is lower ri sk 78 12/24/2024 State Score (1-10), lower number is lower risk 6 12/24/2024 Data from: https://www.neighborhoodatlas.medicine.[facility].edu/. Last address used for calculation [address] [place] [address] [address] 12/24/2024 Sex and Gender Information Value Date Recorded Sex Assigned at Not on file Legal Sex Male 3:45 PM EDT Gender Identity Not on file Sexual Orientation Not on file documented as of this encounter Plan of Treatment Not on file documented as of this encounter Visit Diagnoses Not on filedocumented in this encounter Care Teams Music Composer Relationship Specialty Start Date End Date Nakul Patricio DO [address] [place] [address] PCP - General Family Medicine 10/24/24 Nakul Patricio DO [address] [place] [address] Referring Family Medicine 10/24/24 documented as of this encounter
--- OUTSIDE RECORDS SUMMARY | 2025-01-23 10:25 | XMS_ITS | Clinical Summary ---
Author Organization [facility] Address [facility] [place] [address] Care Team Providers Care Strategy Lead Name Role Phone Nakul Patricio DO Unavailable [phone] Nakul Patricio DO Primary Care Provider [phone] Allergies Active Allergy Reactions Criticality Noted Date Comments Codeine Unknown 02/26/2021 Medications albuterol HFA (PROVENTIL HFA, VENTOLIN HFA) 90 mcg/actuation inhaler Inhale 1 puff as instructed every 6 hours as needed. Active gabapentin (NEURONTIN) 600 mg tablet Take 600 mg by mouth three times a day. Active losartan (COZAAR) 25 mg tablet Take 1 tablet by mouth once daily. Active Encounters Date Type Department Care Team Description 12/30/2024 Patient Msg Referring Physician [address] [place] [phone] Provider, [facility]ology referral 12/24/2024 Telephone Rheumatology [address] [facility] [address] [facility] [place] [address] Kobe Berman MD Appointment Rescheduled 12/24/2024 Orders Only Rheumatology [address] [facility] [address] [place] [address] Leonela Martinez MA 12/17/2024 Travel 10/24/2024 Transcribe Orders Referring Physician [address] [place] [phone] Nakul Patricio DO Rheumatoid arthritis, involving unspecified [...] lower risk 6 12/24/2024 Data from: https://www.neighborhoodatlas.medicine.[facility]/. Last address used for calculation [address] 12/24/2024 Sex and Gender Information [...] 2025 Diabetes Screening 05/28/2025 05/28/2022, 12/06/2017 Insurance * Guarantor: Gonzalez Aguilar Account Type Relation to Patient Date of Phone Billing Address Personal/Family Self 1975 [address] [place] [address] [facility] Care Teams Strategy Lead Relationship Specialty Start Date End Date Nakul Patricio DO [address] [place] [address] PCP - General Family Medicine 10/24/24 Nakul Patricio DO [address] [place] [address] Referring Family Medicine 10/24/24
--- OUTSIDE RECORDS SUMMARY | 2025-01-23 10:25 | XMS_ITS | Patient Health Record ---
Author Organization [facility] Address [address] [place] [address] Care Team Providers Care Advertising Sales Assistant Name Role Phone Nakul Patricio Primary Care Provider Allergies Allergen (clinical drug ingredient) Drug/Non Drug Allergy documented on EMR Reaction Allergy Type Onset Date Status codeine Codeine hives Drug Allergy Active Results Component Value Reference Range Notes XR chest 2V* Reviewed date:12/30/2024 08:08:53 AM Interpretation: Performing Lab: Notes/Report: [facility] [place] [address] [place] [address] XRay Report Signed Patient: Jeffry Aguilar MR#: [id number] : 1975 Acct:[id number] Age/Sex: 49 / M ADM Date: 12/10/24 Loc: RT Room: Type: [facility] Attending Dr: Nakul Patricio DO Copies to: [...] Spencer M.D. 12/10/2024 2:54 PM Dictation Location: [place] [address] Transcribed By: [place] 12/10/24 1454 Dictated By: Fredy Spencer DO 12/10/24 1451 Signed By: <Electronically signed by Fredy Spencer DO in OV> 12/10/24 1454 Hep C RT-PCR, Qnt (Non-Graph ) Reviewed date:08/06/2024 01:14:22 PM Interpretation: Performing Lab:, [facility], [address] [place] Notes/Report: Reason for Exam Chronic hepatitis C without hepatic coma Hepatitis C Quantitation [id number] . [IU]/mL HCV Log10 6.820 . Result Units: l og10 IU/mL Test Information: Comment . The quantitative range of this assay is 15 IU/mL to 100 million IU/mL. Performed at: [address] [id number] [employer] Winder: Cristo Davalos MD, Phone: [phone] Magnesium Reviewed date:12/30/2024 08:02:11 AM Interpretation: Performing Lab: Notes/Report: Reason for Exam Myalgia Magnesium 2.1 1.9-2.7 mg/dL Comprehensive Metabolic Pane l Reviewed date:12/30/2024 08:02:11 AM Interpretation: Performing Lab:, [facility], [address] [place] Notes/Report: Reason for Exam Myalgia Glucose 96 [...] Estimated GFR >60.0 Anion Gap 9.5 6.0-15.0 Creatine Kinase Reviewed date:12/30/2024 08:02:11 AM Interpretation: Performing Lab:, [facility], [address] [place] Notes/Report: Reason for Exam Myalgia Creatine Kinase 179 30-223 U/L Complete Pulmonary Function (Not yet reviewed by provider) Interpretation: Performing Lab: Notes/Report: A1C with Estimated Average G mariano Reviewed date:08/06/2024 01:14:22 PM Interpretation: Performing Lab:, [facility], [address] [place] Notes/Report: Reason for Exam Weight gain Hemoglobin A1C 5.3 4.3-5.6 % Increased risk for diabetes: 5.7 - 6.4 diabetes: >6.4 glycemic control for adults with diabetes: <7.0 Estimated Average Glucose 105 Comprehensive Metabolic Pane l Reviewed date:08/06/2024 01:14:22 PM Interpretation: Performing Lab:, [facility], [address] [place] Notes/Report: Reason for Exam Hypertension, essential;Calf cramp [...] Reviewed date:08/06/2024 01:14:22 PM Interpretation: Performing Lab:, [facility], [address] [place] Notes/Report: Reason for Exam Hypertension, essential White [...] C without hepatic coma (B18.2) Referral Organization [facility] Referring Provider First Name Nakul Referring Provider Last Name Sheng Referring Provider [facility] Jody ctice Referred Provider [facility] , . Referred Provider Specialty Gastroentero logy Referral Priority Routine Reason *FAXED 10/22 TO [facility] RE FERRAL DEPT needs new survival specialist Diagnosis 1 Rheumatoid arthritis involving multiple sites with positive rheumatoid factor (M05.79) Referral Organization [facility] Referring Provider First Name Nakul Referring Provider Last Name Sheng Referring Provider [facility] Jody ctice Referred Provider Specialty Rheumatology Referral Priority Routine Reason *FAXED 01/20 multipl e lipomas of flank, some tender Diagnosis 1 Multiple lipomas (D1 7.9) Referral Organization [facility] Referring Provider First Name Nakul Referring Provider Last Name Sheng Referring Provider [facility] Jody ctice Referred Provider TRICIA NATHAN Referred Provider Specialty General Surg giuliana Referral Priority Routine Medications Medication SIG (Take, Route, Frequency, Duration) Notes Start Date End Date Status Meloxicam 15 MG 1 tablet Orally Once a day was given at ER on 01-15 Active Orphenadrine Citrate ER 100 MG 1 tablet Orally Twice a day was given at ER on 01-15 Active Losartan Potassium 25 MG 1 tablet [...] W/U Status Risk Notes Problem Tobacco user (113468372) Nicotine dependence, unspecified, uncomplicated (F17.200) Active confirmed Problem Essential hypertension (33492369) Hypertension, essential (I10) Active confirmed Problem Chronic hepatitis C (213516811) Chronic hepatitis C without hepatic coma (B18.2) Active confirmed Problem Sciatica (02201768) Lumbago of lumbar region with sciatica (M54.40) Active confirmed Problem Rheumatoid arthritis (13502917) Rheumatoid arthritis involving multiple sites with positive rheumatoid factor (M05.79) Active confirmed Problem Common peroneal nerve lesion (606218073) 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) Active confirmed Problem Common peroneal nerve lesion (035903375) 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) Active confirmed Vital Signs Heart Rate 74 /min 01/16/2025 Temperature 97.5 degrees Fahrenheit 11/05/2024 Respiratory Rate 20 /min 01/16/2025 Oximetry 95 % 01/16/2025 Blood pressure diastolic 94 mm Hg 01/16/2025 Height 72 in 01/16/2025 Blood pressure systolic 144 mm Hg 01/16/2025 Weight 241 lbs 01/16/2025 BMI 32.68 kg/m2 01/16/2025 Encounters Encounter Location Date Provider Diagnosis [place] [address] [place] [address] 07/11/2024 Nakul Patricio Chronic hepatitis C without hepatic coma B18.2 [facility] [address] [place] [address] 08/01/2024 Nakul Patricio [place] [address] [place] [address] 08/25/2024 Nakul Patricio Hypertension, essent ial I10 [place] [address] [place] [address] 08/26/2024 Nakul Patricio [facility] [address] [place] [address] 08/27/2024 Nakul Patricio [place] [address] [place] [address] 09/05/2024 Nakul Patricio Rheumatoid arthritis involving multiple sites with positive rheumatoid factor M05.79 [facility] [address] [place] [address] 09/10/2024 Nakul Patricio [place] [address] [place] [address] 10/10/2024 Nakul Patricio Hypertension, essent ial I10 and Neuropathy of right peroneal nerve G57.31 [facility] [address] [place] [address] 11/14/2024 Nakul Patricio Hypertension, essent ial I10 [place] [address] [place] [address] 01/16/2025 Nakul Patricio [place] [address] [place] [address] 01/20/2025 Nakul Patricio Hypertension, essent ial I10 [facility] [address] [place] [address] 06/30/2024 Nakul Patricio Neuropathy of left peroneal nerve G57.32 ; Hypertension, essential I10 ; Neuropathy of right peroneal nerve G57.31 ; Lumbago of lumbar region with sciatica M54.40 ; Nicotine dependence, unspecified, uncomplicated F17.200 ; Chronic hepatitis C without hepatic coma B18.2 ; Calf cramp R25.2 ; Hypokalemia E87.6 and Weight gain R63.5 [facility] [address] [place] [address] 07/28/2024 Nakul Patricio Hypertension, essent ial I10 and Neuropathy of right peroneal nerve G57.31 [facility] [address] [place] [address] 08/25/2024 Nakul Patricio Polyarthralgia M25.5 0 and Neuropathy of right peroneal nerve G57.31 [facility] [address] [place] [address] 11/05/2024 Nakul Patricio Neuropathy of right peroneal nerve G57.31 [facility] [address] [place] [address] 12/01/2024 Nakul Patricio Myalgia M79.10 ; Shortness of breath R06.02 and Chronic cough R05.3 [facility] [address] [place] [address] 01/16/2025 Nakul Patricio Lt flank pain R10.9 [...] follow-up 11/14/2024 Hypertension, essential (ICD-10 - I10) 12/01/2024 Shortness of breath (ICD-10 - R06.02) [...] lab results. 12/01/2024 Myalgia (ICD-10 - M79.10) 01/16/2025 Lymphadenopathy (ICD-10 - R59.1) ER report from 01/15 stating LAD in abdomen likely infectious. WIll obtain copy of report to determine any further management needs at thsi time. 01/16/2025 Lt flank pain (ICD-10 - R10.9) Pain improving with meds received from ER. No chnages to these today. Expect MSK component to gradually resolve. 01/20/2025 Hypertension, essential (ICD-10 - I10) 01/16/2025 Multiple lipomas (ICD-10 - D17.9) PT with multiple tender lipomas and history of previous exicsion for same issue. DIscussed referral to genral surgery at this time. 12/01/2024 Chronic cough (ICD-10 - R05.3) 10/10/2024 Neuropathy of right peroneal nerve (ICD-10 [...] 08/25/2024 Next Appt Details Provider Name:Nakul jaramillo, 02/05/2025 02:00:00 PM, [address] [place], [address], Insurance Providers Payer Name Payer Address Payer Phone Subscriber Number Group Number Insured Name Patient Relationship to Insured Coverage Start Date Coverage End Date [employer] [place] Medicaid [address] [place] [address] [id number] JEFFRY AGUILAR Self - patient is the insured 5 [employer] [facility] [address] [place] [address] [phone] [id number] JEFFRY AGUILAR Self - patient is the insured 5 [place] [address] [place] [address] [id number] JEFFRY AGUILAR Self - patient is the insured 5 Medical (General) History Medical History History ICD Code neuropathy migraines 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
[2025-01-23 10:31] VITALS: BP 138/100
[2025-01-23 10:45] VITALS: PULSE 92; O2SAT 97
[2025-01-23] MEDS: IPRATROPIUM/ALBUTEROL SULFATE 3 ML AMPUL.NEB 6 ML IH (10:45)
--- NOTE | 2025-01-23 10:47 | ED.GENADUL1 ---
HPI HPI - General Adult General Chief complaint: Abdominal Pain Stated complaint: VOMITING ABDOMINAL PAIN L SIDE Time Seen by Provider: 01/23/25 10:19 Source: patient Mode of arrival: walk-in Limitations: no limitations History of Present Illness HPI narrative: Patient is a 50-year-old male presenting to the emergency department for evaluation of abdominal pain, nausea, vomiting, diarrhea. Patient states he has been having persistent symptoms for the last 3 weeks. He states he was seen in multiple emergency departments for the same complaint over the last few weeks. He has been working with his outpatient doctor to find out what is going on with him. He states that the symptoms he has been experiencing for the last 3 weeks acutely worsened earlier today. He states he said of multiple episodes of nonbloody diarrhea, vomiting, decreased p.o. intake. He is also complaining pain in the left lower quadrant of his abdomen. He denies any dysuria or hematuria. States he is mildly short of breath, but relates this to his history of COPD. He denies any other symptoms. Related Data Home Medications ?Medication ?Instructions ?Recorded ?Confirmed gabapentin 600 mg tablet 600 mg PO Q8H 11/19/24 01/15/25 losartan 25 mg tablet 25 mg PO DAILY 11/19/24 01/15/25 Previous Rx's ?Medication ?Instructions ?Recorded meloxicam 15 mg tablet 15 mg PO DAILY PRN pain #10 tabs 01/15/25 orphenadrine citrate 100 mg 100 mg PO BID PRN muscle spasm #10 01/15/25 tablet,extended release tabs Allergies Allergy/AdvReac Type Severity Reaction Status Date / Time codeine Allergy Severe Hives Verified 01/23/25 10:21 narcotics AdvReac recovering Uncoded 01/23/25 10:21 addict Opioid HPI Opioid Management Most Recent Opioid Data: Last Pain Scale 8 Today, 11:17 Last ED Pain Assessment Today, 10:29 Last MAR Pain Assessment Today, 11:17 Review of Systems ROS Status of ROS 10 or more systems reviewed and unremarkable except as noted in history and below [facility] Medical History (Updated 01/23/25 @ 11:28 by Dylan Nash DO) Hepatitis C ?B19.20 - Unspecified viral hepatitis C without hepatic coma (ICD-10) Opiate addiction ?F11.20 - Opioid dependence, uncomplicated (ICD-10) Fatty liver ?K76.0 - Fatty (change of) liver, not elsewhere classified (ICD-10) Social History (Updated 01/15/25 @ 07:19 by Naa Austin RN) Smoking status: Current every day smoker Non-prescribed substance use: former substance user Little interest or pleasure in doing things: not at all Feeling down, depressed, or hopeless: not at all Exam Narrative Exam Narrative: CONSTITUTIONAL: Well-appearing, appears well-hydrated, answering questions and following commands appropriately SKIN: Was warm and dry. EYES: No conjunctival pallor. No scleral icterus. EARS, NOSE, THROAT: Moist mucosa RESPIRATORY: Mild bilateral expiratory wheezes. No use of accessory muscles. Speaking full sentences. CARDIOVASCULAR: Normal rate and regular rhythm. There is no S3, S4, murmur, rub. GASTROINTESTINAL: There is mild tenderness to palpation in the left lower quadrant of the abdomen. No distention. There is no guarding or rebound tenderness MUSCULOSKELETAL: No peripheral edema NEUROLOGIC: Patient is awake and alert. Ambulated with a steady. Facies were symmetrical. Constitutional Vital Signs, click to edit/add: Last Vital Signs Temp 98.6 F 01/23/25 10:21 Pulse 98 H 01/23/25 12:04 Resp 18 01/23/25 12:04 BP 158/103 H 01/23/25 12:04 Pulse Ox 94 L 01/23/25 12:04 O2 Del Method Room Air 01/23/25 10:45 Course Vital Signs Vital signs: Vital Signs Temperature 98.6 F 01/23/25 10:21 Pulse Rate 85 01/23/25 10:21 Respiratory Rate 20 01/23/25 10:21 Blood Pressure 180/115 H 01/23/25 10:21 Pulse Oximetry 97 01/23/25 10:21 Oxygen Delivery Method Room Air 01/23/25 10:21 Temperature 98.6 F 01/23/25 10:21 Pulse Rate 98 H 01/23/25 12:04 Respiratory Rate 18 01/23/25 12:04 Blood Pressure 158/103 H 01/23/25 12:04 Pulse Oximetry 94 L 01/23/25 12:04 Oxygen Delivery Method Room Air 01/23/25 10:45 Medical Decision Making MDM Narrative Medical decision making narrative: Patient is a 50-year-old male presenting to the emergency department for evaluation of a 3-week history of nausea, vomiting, and left lower quadrant abdominal pain that acutely worsened earlier today. On review of external documentation, patient was seen in the emergency department 01/15/2025 for the same complaint. He had normal laboratory studies during that visit. A CT of his abdomen/pelvis from that visit demonstrated intra-abdominal lymphadenopathy and granulomatous changes without any other acute findings. His vital signs on arrival today are within normal limits. He is afebrile and hemodynamically stable. Examination as noted above. Differential diagnosis includes gastroenteritis, colitis, or or other intra-abdominal/electrolyte/metabolic derangement. Patient's exam is not consistent with surgical etiologies of abdominal pain such as appendicitis, cholecystitis, or perforated viscus. Given that the symptoms are relatively unchanged over the last few weeks, I do not believe any repeat imaging is necessary at this time. IVs established laboratory studies were obtained. He was treated symptomatically with IV Zofran, IV ketorolac, and [address] abdomen/pelvis independent reviewed and interpreted by myself and radiology demonstrated mild colonic stool burden without acute intra-abdominal process. No evidence of nephrolithiasis. Laboratory studies were unremarkable. No significant electrolyte or metabolic derangement. No evidence of acute kidney injury. No anemia, leukocytosis, or thrombocytopenia. Mild chronic transaminitis without hyperbilirubinemia. Urinalysis was negative. On reevaluation, states he is asymptomatic and feels comfortable being discharged home. I do believe the patient is stable for discharge at this time. Patient's presentation is most likely consistent with constipation. They were instructed to follow up with his PCP for further care. Return precautions were given including any new or worsening symptom. Patient understands and agrees to the plan. FINAL IMPRESSION: #Acute left-sided abdominal pain, likely constipation DISPOSITION: Discharged home CONDITION: Good Medical Records Medical records reviewed: Yes I reviewed the patient's medical records Lab Data Lab results reviewed: Yes I reviewed the patient's lab results Labs: Lab Results 01/23/25 Range/Units 10:57 WBC 5.1 (4.0-11.0) 10^3/uL RBC 5.15 (4.70-6.10) 10^6/uL Hgb 17.5 (14.0-18.0) g/dL Hct 47.6 (42.0-54.0) % MCV 92.4 (80.0-94.0) fL MCH 34.0 (25.9-34.0) pg MCHC 36.8 H (29.9-35.2) g/dL RDW 12.3 (11.0-15.0) % Plt Count 117 L (150-450) 10^3/uL MPV 12.2 (9.5-13.5) fL Neut % (Auto) 56.6 (43.0-75.0) % Lymph % (Auto) 32.9 (20.5-60.0) % [place] % (Auto) 7.3 (1.7-12.0) % Eos % (Auto) 2.2 (0.9-7.0) % Baso % (Auto) 0.8 (0.2-2.0) % Neut # (Auto) 2.9 (1.4-6.5) 10^3/uL Lymph # (Auto) 1.7 (1.2-3.8) 10^3/uL [place] # (Auto) 0.4 (0.3-0.8) 10^3/uL Eos # (Auto) 0.1 (0.0-0.7) 10^3/uL Baso # (Auto) 0.0 (0.0-0.1) 10^3/uL Abs Immat Gran (auto) 0.01 (0.00-0.03) 10^3/uL Imm/Tot Granulo (auto) 0.2 (0.0-0.5) % Sodium 138 (136-145) mmol/L Potassium 4.3 (3.5-5.1) mmol/L Chloride 104 (98-107) mmol/L Carbon Dioxide 24.6 (21.0-32.0) mmol/L Anion Gap 13.7 BUN 12.0 (7.0-18.0) mg/dL Creatinine 1.03 (0.70-1.30) mg/dL Est GFR ( Amer) >60 (>=60 mL/min/1.73m^2) Est GFR (Non-Af Amer) >60 (>=60 mL/min/1.73m^2) BUN/Creatinine Ratio 11.7 Glucose 116 H (74-106) mg/dL Calcium 8.4 L (8.5-10.1) mg/dL Total Bilirubin 0.8 (0.2-1.0) mg/dL AST 110 H (15-37) U/L ALT 122 H (16-63) U/L Alkaline Phosphatase 66 (46-116) U/L Total Protein 8.0 (6.4-8.2) g/dL Albumin 3.7 (3.4-5.0) g/dL Globulin 4.3 g/dL Albumin/Globulin Ratio 0.[address] scan - abdomen: Attestation: I personally reviewed and interpreted this imaging study as follows: ECG Data Attestation: I personally reviewed and interpreted this ECG as follows: Discharge Plan Discharge Chief Complaint: Abdominal Pain Clinical Impression: Abdominal pain Qualifiers: Abdominal location: left lower quadrant Qualified Code(s): R10.32 - Left lower quadrant pain Patient Disposition: Home, Self-Care Time of Disposition Decision: 11:28 Condition: Good Mode of Transportation: Private Vehicle Prescriptions / Home Meds: No Action losartan 25 mg tablet 25 mg PO DAILY gabapentin 600 mg tablet 600 mg PO Q8H meloxicam 15 mg tablet 15 mg PO DAILY PRN (Reason: pain) Qty: 10 0RF orphenadrine citrate 100 mg tablet extended release 100 mg PO BID PRN (Reason: muscle spasm) Qty: 10 0RF Print Language: Moroccan Instructions: Abdominal Pain (ED) Referrals: Nakul Patricio DO [Primary Care Provider] - 1 week Discharge Date/Time: 01/23/25 12:10
--- OUTSIDE RECORDS SUMMARY | 2025-01-23 10:47 | XMS_ITS | CCD ---
Author Organization [facility] Care Team Providers Care Sieve Grader Tender Name Role Phone August Unavailable Unavailable August Unavailable Unavailable Le, Sebastian K Attending Unavailable Candis, Sebastian K Admitting Unavailable Provider, None Primary Care Unavailable [facility] Primary Care Provider [phone] Vel Sevilla APRN Attending Provider Crystal Meehan MD Attending Provider Fibroscan, Temporary Attending Provider UnavailVel Nam APRN Referring Provider Nakul Patricio DO Unavailable [phone] Nakul Patricio DO Primary Care Provider [facility] Primary Care Provider Nakul Patricio DO Other Provider [phone] Enrike Fatima MD Attending Provider Nakul Patricio DO Attending Provider [phone] Liya Hill APRN Emergency Provider [facility] Primary Care Unavaila Liya Raymond Admitting Unavailable Liya Hill Attending Unavailable [facility] Primary Care Unavaila Nakul Thurman Admitting Unavailable Nakul Patricio Attending Unavailable [facility] Primary [...] Kincaid Attending Unavailable Vel Sevilla Admitting Unavailable [facility], Services Primary Care Unavaila ble Tomas Sanchez Admitting Unavailable Tomas Sanchez Attending Unavailable Vel Sevilla Referring Unavailable [facility] Services Primary Care Unavaila ble Asaad, Imad Admitting Unavailable Asaad, Imad Attending Unavailable [facility] Services Primary Care Unavaila ble Allergies Allergy Classification Reported Allergen(s) Allergy Type Date of Onset Reaction(s) Facility (1 source) NKDA/NO FOOD OR LATEX ALLERGIES; Translations: [NKDA/NO FOOD OR LATEX ALLERGIES] Propensity to adverse reactions (disorder) [facility] Repository (4 sources) Codeine; Translations: [codeine] Drug Allergy 1 Unknown [facility] Repository (1 source) opiates Allergy to substance 5 Unknown Reaction [facility] Comment on above: previous drug user Medications Current Medications Medication Drug Class(es) Dates Sig (Normalized) Sig (Original) [id number] 200 actuat albuterol 0.09 mg/actuat metered dose [...] therapy Start: 07-30-2024 take 1 capsule by [facility] three times daily losartan potassium 25 mg [...] ALT [Catalytic activity/Vol] 231 U/L High 7-52 [facility] Comment on above: Performed By: #### H BSAG, HCV RX PCR, HIVRNAPCR, HBCAB, HBSAB #### [facility] , #### CMP, PT, CBC #### [facility] [address] [place] [address] [place] Albumin [Mass/volume] in Ser um or Plasma by Bromocresol green (BCG) dye binding methoOrdered By: Liya Hill on 01-01-2025 Albumin BCG dye [Mass/Vol] 4.1 g/dL 3.5-5.7 [facility] Alkaline phosphatase [Enzyma tic activity/volume] in Serum or PlasmaOrdered By: Liya Hill on 01-01-2025 ALP [Catalytic activity/Vol] 63 U/L Normal 34-104 [facility] Comment on above: Performed By: #### H BSAG, HCV RX PCR, HIVRNAPCR, HBCAB, HBSAB #### [facility] , #### CMP, PT, CBC #### [facility] [address] [place] [address] [place] Amylase [Enzymatic activity/ volume] in Serum or PlasmaOrdered By: Liya Hill on 01-01-2025 Amylase [Catalytic activity/Vol] 45 U/L Normal 29-103 [facility] Comment on above: Performed By: #### H BSAG, HCV RX PCR, HIVRNAPCR, HBCAB, HBSAB #### [facility] , #### CMP, PT, CBC #### [facility] [address] [place] [address] Appearance of UrineOrdered B y: Liya Hill on 01-01-2025 Appearance (U) Clear Normal Clear [facility] Comment on above: Order Comment: Name Collection Type:: Clean-Voided Midstream Performed By: #### H BSAG, HCV RX PCR, HIVRNAPCR, HBCAB, HBSAB #### [facility] , #### CMP, PT, CBC #### [facility] [address] [place] [address] Aspartate aminotransferase [ Enzymatic activity/volume] in Serum or PlasmaOrdered By: Liya Hill on 01-01-2025 AST [Catalytic activity/Vol] 307 U/L High 13-39 [facility] Comment on above: Performed By: #### H BSAG, HCV RX PCR, HIVRNAPCR, HBCAB, HBSAB #### [facility] , #### CMP, PT, CBC #### [facility] [address] [place] [address] [place] Basophils [#/volume] in Bloo d by Automated countOrdered By: Liya Hill on 01-01-2025 Basophils (Bld) [#/Vol] 0.0 10*3/uL Normal 0.0-0.2 [facility] Comment on above: Result Comment: PERF ORMED BY: [place] [address] PATHOLOGIST DESKTOP ANALYST TAMEKA CALDERA M.D. Performed By: #### H BSAG, HCV RX PCR, HIVRNAPCR, HBCAB, HBSAB #### [facility] , #### CMP, PT, CBC #### [facility] [address] [place] [address] [place] Basophils/100 leukocytes in Blood by Automated countOrdered By: Liya Hill on 01-01-2025 Basophils/100 WBC (Bld) 0.2 % Normal . [facility] Comment on above: Performed By: #### H BSAG, HCV RX PCR, HIVRNAPCR, HBCAB, HBSAB #### [facility] , #### CMP, PT, CBC #### [facility] [address] [place] [address] Bilirubin Test strip Ql (U)O rdered By: Liya Hill on 01-01-2025 Bilirubin Ql (U) Negative Negative [facility] Bilirubin.total [Mass/volume ] in Serum or PlasmaOrdered By: Liya Hill on 01-01-2025 Bilirubin [Mass/Vol] 0.7 mg/dL Normal 0.3-1.0 [facility] Comment on above: Performed By: #### H BSAG, HCV RX PCR, HIVRNAPCR, HBCAB, HBSAB #### [facility] , #### CMP, PT, CBC #### [facility] [address] [place] [address] CT abdomen pelvis w conon CT abdomen pelvis w con [facility] Main [place] [address] [place] [address] CT Scan Report Signed Patient: Jeffry Aguilar MR#: [id number] : 1975 Acct:[id number] Age/Sex: 49 / M ADM Date: 01/01/25 Loc: ER Room: Type: [facility] Attending Dr: Copies to: Liya Hill APRN [...] Jr., Ronit 01/01/2025 1:51 PM Dictation Location: [place] [address] Transcribed By: [facility] 01/01/25 1351 Dictated By: Rufus Cruz Jr, DO 01/01/25 1348 Signed By: 01/01/25 1351 Normal [facility] Calcium [Mass/volume] in Ser um or PlasmaOrdered By: Liya Hill on 01-01-2025 Calcium [Mass/Vol] 8.8 mg/dL Normal 8.6-10.3 [facility] Comment on above: Performed By: #### H BSAG, HCV RX PCR, HIVRNAPCR, HBCAB, HBSAB #### [facility] , #### CMP, PT, CBC #### [facility] [address] [place] [address] [place] Carbon dioxide, total [Moles /volume] in Serum or PlasmaOrdered By: Liya Hill on 01-01-2025 CO2 [Moles/Vol] 20.8 mmol/L Low 21.0-31.0 [facility] Comment on above: Performed By: #### H BSAG, HCV RX PCR, HIVRNAPCR, HBCAB, HBSAB #### [facility] , #### CMP, PT, CBC #### [facility] [address] [place] [address] [place] Chloride [Moles/volume] in S charu or PlasmaOrdered By: Liya Hill on 01-01-2025 Chloride [Moles/Vol] 107 mmol/L Normal 98-107 [facility] Comment on above: Performed By: #### H BSAG, HCV RX PCR, HIVRNAPCR, HBCAB, HBSAB #### [facility] , #### CMP, PT, CBC #### [address] Color of Urine by AutoOrdere d By: Liya Hill on 01-01-2025 Color (U) Yellow Normal Yellow [facility] Comment on above: Order Comment: Name Collection Type:: Clean-Voided Midstream Performed By: #### H BSAG, HCV RX PCR, HIVRNAPCR, HBCAB, HBSAB #### [facility] , #### CMP, PT, CBC #### [address] Complete Blood Count Auto Di ffon 01-01-2025 Mean Corpuscular HGB Conc 34.8 g/dL Normal 32.5-35.6 [facility] Comment on above: Performed By: #### H BSAG, HCV RX PCR, HIVRNAPCR, HBCAB, HBSAB #### [facility] , #### CMP, PT, CBC #### [place] [address] [place] Monocytes/100 WBC (Bld) 19.73 % Normal 0.00-20.00 [facility] Comment on above: Performed By: #### H BSAG, HCV RX PCR, HIVRNAPCR, HBCAB, HBSAB #### [facility] , #### CMP, PT, CBC #### [facility] [address] [place] [address] [place] NRBC% 0.3 /100{WBC} Normal 0-0.5 [facility] Comment on above: Performed By: #### H BSAG, HCV RX PCR, HIVRNAPCR, HBCAB, HBSAB #### [facility] , #### CMP, PT, CBC #### [address] White Blood Count 4.5 [CFU]/mL Normal 4.1-10.5 [facility] Comment on above: Performed By: #### H BSAG, HCV RX PCR, HIVRNAPCR, HBCAB, HBSAB #### [facility] , #### CMP, PT, CBC #### [facility] [address] [place] [address] Comprehensive Metabolic Pane jolene 01-01-2025 Albumin [Mass/Vol] 4.1 g/dL Normal 3.5-5.7 [facility] Comment on above: Performed By: #### H BSAG, HCV RX PCR, HIVRNAPCR, HBCAB, HBSAB #### [facility] , #### CMP, PT, CBC #### [facility] [address] [place] [address] Creatinine Clr Calc Pharmacy 120.47 Normal [facility] Comment on above: Performed By: #### H BSAG, HCV RX PCR, HIVRNAPCR, HBCAB, HBSAB #### [facility] , #### CMP, PT, CBC #### [facility] [address] [place] [address] GFR/1.73 sq M.predicted MDRD (S/P/Bld) [Vol rate/Area] mL/min/{1.73_m2} Normal [facility] Comment on above: Performed By: #### H BSAG, HCV RX PCR, HIVRNAPCR, HBCAB, HBSAB #### [facility] , #### CMP, PT, CBC #### [facility] [address] [place] [address] Creatinine [Mass/volume] in Serum or PlasmaOrdered By: Liya Hill on 01-01-2025 Creatinine [Mass/Vol] 0.96 mg/dL Normal 0.70-1.[address] [facility] Comment on above: Performed By: #### H BSAG, HCV RX PCR, HIVRNAPCR, HBCAB, HBSAB #### [facility] , #### CMP, PT, CBC #### [facility] [address] [place] [address] D-Dimer High Sensitivityon 0 01-01-2025 D-Dimer High Sensitivity <200 Normal 0-243 [facility] Comment on above: Result [...] coagulation studies. Please contact the laboratory at [phone] for redraw instructions. PERFORMED BY: [place] [address] PATHOLOGIST DESKTOP ANALYST TAMEKA CALDERA M.D. Performed By: #### H BSAG, HCV RX PCR, HIVRNAPCR, HBCAB, HBSAB #### [facility] , #### CMP, PT, CBC #### [place] [id number] [facility] ECG 12 lead ECGon 01-01-2025 ECG 12 lead ECG [facility] [address] Electrocardiograph Report Signed Patient: Jeffry Aguilar MR#: [id number] : 1975 Acct:[id number] Age/Sex: 49 / M ADM Date: 01/01/25 Loc: ER Room: Type: [facility] ER Attending Dr: Ordering Provider: Liya Hill [...] 4:09:48 PM Referred By: Electronically Signed By: SHAEN GONZALEZ DO Transcribed By: MUS Signed By Shane Gonzalez DO 1609 Normal [facility] Eosinophils [#/volume] in Bl ood by Automated countOrdered By: Liya Hill on 01-01-2025 Eosinophils (Bld) [#/Vol] 0.0 10*3/uL Normal 0.0-0.45 [facility] Comment on above: Performed By: #### H BSAG, HCV RX PCR, HIVRNAPCR, HBCAB, HBSAB #### [facility] , #### CMP, PT, CBC #### [facility] [address] [place] [address] [place] Eosinophils/100 leukocytes i n Blood by Automated countOrdered By: Liya Hill on 01-01-2025 Eosinophils/100 WBC (Bld) 0.6 % Normal . [facility] Comment on above: Performed By: #### H BSAG, HCV RX PCR, HIVRNAPCR, HBCAB, HBSAB #### [facility] , #### CMP, PT, CBC #### [facility] [address] [place] [address] Erythrocyte distribution wid th [Ratio] by Automated countOrdered By: Liya Hill on 01-01-2025 Erythrocyte distribution width (RBC) [Ratio] 13.8 % Normal 12.0-14.8 [facility] Comment on above: Performed By: #### H BSAG, HCV RX PCR, HIVRNAPCR, HBCAB, HBSAB #### [facility] , #### CMP, PT, CBC #### [facility] [address] [place] [address] [place] Erythrocytes [#/volume] in B lood by Automated countOrdered By: Liya Hill on 01-01-2025 RBC (Bld) [#/Vol] 5.22 10*6/uL Normal 3.90-5.60 [facility] Comment on above: Performed By: #### H BSAG, HCV RX PCR, HIVRNAPCR, HBCAB, HBSAB #### [facility] , #### CMP, PT, CBC #### [facility] [address] Fibrin D-dimer [Presence] in Platelet poor plasma by Latex agglutinationOrdered By: Liya Hill on 01-01-2025 Fibrin D-dimer LA Ql (PPP) < 200 ng/mL 0-243 [facility] Comment on above: The reference range for [...] coagulation studies. Please contact the laboratory at [phone] for redraw instructions. Glucose [Mass/volume] in Ser um or PlasmaOrdered By: Liya Hill on 01-01-2025 Glucose [Mass/Vol] 90 mg/dL Normal 70-100 [facility] Comment on above: ADA recommended refe rence rangeRandom Glucose Reference Range is dependent on time and content of last meal. Glucose of more than 200 mg/dL in a nonstressed, ambulatory subject supports the diagnosis of Diabetes Mellitus. Result Comment: [place] om Glucose Reference Range is dependent on time and content of last meal. Glucose of more than 200 mg/dL in a nonstressed, ambulatory subject supports the diagnosis of Diabetes Mellitus. ADA recommended reference range Performed By: #### H BSAG, HCV RX PCR, HIVRNAPCR, HBCAB, HBSAB #### [facility] , #### CMP, PT, CBC #### [facility] [address] [place] [address] Glucose [Mass/volume] in Uri ne by Test stripOrdered By: Liya Hill on 01-01-2025 Glucose Test strip (U) [Mass/Vol] Normal mg/dL Normal [facility] Hematocrit [Volume Fraction] of Blood by Automated countOrdered By: Liya Hill on 01-01-2025 Hematocrit (Bld) [Volume fraction] 50.6 % High 38.8-50.0 [facility] Comment on above: Performed By: #### H BSAG, HCV RX PCR, HIVRNAPCR, HBCAB, HBSAB #### [facility] , #### CMP, PT, CBC #### [address] Hemoglobin Test strip Ql (U) Ordered By: Liya Hill on 01-01-2025 Hemoglobin Ql (U) Negative Negative [facility] Hemoglobin [Mass/volume] in BloodOrdered By: Liya Hill on 01-01-2025 Hemoglobin (Bld) [Mass/Vol] 17.6 g/dL High 13.0-17.0 [facility] Comment on above: Performed By: #### H BSAG, HCV RX PCR, HIVRNAPCR, HBCAB, HBSAB #### [facility] , #### CMP, PT, CBC #### [facility] [address] [place] [address] INR in Platelet poor plasma by Coagulation assayOrdered By: Liya Hill on 01-01-2025 INR Coag (PPP) [Relative time] 1.1 {INR} Normal [facility] Comment on above: INR Therapeutic Rang e [...] [facility] , #### CMP, PT, CBC #### [facility] [address] [place] [address] [place] Ketones [Presence] in Urine by Test stripOrdered By: Liya Hill on 01-01-2025 Ketones Ql (U) Negative Normal Negative [facility] Comment on above: Order Comment: Name Collection Type:: Clean-Voided Midstream Performed By: #### H BSAG, HCV RX PCR, HIVRNAPCR, HBCAB, HBSAB #### [facility] , #### CMP, PT, CBC #### [facility] [address] [place] [address] [place] Leukocyte esterase [Presence ] in Urine by Test stripOrdered By: Liya Hill on 01-01-2025 Leukocyte esterase Test strip Ql (U) Negative Normal Negative [facility] Comment on above: Order Comment: Name Collection Type:: Clean-Voided Midstream Performed By: #### H BSAG, HCV RX PCR, HIVRNAPCR, HBCAB, HBSAB #### [facility] , #### CMP, PT, CBC #### [facility] [address] [place] [address] [place] Leukocytes [#/volume] correc verónica for nucleated erythrocytes in Blood by Automated counOrdered By: Liya Hill on 01-01-2025 WBC corrected for nucl RBC Auto (Bld) [#/Vol] 4.5 10*3/uL 4.1-10.5 [facility] Leukocytes [#/volume] in Blo od by Automated countOrdered By: Liya Hill on 01-01-2025 WBC (Bld) [#/Vol] 4.5 10*3/uL Normal 4.1-10.5 [facility] Comment on above: Performed By: #### H BSAG, HCV RX PCR, HIVRNAPCR, HBCAB, HBSAB #### [facility] , #### CMP, PT, CBC #### [address] Lipase [Enzymatic activity/v olume] in Serum or PlasmaOrdered By: Liya Hill on 01-01-2025 Lipase [Catalytic activity/Vol] 166.0 U/L High 11.0-82.0 [facility] Comment on above: Result Comment: PERF ORMED BY: [place] [address] PATHOLOGIST DESKTOP ANALYST TAMEKA CALDERA M.D. Performed By: #### H BSAG, HCV RX PCR, HIVRNAPCR, HBCAB, HBSAB #### [facility] , #### CMP, PT, CBC #### [place] [address] [place] Lymphocytes [#/volume] in Bl ood by Automated countOrdered By: Liya Hill on 01-01-2025 Lymphocytes (Bld) [#/Vol] 2.1 10*3/uL Normal 1.00-4.8 [facility] Comment on above: Performed By: #### H BSAG, HCV RX PCR, HIVRNAPCR, HBCAB, HBSAB #### [facility] , #### CMP, PT, CBC #### [place] [address] [place] Lymphocytes/100 leukocytes i n Blood by Automated countOrdered By: Liya Hill on 01-01-2025 Lymphocytes/100 WBC (Bld) 46.3 % Normal . [facility] Comment on above: Performed By: #### H BSAG, HCV RX PCR, HIVRNAPCR, HBCAB, HBSAB #### [facility] , #### CMP, PT, CBC #### [address] [place] [address] [place] MCH [Entitic mass] by Automa verónica countOrdered By: Liya Hill on 01-01-2025 MCH (RBC) [Entitic mass] 33.7 pg Normal 27.5-35.2 [facility] Comment on above: Performed By: #### H BSAG, HCV RX PCR, HIVRNAPCR, HBCAB, HBSAB #### [facility] , #### CMP, PT, CBC #### [facility] [address] [place] [address] MCHC Auto (RBC) [Mass/Vol]Or dered By: Liya Hill on 01-01-2025 MCHC (RBC) [Mass/Vol] 34.8 g/dL 32.5-35.[address] [facility] MCV [Entitic volume] by Auto mated countOrdered By: Liya Hill on 01-01-2025 MCV (RBC) [Entitic vol] 96.9 fL Normal 83.5-101 [facility] Comment on above: Performed By: #### H BSAG, HCV RX PCR, HIVRNAPCR, HBCAB, HBSAB #### [facility] , #### CMP, PT, CBC #### [facility] [address] [place] [address] Magnesium [Mass/volume] in S charu or PlasmaOrdered By: Liya Hill on 01-01-2025 Magnesium [Mass/Vol] 2.0 mg/dL Normal 1.9-2.7 [facility] Comment on above: Performed By: #### H BSAG, HCV RX PCR, HIVRNAPCR, HBCAB, HBSAB #### [facility] , #### CMP, PT, CBC #### [facility] [address] [place] [address] Monocyte distribution width [Entitic volume] in Blood by AutomatedOrdered By: Liya Hill on 01-01-2025 Monocyte distribution width Auto (Bld) [Entitic vol] 19.73 % 0.00-20.00 [facility] Monocytes [#/volume] in Bloo d by Automated countOrdered By: Liya Hill on 01-01-2025 Monocytes (Bld) [#/Vol] 0.3 10*3/uL Normal 0.0-0.8 [facility] Comment on above: Performed By: #### H BSAG, HCV RX PCR, HIVRNAPCR, HBCAB, HBSAB #### [facility] , #### CMP, PT, CBC #### [place] [address] [place] Monocytes/100 leukocytes in Blood by Automated countOrdered By: Liya Hill on 01-01-2025 Monocytes/100 WBC (Bld) 7.1 % Normal . [facility] Comment on above: Performed By: #### H BSAG, HCV RX PCR, HIVRNAPCR, HBCAB, HBSAB #### [facility] , #### CMP, PT, CBC #### [place] [address] [place] Neutrophils [#/volume] in Bl ood by Automated countOrdered By: Liya Hill on 01-01-2025 Neutrophils (Bld) [#/Vol] 2.1 10*3/uL Normal 1.8-7.7 [facility] Comment on above: Performed By: #### H BSAG, HCV RX PCR, HIVRNAPCR, HBCAB, HBSAB #### [facility] , #### CMP, PT, CBC #### [place] [address] [place] Neutrophils/100 leukocytes i n Blood by Automated countOrdered By: Liya Hill on 01-01-2025 Neutrophils/100 WBC (Bld) 45.8 % Normal . [facility] Comment on above: Performed By: #### H BSAG, HCV RX PCR, HIVRNAPCR, HBCAB, HBSAB #### [facility] , #### CMP, PT, CBC #### [address] Nitrite Test strip Ql (U)Ord ered By: Liya Hill on 01-01-2025 Nitrite Ql (U) Negative Negative [facility] No Panel InformationOrdered By: Liya Hill on 01-01-2025 Estimated GFR (CKD-EPI) > 60.0 mL/Min [facility] Creatinine Clearance (Chem 120.47 [facility] Nucleated erythrocytes [Pres ence] in Blood by Automated countOrdered By: Liya Hill on 01-01-2025 Nucleated RBC Auto Ql (Bld) 0.3 /100{WBC} 0-0.5 [facility] Platelet mean volume [Entiti c volume] in Blood by Automated countOrdered By: Liya Hill on 01-01-2025 Platelet mean volume (Bld) [Entitic vol] 10.9 fL High 6.6-10.1 [facility] Comment on above: Performed By: #### H BSAG, HCV RX PCR, HIVRNAPCR, HBCAB, HBSAB #### [facility] , #### CMP, PT, CBC #### [facility] [address] Platelets [#/volume] in Bloo d by Automated countOrdered By: Liya Hill on 01-01-2025 Platelets (Bld) [#/Vol] 118 10*3/uL Low 150-450 [facility] Comment on above: Performed By: #### H BSAG, HCV RX PCR, HIVRNAPCR, HBCAB, HBSAB #### [facility] , #### CMP, PT, CBC #### [facility] [address] Potassium [Moles/volume] in Serum or PlasmaOrdered By: Liya Hill on 01-01-2025 Potassium [Moles/Vol] 4.0 mmol/L Normal 3.5-5.[address] [facility] Comment on above: Hemolysis is present at a level that could interfere with the result.Contact lab if redraw is required Result Comment: Hemo lysis is present at a level that could interfere with the result. Contact lab if redraw is required Performed By: #### H BSAG, HCV RX PCR, HIVRNAPCR, HBCAB, HBSAB #### [facility] , #### CMP, PT, CBC #### [facility] [address] Protein Test strip (U) [Mass /Vol]Ordered By: Liya Hill on 01-01-2025 Protein (U) [Mass/Vol] Negative Negative [facility] Protein [Mass/volume] in Ser um or PlasmaOrdered By: Liya Hill on 01-01-2025 Protein [Mass/Vol] 7.8 g/dL Normal 6.4-8.9 [facility] Comment on above: Performed By: #### H BSAG, HCV RX PCR, HIVRNAPCR, HBCAB, HBSAB #### [facility] , #### CMP, PT, CBC #### [address] Prothrombin time (PT)Ordered By: Liya Hill on 01-01-2025 PT Coag (PPP) [Time] 13.0 s High 9.0-12.9 [facility] Comment on above: A hematocrit value g reater than 55% may lead to inaccurate results in coagulation testing. Patients having hematocrit values >55% require a special collection tube for coagulation studies. Please contact the laboratory at [phone] for redraw instructions. Result Comment: A he matocrit value greater than 55% may lead to inaccurate results in coagulation testing. Patients having hematocrit values >55% require a special collection tube for coagulation studies. Please contact the laboratory at [phone] for redraw instructions. Performed By: #### H BSAG, HCV RX PCR, HIVRNAPCR, HBCAB, HBSAB #### [facility] , #### CMP, PT, CBC #### [address] Serum globulin measurement b y calculation (mass/volume)Ordered By: Liya Hill on 01-01-2025 Globulin (S) [Mass/Vol] 3.7 g/dL Normal [facility] Comment on above: Performed By: #### H BSAG, HCV RX PCR, HIVRNAPCR, HBCAB, HBSAB #### [facility] , #### CMP, PT, CBC #### [address] Serum or plasma albumin/glob ulin mass ratioOrdered By: Liya Hill on 01-01-2025 Albumin/Globulin [Mass ratio] 1.1 {ratio} Normal [facility] Comment on above: Performed By: #### H BSAG, HCV RX PCR, HIVRNAPCR, HBCAB, HBSAB #### [facility] , #### CMP, PT, CBC #### [facility] [address] [place] [address] Serum or plasma anion gap de terminationOrdered By: Liya Hill on 01-01-2025 Anion gap [Moles/Vol] 11.2 mmol/L Normal 6.0-15.0 [facility] Comment on above: Performed By: #### H BSAG, HCV RX PCR, HIVRNAPCR, HBCAB, HBSAB #### [facility] , #### CMP, PT, CBC #### [address] Sodium [Moles/volume] in Ser um or PlasmaOrdered By: Liya Hill on 01-01-2025 Sodium [Moles/Vol] 135 mmol/L Low 136-145 [facility] Comment on above: Performed By: #### H BSAG, HCV RX PCR, HIVRNAPCR, HBCAB, HBSAB #### [facility] , #### CMP, PT, CBC #### [facility] [address] [place] [address] Specific gravity Test strip (U) [Rel density]Ordered By: Liya Hill on 01-01-2025 Specific gravity (U) [Rel density] 1.013 1.001-1.03 0 [facility] Troponin I High Sensitivityo n 01-01-2025 Troponin I High Sensitivity 7 Normal 0-20 [facility] Comment on above: Result Comment: The Troponin units of report have been changed to meet the Chest Pain Accreditation requirement, element EC5.M1l2. Troponin units are changed from pg/ml to ng/L. Also, the decimal is removed and results are in whole numbers. PERFORMED BY: [place] [address] PATHOLOGIST DESKTOP ANALYST TAMEKA CALDERA M.D. Performed By: #### H BSAG, HCV RX PCR, HIVRNAPCR, HBCAB, HBSAB #### [facility] , #### CMP, PT, CBC #### [facility] [address] [place] [address] Troponin I High Sensitivity 6 Normal 0-20 [facility] Comment on above: Result Comment: The Troponin units of report have been changed to meet the Chest Pain Accreditation requirement, element EC5.M1l2. Troponin units are changed from pg/ml to ng/L. Also, the decimal is removed and results are in whole numbers. PERFORMED BY: [place] [address] PATHOLOGIST DESKTOP ANALYST TAMEKA CALDERA M.D. Performed By: #### H BSAG, HCV RX PCR, HIVRNAPCR, HBCAB, HBSAB #### [facility] , #### CMP, PT, CBC #### [facility] [address] [place] [address] [place] Troponin I.cardiac [Mass/vol ume] in Serum or Plasma by Detection limit <= 0.01 ng/mLOrdered By: Liya Hill on 01-01-2025 Troponin I.cardiac DL <= 0.01 ng/mL [Mass/Vol] 7 ng/L 0-20 [facility] Comment on above: The Troponin units o f report have been changed to meet the Chest Pain Accreditation requirement, element EC5.M1l2. Troponin units are changed from pg/ml to ng/L. Also, the decimal is removed and results are in whole numbers. Urea nitrogen [Mass/volume] in Serum or PlasmaOrdered By: Liya Hill on 01-01-2025 Urea nitrogen [Mass/Vol] 9 mg/dL Normal 7-25 [facility] Comment on above: Performed By: #### H BSAG, HCV RX PCR, HIVRNAPCR, HBCAB, HBSAB #### [facility] , #### CMP, PT, CBC #### [address] Urinalysison 01-01-2025 Bilirubin,Urine Negative Normal Negative [facility] Comment on above: Order Comment: Name Collection Type:: Clean-Voided Midstream Performed By: #### H BSAG, HCV RX PCR, HIVRNAPCR, HBCAB, HBSAB #### [facility] , #### CMP, PT, CBC #### [facility] [address] [place] [address] Glucose Ql (U) Normal Normal Normal [facility] Comment on above: Order Comment: Name Collection Type:: Clean-Voided Midstream Performed By: #### H BSAG, HCV RX PCR, HIVRNAPCR, HBCAB, HBSAB #### [facility] , #### CMP, PT, CBC #### [facility] [address] [place] [address] Nitrite,Urine Negative Normal Negative [facility] Comment on above: Order Comment: Name Collection Type:: Clean-Voided Midstream Performed By: #### H BSAG, HCV RX PCR, HIVRNAPCR, HBCAB, HBSAB #### [facility] , #### CMP, PT, CBC #### [facility] [address] [place] [address] Occult Blood,Urine Negative Normal Negative [facility] Comment on above: Order Comment: Name Collection Type:: Clean-Voided Midstream Result Comment: PERF ORMED BY: [place] [address] PATHOLOGIST DESKTOP ANALYST TAMEKA CALDERA M.D. Performed By: #### H BSAG, HCV RX PCR, HIVRNAPCR, HBCAB, HBSAB #### [facility] , #### CMP, PT, CBC #### [address] Protein,Urine Negative Normal Negative [facility] Comment on above: Order Comment: Name Collection Type:: Clean-Voided Midstream Performed By: #### H BSAG, HCV RX PCR, HIVRNAPCR, HBCAB, HBSAB #### [facility] , #### CMP, PT, CBC #### [address] Specificy [place],Urine 1.013 Normal 1.001-1.03 0 [facility] Comment on above: Order Comment: Name Collection Type:: Clean-Voided Midstream Performed By: #### H BSAG, HCV RX PCR, HIVRNAPCR, HBCAB, HBSAB #### [facility] , #### CMP, PT, CBC #### [address] Urobilinogen,Urine Normal Normal Normal [facility] Comment on above: Order Comment: Name Collection Type:: Clean-Voided Midstream Performed By: #### H BSAG, HCV RX PCR, HIVRNAPCR, HBCAB, HBSAB #### [facility] , #### CMP, PT, CBC #### [address] Urobilinogen Test strip (U) [Mass/Vol]Ordered By: Liya Hill on 01-01-2025 Urobilinogen (U) [Mass/Vol] Normal mg/dL Normal [facility] X-ray reportOrdered By: José Luis Cruz on 01-01-2025 Study report [facility] [place] [address] XRay Report Signed Patient: Jeffry Aguilar MR#: [id number] : 1975 Acct:[id number] Age/Sex: 49 / M ADM Date: 5 Loc: ER Room: Type: [facility] ER Attending Dr: Copies to: Liya Hill [...] DO 01/01/25 135 Signed By: 01/01/25 1352 [facility] XR chest 2V*on 01-01-2025 XR chest 2V* [facility] [place] [address] XRay Report Signed Patient: Jeffry Aguilar MR#: [id number] : 1975 Acct:[id number] Age/Sex: 49 / M ADM Date: 01/01/25 Loc: ER Room: Type: [facility] ER Attending Dr: Copies to: Liya Hill [...] 01/01/25 1351 Signed By: 01/01/25 1352 Normal [facility] pH of Urine by Test stripOrd ered By: Liya Hill on 01-01-2025 pH (U) 6.0 [pH] Normal 5.0-9.0 [facility] Comment on above: Order Comment: Name Collection Type:: Clean-Voided Midstream Performed By: #### H BSAG, HCV RX PCR, HIVRNAPCR, HBCAB, HBSAB #### [facility] , #### CMP, PT, CBC #### [facility] [address] CNPJudi 12-24-2024 CNPN Telephone (RHEULN) JEFFRY AGUILAR ([id number]) 1975 M Date Time Provider Department 12/24/24 [...] 10:00 AM Signed Pt has not read [employer] messages please follow up with patient for [...] Status:Closed by CARLEEN SUERO on 01/02/25 Normal [facility] Alanine aminotransferase [En zymatic activity/volume] in Serum or PlasmaOrdered By: Nakul Patricio on 12-15-2024 ALT [Catalytic activity/Vol] 277 U/L High 7-52 [facility] Comment on above: Order Comment: Reaso n for Exam Myalgia Performed By: #### H BSAG, HCV RX PCR, HIVRNAPCR, HBCAB, HBSAB #### [facility] , #### CMP, PT, CBC #### [facility] [address] [place] [address] [place] Albumin [Mass/volume] in Ser um or Plasma by Bromocresol green (BCG) dye binding methoOrdered By: Nakul Patricio on 12-15-2024 Albumin BCG dye [Mass/Vol] 4.1 g/dL 3.5-5.7 [facility] Alkaline phosphatase [Enzyma tic activity/volume] in Serum or PlasmaOrdered By: Nakul Patricio on 12-15-2024 ALP [Catalytic activity/Vol] 58 U/L Normal 34-104 [facility] Comment on above: Order Comment: Reaso n for Exam Myalgia Performed By: #### H BSAG, HCV RX PCR, HIVRNAPCR, HBCAB, HBSAB #### [facility] , #### CMP, PT, CBC #### [facility] [address] [place] [address] [place] Aspartate aminotransferase [ Enzymatic activity/volume] in Serum or PlasmaOrdered By: Nakul Patricio on 12-15-2024 AST [Catalytic activity/Vol] 264 U/L High 13-39 [facility] Comment on above: Order Comment: Reaso n for Exam Myalgia Performed By: #### H BSAG, HCV RX PCR, HIVRNAPCR, HBCAB, HBSAB #### [facility] , #### CMP, PT, CBC #### [facility] [address] Bilirubin.total [Mass/volume ] in Serum or PlasmaOrdered By: Nakul Patricio on 12-15-2024 Bilirubin [Mass/Vol] 0.9 mg/dL Normal 0.3-1.0 [facility] Comment on above: Order Comment: Reaso n for Exam Myalgia Performed By: #### H BSAG, HCV RX PCR, HIVRNAPCR, HBCAB, HBSAB #### [facility] , #### CMP, PT, CBC #### [facility] [address] [place] [address] Calcium [Mass/volume] in Ser um or PlasmaOrdered By: Nakul Patricio on 12-15-2024 Calcium [Mass/Vol] 9.2 mg/dL Normal 8.6-10.3 [facility] Comment on above: Order Comment: Reaso n for Exam Myalgia Performed By: #### H BSAG, HCV RX PCR, HIVRNAPCR, HBCAB, HBSAB #### [facility] , #### CMP, PT, CBC #### [facility] [address] [place] [address] Carbon dioxide, total [Moles /volume] in Serum or PlasmaOrdered By: Nakul Patricio on 12-15-2024 CO2 [Moles/Vol] 26.9 mmol/L Normal 21.0-31.0 [facility] Comment on above: Order Comment: Reaso n for Exam Myalgia Performed By: #### H BSAG, HCV RX PCR, HIVRNAPCR, HBCAB, HBSAB #### [facility] , #### CMP, PT, CBC #### [facility] [address] [place] [address] [place] Chloride [Moles/volume] in S charu or PlasmaOrdered By: Nakul Patricio on 12-15-2024 Chloride [Moles/Vol] 109 mmol/L High 98-107 [facility] Comment on above: Order Comment: Reaso n for Exam Myalgia Performed By: #### H BSAG, HCV RX PCR, HIVRNAPCR, HBCAB, HBSAB #### [facility] , #### CMP, PT, CBC #### [facility] [address] Comprehensive Metabolic Pane jolene 12-15-2024 Albumin [Mass/Vol] 4.1 g/dL Normal 3.5-5.7 [facility] Comment on above: Order Comment: Reaso n for Exam Myalgia Performed By: #### H BSAG, HCV RX PCR, HIVRNAPCR, HBCAB, HBSAB #### [facility] , #### CMP, PT, CBC #### [facility] [address] GFR/1.73 sq M.predicted MDRD (S/P/Bld) [Vol rate/Area] mL/min/{1.73_m2} Normal [facility] Comment on above: Order Comment: Reaso n for Exam Myalgia Performed By: #### H BSAG, HCV RX PCR, HIVRNAPCR, HBCAB, HBSAB #### [facility] , #### CMP, PT, CBC #### [facility] [address] Creatine kinase [Enzymatic a ctivity/volume] in Serum or PlasmaOrdered By: Nakul Patricio on 12-15-2024 CK [Catalytic activity/Vol] 179 U/L Normal 30-223 [facility] Comment on above: Order Comment: Reaso n for Exam Myalgia Result Comment: PERF ORMED BY: [place] [address] PATHOLOGIST DESKTOP ANALYST TAMEKA CALDERA M.D. Performed By: #### H BSAG, HCV RX PCR, HIVRNAPCR, HBCAB, HBSAB #### [facility] , #### CMP, PT, CBC #### [facility] [address] Creatinine [Mass/volume] in Serum or PlasmaOrdered By: Naukl Patricio on 12-15-2024 Creatinine [Mass/Vol] 0.90 mg/dL Normal 0.70-1.[address] [facility] Comment on above: Order Comment: Reaso n for Exam Myalgia Performed By: #### H BSAG, HCV RX PCR, HIVRNAPCR, HBCAB, HBSAB #### [facility] , #### CMP, PT, CBC #### [facility] [address] Glucose [Mass/volume] in Ser um or PlasmaOrdered By: Nakul Patricio on 12-15-2024 Glucose [Mass/Vol] 96 mg/dL Normal 70-100 [facility] Comment on above: ADA recommended refe rence rangeRandom Glucose Reference Range is dependent on time and content of last meal. Glucose of more than 200 mg/dL in a nonstressed, ambulatory subject supports the diagnosis of Diabetes Mellitus. Order Comment: Reaso n for Exam Myalgia Result Comment: [place] om Glucose Reference Range is dependent on time and content of last meal. Glucose of more than 200 mg/dL in a nonstressed, ambulatory subject supports the diagnosis of Diabetes Mellitus. ADA recommended reference range Performed By: #### H BSAG, HCV RX PCR, HIVRNAPCR, HBCAB, HBSAB #### [facility] , #### CMP, PT, CBC #### [facility] [address] [place] [address] [place] Magnesium [Mass/volume] in S charu or PlasmaOrdered By: Nakul Patricio on 12-15-2024 Magnesium [Mass/Vol] 2.1 mg/dL Normal 1.9-2.7 [facility] Comment on above: Order Comment: Reaso n for Exam Myalgia Result Comment: PERF ORMED BY: [place] [address] PATHOLOGIST DESKTOP ANALYST TAMEKA CALDERA M.D. Performed By: #### H BSAG, HCV RX PCR, HIVRNAPCR, HBCAB, HBSAB #### [facility] , #### CMP, PT, CBC #### [facility] [address] [place] [address] No Panel InformationOrdered By: Nakul Patricio on 12-15-2024 Estimated GFR (CKD-EPI) > 60.0 mL/Min [facility] Creatinine Clearance (Chem N/A [facility] Potassium [Moles/volume] in Serum or PlasmaOrdered By: Nakul Patricio on 12-15-2024 Potassium [Moles/Vol] 4.4 mmol/L Normal 3.5-5.[address] [facility] Comment on above: Order Comment: Reaso n for Exam Myalgia Performed By: #### H BSAG, HCV RX PCR, HIVRNAPCR, HBCAB, HBSAB #### [facility] , #### CMP, PT, CBC #### [facility] [address] [place] [address] Protein [Mass/volume] in Ser um or PlasmaOrdered By: Nakul Patricio on 12-15-2024 Protein [Mass/Vol] 7.3 g/dL Normal 6.4-8.9 [facility] Comment on above: Order Comment: Reaso n for Exam Myalgia Performed By: #### H BSAG, HCV RX PCR, HIVRNAPCR, HBCAB, HBSAB #### [facility] , #### CMP, PT, CBC #### [facility] [address] [place] [address] Serum globulin measurement b y calculation (mass/volume)Ordered By: Nakul Patricio on 12-15-2024 Globulin (S) [Mass/Vol] 3.2 g/dL Normal [facility] Comment on above: Order Comment: Reaso n for Exam Myalgia Performed By: #### H BSAG, HCV RX PCR, HIVRNAPCR, HBCAB, HBSAB #### [facility] , #### CMP, PT, CBC #### [facility] [address] [place] [address] Serum or plasma albumin/glob ulin mass ratioOrdered By: Nakul Patricio on 12-15-2024 Albumin/Globulin [Mass ratio] 1.3 {ratio} Normal [facility] Comment on above: Order Comment: Reaso n for Exam Myalgia Performed By: #### H BSAG, HCV RX PCR, HIVRNAPCR, HBCAB, HBSAB #### [facility] , #### CMP, PT, CBC #### [facility] [address] Serum or plasma anion gap de terminationOrdered By: Nakul Patricio on 12-15-2024 Anion gap [Moles/Vol] 9.5 mmol/L Normal 6.0-15.[address] [facility] Comment on above: Order Comment: Reaso n for Exam Myalgia Performed By: #### H BSAG, HCV RX PCR, HIVRNAPCR, HBCAB, HBSAB #### [facility] , #### CMP, PT, CBC #### [facility] [address] [place] [address] Sodium [Moles/volume] in Ser um or PlasmaOrdered By: Nakul Patricio on 12-15-2024 Sodium [Moles/Vol] 141 mmol/L Normal 136-145 [facility] Comment on above: Order Comment: Reaso n for Exam Myalgia Performed By: #### H BSAG, HCV RX PCR, HIVRNAPCR, HBCAB, HBSAB #### [facility] , #### CMP, PT, CBC #### [facility] [address] Urea nitrogen [Mass/volume] in Serum or PlasmaOrdered By: Nakul Patricio on 12-15-2024 Urea nitrogen [Mass/Vol] 14 mg/dL Normal 7-25 [facility] Comment on above: Order Comment: Reaso n for Exam Myalgia Performed By: #### H BSAG, HCV RX PCR, HIVRNAPCR, HBCAB, HBSAB #### [facility] , #### CMP, PT, CBC #### [facility] [address] [place] [id number] [place] XR chest 2V*on 12-10-2024 XR chest 2V* [facility] Main [place] [address] [place] [address] XRay Report Signed Patient: Jeffry Aguilar MR#: [id number] : 1975 Acct:[id number] Age/Sex: 49 / M ADM Date: 12/10/24 [...] Spencer M.D. 12/10/2024 2:54 PM Dictation Location: [place] [address] Transcribed By: [facility] 12/10/24 1454 Dictated By: Fredy Spencer DO 12/10/24 1451 Signed By: 12/10/24 1454 Normal [facility] Amphetamine Screen Ql (U)Ord ered By: Crystal Meehan on 08-11-2024 Amphetamines Ql (U) Amphetamines screen Negativ e [facility] Barbiturates [Presence] in U rine by Screen methodOrdered By: Crystal Meehan on 08-11-2024 Barbiturates Screen Ql (U) Barbiturates [Presence] in Urine by Screen method Negative [facility] Benzodiazepines Screen Ql (U )Ordered By: Crystal Meehan on 08-11-2024 Benzodiazepines Ql (U) Benzodiazepines [ Presence] in Urine by Screen method Negative [facility] Benzoylecgonine [Presence] i n Urine by Screen methodOrdered By: Crystal Meehan on 08-11-2024 Benzoylecgonine Screen Ql (U) Benzoylecgonine [Presence] in Urine by Screen method Negative [facility] Cannabinoids [Presence] in U rine by Screen methodOrdered By: Crystal Meehan on 08-11-2024 Cannabinoids Screen Ql (U) Cannabinoids [Presence] in Urine by Screen method High Negative [facility] Comment on above: These are unconfirme d results and should not be used for legal purposes. Drug Cut-Off Concentration: AMPH 1000 ng/mL BILLIE 200 ng/mL LOREE 200 ng/mL COCM 300 ng/mL OP 300 ng/mL PCP 25 ng/mL THC 20 ng/mL Drug Screen,Urineon 08-12-19 Amphetamine Screen,Urine Negative Normal Negative [facility] Comment on above: Performed By: #### H BSAG, HCV RX PCR, HIVRNAPCR, HBCAB, HBSAB #### [facility] , #### CMP, PT, CBC #### [address] Barbiturate Screen,Urine Negative Normal Negative [facility] Comment on above: Performed By: #### H BSAG, HCV RX PCR, HIVRNAPCR, HBCAB, HBSAB #### [facility] , #### CMP, PT, CBC #### [place] [address] [place] Benzodiazepines Screen,Urine Negative Normal Negative [facility] Comment on above: Performed By: #### H BSAG, HCV RX PCR, HIVRNAPCR, HBCAB, HBSAB #### [facility] , #### CMP, PT, CBC #### [place] [address] [place] Cannabinoid Screen,Urine Positive High Negative [facility] Comment on above: Result Comment: Thes e are unconfirmed results and should not be used for legal purposes. Drug Cut-Off Concentration: AMPH 1000 ng/mL BILLIE 200 ng/mL LOREE 200 ng/mL COCM 300 ng/mL OP 300 ng/mL PCP 25 ng/mL THC 20 ng/mL PERFORMED BY: [place] [address] PATHOLOGIST DESKTOP ANALYST REJI FERNANDES M.D. Performed By: #### H BSAG, HCV RX PCR, HIVRNAPCR, HBCAB, HBSAB #### [facility] , #### CMP, PT, CBC #### [address] Cocaine Screen,Urine Negative Normal Negative [facility] Comment on above: Performed By: #### H BSAG, HCV RX PCR, HIVRNAPCR, HBCAB, HBSAB #### [facility] , #### CMP, PT, CBC #### [address] Opiate Screen,Urine Negative Normal Negative [facility] Comment on above: Performed By: #### H BSAG, HCV RX PCR, HIVRNAPCR, HBCAB, HBSAB #### [facility] , #### CMP, PT, CBC #### [address] Phencyclidine Screen,Urine Negative Normal Negative [facility] Comment on above: Performed By: #### H BSAG, HCV RX PCR, HIVRNAPCR, HBCAB, HBSAB #### [facility] , #### CMP, PT, CBC #### [address] 08-11-2024 ------- Specimen: [id number] Received: 08/11/24 Status: MILDRED Abad Num: [id number] Spec Type: Surgical Subm Dr: Crystal Meehan MD Tissues: A Colon Biopsy (CECAL POLYP COLONOSCOPY) B Colon Biopsy (SIGMOID POLYPS) Procedures: HE/4, Gross/Micro L4/2 Age/ Patient Sex Location Account Attending Physician Jeffry Aguilar /[facility] [id number] Crystal Meehan MD SPEC NUM: [id number] RECD: 08/11/24 STATUS: MILDRED ABAD NUM: [id number] CRISTIN: 08/11/24-[address] [facility] [address]: Crystal Meehan MD ENTERED: 08/11/[address] [facility] [address]: VESTA TYPE: Surgical DEPT: S ENTERED BY: [id number] RECV BY: [id number] ORDERED: HE, Gross/Micro L4/2 ORDERED: , Gross/Micro [...] submitted in a single cassette. (1, ns, [id number] A) JG Part B is received in formalin labeled with the patients name, date of , and sigmoid colon are two quiroz-toney, focally erythematous, friable, 0.3 and 0.4 cm in greatest dimension polypoid fragments with adherent vegetative material. The specimen is entirely submitted in a single cassette. (1, ns, B) JG Specimen: Received: 08/11/24 Status: MILDRED Zazuet[employer] Num: [id number] Spec Type: Surgical Subm Dr: Crystal Meehan MD Tissues: A Colon Biopsy (CECAL POLYP COLONOSCOPY) B Colon Biopsy (SIGMOID POLYPS) Procedures: HE/4, Gross/Micro L4/2 Patient: Jeffry Aguilar [id number] (Continued) Specimen: Received: 08/11/24 (Continued) Signed (signature on file) Duane Pompa MD 08/12/24 1213 Specimen: [id number] Received: 08/11/24 Status: MILDRED Abad Num: [id number] Spec Type: Surgical Subm Dr: Crystal Meehan MD Tissues: A Colon Biopsy (CECAL POLYP COLONOSCOPY) B Colon Biopsy (SIGMOID POLYPS) Procedures: HE/Eleno, Gross/Micro L4/2 Patient: Jeffry Aguilar [id number] (Continued) Specimen: [id number] Received: 08/11/24 (Continued) Microscopic Description A B: Microscopic examination is performed. CPT Codes 70896 x2 Specimen: [id number] Received: 08/11/24 Status: MILDRED Abad Num: [id number] Spec Type: Surgical Subm Dr: Crystal Meehan MD Tissues: A Colon Biopsy (CECAL POLYP COLONOSCOPY) B Colon Biopsy (SIGMOID POLYPS) Procedures: THOMAS/Eleno, Gross/Micro L4/2 Patient: Jeffry Aguilar [id number] (Continued) Signed (signature on file) Duane Pompa MD 08/12/24 1213 Normal [facility] Opiates [Presence] in Urine by Screen methodOrdered By: Crystal Meehan on 08-11-2024 Opiates Screen Ql (U) Opiates [Presence] in Urine by Screen method Negative [facility] Phencyclidine Screen Ql (U)O rdered By: Crystal Meehan on 08-11-2024 Phencyclidine Ql (U) Phencyclidine [Pres ence] in Urine by Screen method Negative [facility] US liveron 08-08-2024 liver [facility] Main [place] [id number] Ultrasound Report Signed Patient: Jeffry Aguilar MR#: [id number] : 1975 Acct:[id number] Age/Sex: 49 / M ADM Date: 08/08/24 [...] Marie Levine M.D.08/08/2024 1:47 PM Dictation Location: [place] [address] Tech: Penny Bundy Transcribed By: SERGIO 08/08/24 1347 Dictated By: Rose Marie Levine MD 08/08/24 1345 Signed By: 08/08/24 1347 Normal [facility] Hep B Real-Time PCR, Quanton 08-06-2024 HBV As IU/mL Not detected Normal . [facility] Comment on above: Performed By: #### H BV PCR #### [facility] , Log10 HBV (As IU/mL) Normal . [facility] Comment on above: Result Comment: Resu lt Units: log10 IU/mL Unable to calculate result since non-numeric result obtained for component test. Performed By: #### H BV PCR #### [facility] , Test Information: Comment Normal . [facility] Comment on above: Result Comment: The reportable range for this assay is 10 IU/mL to 1 billion IU/mL. Performed at: - [address] [id number] Clother In: Cristo Davalos MD, Phone: [phone] PERFORMED BY: [facility] [address] [place] [address] PATHOLOGIST DESKTOP ANALYST REJI FERNANDES M.D. Performed By: #### H BV PCR #### [facility] , No Panel InformationOrdered By: Vel [place]villa on 08-06-2024 Hepatitis B DNA Test Information Comment . [facility] Comment on above: The reportable range for this assay is 10 IU/mL to 1billion IU/mL.Performed at: [facility] [id number] Director: Cristo Davalos MD, Phone: [phone] Serum or plasma hepatitis B virus DNA measurement (units/volume) (viral load) by probOrdered By: Vel Sevilla on 08-06-2024 HBV DNA HEATHER+probe Qn Serum or plasma hep atitis B virus DNA measurement (units/volume) (viral load) by prob . [facility] Serum or plasma hepatitis B virus DNA viral load by probe and target amplification meOrdered By: Vel Sevilla on 08-06-2024 HBV DNA HEATHER+probe [#/Vol] Serum or plasma hepatitis B virus DNA viral load by probe and target amplification [facility] HBV DNA HEATHER+probe [Log units/Vol] Serum or plasma hepatitis B virus DNA viral load by probe and target amplification me . [facility] Comment on above: Result Units: log10 IU/mLUnable to calculate result since non-numeric resultobtained for component test. A1C with Estimated Average G luon 08-04-2024 Glucose [Mass/Vol] 105 mg/dL Normal [facility] Comment on above: Order Comment: Reaso n for Exam Weight gain Result Comment: PERF ORMED BY: [place] [address] PATHOLOGIST DESKTOP ANALYST REJI FERNANDES M.D. Performed By: #### H BSAG, HCV RX PCR, HIVRNAPCR, HBCAB, HBSAB #### [facility] , #### CMP, PT, CBC #### [facility] [address] [place] [address] HbA1c (Bld) [Mass fraction] 5.3 % Normal 4.3-5.6 [facility] Comment on above: Order Comment: Reaso n for Exam Weight gain Result Comment: Incr eased risk for diabetes: 5.7 - 6.4 diabetes: >6.4 glycemic control for adults with diabetes: <7.0 Performed By: #### H BSAG, HCV RX PCR, HIVRNAPCR, HBCAB, HBSAB #### [facility] , #### CMP, PT, CBC #### [facility] [address] [place] [address] Alanine aminotransferase [En zymatic activity/volume] in Serum or PlasmaOrdered By: Nakul Patricio on 08-04-2024 ALT [Catalytic activity/Vol] Alanine aminotransferase [Enzymatic activity/volume] in Serum or Plasma High 7-52 [facility] Albumin [Mass/volume] in Ser um or Plasma by Bromocresol green (BCG) dye binding methoOrdered By: Nakul Patricio on 08-04-2024 Albumin BCG dye [Mass/Vol] Albumin [Mass/volume] in Serum or Plasma by Bromocresol green (BCG) dye binding metho 3.5-5.7 [facility] Alkaline phosphatase [Enzyma tic activity/volume] in Serum or PlasmaOrdered By: Nakul Patricio on 08-04-2024 ALP [Catalytic activity/Vol] Alkaline phosphatase [Enzymatic activity/volume] in Serum or Plasma 34-104 [facility] Aspartate aminotransferase [ Enzymatic activity/volume] in Serum or PlasmaOrdered By: Nakul Patricio on 08-04-2024 AST [Catalytic activity/Vol] Aspartate aminotransferase [Enzymatic activity/volume] in Serum or Plasma High 13-39 [facility] Basophils Auto (Bld) [#/Vol] Ordered By: Nakul Patricio on 08-04-2024 Basophils (Bld) [#/Vol] Automated basophil count 0.0-0.2 [facility] Basophils/100 WBC Auto (Bld) Ordered By: Nakul Patricio on 08-04-2024 Basophils/100 WBC (Bld) Automated basophil % . [facility] Bilirubin.total [Mass/volume ] in Serum or PlasmaOrdered By: Nakul Patricio on 08-04-2024 Bilirubin [Mass/Vol] Bilirubin.total [Mass/volume] in Serum or Plasma 0.3-1.0 [facility] Blood estimated average gluc ose determination by estimation from glycated hemoglobinOrdered By: Nakul Patricio on 08-04-2024 Average glucose Estimated from glycated hemoglobin (Bld) [Mass/Vol] Glucose mean value [Mass/volume] in Blood Estimated from glycated hemoglobin [facility] Calcium [Mass/volume] in Ser um or PlasmaOrdered By: Nakul Patricio on 08-04-2024 Calcium [Mass/Vol] Calcium [Mass/volume ] in Serum or Plasma 8.6-10.3 [facility] Carbon dioxide, total [Moles /volume] in Serum or PlasmaOrdered By: Nakul Patricio on 08-04-2024 CO2 [Moles/Vol] Carbon dioxide, tota l [Moles/volume] in Serum or Plasma 21.0-31.0 [facility] Chloride [Moles/volume] in S charu or PlasmaOrdered By: Nakul Patricio on 08-04-2024 Chloride [Moles/Vol] Chloride [Moles/vol ume] in Serum or Plasma 98-107 [facility] Complete Blood Count Auto Di ffon 08-04-2024 Basophils (Bld) [#/Vol] 0.1 10*3/uL Normal 0.0-0.2 [facility] Comment on above: Order Comment: Reaso n for Exam Hypertension, essential Result Comment: PERF ORMED BY: [facility] [address] [place] [address] PATHOLOGIST DESKTOP ANALYST REJI FERNANDES M.D. Performed By: #### H BSAG, HCV RX PCR, HIVRNAPCR, HBCAB, HBSAB #### [facility] , #### CMP, PT, CBC #### [place] [address] [place] Basophils/100 WBC (Bld) 0.9 % Normal . [facility] Comment on above: Order Comment: Reaso n for Exam Hypertension, essential Performed By: #### H BSAG, HCV RX PCR, HIVRNAPCR, HBCAB, HBSAB #### [facility] , #### CMP, PT, CBC #### [address] Eosinophils (Bld) [#/Vol] 0.1 10*3/uL Normal 0.0-0.45 [facility] Comment on above: Order Comment: Reaso n for Exam Hypertension, essential Performed By: #### H BSAG, HCV RX PCR, HIVRNAPCR, HBCAB, HBSAB #### [facility] , #### CMP, PT, CBC #### [place] [address] [place] Eosinophils/100 WBC (Bld) 1.9 % Normal . [facility] Comment on above: Order Comment: Reaso n for Exam Hypertension, essential Performed By: #### H BSAG, HCV RX PCR, HIVRNAPCR, HBCAB, HBSAB #### [facility] , #### CMP, PT, CBC #### [address] Erythrocyte distribution width (RBC) [Ratio] 13.8 % Normal 12.0-14.8 [facility] Comment on above: Order Comment: Reaso n for Exam Hypertension, essential Performed By: #### H BSAG, HCV RX PCR, HIVRNAPCR, HBCAB, HBSAB #### [facility] , #### CMP, PT, CBC #### [address] Hematocrit (Bld) [Volume fraction] 47.0 % Normal 38.8-50.0 [facility] Comment on above: Order Comment: Reaso n for Exam Hypertension, essential Performed By: #### H BSAG, HCV RX PCR, HIVRNAPCR, HBCAB, HBSAB #### [facility] , #### CMP, PT, CBC #### [address] Hemoglobin (Bld) [Mass/Vol] 16.5 g/dL Normal 13.0-17.0 [facility] Comment on above: Order Comment: Reaso n for Exam Hypertension, essential Performed By: #### H BSAG, HCV RX PCR, HIVRNAPCR, HBCAB, HBSAB #### [facility] , #### CMP, PT, CBC #### [address] Lymphocytes (Bld) [#/Vol] 2.2 10*3/uL Normal 1.00-4.8 [facility] Comment on above: Order Comment: Reaso n for Exam Hypertension, essential Performed By: #### H BSAG, HCV RX PCR, HIVRNAPCR, HBCAB, HBSAB #### [facility] , #### CMP, PT, CBC #### [address] Lymphocytes/100 WBC (Bld) 31.2 % Normal . [facility] Comment on above: Order Comment: Reaso n for Exam Hypertension, essential Performed By: #### H BSAG, HCV RX PCR, HIVRNAPCR, HBCAB, HBSAB #### [facility] , #### CMP, PT, CBC #### [address] MCH (RBC) [Entitic mass] 33.3 pg Normal 27.5-35.2 [facility] Comment on above: Order Comment: Reaso n for Exam Hypertension, essential Performed By: #### H BSAG, HCV RX PCR, HIVRNAPCR, HBCAB, HBSAB #### [facility] , #### CMP, PT, CBC #### [address] MCV (RBC) [Entitic vol] 94.6 fL Normal 83.5-101 [facility] Comment on above: Order Comment: Reaso n for Exam Hypertension, essential Performed By: #### H BSAG, HCV RX PCR, HIVRNAPCR, HBCAB, HBSAB #### [facility] , #### CMP, PT, CBC #### [address] Mean Corpuscular HGB Conc 35.2 g/dL Normal 32.5-35.6 [facility] Comment on above: Order Comment: Reaso n for Exam Hypertension, essential Performed By: #### H BSAG, HCV RX PCR, HIVRNAPCR, HBCAB, HBSAB #### [facility] , #### CMP, PT, CBC #### [address] Monocytes (Bld) [#/Vol] 0.5 10*3/uL Normal 0.0-0.8 [facility] Comment on above: Order Comment: Reaso n for Exam Hypertension, essential Performed By: #### H BSAG, HCV RX PCR, HIVRNAPCR, HBCAB, HBSAB #### [facility] , #### CMP, PT, CBC #### [address] Monocytes/100 WBC (Bld) 6.8 % Normal . [facility] Comment on above: Order Comment: Reaso n for Exam Hypertension, essential Performed By: #### H BSAG, HCV RX PCR, HIVRNAPCR, HBCAB, HBSAB #### [facility] , #### CMP, PT, CBC #### [address] Neutrophils (Bld) [#/Vol] 4.2 10*3/uL Normal 1.8-7.7 [facility] Comment on above: Order Comment: Reaso n for Exam Hypertension, essential Performed By: #### H BSAG, HCV RX PCR, HIVRNAPCR, HBCAB, HBSAB #### [facility] , #### CMP, PT, CBC #### [facility] [address] [place] [address] Neutrophils/100 WBC (Bld) 59.2 % Normal . [facility] Comment on above: Order Comment: Reaso n for Exam Hypertension, essential Performed By: #### H BSAG, HCV RX PCR, HIVRNAPCR, HBCAB, HBSAB #### [facility] , #### CMP, PT, CBC #### [facility] [address] [place] [address] NRBC% 0.1 /100{WBC} Normal 0-0.5 [facility] Comment on above: Order Comment: Reaso n for Exam Hypertension, essential Performed By: #### H BSAG, HCV RX PCR, HIVRNAPCR, HBCAB, HBSAB #### [facility] , #### CMP, PT, CBC #### [facility] [address] [place] [address] Platelet mean volume (Bld) [Entitic vol] 10.9 fL High 6.6-10.1 [facility] Comment on above: Order Comment: Reaso n for Exam Hypertension, essential Performed By: #### H BSAG, HCV RX PCR, HIVRNAPCR, HBCAB, HBSAB #### [facility] , #### CMP, PT, CBC #### [facility] [address] [place] [address] [place] Platelets (Bld) [#/Vol] 139 10*3/uL Low 150-450 [facility] Comment on above: Order Comment: Reaso n for Exam Hypertension, essential Performed By: #### H BSAG, HCV RX PCR, HIVRNAPCR, HBCAB, HBSAB #### [facility] , #### CMP, PT, CBC #### [address] RBC (Bld) [#/Vol] 4.97 10*6/uL Normal 3.90-5.60 [facility] Comment on above: Order Comment: Reaso n for Exam Hypertension, essential Performed By: #### H BSAG, HCV RX PCR, HIVRNAPCR, HBCAB, HBSAB #### [facility] , #### CMP, PT, CBC #### [address] WBC (Bld) [#/Vol] 7.1 10*3/uL Normal 4.1-10.5 [facility] Comment on above: Order Comment: Reaso n for Exam Hypertension, essential Performed By: #### H BSAG, HCV RX PCR, HIVRNAPCR, HBCAB, HBSAB #### [facility] , #### CMP, PT, CBC #### [address] Comprehensive Metabolic Pane [facility] 08-04-2024 Albumin [Mass/Vol] 4.2 g/dL Normal 3.5-5.7 [facility] Comment on above: Order Comment: Reaso n for Exam Hypertension, essential;Calf cramp Reason for Exam Hypokalemia Reason for Exam Weight gain Performed By: #### H BSAG, HCV RX PCR, HIVRNAPCR, HBCAB, HBSAB #### [facility] , #### CMP, PT, CBC #### [address] Albumin/Globulin [Mass ratio] 1.4 {ratio} Normal [facility] Comment on above: Order Comment: Reaso n for Exam Hypertension, essential;Calf cramp Reason for Exam Hypokalemia Reason for Exam Weight gain Performed By: #### H BSAG, HCV RX PCR, HIVRNAPCR, HBCAB, HBSAB #### [facility] , #### CMP, PT, CBC #### [address] ALP [Catalytic activity/Vol] 46 U/L Normal 34-104 [facility] Comment on above: Order Comment: Reaso n for Exam Hypertension, essential;Calf cramp Reason for Exam Hypokalemia Reason for Exam Weight gain Performed By: #### H BSAG, HCV RX PCR, HIVRNAPCR, HBCAB, HBSAB #### [facility] , #### CMP, PT, CBC #### [facility] [address] [place] [address] [place] ALT [Catalytic activity/Vol] 235 U/L High 7-52 [facility] Comment on above: Order Comment: Reaso n for Exam Hypertension, essential;Calf cramp Reason for Exam Hypokalemia Reason for Exam Weight gain Performed By: #### H BSAG, HCV RX PCR, HIVRNAPCR, HBCAB, HBSAB #### [facility] , #### CMP, PT, CBC #### [facility] [address] Anion gap [Moles/Vol] 9.0 mmol/L Normal 6.0-15.0 [facility] Comment on above: Order Comment: Reaso n for Exam Hypertension, essential;Calf cramp Reason for Exam Hypokalemia Reason for Exam Weight gain Performed By: #### H BSAG, HCV RX PCR, HIVRNAPCR, HBCAB, HBSAB #### [facility] , #### CMP, PT, CBC #### [facility] [address] [place], [place] [id number] [place] AST [Catalytic activity/Vol] 193 U/L High 13-39 [facility] Comment on above: Order Comment: Reaso n for Exam Hypertension, essential;Calf cramp Reason for Exam Hypokalemia Reason for Exam Weight gain Performed By: #### H BSAG, HCV RX PCR, HIVRNAPCR, HBCAB, HBSAB #### [facility] , #### CMP, PT, CBC #### [facility] [address] [place] [id number] [place] Bilirubin [Mass/Vol] 0.7 mg/dL Normal 0.3-1.0 [facility] Comment on above: Order Comment: Reaso n for Exam Hypertension, essential;Calf cramp Reason for Exam Hypokalemia Reason for Exam Weight gain Performed By: #### H BSAG, HCV RX PCR, HIVRNAPCR, HBCAB, HBSAB #### [facility] , #### CMP, PT, CBC #### [facility] [address] [place] [address] [place] Calcium [Mass/Vol] 9.0 mg/dL Normal 8.6-10.3 [facility] Comment on above: Order Comment: Reaso n for Exam Hypertension, essential;Calf cramp Reason for Exam Hypokalemia Reason for Exam Weight gain Performed By: #### H BSAG, HCV RX PCR, HIVRNAPCR, HBCAB, HBSAB #### [facility] , #### CMP, PT, CBC #### [place] [address] [place] Chloride [Moles/Vol] 107 mmol/L Normal 98-107 [facility] Comment on above: Order Comment: Reaso n for Exam Hypertension, essential;Calf cramp Reason for Exam Hypokalemia Reason for Exam Weight gain Performed By: #### H BSAG, HCV RX PCR, HIVRNAPCR, HBCAB, HBSAB #### [facility] , #### CMP, PT, CBC #### [facility] [address] [place], [place] [id number] [place] CO2 [Moles/Vol] 29.5 mmol/L Normal 21.0-31.0 [facility] Comment on above: Order Comment: Reaso n for Exam Hypertension, essential;Calf cramp Reason for Exam Hypokalemia Reason for Exam Weight gain Performed By: #### H BSAG, HCV RX PCR, HIVRNAPCR, HBCAB, HBSAB #### [facility] , #### CMP, PT, CBC #### [facility] [address] [place] [id number] [place] Creatinine [Mass/Vol] 0.92 mg/dL Normal 0.70-1.30 [facility] Comment on above: Order Comment: Reaso n for Exam Hypertension, essential;Calf cramp Reason for Exam Hypokalemia Reason for Exam Weight gain Performed By: #### H BSAG, HCV RX PCR, HIVRNAPCR, HBCAB, HBSAB #### [facility] , #### CMP, PT, CBC #### [facility] [address] GFR/1.73 sq M.predicted MDRD (S/P/Bld) [Vol rate/Area] mL/min/{1.73_m2} Normal [facility] Comment on above: Order Comment: Reaso n for Exam Hypertension, essential;Calf cramp Reason for Exam Hypokalemia Reason for Exam Weight gain Performed By: #### H BSAG, HCV RX PCR, HIVRNAPCR, HBCAB, HBSAB #### [facility] , #### CMP, PT, CBC #### [address] Globulin (S) [Mass/Vol] 3.0 g/dL Normal [facility] Comment on above: Order Comment: Reaso n for Exam Hypertension, essential;Calf cramp Reason for Exam Hypokalemia Reason for Exam Weight gain Performed By: #### H BSAG, HCV RX PCR, HIVRNAPCR, HBCAB, HBSAB #### [facility] , #### CMP, PT, CBC #### [address] Glucose [Mass/Vol] 87 mg/dL Normal 70-100 [facility] Comment on above: Order Comment: Reaso n for Exam Hypertension, essential;Calf cramp Reason for Exam Hypokalemia Reason for Exam Weight gain Result Comment: [place] Glucose Reference Range is dependent on time and content of last meal. Glucose of more than 200 mg/dL in a nonstressed, ambulatory subject supports the diagnosis of Diabetes Mellitus. ADA recommended reference range Performed By: #### H BSAG, HCV RX PCR, HIVRNAPCR, HBCAB, HBSAB #### [facility] , #### CMP, PT, CBC #### [facility] [address] [place] [address] [place] Potassium [Moles/Vol] 4.5 mmol/L Normal 3.5-5.1 [facility] Comment on above: Order Comment: Reaso n for Exam Hypertension, essential;Calf cramp Reason for Exam Hypokalemia Reason for Exam Weight gain Performed By: #### H BSAG, HCV RX PCR, HIVRNAPCR, HBCAB, HBSAB #### [facility] , #### CMP, PT, CBC #### [facility] [address] [place] [address] [place] Protein [Mass/Vol] 7.2 g/dL Normal 6.4-8.9 [facility] Comment on above: Order Comment: Reaso n for Exam Hypertension, essential;Calf cramp Reason for Exam Hypokalemia Reason for Exam Weight gain Performed By: #### H BSAG, HCV RX PCR, HIVRNAPCR, HBCAB, HBSAB #### [facility] , #### CMP, PT, CBC #### [place] [address] [place] Sodium [Moles/Vol] 141 mmol/L Normal 136-145 [facility] Comment on above: Order Comment: Reaso n for Exam Hypertension, essential;Calf cramp Reason for Exam Hypokalemia Reason for Exam Weight gain Performed By: #### H BSAG, HCV RX PCR, HIVRNAPCR, HBCAB, HBSAB #### [facility] , #### CMP, PT, CBC #### [facility] [address] [place] [address] [place] Urea nitrogen [Mass/Vol] 8 mg/dL Normal 7-25 [facility] Comment on above: Order Comment: Reaso n for Exam Hypertension, essential;Calf cramp Reason for Exam Hypokalemia Reason for Exam Weight gain Performed By: #### H BSAG, HCV RX PCR, HIVRNAPCR, HBCAB, HBSAB #### [facility] , #### CMP, PT, CBC #### [facility] [address] [place], [place] [id number] [facility] Creatinine [Mass/volume] in Serum or PlasmaOrdered By: Nakul Patricio on 08-04-2024 Creatinine [Mass/Vol] Creatinine [Mass/v olume] in Serum or Plasma 0.70-1.30 [facility] Eosinophils Auto (Bld) [#/Vo l]Ordered By: Nakul Patricio on 08-04-2024 Eosinophils (Bld) [#/Vol] Automated eosinophil count 0.0-0.45 [facility] Eosinophils/100 WBC Auto (Bl d)Ordered By: Nakul Patricio on 08-04-2024 Eosinophils/100 WBC (Bld) Automated eosinophil % . [facility] Erythrocyte distribution wid th Auto (RBC) [Ratio]Ordered By: Nakul Patricio on 08-04-2024 Erythrocyte distribution width (RBC) [Ratio] Erythrocyte distribution width [Ratio] by Automated count 12.0-14.8 [facility] Globulin Calc (S) [Mass/Vol] Ordered By: Nakul Patricio on 08-04-2024 Globulin (S) [Mass/Vol] Serum globulin measurement by calculation (mass/volume) [facility] Glucose [Mass/volume] in Ser um or PlasmaOrdered By: Nakul Patricio on 08-04-2024 Glucose [Mass/Vol] Glucose [Mass/volume ] in Serum or Plasma 70-100 [facility] Comment on above: ADA recommended refe rence rangeRandom Glucose Reference Range is dependent on time and content of last meal. Glucose of more than 200 mg/dL in a nonstressed, ambulatory subject supports the diagnosis of Diabetes Mellitus. Hematocrit Auto (Bld) [Volum e fraction]Ordered By: Nakul Patricio on 08-04-2024 Hematocrit (Bld) [Volume fraction] Hematocrit [Volume Fraction] of Blood by Automated count 38.8-50.0 [facility] Hemoglobin A1c/Hemoglobin.to iris in BloodOrdered By: Nakul Patricio on 08-04-2024 HbA1c (Bld) [Mass fraction] Hemoglobin A1c percentage 4.3-5.6 [facility] Comment on above: Increased risk for d iabetes: 5.7 - 6.4diabetes: >6.4glycemic control for adults with diabetes: <7.0 Hemoglobin [Mass/volume] in BloodOrdered By: Nakul Patricio on 08-04-2024 Hemoglobin (Bld) [Mass/Vol] Hemoglobin [Mass/volume] in Blood 13.0-17.0 [facility] Hep C RT-PCR, Qnt (Non-Graph )on 08-04-2024 HCV Log10 6.820 Normal . [facility] Comment on above: Order Comment: Reaso n for Exam Chronic hepatitis C without hepatic coma Result Comment: Resu lt Units: log10 IU/mL Performed By: #### H BSAG, HCV RX PCR, HIVRNAPCR, HBCAB, HBSAB #### [facility] , #### CMP, PT, CBC #### [address] Hepatitis C Quantitation [id number] [IU]/mL Normal . [facility] Comment on above: Order Comment: Reaso n for Exam Chronic hepatitis C without hepatic coma Performed By: #### H BSAG, HCV RX PCR, HIVRNAPCR, HBCAB, HBSAB #### [facility] , #### CMP, PT, CBC #### [facility] [address] [place] [address] Test Information: Comment Normal . [facility] Comment on above: Order Comment: Reaso n for Exam Chronic hepatitis C without hepatic coma Result Comment: The quantitative range of this assay is 15 IU/mL to 100 million IU/mL. Performed at: [address] [id number] [place]: Cristo Davalos MD, Phone: [phone] PERFORMED BY: [place] [address] PATHOLOGIST DESKTOP ANALYST REJI FERNANDES M.D. Performed By: #### H BSAG, HCV RX PCR, HIVRNAPCR, HBCAB, HBSAB #### [facility] , #### CMP, PT, CBC #### [address] Leukocytes [#/volume] correc verónica for nucleated erythrocytes in Blood by Automated counOrdered By: Nakul Patricio on 08-04-2024 WBC corrected for nucl RBC Auto (Bld) [#/Vol] Leukocytes [#/volume] corrected for nucleated erythrocytes in Blood by Automated coun 4.1-10.5 [facility] Lymphocytes Auto (Bld) [#/Vo l]Ordered By: Nakul Patricio on 08-04-2024 Lymphocytes (Bld) [#/Vol] Lymphocytes [#/volume] in Blood by Automated count 1.00-4.8 [facility] Lymphocytes/100 WBC Auto (Bl d)Ordered By: Nakul Patricio on 08-04-2024 Lymphocytes/100 WBC (Bld) Lymphocytes/100 leukocytes in Blood by Automated count . [facility] MCH Auto (RBC) [Entitic mass ]Ordered By: Nakul Patricio on 08-04-2024 MCH (RBC) [Entitic mass] MCH [Entitic mass] by Automated count 27.5-35.2 [facility] MCHC Auto (RBC) [Mass/Vol]Or dered By: Nakul Patricio on 08-04-2024 MCHC (RBC) [Mass/Vol] MCHC [Mass/volume] by Automated count 32.5-35.6 [facility] MCV Auto (RBC) [Entitic vol] Ordered By: Nakul Patricio on 08-04-2024 MCV (RBC) [Entitic vol] MCV [Entitic volume] by Automated count 83.5-101 [facility] Magnesiumon 08-04-2024 Magnesium [Mass/Vol] 2.0 mg/dL Normal 1.9-2.7 [facility] Comment on above: Order Comment: Reaso n for Exam Hypertension, essential;Calf cramp Reason for Exam Hypokalemia Reason for Exam Weight gain Performed By: #### H BSAG, HCV RX PCR, HIVRNAPCR, HBCAB, HBSAB #### [facility] , #### CMP, PT, CBC #### [facility] [address] [place] [address] Magnesium [Mass/volume] in S charu or PlasmaOrdered By: Nakul Patricio on 08-04-2024 Magnesium [Mass/Vol] Magnesium [Mass/vol ume] in Serum or Plasma 1.9-2.7 [facility] Monocytes Auto (Bld) [#/Vol] Ordered By: Nakul Patricio on 08-04-2024 Monocytes (Bld) [#/Vol] Automated blood monocyte count 0.0-0.8 [facility] Monocytes/100 WBC Auto (Bld) Ordered By: Nakul Patricio on 08-04-2024 Monocytes/100 WBC (Bld) Automated monocyte % . [facility] Neutrophils Auto (Bld) [#/Vo l]Ordered By: Nakul Patricio on 08-04-2024 Neutrophils (Bld) [#/Vol] Neutrophils [#/volume] in Blood by Automated count 1.8-7.7 [facility] Neutrophils/100 WBC Auto (Bl d)Ordered By: Nakul Patricio on 08-04-2024 Neutrophils/100 WBC (Bld) Automated neutrophil % . [facility] No Panel InformationOrdered By: Nakul Patricio on 08-04-2024 Estimated GFR (CKD-EPI) > 60.0 mL/Min [facility] Hepatitis C RNA (PCR) Interpret Comment . [facility] Comment on above: The quantitative ran ge of this assay is 15 IU/mL to 100million IU/mL.Performed at: - [facility] [id number] Director: Cristo Davalos MD, Phone: [phone] Pharmacy Creatinine Clearance (Chem N/A [facility] Nucleated erythrocytes [Pres ence] in Blood by Automated countOrdered By: Nakul Patricio on 08-04-2024 Nucleated RBC Auto Ql (Bld) Nucleated erythrocytes [Presence] in Blood by Automated count 0-0.5 [facility] Platelet mean volume Auto (B ld) [Entitic vol]Ordered By: Nakul Patricio on 08-04-2024 Platelet mean volume (Bld) [Entitic vol] Platelet mean volume [Entitic volume] in Blood by Automated count High 6.6-10.1 [facility] Platelets Auto (Bld) [#/Vol] Ordered By: Nakul Patricio on 08-04-2024 Platelets (Bld) [#/Vol] Platelets [#/volume] in Blood by Automated count Low 150-450 [facility] Potassium [Moles/volume] in Serum or PlasmaOrdered By: Nakul Patricio on 08-04-2024 Potassium [Moles/Vol] Potassium [Moles/v olume] in Serum or Plasma 3.5-5.1 [facility] [facility] Protein [Mass/volume] in Ser um or PlasmaOrdered By: Nakul Patricio on 08-04-2024 Protein [Mass/Vol] Protein [Mass/volume ] in Serum or Plasma 6.4-8.9 [facility] RBC Auto (Bld) [#/Vol]Ordere d By: Nakul Patricio on 08-04-2024 RBC (Bld) [#/Vol] Erythrocytes [#/volu me] in Blood by Automated count 3.90-5.60 [facility] Serum or plasma albumin/glob ulin mass ratioOrdered By: Nakul Patricio on 08-04-2024 Albumin/Globulin [Mass ratio] Serum or plasma albumin/globulin mass ratio [facility] Serum or plasma anion gap de terminationOrdered By: Nakul Patricio on 08-04-2024 Anion gap [Moles/Vol] Serum or plasma an ion gap determination 6.0-15.0 [facility] Serum or plasma hepatitis C virus RNA viral load by probe and target amplification meOrdered By: Nakul Patricio on 08-04-2024 HCV RNA HEATHER+probe [Log units/Vol] Hepatitis C virus RNA [log units/volume] (viral load) in Serum or Plasma by HEATHER with . [facility] Comment on above: Result Units: log10 IU/mL Sodium [Moles/volume] in Ser um or PlasmaOrdered By: Nakul Patricio on 08-04-2024 Sodium [Moles/Vol] Sodium [Moles/volume ] in Serum or Plasma 136-145 [facility] Thyroid Stim Hormone w/Rflxo n 08-04-2024 Thyroid Stim Hormone w/Rflx 0.92 u[iU]/mL Normal 0.45-5.33 [facility] Comment on above: Order Comment: Reaso n for Exam Hypertension, essential;Calf cramp Reason for Exam Hypokalemia Reason for Exam Weight gain Result Comment: PERF ORMED BY: [address] [place] [address] PATHOLOGIST DESKTOP ANALYST REJI FERNANDES M.D. Performed By: #### H BSAG, HCV RX PCR, HIVRNAPCR, HBCAB, HBSAB #### [facility] , #### CMP, PT, CBC #### [facility] [address] Thyrotropin [Units/volume] i n Serum or PlasmaOrdered By: Nakul Patricio on 08-04-2024 TSH Qn Thyrotropin [Units/v olume] in Serum or Plasma 0.45-5.33 [facility] Urea nitrogen [Mass/volume] in Serum or PlasmaOrdered By: Nakul Patricio on 08-04-2024 Urea nitrogen [Mass/Vol] Urea nitrogen [Mass/volume] in Serum or Plasma 7-25 [facility] WBC Auto (Bld) [#/Vol]Ordere d By: Nakul Patricio on 08-04-2024 WBC (Bld) [#/Vol] Leukocytes [#/volume ] in Blood by Automated count 4.1-10.5 [facility] Alanine aminotransferase [En zymatic activity/volume] in Serum or PlasmaOrdered By: Vel Sevilla on 08-01-2024 ALT [Catalytic activity/Vol] Alanine aminotransferase [Enzymatic activity/volume] in Serum or Plasma High 7-52 [facility] Albumin [Mass/volume] in Ser um or Plasma by Bromocresol green (BCG) dye binding methoOrdered By: Vel Sevilla on 08-01-2024 Albumin BCG dye [Mass/Vol] Albumin [Mass/volume] in Serum or Plasma by Bromocresol green (BCG) dye binding metho 3.5-5.7 [facility] Comment on above: Specimen hemolyzed, redraw requested Alkaline phosphatase [Enzyma tic activity/volume] in Serum or PlasmaOrdered By: Vel Sevilla on 08-01-2024 ALP [Catalytic activity/Vol] Alkaline phosphatase [Enzymatic activity/volume] in Serum or Plasma 34-104 [facility] Aspartate aminotransferase [ Enzymatic activity/volume] in Serum or PlasmaOrdered By: Vel Sevilla on 08-01-2024 AST [Catalytic activity/Vol] Aspartate aminotransferase [Enzymatic activity/volume] in Serum or Plasma 13-39 [facility] Comment on above: Specimen hemolyzed, redraw requested Basophils Auto (Bld) [#/Vol] Ordered By: Vel Sevilla on 08-01-2024 Basophils (Bld) [#/Vol] Automated basophil count 0.0-0.2 [facility] Basophils/100 WBC Auto (Bld) Ordered By: Vel Sevilla on 08-01-2024 Basophils/100 WBC (Bld) Automated basophil % . [facility] Bilirubin.total [Mass/volume ] in Serum or PlasmaOrdered By: Vel Sevilla on 08-01-2024 Bilirubin [Mass/Vol] Bilirubin.total [Mass/volume] in Serum or Plasma 0.3-1.0 [facility] Calcium [Mass/volume] in Ser um or PlasmaOrdered By: Vel Sevilla on 08-01-2024 Calcium [Mass/Vol] Calcium [Mass/volume ] in Serum or Plasma 8.6-10.3 [facility] Carbon dioxide, total [Moles /volume] in Serum or PlasmaOrdered By: Vel Sevilla on 08-01-2024 CO2 [Moles/Vol] Carbon dioxide, tota l [Moles/volume] in Serum or Plasma 21.0-31.0 [facility] Chloride [Moles/volume] in S charu or PlasmaOrdered By: Vel Sevilla on 08-01-2024 Chloride [Moles/Vol] Chloride [Moles/vol ume] in Serum or Plasma 98-107 [facility] Complete Blood Count Auto Di ffon 08-01-2024 Basophils (Bld) [#/Vol] 0.1 10*3/uL Normal 0.0-0.2 [facility] Comment on above: Result Comment: PERF ORMED BY: [facility] [address] [place] [address] PATHOLOGIST DESKTOP ANALYST REJI FERNANDES M.D. Performed By: #### H BSAG, HCV RX PCR, HIVRNAPCR, HBCAB, HBSAB #### [facility] , #### CMP, PT, CBC #### [facility] [address] Basophils/100 WBC (Bld) 1.3 % Normal . [facility] Comment on above: Performed By: #### H BSAG, HCV RX PCR, HIVRNAPCR, HBCAB, HBSAB #### [facility] , #### CMP, PT, CBC #### [address] Eosinophils (Bld) [#/Vol] 0.3 10*3/uL Normal 0.0-0.45 [facility] Comment on above: Performed By: #### H BSAG, HCV RX PCR, HIVRNAPCR, HBCAB, HBSAB #### [facility] , #### CMP, PT, CBC #### [address] Eosinophils/100 WBC (Bld) 3.6 % Normal . [facility] Comment on above: Performed By: #### H BSAG, HCV RX PCR, HIVRNAPCR, HBCAB, HBSAB #### [facility] , #### CMP, PT, CBC #### [address] Erythrocyte distribution width (RBC) [Ratio] 13.7 % Normal 12.0-14.8 [facility] Comment on above: Performed By: #### H BSAG, HCV RX PCR, HIVRNAPCR, HBCAB, HBSAB #### [facility] , #### CMP, PT, CBC #### [address] Hematocrit (Bld) [Volume fraction] 48.9 % Normal 38.8-50.0 [facility] Comment on above: Performed By: #### H BSAG, HCV RX PCR, HIVRNAPCR, HBCAB, HBSAB #### [facility] , #### CMP, PT, CBC #### [address] Hemoglobin (Bld) [Mass/Vol] 17.3 g/dL High 13.0-17.0 [facility] Comment on above: Performed By: #### H BSAG, HCV RX PCR, HIVRNAPCR, HBCAB, HBSAB #### [facility] , #### CMP, PT, CBC #### [address] Lymphocytes (Bld) [#/Vol] 2.4 10*3/uL Normal 1.00-4.8 [facility] Comment on above: Performed By: #### H BSAG, HCV RX PCR, HIVRNAPCR, HBCAB, HBSAB #### [facility] , #### CMP, PT, CBC #### [address] Lymphocytes/100 WBC (Bld) 29.3 % Normal . [facility] Comment on above: Performed By: #### H BSAG, HCV RX PCR, HIVRNAPCR, HBCAB, HBSAB #### [facility] , #### CMP, PT, CBC #### [address] MCH (RBC) [Entitic mass] 33.3 pg Normal 27.5-35.2 [facility] Comment on above: Performed By: #### H BSAG, HCV RX PCR, HIVRNAPCR, HBCAB, HBSAB #### [facility] , #### CMP, PT, CBC #### [address] MCV (RBC) [Entitic vol] 94.2 fL Normal 83.5-101 [facility] Comment on above: Performed By: #### H BSAG, HCV RX PCR, HIVRNAPCR, HBCAB, HBSAB #### [facility] , #### CMP, PT, CBC #### [address] Mean Corpuscular HGB Conc 35.3 g/dL Normal 32.5-35.6 [facility] Comment on above: Performed By: #### H BSAG, HCV RX PCR, HIVRNAPCR, HBCAB, HBSAB #### [facility] , #### CMP, PT, CBC #### [address] Monocytes (Bld) [#/Vol] 0.6 10*3/uL Normal 0.0-0.8 [facility] Comment on above: Performed By: #### H BSAG, HCV RX PCR, HIVRNAPCR, HBCAB, HBSAB #### [facility] , #### CMP, PT, CBC #### [place] [address] [place] Monocytes/100 WBC (Bld) 7.1 % Normal . [facility] Comment on above: Performed By: #### H BSAG, HCV RX PCR, HIVRNAPCR, HBCAB, HBSAB #### [facility] , #### CMP, PT, CBC #### [place] [address] [place] Neutrophils (Bld) [#/Vol] 4.9 10*3/uL Normal 1.8-7.7 [facility] Comment on above: Performed By: #### H BSAG, HCV RX PCR, HIVRNAPCR, HBCAB, HBSAB #### [facility] , #### CMP, PT, CBC #### [place] [address] [place] Neutrophils/100 WBC (Bld) 58.7 % Normal . [facility] Comment on above: Performed By: #### H BSAG, HCV RX PCR, HIVRNAPCR, HBCAB, HBSAB #### [facility] , #### CMP, PT, CBC #### [place] [address] [place] NRBC% 0.1 /100{WBC} Normal 0-0.5 [facility] Comment on above: Performed By: #### H BSAG, HCV RX PCR, HIVRNAPCR, HBCAB, HBSAB #### [facility] , #### CMP, PT, CBC #### [address] Platelet mean volume (Bld) [Entitic vol] 10.8 fL High 6.6-10.1 [facility] Comment on above: Performed By: #### H BSAG, HCV RX PCR, HIVRNAPCR, HBCAB, HBSAB #### [facility] , #### CMP, PT, CBC #### [address] Platelets (Bld) [#/Vol] 132 10*3/uL Low 150-450 [facility] Comment on above: Performed By: #### H BSAG, HCV RX PCR, HIVRNAPCR, HBCAB, HBSAB #### [facility] , #### CMP, PT, CBC #### [address] RBC (Bld) [#/Vol] 5.19 10*6/uL Normal 3.90-5.60 [facility] Comment on above: Performed By: #### H BSAG, HCV RX PCR, HIVRNAPCR, HBCAB, HBSAB #### [facility] , #### CMP, PT, CBC #### [address] WBC (Bld) [#/Vol] 8.4 10*3/uL Normal 4.1-10.5 [facility] Comment on above: Performed By: #### H BSAG, HCV RX PCR, HIVRNAPCR, HBCAB, HBSAB #### [facility] , #### CMP, PT, CBC #### [address] Comprehensive Metabolic Pane jolene 08-01-2024 Albumin Level Normal 3.5-5.7 [facility] Comment on above: Result Comment: Spec imen hemolyzed, redraw requested Performed By: #### H BSAG, HCV RX PCR, HIVRNAPCR, HBCAB, HBSAB #### [facility] , #### CMP, PT, CBC #### [address] Albumin/Globulin Ratio Normal [facility] Comment on above: Result Comment: Spec imen hemolyzed, redraw requested Performed By: #### H BSAG, HCV RX PCR, HIVRNAPCR, HBCAB, HBSAB #### [facility] , #### CMP, PT, CBC #### [address] ALP [Catalytic activity/Vol] 36 U/L Normal 34-104 [facility] Comment on above: Result Comment: PERF ORMED BY: [place] [address] PATHOLOGIST DESKTOP ANALYST ERJI FERNANDES M.D. Performed By: #### H BSAG, HCV RX PCR, HIVRNAPCR, HBCAB, HBSAB #### [facility] , #### CMP, PT, CBC #### [address] ALT [Catalytic activity/Vol] 250 U/L High 7-52 [facility] Comment on above: Performed By: #### H BSAG, HCV RX PCR, HIVRNAPCR, HBCAB, HBSAB #### [facility] , #### CMP, PT, CBC #### [address] Anion gap [Moles/Vol] Not performed Normal 6.0-15.0 [facility] Comment on above: Performed By: #### H BSAG, HCV RX PCR, HIVRNAPCR, HBCAB, HBSAB #### [facility] , #### CMP, PT, CBC #### [address] Aspartate Amino Transferase Normal 13-39 [facility] Comment on above: Result Comment: Spec imen hemolyzed, redraw requested Performed By: #### H BSAG, HCV RX PCR, HIVRNAPCR, HBCAB, HBSAB #### [facility] , #### CMP, PT, CBC #### [address] Bilirubin [Mass/Vol] 1.0 mg/dL Normal 0.3-1.0 [facility] Comment on above: Performed By: #### H BSAG, HCV RX PCR, HIVRNAPCR, HBCAB, HBSAB #### [facility] , #### CMP, PT, CBC #### [address] Calcium [Mass/Vol] 9.2 mg/dL Normal 8.6-10.3 [facility] Comment on above: Performed By: #### H BSAG, HCV RX PCR, HIVRNAPCR, HBCAB, HBSAB #### [facility] , #### CMP, PT, CBC #### [place] [address] [place] Chloride [Moles/Vol] 106 mmol/L Normal 98-107 [facility] Comment on above: Performed By: #### H BSAG, HCV RX PCR, HIVRNAPCR, HBCAB, HBSAB #### [facility] , #### CMP, PT, CBC #### [place] [address] [place] CO2 [Moles/Vol] 25.1 mmol/L Normal 21.0-31.0 [facility] Comment on above: Performed By: #### H BSAG, HCV RX PCR, HIVRNAPCR, HBCAB, HBSAB #### [facility] , #### CMP, PT, CBC #### [place] [address] [place] Creatinine [Mass/Vol] 0.99 mg/dL Normal 0.70-1.30 [facility] Comment on above: Performed By: #### H BSAG, HCV RX PCR, HIVRNAPCR, HBCAB, HBSAB #### [facility] , #### CMP, PT, CBC #### [facility] [address] GFR/1.73 sq M.predicted MDRD (S/P/Bld) [Vol rate/Area] mL/min/{1.73_m2} Normal [facility] Comment on above: Performed By: #### H BSAG, HCV RX PCR, HIVRNAPCR, HBCAB, HBSAB #### [facility] , #### CMP, PT, CBC #### [facility] [address] [place] [address] Globulin Normal [facility] Comment on above: Result Comment: Spec imen hemolyzed, redraw requested Performed By: #### H BSAG, HCV RX PCR, HIVRNAPCR, HBCAB, HBSAB #### [facility] , #### CMP, PT, CBC #### [address] Glucose [Mass/Vol] 102 mg/dL High 70-100 [facility] Comment on above: Result Comment: [place] Glucose Reference Range is dependent on time and content of last meal. Glucose of more than 200 mg/dL in a nonstressed, ambulatory subject supports the diagnosis of Diabetes Mellitus. ADA recommended reference range Performed By: #### H BSAG, HCV RX PCR, HIVRNAPCR, HBCAB, HBSAB #### [facility] , #### CMP, PT, CBC #### [facility] [address] [place] [address] Potassium Normal 3.5-5.1 [facility] Comment on above: Result Comment: Spec imen hemolyzed, redraw requested Performed By: #### H BSAG, HCV RX PCR, HIVRNAPCR, HBCAB, HBSAB #### [facility] , #### CMP, PT, CBC #### [facility] [address] Sodium Normal 136-145 [facility] Comment on above: Result Comment: Spec imen hemolyzed, redraw requested Performed By: #### H BSAG, HCV RX PCR, HIVRNAPCR, HBCAB, HBSAB #### [facility] , #### CMP, PT, CBC #### [facility] [address] [place] [address] Total Protein Normal 6.4-8.9 [facility] Comment on above: Result Comment: Spec imen hemolyzed, redraw requested Performed By: #### H BSAG, HCV RX PCR, HIVRNAPCR, HBCAB, HBSAB #### [facility] , #### CMP, PT, CBC #### [address] Urea nitrogen [Mass/Vol] 10 mg/dL Normal 7-25 [facility] Comment on above: Performed By: #### H BSAG, HCV RX PCR, HIVRNAPCR, HBCAB, HBSAB #### [facility] , #### CMP, PT, CBC #### [address] Creatinine [Mass/volume] in Serum or PlasmaOrdered By: Vel Sevilla on 08-01-2024 Creatinine [Mass/Vol] Creatinine [Mass/v olume] in Serum or Plasma 0.70-1.30 [facility] Diagnostic impression interp retation by molecular genetics method narrativeOrdered By: Vel Sevilla on 08-01-2024 Diagnostic impression Molgen Aung (Unsp spec) [Interp] Diagnostic impression [Interpretation] in Specimen Narrative . [facility] Comment on above: Positive HCV antibod y screen with the presence of HCV RNAis consistent with active infection.Performed at: [facility] [address] [id number] Director: Narendra Aquino PhD, Phone: [phone] at: [facility] [address] [id number] Director: Cristo Davalos MD, Phone: [phone] Eosinophils Auto (Bld) [#/Vo l]Ordered By: Vel Sevilla on 08-01-2024 Eosinophils (Bld) [#/Vol] Automated eosinophil count 0.0-0.45 [facility] Eosinophils/100 WBC Auto (Bl d)Ordered By: Vel Sevilla on 08-01-2024 Eosinophils/100 WBC (Bld) Automated eosinophil % . [facility] Erythrocyte distribution wid th Auto (RBC) [Ratio]Ordered By: Vel Sevilla on 08-01-2024 Erythrocyte distribution width (RBC) [Ratio] Erythrocyte distribution width [Ratio] by Automated count 12.0-14.8 [facility] Globulin Calc (S) [Mass/Vol] Ordered By: Vel Sevilla on 08-01-2024 Globulin (S) [Mass/Vol] Serum globulin measurement by calculation (mass/volume) [facility] Comment on above: Specimen hemolyzed, redraw requested Glucose [Mass/volume] in Ser um or PlasmaOrdered By: Vel Sevilla on 08-01-2024 Glucose [Mass/Vol] Glucose [Mass/volume ] in Serum or Plasma High 70-100 [facility] Comment on above: ADA recommended refe [...] RNA viral load measurement (log number/volume) . [facility] Comment on above: Result Units: log10c opy/mLUnable to calculate result since non-numeric resultobtained for component test.Performed at: - [address] [id number] Director: Cristo Davalos MD, Phone: [phone] HIV 1 RNA viral load measure ment by probe and target amplification method (number/volOrdered By: Vel Sevilla on 08-01-2024 HIV 1 RNA HEATHER+probe (Unsp spec) [#/Vol] HIV 1 RNA viral load measurement by probe and target amplification method (number/vol . [facility] Comment on above: HIV-1 RNA not detect edThe reportable range for this assay is 20 to 10,000,000copies HIV-1 RNA/mL. HIV RNA, Real Time PCRon HIV 1 RNA HEATHER+probe [#/Vol] {copies}/mL Normal . [facility] Comment on above: Result Comment: HIV- 1 RNA not detected The reportable range for this assay is 20 to 10,000,000 copies HIV-1 RNA/mL. Performed By: #### H BSAG, HCV RX PCR, HIVRNAPCR, HBCAB, HBSAB #### [facility] , #### CMP, PT, CBC #### [address] Log10 HIV-1 RNA Normal . [facility] Comment on above: Result Comment: Resu lt Units: fmo52nuwj/mL Unable to calculate result since non-numeric result obtained for component test. Performed at: - [facility] [id number] Clother In: Cristo Davalos MD, Phone: [phone] PERFORMED BY: [place] [address] PATHOLOGIST DESKTOP ANALYST REJI FERNANDES M.D. Performed By: #### H BSAG, HCV RX PCR, HIVRNAPCR, HBCAB, HBSAB #### [facility] , #### CMP, PT, CBC #### [facility] [address] [place] [address] Hematocrit Auto (Bld) [Volum e fraction]Ordered By: Vel Sevilla on 08-01-2024 Hematocrit (Bld) [Volume fraction] Hematocrit [Volume Fraction] of Blood by Automated count 38.8-50.0 [facility] Hemoglobin [Mass/volume] in BloodOrdered By: Vel Sevilla on 08-01-2024 Hemoglobin (Bld) [Mass/Vol] Hemoglobin [Mass/volume] in Blood High 13.0-17.0 [facility] Hep C Ab wRfx to Qnt PCRon 0 08-01-2024 HCV Log10 6.512 Normal . [facility] Comment on above: Result Comment: Resu lt Units: log10 IU/mL Performed By: #### H BSAG, HCV RX PCR, HIVRNAPCR, HBCAB, HBSAB #### [facility] , #### CMP, PT, CBC #### [facility] [address] [place] [address] Hepatitis C Quantitation [id number] [IU]/mL Normal . [facility] Comment on above: Performed By: #### H BSAG, HCV RX PCR, HIVRNAPCR, HBCAB, HBSAB #### [facility] , #### CMP, PT, CBC #### [address] Hepatitis C Virus Antibody Reactive Critically abnormal Non Reactive [facility] Comment on above: Performed By: #### H BSAG, HCV RX PCR, HIVRNAPCR, HBCAB, HBSAB #### [facility] , #### CMP, PT, CBC #### [facility] [address] [place] [address] Interpretation Comment Normal . [facility] Comment on above: Result Comment: Posi tive HCV antibody screen with the presence of HCV RNA is consistent with active infection. Performed at: - [address] [id number] Clother In: Narendra Aquino PhD, Phone: [phone] Performed at: [facility] [address] [id number] Clother In: Cristo Davalos MD, Phone: [phone] Performed By: #### H BSAG, HCV RX PCR, HIVRNAPCR, HBCAB, HBSAB #### [facility] , #### CMP, PT, CBC #### [address] Test Information: Comment Normal . [facility] Comment on above: Result Comment: The quantitative range of this assay is 15 IU/mL to 100 million IU/mL. Performed By: #### H BSAG, HCV RX PCR, HIVRNAPCR, HBCAB, HBSAB #### [facility] , #### CMP, PT, CBC #### [address] Hepatitis B Core Antibodyon 08-01-2024 Hepatitis B Core Antibody Positive Critically abnormal Negative [facility] Comment on above: Result Comment: Perf ormed at: - [facility] [address] [id number] Clother In: Narendra Aquino PhD, Phone: [phone] Performed By: #### H BSAG, HCV RX PCR, HIVRNAPCR, HBCAB, HBSAB #### [facility] , #### CMP, PT, CBC #### [address] Hepatitis B Surface Antibody on 08-01-2024 Hepatitis B Surface Antibody Reactive Normal . [facility] Comment on above: Result [...] [facility] , #### CMP, PT, CBC #### [address] Hepatitis B Surface Antigeno n 08-01-2024 HBsAg Screen Negative Normal Negative [facility] Comment on above: Result Comment: PERF ORMED BY: [place] [address] PATHOLOGIST DESKTOP ANALYST REJI FERNANDES M.D. Performed By: #### H BSAG, HCV RX PCR, HIVRNAPCR, HBCAB, HBSAB #### [facility] , #### CMP, PT, CBC #### [facility] [address] Hepatitis B virus core antib ravin assayOrdered By: Vel Sevilla on 08-01-2024 Hepatitis B Core Total Antibody Positive Abnormal Negative [facility] Comment on above: Performed at: - [id number] [place], [place] [id number] Director: Narendra Aquino PhD, Phone: [phone] Hepatitis C virus IgG Ab [Pr esence] in Serum or Plasma by ImmunoassayOrdered By: Vel Sevilla on 08-01-2024 HCV IgG IA Ql Hepatitis C virus Ig G Ab [Presence] in Serum or Plasma by Immunoassay Abnormal Non Reactive [facility] INR in Platelet poor plasma by Coagulation assayOrdered By: Vel Sevilla on 08-01-2024 INR Coag (PPP) [Relative time] INR in Platelet poor plasma by Coagulation assay [facility] Comment on above: INR Therapeutic Rang e [...] erythrocytes in Blood by Automated coun 4.1-10.5 [facility] Lymphocytes Auto (Bld) [#/Vo l]Ordered By: Vel Sevilla on 08-01-2024 Lymphocytes (Bld) [#/Vol] Lymphocytes [#/volume] in Blood by Automated count 1.00-4.8 [facility] Lymphocytes/100 WBC Auto (Bl d)Ordered By: Vel Sevilla on 08-01-2024 Lymphocytes/100 WBC (Bld) Lymphocytes/100 leukocytes in Blood by Automated count . [facility] MCH Auto (RBC) [Entitic mass ]Ordered By: Vel Sevilla on 08-01-2024 MCH (RBC) [Entitic mass] MCH [Entitic mass] by Automated count 27.5-35.2 [facility] MCHC Auto (RBC) [Mass/Vol]Or dered By: Vel Sevilla on 08-01-2024 MCHC (RBC) [Mass/Vol] MCHC [Mass/volume] by Automated count 32.5-35.6 [facility] MCV Auto (RBC) [Entitic vol] Ordered By: Vel Sevilla on 08-01-2024 MCV (RBC) [Entitic vol] MCV [Entitic volume] by Automated count 83.5-101 [facility] Monocytes Auto (Bld) [#/Vol] Ordered By: Vel Sevilla on 08-01-2024 Monocytes (Bld) [#/Vol] Automated blood monocyte count 0.0-0.8 [facility] Monocytes/100 WBC Auto (Bld) Ordered By: Vel Sevilla on 08-01-2024 Monocytes/100 WBC (Bld) Automated monocyte % . [facility] Neutrophils Auto (Bld) [#/Vo l]Ordered By: Vel Sevilla on 08-01-2024 Neutrophils (Bld) [#/Vol] Neutrophils [#/volume] in Blood by Automated count 1.8-7.7 [facility] Neutrophils/100 WBC Auto (Bl d)Ordered By: Vel Sevilla on 08-01-2024 Neutrophils/100 WBC (Bld) Automated neutrophil % . [facility] No Panel InformationOrdered By: Vel Sevilla on 08-01-2024 Estimated GFR (CKD-EPI) > 60.0 mL/Min [facility] Hepatitis C RNA Qnt (PCR) Test Info Comment . [facility] Comment on above: The quantitative ran ge of this assay is 15 IU/mL to 100million IU/mL. Pharmacy Creatinine Clearance (Chem N/A [facility] Nucleated erythrocytes [Pres ence] in Blood by Automated countOrdered By: Vel Sevilla on 08-01-2024 Nucleated RBC Auto Ql (Bld) Nucleated erythrocytes [Presence] in Blood by Automated count 0-0.5 [facility] Platelet mean volume Auto (B ld) [Entitic vol]Ordered By: Vel Sevilla on 08-01-2024 Platelet mean volume (Bld) [Entitic vol] Platelet mean volume [Entitic volume] in Blood by Automated count High 6.6-10.1 [facility] Platelets Auto (Bld) [#/Vol] Ordered By: Vel Sevilla on 08-01-2024 Platelets (Bld) [#/Vol] Platelets [#/volume] in Blood by Automated count Low 150-450 [facility] Potassium [Moles/volume] in Serum or PlasmaOrdered By: Vel Sevilla on 08-01-2024 Potassium [Moles/Vol] Potassium [Moles/v olume] in Serum or Plasma 3.5-5.1 [facility] Comment on above: Specimen hemolyzed, redraw requested Protein [Mass/volume] in Ser um or PlasmaOrdered By: Vel Sevilla on 08-01-2024 Protein [Mass/Vol] Protein [Mass/volume ] in Serum or Plasma 6.4-8.9 [facility] Comment on above: Specimen hemolyzed, redraw requested Prothrombin Time INRon 08-01 INR Coag (PPP) [Relative time] 1.1 {INR} Normal [facility] Comment on above: Result [...] heart valves: 3 - 4.5 PERFORMED BY: [place] [address] PATHOLOGIST DESKTOP ANALYST REJI FERNANDES M.D. Performed By: #### H BSAG, HCV RX PCR, HIVRNAPCR, HBCAB, HBSAB #### [facility] , #### CMP, PT, CBC #### [address] PT Coag (PPP) [Time] 12.7 s Normal 9.0-12.9 [facility] Comment on above: Result Comment: A he matocrit value greater than 55% may lead to inaccurate results in coagulation testing. Patients having hematocrit values >55% require a special collection tube for coagulation studies. Please contact the laboratory at [phone] for redraw instructions. Performed By: #### H BSAG, HCV RX PCR, HIVRNAPCR, HBCAB, HBSAB #### [facility] , #### CMP, PT, CBC #### [address] Prothrombin time (PT)Ordered By: Vel Sevilla on 08-01-2024 PT Coag (PPP) [Time] Prothrombin time (PT) 9.0- 12.9 [facility] Comment on above: A hematocrit value g reater than 55% may lead to inaccurate results in coagulation testing. Patients having hematocrit values >55% require a special collection tube for coagulation studies. Please contact the laboratory at [phone] for redraw instructions. RBC Auto (Bld) [#/Vol]Ordere d By: Vel Sevilla on 08-01-2024 RBC (Bld) [#/Vol] Erythrocytes [#/volu me] in Blood by Automated count 3.90-5.60 [facility] Serum hepatitis B virus surf magdy antibody detectionOrdered By: Vel Sevilla on 08-01-2024 HBV surface Ab Ql (S) Hepatitis B virus surface Ab [Presence] in Serum . [facility] Comment on above: Non Reactive: Not im [...] ratio] Serum or plasma albumin/globulin mass ratio [facility] Comment on above: Specimen hemolyzed, redraw requested Serum or plasma anion gap de terminationOrdered By: Vel Sevilla on 08-01-2024 Anion gap [Moles/Vol] Serum or plasma an ion gap determination [facility] Comment on above: Test not performed Serum or plasma hepatitis B virus surface antigen detection by immunoassayOrdered By: Vel Sevilla on 08-01-2024 HBV surface Ag IA Ql Hepatitis B virus s urface Ag [Presence] in Serum or Plasma by Immunoassay Negative [facility] Serum or plasma hepatitis C virus RNA viral load by probe and target amplification meOrdered By: Vel Sevilla on 08-01-2024 HCV RNA HEATHER+probe [Log units/Vol] Hepatitis C virus RNA [log units/volume] (viral load) in Serum or Plasma by HEATHER with . [facility] Comment on above: Result Units: log10 IU/mL Serum or plasma hepatitis C virus genotype identification by probe and target amplifiOrdered By: Vel Sevilla on 08-01-2024 HCV genotype HAETHER+probe Nom HCV genotyping ser/plas amplified probe . [facility] Comment on above: This test was develo ped and its performance characteristicsdetermined by [facility]. It has not been cleared orapproved by the Food and Drug Administration.Performed at: [address] [id number] Director: Cristo Davalos MD, Phone: [phone] Sodium [Moles/volume] in Ser um or PlasmaOrdered By: Vel Sevilla on 08-01-2024 Sodium [Moles/Vol] Sodium [Moles/volume ] in Serum or Plasma 136-145 [facility] Comment on above: Specimen hemolyzed, redraw requested Urea nitrogen [Mass/volume] in Serum or PlasmaOrdered By: Vel Sevilla on 08-01-2024 Urea nitrogen [Mass/Vol] Urea nitrogen [Mass/volume] in Serum or Plasma 7-25 [facility] WBC Auto (Bld) [#/Vol]Ordere d By: Vel Sevilla on 08-01-2024 WBC (Bld) [#/Vol] Leukocytes [#/volume ] in Blood by Automated count 4.1-10.5 [facility] Coding Summaryon 01-31-2024 Coding Summary HTMLBase 64 CmxutowwKDw7lYu+PGhlYWQ+PE1 UUHJwG19haDFetO2mV6MJNZiNQa rcTROKLEmMFnFwiyCrOM9naBCwN XJu IC8+WQ9sDHFqWynykJVua0U8zGZ 4K31qnq7gOXbcsNB3LVAqLxVgiq szj7ffgXh1JQelZaypKsDs ZDWfeX18QOS4hQ01Ni19oLIpnYY jd3kbqZh0GaTxCBVrVPI2sKpcDC lmn5VuBRLtS31vhAOcj5Z9 GUWyvRqbpRVeCvKaoZZ3dW7tZPz ouqemu2xenpuaBcd8xl19jJGli1 Q9hAC1X8FgbjX1UMXceDTg MxchuCHNmA1ttaxhm3chrpnpMjG hAIVmKBw3NRq2YYJrxDphCwYiCW 74TYS7KADrhuCfF6ZiYKHp aTbrMsX3z5B2Jb8JI1FCTilgR2F NTUFSWTwvdGQ+KC18ti93R3MhEc qoKla8LWSjKUY1rWA1wK6r KXFcZJxze9Z2sOM9O3HtpgAaae2 en3aoTNOpTHwcB42ymKSrk2Y4HK SsqCC7ZDZdlZohBtFowZ91 Oyc+IGWkfMtre1PrMfmej0bwv3c xfTj7MentMSXmxrRltWgsNWK1o0 TxOl0tDCNfuQK6mGU9gH8d DqXeJdJ8YYqwW148TdSfrSHuRva dX44fT5OkuTQ+WNNbEqw5LEHszD lyMA7fF3RrQIJbvhadzBNo vYpmNW6dFQHftcspIDOygU9mKNM uK1e6QhVlEjD7QMshP1FeDMTbcp ctUs31dI5oPxTiToK3WDpy C3MeozL7ETBmjHKfWAiyHNM7T42 qv4T0SEHwUVSkUZG7jKM3uW8phC lnbjogbGVmdDsgdmVydGlj TJjtXJwqI628TOJtqDgfVdXjOBc uZyBEYXRlOiAgMDkvMTIvMjAyND wvdGQ+FGUtGDF8hIkzTKUz pYAhEOsbTd3taExepTssPX6uJNR rxmpbEFHniO6xKGSxfCBzrCaeWX 1xRMMcpkdjv774BeBxRIG1 CCPtxHNiI5KlrJ2xTqMzHBPgRHI zP9GsjEAzADjbF512USdfXxR6YP EquwRwO7SqGBFduYvtHwV4 z4I8Dj2Ts6YpmrtrT5KkhGOwCuQ cXwfdRBr4Q4AxRfensRZ+PC90YW FrJX73FPp6NZZ1iPypCTef QPFkP2ZevG6oTrGfASYjEIChKab +PHRhYmxlIHdpZHRoPScxMDAlJy MwdKmiEC2wKn8xFSBfREBu tPcliKQdUyZgs7zqBFWpPQnxFK8 waRjgY8ItyVP1MUWsc5s5Ka09B5 5gF4WktTC+OEAshRQ9jLM1 gN2vBuLoPaP1QMeeT635JwGmlKR tSlzhd7nlk4tqcMh4TjX6UHCbxb MpyJcvAMQ2a8GiDx20Q04a IHdpZHRoPSIxNSUiIHZhbGlnbj0 dwV4gAv9+SJMjdHJ0jUJ4iK6dFv LcUrC7FRzpD092VxGwgCYj Vxkgl4yax3llhQz8YhTgOZNicoW mdOpbJCV0y9NqKj85X9HxhLcrc5 CyRgg1se72bALba6J5nFE5 V7BpOSBqjdukmHZpgKlqRC9iIKJ iulewJZYhzE8nBPHlY5f2XeOxCg Z6ZKqwX7XcfhE6TZLyiLBf OPXgwRYXbO7utpnkr5hkvtfaXbC tZNCeJDn8GOw9GCTsnSylAcLvLS F5BaZ6MBA3yYVmwK7plQie kybemA8aJhh+BKV5vRWxcYUDRC3 lOjwvdGQ+FTMgCZJ6lNtcDXniTS BxjI1pIGRvA6g4EzOuKkA1 BBxaA0AlxsJ6JBDpqJKcGAGeyYV AxY7cpjtlz4zlnhwiGuNlXHEaMP b3OJw8FWXqgFraEvDbIIC8 JiS5XVH6cLCmcA4pmOdhvfnvhO9 wOyc+FgnxuNqcHZR0NEt1G6BfBx d9XCOhrWfhIK1dzZJmZXet Mc5tnRteuEeqUW6pVRQupcorr52 2RvMzn8pyFALxgHKzUEjzRRZ5T8 7cz9C9MDRzCDHsZOV7qYR4 oK5gwCpwcpynkYQxoJiuqjHzlVx oJDcqFXhqO282UTHftIxaXoJyJA v4P1NwSzo4TSSqzNsrOE3t uCMhZGygAw0utTmwcHwhFJ5pUXZ nzlsbu351FwZfm7nkDIWuoQFfDY xtQYI0V48qc1C8XUBlCBFp ACG9jRN5eT0uvYsfxdeinPBocMg kaqZbxWzfDBszSCyzH445OHWbhP vtNcEjpOo2T0UwFxe4TNOe tWikTT0orGFbBQgoNn3dlEidrWr uQS4oTTLmxwzuf952ZuFqq0rqHS FtiXVxJCrfPYV0V69vl2O2 KPJiFUSaMKC2kZT2rB9dhZsikzp gbGVmdDsgdmVydGljYWwtYWxpZ2 46IHRvcDsnPlBhdGllbnQg JBbdCTe7B0TfCxdfcBW+KE01SSZ sWF19pLGchMGli6dvkGd1OjXoMI ByZVW5fCsrFCrbj6ErVCPy P97yrOZbx8G9THRkmBdwuNRuYhB zeZH8xS1fJWzjydphq3avqrmaEq gjg1ehac16fB04Y61pLGbf TYYeKQMyPMObHRWfpYnkeu1coP9 wIi8+XOTxwIG8rVM6lQ7tOJKbUn U7ZTwiW238JeUtiRRlNetp s1bim9ruvKp6UsV6BVCbntAtzHg lBMY3a3AlCr07F17xEYobFWVmSQ AhPQZuUTNjqPxqdb3sqH9o Ii8+NNNnzHX4oRF2iR4gMcAxJyO 7YNynQ557FjZdcYHzSyufH40wF9 JvdXA+AHMcElu4MBAqbTbl GZ3qjXWrSYnmZq3tVQF5HaBkUeT xYRngB5TyGLYnpgrenguetRX9UQ BcIVZwkN41Yw2suLfvCVEp kSNWnH5zbsgae9kinxdxLfMmJAS dNCr2RLz4FLNwcMyuSjKvTQE8Qb R2FWI7yNKfrX4huNlkossm qL5uQ4EhHOQgtueeWm06qF6sFaY sNuD1YDxnMxt+W9COLC8IOPmlID FWSUQgRVJJQzwvdGQ+PHRk WUE4iMtjYZtwIENnsN4yTNOgV2z 2YnKjTxT2MPvoJ7SnCYHfbvuwSz 38dN8bObAtMzL7RYuiB4Fk nlN4XFRudRHgEHepIQG8Q53ek6N 9PLWbZIFcJFL5pCH7kA1zrNzcmg ogbGVmdDsgdmVydGljYWwt ROwhS822WMNkaFmuMlI8OrQ1NuH 6CeB5L1LrMrc8UNRxtIkmSH3mxR MaLTrxKf2nrAxjgGpmCS5g YBCakdbgLBMfkE3oFROwjLFyrDk wAF4oFMKlhlpal272VpUrZUD0AU JkoJGyN9GwbL9fQlWqGERj YFCkX8TzwTNpVVzxU427BWdlQmH 5SJWaseVoP4ZaDQAzjPqxIdI5y3 E7Hm49AXJRAMScodnbgPX+ ZLNaKOZ4qWmzYZbfWTGvqM7cCRR iJ7g7CnCwEjZ7FPohC6ShKYEimp njTh25dX6wYrRqJwQ3VMok W2FpfrB0GUTbhIKcPClvQYS6V36 yo2X9URWtGMBdJZM2iMB8sL1ohU lnbjogbGVmdDsgdmVydGlj DWnuWDzaB295SANwdNguRd6LZOA 9L6MfDnc7BDJfeVuhQA0fnQGoEB tzLx5zqWbzzCfxLO0yFRDe gnzlCIFckC7nLXNwmRTlpAtwVJ5 tERBfmetks214IeLvQCO9LAHfrA IkT1RzmW5uDxGzIFLtGRMu R1XhwXGsSYtaV289JNzwUiQ5SJX pxgZtZ1VpKNVxgJxbPxJ6v0I9Nz 6YqQLeP9ZpQ8n1F7YyRxum dHI+SI72KVErMS06wUKzuLLbg4y arRu8RgQbWQUgLPA4hVsyCRsmj2 KyZKThV63tkYLnd5V1FWJw aTgsxDIdWfGgkWN0xX3qAXdtsgy as3fdbgrtMzlub5kghh27nT56W9 9sIHdpZHRoPSIzMCUiIHZh lPqcei6dzT2oSf5+SSJtsFM2iAZ 2pM0pOsJsCeA0RXqrL439LkKyvK AmMfewy6css9haeKj3GjCc QIYuduQyrMjgZXD0f8IdOa31F84 sIHdpZHRoPSIyMCUiIHZhbGlnbj 7dkK8rBl5+CN6gt7pdae36 iR23hHV+EDFaHKV0pPrnXSbmHGA klX9uELvuFzK5EMRrOhNgvK71aX NvEWstSb5wlVmwmSvzKE1w XZDbzsimk170YkAgg0dqRPVcwHF xVLuiBFG8T57ps3S5MNZaFHXiSY T4dNX4nF0hjRjvugpxzRQn vNmgxuIchImyROkrHWksH670SWC zxXdwRmGkzOFlT3kjfcKLBR6zKc wvdGQ+AQRxZYE0iUgqWHeh MRSvqX3vTZRhU3p5BuTqMcF7JYj aY5HrewJ9RLSqkNHwJHAyyGXWeF 5qltzmh7yyxcziFnElZAEi SYl4HAw0ABXcxAtyZiIsSPN2NzJ 1WHF6tFRwdH1lgQecbwmapZ9gVu c+RklOOjwvdGQ+PHRkIHN0 wHpzZDyyYZGxzC7aPPYgP4o5QaI rSjX0RSonF2BronW1ZNUffLIuLB CyjNIXlE8foswhj2zdzabw DcNiNETpDNe7GMv0UNRkdNlzPuD mRXJ8VwW6PQS1cRIdoZ2jqKtkoq tccN1tHti+TVJOOjwvdGQ+ YSXtCOT7uCjfHBhdGPSfqG5hSDF mY0o4FcSqJrC7HOztG5NfexR4AO QjkKQfEZPuhOBGgB4ojslf w3rhgfciAiYnVHPwVBa0JCn2HBF ybGiyUnUtIAK3OfD6RNI5oEHpvT 6uyUlzosgmqU4zUrv+UGF5 XKZ5BG90WY85R5IvTehzwGCfzZZ +PHRhYmxlIHdpZHRoPScxMDAlJy GhlLajOG3vSc3tPNMaZIXq bGx (more content not included)... [facility] Coding Summary HTMLBase 64 NmndwgxnCAv2dKw+PGhlYWQ+PE1 LSQIfO53raLOugV9sX3FKUFqGVh iqMIYTZEsWEsGpgnXzFS9hoZJpY XJu IC8+XA9pEFRiZljgnITiz6M0tKR 3V23fhe9bBFqjsWJ2THPeQqUrlk que6xgoOi5ZOxoOitvSsXx XZYpcV89AMQ9bA28Ji26aPZpmJE bw8ieaZo7FxDeDLFsJFH6fYekAT mxu0LzASEzQ98zuWCbr0H3 UASnnFlpuBCsKtEtdWV9bP3xCBp nkszru5zccivkYru1hq60rGUtx3 F3uSS0W0VainP7LMHjrDQr EiettSPRyT6spfxzd9sxufvnMcW lVCLbZWk8LDn3NEQxbZopMiRiNO 29JKK5MNRldxBsJ0SeIZYp vXomBgR5c3G6Kv9LF8NICutxS6C NTUFSWTwvdGQ+NS49ed55Y7ZzLt heEzn4HOScZCV2qKJ6vZ2d ALRxUDozr2L1lTZ5H9TjekGnyw1 br3wcJWDvQWedH24hhCIsw3H5DN WjyRL4SSQuzHxfJnIcsE92 Oyc+TEFmaIdjp3IhHtdtd6vsp3t ahFj7KjvmNMRctfRtoHdvOTE1e8 FlKr5dMUTpdKS3cJL1hH7g MsEoAvP5UDasQ115McNdpANsKlq sL88dJ5PcpCW+QCBgDgi8FGNjpA mnLM9xU7AuPHSxfrkwySSp hOtoNH5fNYFonxhtXIQipX6vBGR oQ9h2PrUcGhM7KHebC1YeAPLrja ghNg63oH7iZwNdQjP6XSey M8TrmbA1BAJmnCPsBNtdYZW4R37 ca0L1PTWxYXDwVNW2oFW5pQ0yfH lnbjogbGVmdDsgdmVydGlj DGryJQeeU093WYKzeYysFtPlJPy uZyBEYXRlOiAgMDkvMTIvMjAyND wvdGQ+TKThVBK1gFgoJSBe tEBwLDtbLd9mhHbdxFukNV9hFHD zlujoRZMhbR9cFRSrmLSkrJzsFF 4eANZqpmuih019BcReBWW2 NBIszDQnF1KylB1kLjBfVCKpMVI wW3GcoNBlKQupU060IIieBiS4QG BpguEvA6EjQPLkdOavFzU8 h5J8Kr2Vc3LqszzfW3EvqPPpQiA eKdcpBFv5C7KpCcpoaGF+PC90YW ByOO21FUg7LIY3lRxuRYha MTWtL9LayY4wGdMhUNZmLHHvAur +PHRhYmxlIHdpZHRoPScxMDAlJy GwfUesCH2fHl5aVPTrUQXg wUkysFBdLbAts5agZMSfHVoyVD6 evWleO9YupQS0RKAyd4w5Mt64H0 7iF3UoqDL+KNTmxCK8gRD3 dI1wZyQeCqK2VNdkB599QkZnlCT bMxiab2ajr5tajZr5UiE5QNQdyb SgkEjpLMK3v1LeNy14Y40i IHdpZHRoPSIxNSUiIHZhbGlnbj0 rtU5pLl4+EXMqbYZ4iQM9gG9lCe KbTrA0MJgnO589MpRtkDPh Emsub8vwk9jmhFm3CaVaLXYbhuZ scQqlCQO3m9UgMh85V9KovXjaw4 NeChy1kb58cRYye9E0gTP5 T9LbRFFhzexnuIQnhXpnVQ8eRBA mbynaOSWbvK6aTMXmI2g0RsGqTp T5AVzfR5EudfQ7NKPxgXWj NJCduRDAiO2rxpwcj9bqlpuvKyV bBYVoEPh8ZSq9CZWleOzhCxMqHO A3VzI3WYR8mBYmxQ8xvDik ummupO8kUlf+VBJ8oAGqrDFLGZ5 lOjwvdGQ+RVAiOUK2gXrsKZawBO MvcX0oHBLrV2h8KwUjFbX5 LNohW5SnyqW4JDDlyEKvXLXvrUQ OfA2redivl3wkpobaCkOaESQsJO s5BRp3ESXylVzeXvXzUZZ0 LsF3LWY8aIZokE7pbVkmhropfU3 wOyc+LfwofHesQAY0BUc1R1UiSp m6CSGahTsaNY6beWMcVLzu Qp5exIawsUrlBI7uUKOizazul31 3NmNlj7ocUKEyvMKoVIxxMWO1S2 9kf2T3MXUqBXPfVAC0yII2 uP3rbAvpihzqySJiaKwpahPaeDo tNHlkPQgsE509IHZlmFdhYcCsKG g8H5KrChi5UITiiKggZA4y nTOiXFvpZa8ktEvalKjuUA4oSKU lnfgzs243GpAlz4afELBuzOZrLO ygVPE7S40dw6R1NINeDBKz EQL5dMQ8oU3ivKnqlcxefQUyhYa mkfLenIwiYMojVPvhE262DKUihF ocQqTubUn0I2HdPde3MSQv rVnrMB3bdANrRQruRf2nqRkdiXf lKV4xCQSpdwcqd968YyTgj2aiIM EbwCWjNLrhBIX0K95pc1T7 XRXtWKYiLQQ5pCT2fO8ryTqpben gbGVmdDsgdmVydGljYWwtYWxpZ2 46IHRvcDsnPlBhdGllbnQg LWcvFXz0E5AiQxiayPY+QU27GAO fNL48vPPxmQSti3yqcNg9TuHeQZ HcOQQ5yNrcBVrue7RjMHRj P50rpGWwf7W4THLcnMrszXRhXlI tbGW5dN5kQJhvkikkm7ngloirKv ldh3eycs50mP38G80qDAsy CCRoSIHiIUKsASKzpCuxln3rvY7 wIi8+OQKmxHM4jUQ3lM3wWDSgGp B7QZoqQ935IwBunPUfSzoc d5kku7qskAo5LlV1YRHdeySygEh hIPJ7l6UuXm35D07dFIbwBPCvYN JcGBWkMMCvyOhyzc0ybF4l Ii8+KLJspFC1oXL4iU4oIlMvXmY 2ANcaC545RwEwkPAzIsxpS46yA5 JvdXA+YFWoPhr8OYSwgKfz ZY6hnIYqYJrxPj7mHAO2KfSfOsW uLXphH2VyTUTdkxwwdjsnvJJ0QF MvFRTzsP77Cs2ktUpsIBFj bJISvD8hpogot5kmzeoeFoQbKRT mTCa7EJm4JZNfpRohPeLtGNC3Cv V0ZRR9yOKjdU1dkPekkbug tV5kX5KnRCQgsidzPv15kV5yOjT iPjF9GOpfZud+X8QVZL6QYWvrPB FWSUQgRVJJQzwvdGQ+PHRk XCL7cLdwOTjtDCYwgQ4lQDThR5l 6FeTaVjT2QGtqZ8UxYJDjpcivUy 10sD5dQtEeGlJ8YZqkO1Qz psQ7AQIliRJjIPgxASE3K39oh2K 6JWDxOCCkXOZ7cJL7hZ4ckPcqxe ogbGVmdDsgdmVydGljYWwt NYkpR185OWVscJtkZuC3CnQ4QpY 2MgE3E3WjWiu3SLDbcBufYA3ycF RfRZwmEw3xgEvykYxlDY7y XBMsydicPGHsoN7fYJEihZDlbHw fBL6dIOChjyplp149CmOeMDA9AR JqwKBvE0TavM4dIaOaVAGh YKPqG7VtiKPiCYaiR944EXtiWqO 9JMCnmoTjR1FmWNIdyXciDgB7z8 L4Cg72RVBESDEtwxtkoRD+ EANoYLY7gAlpQJnaTHHbdG2kPBU qQ1c7IwTqQvB9KLjjA5MdETNypy flHt64bK4bQoVcKdL3AMlz K7FsrrY8UKRnmCXtMFhaURU1Q48 nr3Z7NARyUOJxWGX6xMW0nR4jbC lnbjogbGVmdDsgdmVydGlj KGelXIchS238ODMfmDqpNs5EKOS 8M6NiWtb5VOItzWgeRJ1hqNTjGS boCs8urUoqdOkbSV3zFKBj rmdsMLPfuY3pCFQxuLUglOwgXX5 kULXugfbpz983HuBtJMU2NYHjuA KdH7NsxK5oBvGjYKUxMNRo T0SvsVIvWWpqA133KUtgZbN5XQW rajZrR9HoVZAlqQkpXyI7x2O9Dx 0GpXCqV3HxQ3a4G4QxEccm dHI+RO68KUNyJV21aEUbqQZwg0m gyFe7OyZxWQHdUFF3iBufGBotl8 EmZLZhW22ycFWmc5M6UNRz yAxqrFZePuSctNL5oA4lUDxkgqb qd0vqxjksPtudy9jvdh39jR86B0 9sIHdpZHRoPSIzMCUiIHZh eJrfpg9xuY1rAq7+ERDbvMB9fIO 8yX9gLpXxQmD3FVsiT339AxBqvE WpUgaek6kly1zqzNl1QnWp MCLqbeUqfDmkEAA2w5UqGb66O52 sIHdpZHRoPSIyMCUiIHZhbGlnbj 3ihR2dFz6+VL0ro4qbxm61 jS72iRN+RUZqGJA5fClnKJdnUFQ hdF4vQJybPlQ0ANUhHqTpeC36rE AkNPzvKe0pjXcmvQooMH9a YLDlfszpz403DbOjz9ubJUCseLM gKGesPPO5R87wy1D3BFSsKDLfFX Y9jPV9lL9mfDqtdmgpnOBu mIflvmNnzNzlDYmsFCmmO805GAL luRueYmEwpZWtL7uiewPMSL2fOd wvdGQ+OGIaAKL1gSdvSYhf KSByiJ1xTCYdF8n4ZzNzJuZ8YXi cK4MsloN1IZRwtOChQWUhgWBPqQ 7ijwsrr8bgyvbsVaKlQRAm BJi2TSl6HZAfdQwtZmBxBIW9CtK 3HLE4mUCkiQ8ymNgluwmhfP7gHi c+RklOOjwvdGQ+PHRkIHN0 jRtyTBwqAVBwrX4yGCSlA8q5WcT sPcN4YRnvH3XdnwO2DRFyrFQbZK EbtOIAvT3jzokce4ivxibk EvJsALXyMLk2PIk6UOIpmKyhZqO tIRD7LtY9EMQ1jVHgtG2urDhlnk wdbZ4uGxg+TVJOOjwvdGQ+ EFAeTJO8iWcxYMypHBJduZ8zCFZ vC8f7AmItFoG0RDsfL3YgykZ2BI HiiQCrHLJidCXGyN7htzzs p8wjptxvKuKqVGOdVPs4JBz8RDC jxXsuUyMaXXW6ChF5GQJ9yNLimC 4bnClmldimhB7kEbd+UGF5 KNM0LR08SC08S3ElTmlxjWMjbDS +PHRhYmxlIHdpZHRoPScxMDAlJy IufTzxNE8zXk7hHXMgSLAa bGx (more content not included)... Normal [facility] .Auto Diff 01-24-2024 Auto Rooks % 6 % Normal 06-01 [facility] Comment on above: Performed By: #### 1 [id number], [id number], 5537924, 10906365, 4786652547, 4574186 #### [facility] (DEFAULT) [address] [place] [address] Baso Abs# 0.1 x10 Normal 0.0-0.2 [facility] Comment on above: Performed By: #### 1 [id number], 9029055909, 7121373, 36431216, 4639247114, 2826308 #### [facility] (DEFAULT) [address] [place] [address] 19297 Basophils/100 WBC (Bld) 1.3 % Normal 0.2-2.0 [facility] Comment on above: Performed By: #### 1 [id number], 4652308882, 8692235, 84853953, 8200919577, 1363038 #### [facility] (DEFAULT) [address] [place] [address] 76928 Eos Abs# 0.1 x10 Normal 0.0-0.4 [facility] Comment on above: Performed By: #### 1 [id number], 3893758773, 2761326, 28575446, 8971457723, 0686331 #### [facility] (DEFAULT) [address] [place] [address] 63312 Eosinophils/100 WBC (Bld) 1.3 % Normal 0.9-4.0 [facility] Comment on above: Performed By: #### 1 [id number], 7665020534, 9113632, 00185983, 9741177292, 5072618 #### [facility] (DEFAULT) [address] [place] [address] Lymph Abs# 3.5 x10 High 1.3-2.9 [facility] Comment on above: Performed By: #### 1 [id number], 2381703099, 2486513, 88442369, 7444127318, 1968361 #### [facility] (DEFAULT) [address] [place] [address] Lymphocytes/100 WBC (Bld) 44 % Normal 14-48 [facility] Comment on above: Performed By: #### 1 [id number], 3283282068, 3950640, 49229973, 0028917931, 2784148 #### [facility] (DEFAULT) [address] [place] [address] Rooks Abs# 0.5 x10 Normal 0.0-0.8 [facility] Comment on above: Performed By: #### 1 [id number], 0959354725, 3839280, 51989506, 3701432360, 6515008 #### [facility] (DEFAULT) [address] [place] [address] Neut Abs# 3.8 x10 Normal 1.5-9.2 [facility] Comment on above: Performed By: #### 1 [id number], 4801101663, 4115653, 32596038, 5391130940, 0010937 #### [facility] (DEFAULT) [address] [place] [address] Neutrophils/100 WBC (Bld) 48 % Normal 44-88 [facility] Comment on above: Performed By: #### 1 [id number], 6343174496, 2240675, 14958139, 3501343611, 9657902 #### [facility] (DEFAULT) [address] [place] [address] CBC w/ Auto Diffon 4 Erythrocyte distribution width (RBC) [Ratio] 13.9 % Normal 11.5-15.0 [facility] Comment on above: Performed By: #### 1 [id number], 8424458573, 9707089, 04941714, 6283834101, 6142557 #### [facility] (DEFAULT) [address] [place] [address] Hematocrit (Bld) [Volume fraction] 46.8 % Normal 34.8-51.9 [facility] Comment on above: Performed By: #### 1 [id number], 1593369003, 0177476, 88554124, 8258903849, 7342995 #### [facility] (DEFAULT) [address] [place] [address] Hemoglobin (Bld) [Mass/Vol] 16.3 g/dL Normal 11.8-17.7 [facility] Comment on above: Performed By: #### 1 [id number], 6624898342, 8939453, 32329314, 6621575912, 8498891 #### [facility] (DEFAULT) [address] [place] [address] Man Diff? Auto Invalid Interpretation Code [facility] Comment on above: Performed By: #### 1 [id number], 9640278503, 8287930, 03124401, 0698067100, 3228272 #### [facility] (DEFAULT) [address] [place] [address] MCH (RBC) [Entitic mass] 32 pg Normal 24-34 [facility] Comment on above: Performed By: #### 1 [id number], 9892204446, 1752518, 79012151, 6851682589, 8450352 #### [facility] (DEFAULT) [address] [place] [address] MCHC (RBC) [Mass/Vol] 35 g/dL Normal 26-37 [facility] Comment on above: Performed By: #### 1 [id number], 0210159316, 9206329, 04671604, 2673621828, 7934904 #### [facility] (DEFAULT) [address] [place] [address] MCV (RBC) [Entitic vol] 94 fL Normal 81-100 [facility] Comment on above: Performed By: #### 1 [id number], 9696205236, 7768853, 08073633, 8493853970, 0050524 #### [facility] (DEFAULT) [address] [place] [address] Platelet 144 x10 Normal 138-427 [facility] Comment on above: Performed By: #### 1 [id number], 3210241195, 6312986, 97074251, 2284042272, 5392488 #### [facility] (DEFAULT) [address] [place] [address] Platelet mean volume (Bld) [Entitic vol] 11.0 fL High 6.3-10.2 [facility] Comment on above: Performed By: #### 1 [id number], 4972831154, 4035205, 78009341, 1736838975, 4990553 #### [facility] (DEFAULT) [address] [place] [address] RBC 5.00 x10 Normal 3.70-5.30 [facility] Comment on above: Performed By: #### 1 [id number], 0104398735, 5878750, 90441012, 2418743960, 2164068 #### [facility] (DEFAULT) [address] [place] [address] WBC 8.0 x10 Normal 3.5-10.5 [facility] Comment on above: Result Comment: Slid e Reviewed Performed By: #### 1 [id number], 1134817722, 0345848, 68572154, 9857268677, 4074019 #### [facility] (DEFAULT) [address] [place] [address] CMP Standardon 01-24-2024 eGFR Non AA >60 Invalid Interpretation Code [facility] Comment on above: Performed By: #### 1 [id number], 1097028825, 7246362, 39832506, 1739228230, 6124265 #### [facility] (DEFAULT) [address] [place] [address] eGFR AA >60 Invalid Interpretation Code [facility] Comment on above: Performed By: #### 1 [id number], 1064474380, 5160669, 06937347, 2520021758, 1190271 #### [facility] (DEFAULT) [address] [place] [address] Albumin [Mass/Vol] 4.1 g/dL Normal 3.5-5.0 [facility] Comment on above: Performed By: #### 1 [id number], 0331668068, 0238724, 02213691, 1068150511, 1502645 #### [facility] (DEFAULT) [address] [place] [address] Albumin/Globulin [Mass ratio] 1.1 {ratio} Low 1.4-2.6 [facility] Comment on above: Performed By: #### 1 [id number], 6312176522, 1191592, 22300079, 5805707049, 2416926 #### [facility] (DEFAULT) [address] [place] [address] Alk Phos 40 IU/L Normal 32-91 [facility] Comment on above: Performed By: #### 1 [id number], 1965951019, 2029698, 13581266, 8640623029, 9670293 #### [facility] (DEFAULT) [address] [place] [address] ALT [Catalytic activity/Vol] 145.0 U/L High 17.0-63.0 [facility] Comment on above: Performed By: #### 1 [id number], 8292494254, 9157480, 90364835, 6348752825, 6480119 #### [facility] (DEFAULT) [address] [place] [address] Anion gap [Moles/Vol] 8.3 mmol/L Normal 5.0-19.0 [facility] Comment on above: Performed By: #### 1 [id number], 4590890147, 7997656, 88490460, 9028011618, 1377252 #### [facility] (DEFAULT) [address] [place] [address] 43922 AST [Catalytic activity/Vol] 97 U/L High 15-41 [facility] Comment on above: Performed By: #### 1 [id number], 6410415317, 1956261, 08668233, 1162779416, 1951915 #### [facility] (DEFAULT) [address] [place] [address] 07064 Bili Total 0.8 mg/dL Normal 0.3-1.2 [facility] Comment on above: Performed By: #### 1 [id number], 5003759190, 8790049, 51130253, 7274212240, 4110500 #### [facility] (DEFAULT) [address] [place] [address] 38405 Calcium [Mass/Vol] 8.8 mg/dL Low 8.9-10.3 [facility] Comment on above: Performed By: #### 1 427125767, 9211990938, 8269161, 00582936, 9377285837, 3912108 #### [facility] (DEFAULT) [address] [place] [address] 51473 Chloride [Moles/Vol] 107 mmol/L Normal 101-111 [facility] Comment on above: Performed By: #### 1 [id number], 1285737164, 0250475, 13114720, 3184707977, 2167434 #### [facility] (DEFAULT) [address] [place] [address] 90037 CO2 [Moles/Vol] 24 mmol/L Normal 21-32 [facility] Comment on above: Performed By: #### 1 [id number], 3166476014, 3520853, 63228292, 5450127323, 2243143 #### [facility] (DEFAULT) [address] [place] [address] 25826 Creatinine [Mass/Vol] 0.90 mg/dL Normal 0.90-1.30 [facility] Comment on above: Performed By: #### 1 [id number], 4395550769, 1863037, 30015027, 5558171970, 5550781 #### [facility] (DEFAULT) [address] [place] [address] 62753 Globulin (S) [Mass/Vol] 3.6 g/dL Normal 1.5-4.3 [facility] Comment on above: Performed By: #### 1 [id number], 7058110630, 9601480, 34826024, 7330912048, 9793355 #### [facility] (DEFAULT) [address] [place] [address] 41808 Glucose [Mass/Vol] 106.0 mg/dL Normal 74.0-118.0 [facility] Comment on above: Performed By: #### 1 [id number], [id number], [id number], [id number], [id number], [id number] #### [facility] (DEFAULT) [address] [place] [address] 23184 Osmolality 271 mOsm/L Invalid Interpretation Code [facility] Comment on above: Performed By: #### 1 [id number], [id number], [id number], [id number], [id number] #### [facility] (DEFAULT) [address] [place] [address] 82705 Potassium [Moles/Vol] 3.3 mmol/L Low 3.6-5.1 [facility] Comment on above: Performed By: #### 1 [id number], [id number], [id number], [id number], [id number], [id number] #### [facility] (DEFAULT) [address] [place] [address] 11895 Protein [Mass/Vol] 7.7 g/dL Normal 6.5-8.1 [facility] Comment on above: Performed By: #### 1 [id number], [id number], [id number], [id number], [id number], [id number] #### [facility] (DEFAULT) [address] [place] [address] 08402 Sodium [Moles/Vol] 136.0 mmol/L Normal 136.0-144 . 0 [facility] Comment on above: Performed By: #### 1 [id number], [id number], [id number], [id number], [id number], [id number] #### [facility] (DEFAULT) [address] [place] [address] 87383 Urea nitrogen [Mass/Vol] 10 mg/dL Normal 8-26 [facility] Comment on above: Performed By: #### 1 [id number], [id number], [id number], [id number], [id number], [id number] #### [facility] (DEFAULT) [address] [place] [address] 58921 Urea nitrogen/Creatinine [Mass ratio] 11.1 mg/mg Normal 4.6-16.2 [facility] Comment on above: Performed By: #### 1 [id number], [id number], [id number], [id number], [id number], [id number] #### [facility] (DEFAULT) [address] [place] [address] 31387 ED Clinical Summaryon 2023 ED Clinical Summary [facility] - Emergency Department [address] [place] [address] 28858 ED Clinical Summary PERSON INFORMATION Name: JEFFRY AGUILAR Age: 49 Years Sex: MALE : 1975 MRN: Acct#: Visit Reason: UC - Muscle Twitches; Diarrhea; Abdominal pain; BILATERAL LEG SPASM, LFT BACK PAIN, DIARRHEA Arrival: 01/24/2024 12:55:30 Discharge: 01/24/2024 16:04:00 LOS: 000 03:09 Check In: 01/24/2024 12:55:30 Checkout:01/24/2024 16:04:00 Address: [address] [place], [place] [id number] PCP: PROVIDER INFORMATION Provider Role Assigned Unassigned [...] EDUCATION INFORMATION Instructions: Muscle Cramps and Spasms, [id number]; Hypocalcemia, Adult; Hypokalemia Follow-Up: With: Address: When: TAMIKA FRIEDMAN [address] [place], [place] [id number] Business (1) Within 5 to 7 days Comments: Review after care instructions. Continue with the current treatment as outlined by the ER physician, Dr Chirinos. Take medication as prescribed. Contact your assigned on-call doctor for a follow-up appointment if you do not have a local family doctor or PCP. Alternatively, you may also follow-up in the Urgent Care at [facility] if you are not able to [...] verbalizes understanding of instructions given Comment: Normal [facility] ED Note - Physicianon 2023 ED [...] leg. Stated that he had lived in [place]. Stated that he came appeared to help [...] of motio (more content not included)... Normal [facility] ED Note-Nursingon 01-24-2024 ED Note-Nursing Pt [...] is A/Ox4 call light within reach Normal [facility] ED Patient Summaryon 024 ED Patient Summary [facility] - Emergency Department [address] [place], [place] [id number] PATIENT DISCHARGE INSTRUCTIONS Patient Information Name: JEFFRY AGUILAR Age: 49 Years Date of : 1975 Reason For Visit: UC - Muscle Twitches; Diarrhea; Abdominal pain; BILATERAL LEG SPASM, LFT BACK PAIN, DIARRHEA Arrival Time: 01/24/2024 12:55:30 Primary Care Physician: Attending Physician: Sebastian Chirinos MD Comment: Visit Diagnosis: Diagnoses This Visit Abdominal pain ([id number]) Acute hypokalemia (E87.6) Diarrhea ([id number]) Hypocalcemia (E83.51) Muscle cramps at night (R25.2) UC - Muscle Twitches ([id number]) The Pharmacy at [facility] is open Sunday through Sunday from 9A [...] alcohol and/or drug addiction problems; contact the [facility] 11/12 Crisis Hotline -Text 2WUUT dq 997641. If you received any narcotics, sedation, or [...] legal documents With: Address: When: TAMIKA FRIEDMAN [address] [place] [address] Business (1) Within 5 to 7 days Comments: Review after care instructions. Continue with the current treatment as outlined by the ER physician, Dr Chirinos. Take medication as prescribed. Contact your assigned on-call doctor for a follow-up appointment if you do not have a local family doctor or PCP. Alternatively, you may also follow-up in the Urgent Care at [facility] if you are not able to get an appointment with a family doctor within the recommended time. Call the emergency department if you have any questions or concerns regarding your treatment today. Return to the emergency department if you have significant symptoms that concerns you. Medication Information: The exam and treatment you received today in the [facility] Emergency Department were for an urgent problem and are not intended as complete care. It is important for you to follow up with a doctor, nurse practitioner, or physician?s assistant controller for ongoing care. If your symptoms become [...] so we can reach you if necessary. [facility] Emergency Department has provided you with a complete list of medications post discharge. Please inform your layout worker/provider of your visit and for further instruction [...] Pressure, Cuff (more content not included)... Normal [facility] Extra Blue 01-24-2024 Tube Collected Yes Invalid Interpretation Code [facility] Comment on above: Performed By: #### 1 [id number], [id number], [id number], [id number], [id number] #### [facility] (DEFAULT) [address] [place] [address] 79023 Magnesiumon 01-24-2024 Magnesium [Mass/Vol] 2.02 mg/dL Normal 1.80-2.50 [facility] Comment on above: Performed By: #### 1 [id number], [id number], [id number], [id number], [id number] #### [facility] (DEFAULT) [address] [place] [address] 17656 Electrocardiogramon 11-24-19 17 Electrocardiogram Normal [facility] Vital Signs Date Time Vital Sign Value Performing Clinician Ras jack 01-01-2025 16:20-0400 Heart rate 65 /min Services [facility] Work Phone: [facility] 01-01-2025 16:20-0400 Respiratory rate 16 /min Services [facility] Work Phone: [facility] 01-01-2025 16:20-0400 SaO2% (BldA) [Mass fraction] 99 % Services [facility] Work Phone: [facility] 01-01-2025 15:06-0400 Diastolic blood pressure 95 mm[Hg] [facility] Work Phone: [facility] 01-01-2025 15:06-0400 Systolic blood pressure 134 mm[Hg] [facility] Work Phone: [facility] 01-01-2025 12:00-0400 Body height 187.96 cm [facility] Work Phone: [facility] 01-01-2025 12:00-0400 Body temperature 97.9 [degF] [facility] Work Phone: [facility] 01-01-2025 12:00-0400 Body weight 108 kg [facility] Work Phone: [facility] 08-11-2024 13:35-0400 Diastolic blood pressure 84 mm[Hg] [facility] Work Phone: [facility] 08-11-2024 13:35-0400 Heart rate 57 /min [facility] Work Phone: [facility] 08-11-2024 13:35-0400 Respiratory rate 18 /min [facility] Work Phone: [facility] 08-11-2024 13:35-0400 SaO2% (BldA) [Mass fraction] 97 % [facility] Work Phone: [facility] 08-11-2024 13:35-0400 Systolic blood pressure 120 mm[Hg] [facility] Work Phone: [facility] 08-11-2024 11:06-0400 Body height 187.96 cm [facility] Work Phone: [facility] 08-11-2024 11:06-0400 Body weight 106.59 kg [facility] Work Phone: [facility] 07-30-2024 09:05-0400 Body height 187.96 cm Services [facility] Work Phone: [facility] 07-30-2024 09:05-0400 Body mass index (BMI) [Ratio] 30.2 kg/m2 Services [facility] Work Phone: [facility] 07-30-2024 09:05-0400 Body weight 106.59 kg Services [facility] Work Phone: [facility] Encounters Encounter Date Encounter Type Care Provider Facility Start: 01-01-2025 End: 01-01-2025 Emergency department patient visit [facility] Work Phone: -Emergency Room Work Phone: Start: 12-24-2024 End: 01-02-2025 Telephone encounter Kobe Berman MD Work Phone: Rheumatology Comment on above: Appointment Reschedu led Start: 12-15-2024 End: 12-15-2024 Patient encounter procedure Nakul Patricio DO -[facility] Work Phone: Start: 12-15-2024 End: 12-15-2024 ambulatory Services [facility] Work Phone: [facility] Work Phone: Start: 12-10-2024 End: 12-10-2024 ambulatory Services [facility] Facility:[facility] Start: 12-10-2024 Non-patient / Non-visit Enrike Fatima MD -[facility] Work Phone: Start: 10-24-2024 End: 10-24-2024 Transcribe Orders Nakul Patricio DO Work Phone: Referring Physician Comment on above: Rheumatoid arthritis , involving unspecified site, unspecified whether rheumatoid factor present (HCC) (Primary Dx) Start: 08-13-2024 End: 08-13-2024 Patient encounter procedure Services [facility] Work Phone: [facility] Work Phone: Start: 08-13-2024 End: 08-13-2024 ambulatory Services [facility] Work Phone: [facility] Work Phone: Start: 08-11-2024 Non-patient / Non-visit [facility] Work Phone: [facility] Work Phone: Start: 08-11-2024 End: 08-11-2024 Admission to same day surgery center Services [facility] Work Phone: [facility] Work Phone: Start: 08-11-2024 End: 08-11-2024 ambulatory Services [facility] Work Phone: [facility] Work Phone: Start: 08-08-2024 End: 08-08-2024 Patient encounter procedure Services [facility] Work Phone: [facility] [place] Work Phone: Start: 08-08-2024 End: 08-08-2024 ambulatory Services [facility] Work Phone: [facility] Work Phone: Start: 08-06-2024 End: 08-06-2024 Patient encounter procedure Services [facility] Work Phone: [facility] [place] Work Phone: Start: 08-06-2024 End: 08-06-2024 ambulatory Services [facility] Work Phone: [facility] Work Phone: Start: 08-04-2024 End: 08-04-2024 Patient encounter procedure [facility] Work Phone: [facility] [place] Work Phone: Start: 08-04-2024 End: 08-04-2024 ambulatory Services [facility] Work Phone: [facility] Work Phone: Start: 08-01-2024 End: 08-01-2024 Patient encounter procedure Services [facility] Work Phone: [facility] [place] Work Phone: Start: 08-01-2024 End: 08-01-2024 ambulatory Services [facility] Work Phone: [facility] Work Phone: Start: 07-30-2024 End: 07-30-2024 Patient encounter procedure Services [facility] Work Phone: [facility] Work Phone: Start: 01-24-2024 End: 01-24-2024 Emergency department patient visit Sebastian Chirinos Facility:[facility] Start: 11-22-2016 End: 11-23-2016 Ambulatory Italia Ballico Facility:[facility] Procedures Date Procedure Procedure Detail Performing Clinician Start: 01-01-2025 Computed tomography of abdomen and pelvis with contrast Services [facility] Work Phone: Start: 01-01-2025 Plain chest X-ray Servi xenia [facility] Work Phone: Start: 08-13-2024 Ultrasound elastogra phy of liver Services [facility] Work Phone: Start: 08-11-2024 Screening colonoscopy S ervices [facility] Work Phone: Start: 08-08-2024 Ultrasonography of liver Services [facility] Phone: Plan of Treatment Date Care Activity Detail Author Start: 05-28-2025 Diabetes Screening Diabetes Screening [facility] Start: 01-19-2025 Influenza vaccination [facility] Start: 08-13-2024 [facility] Start: 08-11-2024 [facility] Start: 08-01-2024 Hepatitis B core antibody measurement [facility] Start: 08-01-2024 Hepatitis B virus surface Ab [Presence] in Serum [facility] Start: 08-01-2024 [facility] Start: 01-23-2024 Pneumococcal Vaccine: 50+ (1 of 1 - PCV) Pneumococcal Vaccine: 50+ (1 of 1 - PCV) [facility] Start: 01-23-2024 Shingrix Vaccine (1 of 2) Shingrix Vaccine (1 of 2) [facility] Start: 2019 Screening for malignant neoplasm of colon [facility] Start: 2009 Lipid panel Lipid Screening [facility] Start: 1993 Hepatitis B Vaccine (1 of 3 - 19+ 3-dose series) Hepatitis B Vaccine (1 of 3 - 19+ 3-dose series) [facility] Start: 1993 Urine microalbumin profile DTaP,Tdap,Td Vaccine (1 - Tdap) [facility] Start: 01-23-1992 Anxiety Screening Anxiety Screening [facility] Start: 01-23-1992 Depression Screening Depression Screening [facility] Start: 01-23-1992 Hepatitis C screening Hepatitis C Screening [facility] Start: 01-23-1992 HIV screening HIV Screening [facility] Glucose measurement estimated from glycated hemoglobin [facility] Hemoglobin A1c/Hemoglobin.total in Blood [facility] Hepatitis B virus DN A [#/volume] (viral load) in Serum or Plasma by HEATHER with probe detection [facility] Hepatitis B virus DN A [log units/volume] (viral load) in Serum or Plasma by HEATHER with probe detection [facility] Hepatitis B virus DN A [Units/volume] (viral load) in Serum or Plasma by HEATHER with probe detection [facility] Hepatitis B virus surface Ag [Presence] in Serum or Plasma by Immunoassay [facility] Hepatitis C virus Ig G Ab [Presence] in Serum or Plasma by Immunoassay [facility] Hepatitis C virus RN A [log units/volume] (viral load) in Serum or Plasma by HEATHER with probe detection [facility] HIV 1 RNA [#/volume] (viral load) in Unspecified specimen by HEATHER with probe detection [facility] HIV 1 RNA [Log #/vol ume] (viral load) in Unspecified specimen by HEATHER with probe detection [facility] Patient Education [facility] Work Phone: Patient referral [facility] Work Phone: [facility] Payers Date Payer Category Payer Medicaid [id number] 2024 Self-pay 2024 Medicaid [facility] Member Subscriber Plan / Payer (Effective 2024-Present) Name: Jeffry Aguilar Relation to Subscriber: Self Name: Jeffry Aguilar Payer ID: Not on file Group ID: Not on file Type: Medicaid Address: [place] [id number] 2024 Medicaid [id number] 2016 Medicaid [id number] 1975 Unknown [id number] Unknown [id number] Unknown [id number] Unknown [id number] Unknown [id number] Unknown [id number] Unknown [id number] Unknown [id number] Unknown [id number] Unknown [id number] Social History Date Type Detail Facility Start: 08-01-2024 End: 08-11-2024 Tobacco smoking status NHIS Smoker (finding) [facility] Start: 08-02-2024 End: 08-13-2024 Sex Male (finding) [facility] Start: 1975 Sex Assigned At Male [facility] Tobacco smoking stat us NHIS Tobacco smoking consumption unknown [facility] Start: 1975 Sex assigned at Not on file [facility] Start: 12-17-2024 End: 12-24-2024 Gender identity Not on file [facility] Start: 08-11-2024 End: 01-01-2025 Tobacco smoking status NHIS Smokes tobacco daily (finding) [facility] Start: 12-17-2024 End: 12-24-2024 History of Social function [facility] Start: 10-24-2024 Adult Depression Screening Assessment 5 [facility] Goals Date Patient Goal Desired Activity /State [...] Carleen Suero January 02, 2025 11:04 AM [facility] 01-02-2025 Miscellaneous Notes Formattin g of this [...] new consults RA documented in this encounter [facility] 01-02-2025 Telephone encount er Note Pt has not read [employer] messages please follow up with patient for scheduling new consult for RA [facility] 01-01-2025 Radiology Diagnostic study note [facility] [place] [address] [place] [address] CT Scan Report Signed Patient: Jeffry Aguilar MR#: [id number] : 1975 Acct:[id number] Age/Sex: 49 / M ADM Date: 5 Loc: ER Room: Type: [facility] ER Attending Dr: Copies to: Liya Hill [...] Jr., Ronit 01/01/2025 1:51 PM Dictation Location: [place] [address] Transcribed By: [facility] 01/01/25 1351 Dictated By: Rufus Cruz Jr, DO 01/01/25 1348 Signed By: 01/01/25 1351 [facility] 01-01-2025 Hospital Discharg e instructions Additional Instructions [...] Return here if symptoms persist or worsen. [facility] Work Phone: 12-25-2024 Telephone encount er Note 1st attempt, left voicemail for patient to call back and schedule new pt appt 2nd, mychart sent [facility] 12-24-2024 Telephone encount er Note Please contact pt to reschedule his missed VV appt that was scheduled today @2pm .with Dr Cullen lynn consults RA [facility] 08-11-2024 Procedure note [facility] 08-08-2024 Radiology Diagnostic study note [facility] [place] [address] Ultrasound Report Signed Patient: Jeffry Aguilar MR#: [id number] : 1975 Acct:[id number] Age/Sex: 49 / M ADM Date: 5 Loc: Room: [facility] Attending Dr: Vel Sevilla SERVICE STATION OPERATOR Ordering Provider: Vel Sevilla APRN Date of [...] Marie Levine M.D.08/08/2024 1:47 PM Dictation Location: [place] [address] Tech: Penny Bundy Transcribed By: SERGIO 08/08/24 1347 Dictated By: Rose Marie Levine MD 08/08/24 134 Signed By: 08/08/24 1347 [facility] Work Phone: 07-30-2024 Evaluation note Diagnosis Onset Date Resolution Abdominal pain acute July 8:58am Hepatitis C acute July 30 8:58am [facility] Work Phone: 1(151) 773-285409-05-2024 [employer] Materials Endocrinology Hypocalcemia, Adult Hypocalcemia is [...] Reviewed: 10/12/2021 Elsevier Patient Education ? 2023 [place] G[facility] Hypokalemia Hypokalemia means that the amount [...] levels in the bod (more content not included)...[facility] Rheumatoid arthritis, involving unspecified site, unspecified whether rheumatoid factor present (HCC)- Primary documented in this encounter [facility] noteNo assessment information availableKind[facility] Work Phone: Reason for referral (narrative)No reason for referral information availableKindred Hospital [facility] Work Phone: Summary Purpose Family History No [...] section and content) DATE CREATED AUTHOR [facility]14/2017 [facility] DATE CREATED AUTHOR AUTHOR'S ORGANIZ ATION [facility]2024 [facility] DATE CREATED AUTHOR AUTHOR'S ORGANIZ ATION 01/03/2025 [facility] DATE CREATED AUTHOR AUTHOR'S ORGANIZ ATION 01/04/2025 [facility] Care Teams (unrecognized sec tion and [...] 2024 End: July 30, 2024 Services [facility] Primary Care Provider Active Start: July 30, 2024 End: July 30, 2024 Nakul Patricio DO Referring Provider Active St art: July 30, 2024 End: July 30, 2024 Team Status: Inactive Member Role Status Dates Services [facility] Primary Care Provider Active Start: August 01, 2024 End: August 01, 2024 Vel Sevilla APRN Attending Provider Active [...] August 13, 2024 End: August 13, 2024 Sieve Grader Tender Relationship Specialty Start Date End Date Nakul Patricio DO [address] [place] [address] PCP - General Family Medicine 10/24/24 Nakul Patricio DO [address] [place] [address] Referring Family Medicine 10/24/24 Team Status: Inactive Member Role Status Dates Services [facility] Primary Care Provider Active Start: December 15, 2024 End: December 15, 2024 Nakul Patricio DO Attending Provider Active St art: December 15, 2024 End: December 15, 2024 Team Status: Inactive Member Role Status Dates Services [facility] Primary Care Provider Active Start: January 01, 2025 End: January 01, 2025 Liya Hill APRN Emergency Provider Active S tart: January 01, 2025 End: January 01, 2025 Sieve Grader Tender Relationship Specialty Start Date End Date Nakul Patricio DO [address] [place] [address] PCP - General Family Medicine 10/24/24 Nakul Patricio DO [address] [place] [place] [address] Referring Family Medicine 10/24/24 Goals (unrecognized section [...] or prosecute any alcohol or drug abuse patient.[facility] the event this information is protected by the Federal Confidentiality of Alcohol and Drug Abuse Patient Records regulations: The Federal rules restrict any use of the information to criminally investigate or prosecute any alcohol or drug abuse patient.[facility] Reason for Visit (unrecogniz ed section and [...] BE BASED ON THE PRIMARY CLINICAL RECORDS. [facility] [employer] [facility]. provides no warranty or guarantee of the accuracy or completeness of information in this document.
[2025-01-23 11:06] LABS: Hematocrit 47.6 % (42.0-54.0); Hemoglobin 17.5 g/dL (14.0-18.0); Immature Granulocytes Abs Auto 0.01 10^3/uL (0.00-0.03); Immature Granulocytes Pct Auto 0.2 % (0.0-0.5); Lymphocytes Absolute Auto 1.7 10^3/uL (1.2-3.8); Mean Corpuscular HGB Conc 36.8 g/dL (29.9-35.2); Mean Corpuscular Hemoglobin 34.0 pg (25.9-34.0); Mean Corpuscular Volume 92.4 fL (80.0-94.0); Platelet Count 117 10^3/uL (150-450); Red Blood Count 5.15 10^6/uL (4.70-6.10); White Blood Count 5.1 10^3/uL (4.0-11.0)
[2025-01-23] MEDS: 0.9 % SODIUM CHLORIDE 1,000 ML 1000 ML IV (11:17)
[2025-01-23] MEDS: KETOROLAC TROMETHAMINE 30 MG/ML VIAL IVP (11:17)
[2025-01-23 11:21] LABS: Alanine Aminotransferase 122 U/L (16-63); Albumin Globulin Ratio 0.9; Albumin Level 3.7 g/dL (3.4-5.0); Alkaline Phosphatase 66 U/L (46-116); Anion Gap 13.7; Aspartate Amino Transferase 110 U/L (15-37); Blood Urea Nitrogen 12.0 mg/dL (7.0-18.0); Calcium 8.4 mg/dL (8.5-10.1); Carbon Dioxide 24.6 mmol/L (21.0-32.0); Chloride 104 mmol/L (98-107); Estimated GFR (African America >60 (>=60 mL/min/1.73m^2); Estimated GFR (Non-African Ame >60 (>=60 mL/min/1.73m^2); Globulin 4.3 g/dL; Glucose 116 mg/dL (74-106); Potassium 4.3 mmol/L (3.5-5.1); Sodium 138 mmol/L (136-145); Total Protein 8.0 g/dL (6.4-8.2)
[2025-01-23 12:04] VITALS: BP 158/103; PULSE 98; O2SAT 94
== END 2025-01-23 12:10 | disposition home or self-care (01) ==
PROVIDERS: Emergency Provider Student in an Organized Health Care Education/Training Program; PCP Student in an Organized Health Care Education/Training Program
DX: R10.32 Left lower quadrant pain (principal); J44.9 Chronic obstructive pulmonary disease, unspecified; F17.200 Nicotine dependence, unspecified, uncomplicated
CPT/HCPCS: 36415; 80053; 85025; 94640; 96361; 96374; 96375; 99284; J1885; J2405

== ENCOUNTER 2025-04-06 23:49 | Emergency (ER) | payer OTHER, SELFPAY ==
[2025-04-07] VITALS (36 sets, daily range): BP systolic 105–131; BP diastolic 73–95; PULSE 68–93; TEMP 36.6; O2SAT 90–99; BMI 31.5
--- NOTE | 2025-04-07 00:24 | ED.ABDPAIN1 ---
HPI - Abdominal Pain General Chief Complaint: Abdominal Pain Stated Complaint: COUGH, CHEST PAIN Time Seen by Provider: 04/07/25 00:12 Source: patient Mode of arrival: walk-in Limitations: no limitations History of Present Illness HPI narrative: abdominal pain started about 2 hours ago. Pain RUQ and across his upper abdomen. States he was nauseated earlier. Diarrhea ongoing for past 2 months. No blood. No fever. Does have COPD and shortness of breath. Daily cigarette smoker Related Data Home Medications ?Medication ?Instructions ?Recorded ?Confirmed gabapentin 600 mg tablet 800 mg PO Q8H 11/19/24 04/07/25 losartan 25 mg tablet 25 mg PO DAILY 11/19/24 04/07/25 Previous Rx's ?Medication ?Instructions ?Recorded meloxicam 15 mg tablet 15 mg PO DAILY PRN pain #10 tabs 01/15/25 orphenadrine citrate 100 mg 100 mg PO BID PRN muscle spasm #10 01/15/25 tablet,extended release tabs Allergies Allergy/AdvReac Type Severity Reaction Status Date / Time codeine Allergy Severe Hives Verified 04/07/25 00:16 narcotics AdvReac recovering Uncoded 04/07/25 00:16 addict Review of Systems ROS Status of ROS 10 or more systems reviewed and unremarkable except as noted in history and below [facility] Medical History (Updated 04/07/25 @ 04:34 by Jonathan Dinh MD) Hepatitis C ?B19.20 - Unspecified viral hepatitis C without hepatic coma (ICD-10) Opiate addiction ?F11.20 - Opioid dependence, uncomplicated (ICD-10) Fatty liver ?K76.0 - Fatty (change of) liver, not elsewhere classified (ICD-10) Social History (Updated 01/15/25 @ 07:19 by Naa Austin RN) Smoking status: Current every day smoker Non-prescribed substance use: former substance user Little interest or pleasure in doing things: not at all Feeling down, depressed, or hopeless: not at all Exam Constitutional Vital Signs, click to edit/add: Last Vital Signs Temp 97.8 F 04/07/25 00:13 Pulse 68 04/07/25 04:10 Resp 20 04/07/25 04:10 BP 112/82 04/07/25 04:00 Pulse Ox 94 L 04/07/25 04:10 O2 Del Method Room Air 04/07/25 00:42 Common normals: average body habitus, oriented x3, no limitations, healthy appearing, alert and well nourished [facility] Common normals: normocephalic and head/scalp atraumatic Eye Common normals: EOMs intact bilaterally and conjunctivae normal Respiratory Common normals: no retractions Other: diminished BS. few scattered wheezes Cardio Common normals: regular rate, regular rhythm, S1 normal heart sound and S2 normal heart sound GI Other: mild RUQ tenderness. No guarding Extremity Common normals: normal to inspection and full ROM Neuro Common normals: oriented x3, CN's II-XII intact bilaterally, moves all extremities and no focal motor deficits Psych Appearance: grossly normal Course Vital Signs Vital signs: Vital Signs Temperature 97.8 F 04/07/25 00:13 Pulse Rate 81 04/07/25 00:13 Respiratory Rate 20 04/07/25 00:13 Blood Pressure 131/95 H 04/07/25 00:13 Pulse Oximetry 98 04/07/25 00:13 Oxygen Delivery Method Room Air 04/07/25 00:13 Temperature 97.8 F 04/07/25 00:13 Pulse Rate 68 04/07/25 04:10 Respiratory Rate 20 04/07/25 04:10 Blood Pressure 112/82 04/07/25 04:00 Pulse Oximetry 94 L 04/07/25 04:10 Oxygen Delivery Method Room Air 04/07/25 00:42 MDM - Abdominal Pain MDM Narrative Medical decision making narrative: patient presents complaining of pain across his upper abdomen. Does have RUQ and epigastric tenderness. No guarding. History of alcohol abuse. Labs with elevation of LFTS as seen on past visits. Mild elevation of lipase at [address] abdomen neg including normal pancreas. Patient re examined and states he still has some pain and GI cocktail ordered. patient did receive relief with GI cocktail . Given dose of Protonix and discharged home. 2nd troponin neg. Discharged diagnosis of gastritis vs PUD and alcohol intox Lab Data Labs: Lab Results 04/07/25 04/07/25 Range/Units 00:27 04:04 WBC 7.4 (4.0-11.0) 10^3/uL RBC 4.75 (4.70-6.10) 10^6/uL Hgb 16.2 (14.0-18.0) g/dL Hct 45.8 (42.0-54.0) % MCV 96.4 H (80.0-94.0) fL MCH 34.1 H (25.9-34.0) pg MCHC 35.4 H (29.9-35.2) g/dL RDW 12.6 (11.0-15.0) % Plt Count 134 L (150-450) 10^3/uL MPV 11.4 (9.5-13.5) fL Neut % (Auto) 47.3 (43.0-75.0) % Lymph % (Auto) 41.0 (20.5-60.0) % [place] % (Auto) 8.3 (1.7-12.0) % Eos % (Auto) 2.3 (0.9-7.0) % Baso % (Auto) 0.8 (0.2-2.0) % Neut # (Auto) 3.5 (1.4-6.5) 10^3/uL Lymph # (Auto) 3.0 (1.2-3.8) 10^3/uL [place] # (Auto) 0.6 (0.3-0.8) 10^3/uL Eos # (Auto) 0.2 (0.0-0.7) 10^3/uL Baso # (Auto) 0.1 (0.0-0.1) 10^3/uL Abs Immat Gran (auto) 0.02 (0.00-0.03) 10^3/uL Imm/Tot Granulo (auto) 0.3 (0.0-0.5) % Sodium 141 (136-145) mmol/L Potassium 3.8 (3.5-5.1) mmol/L Chloride 106 (98-107) mmol/L Carbon Dioxide 25.2 (21.0-32.0) mmol/L Anion Gap 13.6 BUN 7.0 (7.0-18.0) mg/dL Creatinine 0.86 (0.70-1.30) mg/dL Est GFR ( Amer) >60 (>=60 mL/min/1.73m^2) Est GFR (Non-Af Amer) >60 (>=60 mL/min/1.73m^2) BUN/Creatinine Ratio 8.1 Glucose 113 H (74-106) mg/dL Lactate 1.6 (0.4-2.0) mmol/L Calcium 8.9 (8.5-10.1) mg/dL Total Bilirubin 0.4 (0.2-1.0) mg/dL AST 198 H (15-37) U/L ALT 186 H (16-63) U/L Alkaline Phosphatase 73 (46-116) U/L Troponin I High Sens 14.7 12.5 (4.0-76.1) pg/mL Total Protein 7.6 (6.4-8.2) g/dL Albumin 3.5 (3.4-5.0) g/dL Globulin 4.1 g/dL Albumin/Globulin Ratio 0.9 Lipase 87.0 H (16.0-77.0) U/L Ethanol Quant 163 mg/dL Discharge Plan Discharge Chief Complaint: Abdominal Pain Clinical Impression: Abdominal pain in male, Alcohol intoxication Patient Disposition: Home, Self-Care Prescriptions / Home Meds: No Action losartan 25 mg tablet 25 mg PO DAILY gabapentin 600 mg tablet 800 mg PO Q8H meloxicam 15 mg tablet 15 mg PO DAILY PRN (Reason: pain) Qty: 10 0RF orphenadrine citrate 100 mg tablet extended release 100 mg PO BID PRN (Reason: muscle spasm) Qty: 10 0RF Print Language: Ug[place]an Instructions: Alcohol Intoxication (DC), Acute Abdominal Pain (ED) Additional Instructions: follow up with your doctor this week for recheck Referrals: Nakul Patricio DO [Primary Care Provider] - 1 week
--- NOTE | 2025-04-07 00:30 | ECG_ITS ---
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 Measurements Intervals [place] Rate: 81 P: 58 OR: 144 QRS: 25 QRSD: 96 T: 62 QT: 366 QTc: 404 Interpretive Statements 1100 Sinus rhythm 7300 Indeterminate axis 9120 atypical ECG Compared to ECG 11/19/2024 12:52:15 Indeterminate axis now present Electronically Signed On 04-07-2025 21:30:38 EST by JIN DIEHL M.D.
[2025-04-07 00:35] LABS: Hematocrit 45.8 % (42.0-54.0); Hemoglobin 16.2 g/dL (14.0-18.0); Immature Granulocytes Abs Auto 0.02 10^3/uL (0.00-0.03); Immature Granulocytes Pct Auto 0.3 % (0.0-0.5); Lymphocytes Absolute Auto 3.0 10^3/uL (1.2-3.8); Mean Corpuscular HGB Conc 35.4 g/dL (29.9-35.2); Mean Corpuscular Hemoglobin 34.1 pg (25.9-34.0); Mean Corpuscular Volume 96.4 fL (80.0-94.0); Platelet Count 134 10^3/uL (150-450); Red Blood Count 4.75 10^6/uL (4.70-6.10); White Blood Count 7.4 10^3/uL (4.0-11.0)
[2025-04-07] MEDS: IPRATROPIUM/ALBUTEROL SULFATE 3 ML AMPUL.NEB IH (00:40)
--- OUTSIDE RECORDS SUMMARY | 2025-04-07 00:44 | XMS_ITS | CCD ---
Author Organization [facility] Informat ion [facility] ELECTRONIC DEVICE MONITOR [facility] Care Team Providers Care Service Attendant Cafeteria Name Role Phone August Unavailable Unavailable August Unavailable Unavailable Le Sebastian K Attending Unavailable Le, Sebastian K Admitting Unavailable Provider, None Primary Care Unavailable [facility] Primary Care Provider Vel Sevilla APRN Attending Provider Crystal Meehan MD Attending Provider Fibroscan, Temporary Attending Provider UnavailVel Nam APRN Referring Provider Nakul Patricio DO Unavailable Nakul Patricio DO Primary Care Provider [facility] Primary Care Provider 1( [phone] Nakul Patricio DO Other Provider Enrike Fatima MD Attending Provider 1( [phone] Nakul Patricio DO Attending Provider Liya Hill APRN Emergency Provider [facility] Primary Care Unavaila Liya Raymond Admitting Unavailable Liya Hill Attending Unavailable [facility] Primary Care UnavailNakul Lopez Admitting Unavailable Nakul Patricio Attending Unavailable [facility] Primary Care UnavailNakul Lopez Admitting Unavailable Nakul Patricio Attending Unavailable Vel Sevilla Admitting Unavailable [facility] Primary Care Unavaila Vel Kincaid Attending Unavailable Vel Sevilla Admitting Unavailable Vel Sevilla Attending Unavailable [facility] Primary Care Unavaila Vel Kincaid Attending Unavailable Vel Sevilla Admitting Unavailable [facility] Primary Care Unavaila Vel Kincaid Attending Unavailable Vel Sevilla Admitting Unavailable [facility], Services Primary Care Unavaila ble Tomas Sanchez Admitting Unavailable Tomas Sanchez Attending Unavailable Vel Sevilla Referring Unavailable [facility], Services Primary Care Unavaila ble Asaad, Imad Admitting Unavailable Asaad, Imad Attending Unavailable [facility], Services Primary Care Unavaila ble Allergies Allergy ClassificationReported Allergen(s)Allergy TypeDate of OnsetReaction(s) Facility (1 source)NKDA/NO FOOD OR LATEX ALLERGIES; Translations: [NKDA/NO FOOD OR LATEX ALLERGIES]Propensity to adverse reactions (disorder)[facility] Repository (4 sources)Codeine; Translations: [codeine]Drug Claqwub36-52-4462AompkkxOcuwlwwu [facility] Repository (1 source)opiatesAllergy to edfikcwsf86-64-9822RgfzfnzUniversity Hospitals Geauga Medical CenterComment on above:previous drug user Medications Current Medications MedicationDrug Class(es)DatesSig (Normalized)Sig (Original)[id number] 200 actuat albuterol 0.09 mg/actuat metered dose inhaler (1 source)beta2-Adrenergic AgonistStart: 40-27-7244vcam 1 puff(s) by inhalation every six hours as neededalbuterol HFA (PROVENTIL HFA, VENTOLIN HFA) 90 mcg/actuation inhaler Inhale 1 puff as instructed every 6 hours as needed. 12/01/2024 Activegabapentin 600 mg oral tablet (10 sources)Anti-epileptic AgentStart: 56-07-3639tdfk 1 tablet by mouth three times dailygabapentin (NEURONTIN) 600 mg tablet Take 600 mg by mouth three times a day. 12/15/2024 ActiveStart: 26-76-7789Qkhlxqmnpw 400 mg capsule Active 600 MG PO Three times daily July 30, 2024 12:00am Complies withdrug therapyStart: 81-52-5275irqn 1 capsule by mouth three times dailylosartan potassium 25 mg oral tablet (10 sources)Angiotensin 2 Receptor BlockerStart: 62-61-6615pqrf 1 tablet by mouth once dailylosartan (COZAAR) 25 mg tablet Take 1 tablet by mouth once daily. 12/13/2024 Activeondansetron 4 mg disintegrating oral tablet (1 source)Serotonin-3 Receptor AntagonistStart: 17-70-5101mkbn 1 tablet by mouth every eight hours as needed for nausea and vomiting Problems Active Problems Problem ClassificationProblemDateDocumented DateEpisodic/ChronicAbdominal pain (15 sources)Abdominal pain; Translations: [Unspecified abdominal pain]07-30-2024 EpisodicEssential hypertension (1 source)Essential (primary) hypertension; Translations: [Essential (primary) hypertension]Onset: 92-50-2276LnfodtbTmqrtvpcu (1 source)Chronic viral hepatitis C; Translations: [Chronic viral hepatitis C] Onset: 60-33-7812ZdbkgrrYfdblv and vomiting (1 source)Nausea and vomiting; Translations: [Nausea with vomiting, unspecified] 55-05-4227BxrysmewYzlicekpect chest pain (5 sources)Chest pain, unspecified; Translations: [Chest pain]Onset: 11-22-2016 68-65-5157RmabdgglHxoel connective tissue disease (1 source)Myalgia, unspecified site; Translations: [Myalgia, unspecified site] Onset: 80-60-0903EsccnwumWeavw gastrointestinal disorders (1 source)Diarrhea; Translations: [Diarrhea, unspecified]27-89-2551PpoqistuQczwq liver diseases (1 source)Steatosis of liver; Translations: [Fatty (change of) liver, not elsewhere classified]87-98-8922YpyfapeGeaxq liver diseases (1 source)Fatty (change of) liver, not elsewhere classified; Translations: [Fatty (change of) liver, not elsewhere classified]Onset: 73-30-7188SvtfyyeCtqmu lower respiratory disease (1 source)Shortness of breath; Translations: [Shortness of breath]Onset: 71-80-6336YkkhzzuoUffnjhnhks arthritis and related disease (2 sources)Rheumatoid arthritis; Translations: [Rheumatoid arthritis, unspecified]12-84-9486NqqmstaEcubkaeyomaa (1 source)Unknown / UNK(Unknown)Onset: 11-22-2016 Past or Other Problems Problem ClassificationProblemDateDocumented DateEpisodic/ChronicCardiac dysrhythmias (2 sources)Tachycardia, unspecified; Translations: [Tachycardia, unspecified] Onset: 47-49-8521UjgecvztJxyjk and electrolyte disorders (1 source)Hypokalemia; Translations: [Hypokalemia]Onset: 03-18-7964Kwztzwrq Hepatitis (16 sources)Viral hepatitis C; Translations: [Unspecified viral hepatitis C without hepatic coma]Onset: 260281-40-6681SgjzzmuqZabmj connective tissue disease (1 source)Cramp and spasm; Translations: [Cramp and spasm]Onset: 08-04-2024 EpisodicOther nutritional; endocrine; and metabolic disorders (1 source)Abnormal weight gain; Translations: [Abnormal weight gain]Onset: 29-89-8752ZbqdxcboSegku screening for suspected conditions (not mental disorders or infectious disease) (1 source)Encounter for screening for malignant neoplasm of colon; Translations: [Encounter for screening formalignant neoplasm of colon]Onset: 08-11-2024 Episodic Results Test NameValueInterpretationReference RangeFacilityAlanine aminotransferase [Enzymatic activity/volume] in Serum or PlasmaOrdered By: Liya Hill on 43-63-0364XJY [Catalytic activity/Vol]231 U/LHigh7-52Ohio[facility] CenterComment on above:Performed By: #### HBSAG, HCV RX PCR, HIVRNAPCR, HBCAB, HBSAB #### [facility] , #### CMP, PT, CBC #### [place] [address] USAAlbumin [Mass/volume] in Serum or Plasma by Bromocresol green (BCG) dye binding methoOrdered By: Liya Hill on 24-12-2058Idawded BCG dye [Mass/Vol]4.1 g/dL3.5-5.7FSumma Health Barberton CampusAlkaline phosphatase [Enzymatic activity/volume] in Serum or PlasmaOrdered By: Liya Hill on 61-03-2070NVP [Catalytic activity/Vol]63 U/XEwuxvs62-702ZaylvxcdmOhiohealth Nelsonville Health CenterComment on above:Performed By: #### HBSAG, HCV RX PCR, HIVRNAPCR, HBCAB, HBSAB #### [facility] , #### CMP, PT, CBC #### [facility] [address] [place] [address] USAAmylase [Enzymatic activity/volume] in Serum or Plasma Ordered By: Liya Hill on 23-21-0376Xnakdje [Catalytic activity/Vol]45 U/L Jcfack45-346IbdbmwzpiOhiohealth Nelsonville Health CenterComment on above:Performed By: #### HBSAG, HCV RX PCR, HIVRNAPCR, HBCAB, HBSAB #### [facility] , #### CMP, PT, CBC #### [facility] [address] [place], [place] [id number] USAAppearance of UrineOrdered By: Liya Hill on 01-01-2025 Appearance (U)ClearNormalClearOhiohealth Nelsonville Health CenterComment on above: Order Comment: Name Collection Type:: Clean-Voided MidstreamPerformed By: #### HBSAG, HCV RX PCR, HIVRNAPCR, HBCAB, HBSAB #### [facility] , #### CMP, PT, CBC #### [facility] [address] [place], [place] [id number] USAAspartate aminotransferase [Enzymatic activity/volume] in Serum or PlasmaOrdered By: Liya Hill on 61-38-9684DWY [Catalytic activity/Vol] 307 U/FXhwy05-15GsvstwdyjOhiohealth Nelsonville Health CenterComment on above:Performed By: #### HBSAG, HCV RX PCR, HIVRNAPCR, HBCAB, HBSAB #### [facility] , #### CMP, PT, CBC #### [facility] [address] [place], [place] [id number] USABasophils [#/volume] in Blood by Automated countOrdered By: Liya Hill on 38-03-3886Lqjznqnru (Bld) [#/Vol]0.0 10*3/uLNormal0.0-0.2 [facility] CenterComment on above:Result Comment: PERFORMED BY: [place] [address] PATHOLOGIST FUNDER TAMEKA CALDERA M.D.Performed By: #### HBSAG, HCV RX PCR, HIVRNAPCR, HBCAB, HBSAB #### [facility] , #### CMP, PT, CBC #### [facility] [address] [place] [address] USABasophils/100 leukocytes in Blood by Automated count Ordered By: Liya Hill on 11-79-8084Deaxcxptv/100 WBC (Bld)0.2 %Normal. [facility] CenterComment on above:Performed By: #### HBSAG, HCV RX PCR, HIVRNAPCR, HBCAB, HBSAB #### [facility] , #### CMP, PT, CBC #### [facility] [address] [place] [address] USABilirubin Test strip Ql (U)Ordered By: Liya Hill on 40-87-5353Ikjqhplss Ql (U)NegativeNegativeOhiohealth Nelsonville Health Center Bilirubin.total [Mass/volume] in Serum or PlasmaOrdered By: Liya Hill on 82-64-7924Dnxokamyr [Mass/Vol]0.7 mg/dLNormal0.3-1.0Ohio[facility] Health CenterComment on above:Performed By: #### HBSAG, HCV RX PCR, HIVRNAPCR, HBCAB, HBSAB #### [facility] , #### CMP, PT, CBC #### [facility] [address] [place] [address] USACT abdomen pelvis w conon 58-74-8133JQ abdomen pelvis w [facility] [address] [place] [address] CT Scan Report Signed Patient: Jeffry Aguilar MR#: [id number] : 1975 Acct:[id number] Age/Sex: 49 / M ADM Date: 01/01/25 Loc: ER Room: Type: [facility] ER Attending Dr: Copies to: Liya Hill [...] Jr., D.O. 01/01/2025 1:51 PM Dictation Location: [place] [address] Transcribed By: [facility] 01/01/25 1351 Dictated By: Rufus Cruz Jr, DO 01/01/25 1348 Signed By: 01/01/[address] [facility] Physician GroupCalcium [Mass/volume] in Serum or PlasmaOrdered By: Liya Hill on 20-27-4879Qhsfppb [Mass/Vol]8.8 mg/dLNormal 8.6-10.3FSumma Health Barberton CampusComment on above:Performed By: #### HBSAG, HCV RX PCR, HIVRNAPCR, HBCAB, HBSAB #### [facility] , #### CMP, PT, CBC #### [facility] [address] [place] [address] USACarbon dioxide, total [Moles/volume] in Serum or Plasma Ordered By: Liya Hill on 34-01-7424DO4 [Moles/Vol]20.8 mmol/LLow21.0-31.0 [facility] CenterComment on above:Performed By: #### HBSAG, HCV RX PCR, HIVRNAPCR, HBCAB, HBSAB #### [facility] , #### CMP, PT, CBC #### [facility] [address] [place] [address] USAChloride [Moles/volume] in Serum or PlasmaOrdered By: Liya Hill on 67-67-7193Kexkaemu [Moles/Vol]107 mmol/CYlpgft50-113IygplntyqOhiohealth Nelsonville Health CenterComment on above:Performed By: #### HBSAG, HCV RX PCR, HIVRNAPCR, HBCAB, HBSAB #### [facility] , #### CMP, PT, CBC #### [facility] [address] [place] [address] USAColor of Urine by AutoOrdered By: Liya Hill on 81-37-5050Fyebc (U)YellowNormalYElyria Memorial HospitalComment on above:Order Comment: Name Collection Type:: Clean-Voided MidstreamPerformed By: #### HBSAG, HCV RX PCR, HIVRNAPCR, HBCAB, HBSAB #### [facility] , #### CMP, PT, CBC #### [place] [address] USAComplete Blood Count Auto Diffon 18-72-7923Jqdb Corpuscular HGB Conc34.8 g/qQTtvang55.5-35.6The [facility] Physician GroupComment on above:Performed By: #### HBSAG, HCV RX PCR, HIVRNAPCR, HBCAB, HBSAB #### [facility] , #### CMP, PT, CBC #### [facility] [address] [place] [address] USAMonocytes/100 WBC (Bld)19.73 %Normal0.00-20.00The [facility] Physician GroupComment on above:Performed By: #### HBSAG, HCV RX PCR, HIVRNAPCR, HBCAB, HBSAB #### [facility] , #### CMP, PT, CBC #### [facility] [address] [place] [address] USANRBC%0.3 /100{WBC}Normal0-0.5[facility] Comment on above:Performed By: #### HBSAG, HCV RX PCR, HIVRNAPCR, HBCAB, HBSAB #### [facility] , #### CMP, PT, CBC #### [facility] [address] [place] [address] USAWhite Blood Count4.5 [CFU]/mLNormal4.1-10.5The [facility] Physician GroupComment on above:Performed By: #### HBSAG, HCV RX PCR, HIVRNAPCR, HBCAB, HBSAB #### [facility] , #### CMP, PT, CBC #### [facility] [address] [place] [address] USAComprehensive Metabolic Panelon 46-12-4435Opmqfsy [Mass/Vol]4.1 g/dLNormal3.5-5.7The [facility] Physician GroupComment on above: Performed By: #### HBSAG, HCV RX PCR, HIVRNAPCR, HBCAB, HBSAB #### [facility] , #### CMP, PT, CBC #### [facility] [address] [place] [address] USACreatinine Clr Calc Qtblptfp761.47NormalThe [facility] Physician GroupComment on above:Performed By: #### HBSAG, HCV RX PCR, HIVRNAPCR, HBCAB, HBSAB #### [facility] , #### CMP, PT, CBC #### [facility] [address] [place] [address] USAGFR/1.73 sq M.predicted MDRD (S/P/Bld) [Vol rate/Area] mL/min/{1.73_m2}NormalThe [facility] Physician [facility] Memorial HospitalComment on above:Performed By: #### HBSAG, HCV RX PCR, HIVRNAPCR, HBCAB, HBSAB #### [facility] , #### CMP, PT, CBC #### [facility] [address] [place] [address] USACreatinine [Mass/volume] in Serum or PlasmaOrdered By: Liya Hill on 69-90-3265Wcjqjntzyw [Mass/Vol]0.96 mg/dLNormal0.70-1.30[facility] Health CenterComment on above:Performed By: #### HBSAG, HCV RX PCR, HIVRNAPCR, HBCAB, HBSAB #### [facility] , #### CMP, PT, CBC #### [place] [id number] USAD-Dimer High Sensitivityon 79-99-0394Q-Dimer High Sensitivity<953Hdcfrg9-880Afh [facility] Physician GroupComment on above:Result Comment: The reference range for D-dimer is [...] coagulation studies. Please contact the laboratory at [phone] for redraw instructions. PERFORMED BY: [place] [address] PATHOLOGIST FUNDER TAMEKA CALDERA M.D.Performed By: #### HBSAG, HCV RX PCR, HIVRNAPCR, HBCAB, HBSAB #### [facility] , #### CMP, PT, CBC #### [facility] [address] [place] [address] USAECG 12 lead ECGon 08-73-2969JTX 12 lead [place]GCENT[place] [facility] [address] [place] [address] Electrocardiograph Report Signed Patient: Jeffry Aguilar MR#: [id number] : 1975 Acct:[id number] Age/Sex: 49 / M ADM Date: 01/01/25 Loc: ER Room: Type: [facility] ER Attending Dr: Ordering Provider: Liya Hill [...] By: MUS Signed By Shane Gonzalez DO [address] Physician GroupEosinophils [#/volume] in Blood by Automated countOrdered By: Liya Hill on 26-49-9269Arnvkkldepy (Bld) [#/Vol]0.0 10*3/uLNormal0.0-0.45Ohio[facility] Health CenterComment on above: Performed By: #### HBSAG, HCV RX PCR, HIVRNAPCR, HBCAB, HBSAB #### [facility] , #### CMP, PT, CBC #### [facility] [address] [place], [place] [address] USAEosinophils/100 leukocytes in Blood by Automated count Ordered By: Liya Hill on 63-13-3306Xazawnmqfol/100 WBC (Bld)0.6 %Normal. [facility] CenterComment on above:Performed By: #### HBSAG, HCV RX PCR, HIVRNAPCR, HBCAB, HBSAB #### [facility] , #### CMP, PT, CBC #### [facility] [address] [place] [address] USAErythrocyte distribution width [Ratio] by Automated count Ordered By: Liya Hill on 28-73-8552Lvnxebwgedh distribution width (RBC) [Ratio]13.8 %Keevld89.0-14.8[facility] CenterComment on above: Performed By: #### HBSAG, HCV RX PCR, HIVRNAPCR, HBCAB, HBSAB #### [facility] , #### CMP, PT, CBC #### [facility] [address] [place] [address] USAErythrocytes [#/volume] in Blood by Automated countOrdered By: Liya Hill on 54-34-7439CKI (Bld) [#/Vol]5.22 10*6/uLNormal3.90-5.60 [facility] CenterComment on above:Performed By: #### HBSAG, HCV RX PCR, HIVRNAPCR, HBCAB, HBSAB #### [facility] , #### CMP, PT, CBC #### [facility] [address] [place] [address] USAFibrin D-dimer [Presence] in Platelet poor plasma by Latex agglutinationOrdered By: Liya Hill on 29-89-1957Nkfueu D-dimer LA Ql (PPP)< 200 ng/mL0-243Ohio[facility] Health CenterComment on above:The reference range for D-dimer is <243 ng/mL D-dimer units.D-dimer results must be used in conjunction with a clinicalpretest probability (PTP) assessment model for deep veinthrombosis (DVT) and pulmonary embolism (PE). Results <230ng/mL d-dimer units can be used as a negative predictor inpatients with low or moderate probability for DVT/PE.Results above the exclusion threshold of 230 ng/ml D- dimerunits for DVT/PE may indicate the need for furtherdiagnostic testing.D- Dimer can be increased in hospitalized patients due toco-morbid conditions.A hematocrit value greater than 55% may lead to inaccurate results in coagulation testing. Patients having hematocrit values >55% require a special collection tube for coagulation studies. Please contact the laboratory at [phone] for redraw instructions.Glucose [Mass/volume] in Serum or PlasmaOrdered By: Liya Hill on 65-51-9896Utmqnhh [Mass/Vol]90 mg/bFUpcyne27-787HhgorgatbOhiohealth Nelsonville Health CenterComment on above:ADA recommended reference rangeRandom Glucose Reference Range is dependent on time and content of last meal. Glucose of more than 200 mg/dL in a nonstressed, ambulatory subject supports the diagnosisof Diabetes Mellitus.Result Comment: Random Glucose Reference Range is dependent on time and content of last meal. Glucose of more than 200 mg/dL in a nonstressed, ambulatory subject supports the diagnosis of Diabetes Mellitus. ADA recommended reference rangePerformed By: #### HBSAG, HCV RX PCR, HIVRNAPCR, HBCAB, HBSAB #### [facility] , #### CMP, PT, CBC #### [facility] [address] [place] [address] USAGlucose [Mass/volume] in Urine by Test stripOrdered By: Liya Hill on 75-45-0837Xdwgnlg Test strip (U) [Mass/Vol]Normal mg/dLNormal [facility] CenterHematocrit [Volume Fraction] of Blood by Automated countOrdered By: Liya Hill on 85-26-6576Pspmoyfpoz (Bld) [Volume fraction]50.6 %High38.8-50.0[facility] CenterComment on above: Performed By: #### HBSAG, HCV RX PCR, HIVRNAPCR, HBCAB, HBSAB #### [facility] , #### CMP, PT, CBC #### [facility] [address] [place] [id number] USAHemoglobin Test strip Ql (U)Ordered By: Liyaelliott Watsonb on 83-75-8669Fhugcaiyhx Ql (U)NegativeNegativeOhiohealth Nelsonville Health Center Hemoglobin [Mass/volume] in BloodOrdered By: Liya Hill on 27-04-6224Gtkbblvipf (Bld) [Mass/Vol]17.6 g/dGCfvo43.0-17.0[facility] CenterComment on above:Performed By: #### HBSAG, HCV RX PCR, HIVRNAPCR, HBCAB, HBSAB #### [facility] , #### CMP, PT, CBC #### [facility] [address] [place] [address] USAINR in Platelet poor plasma by Coagulation assayOrdered By: Liya Hill on 41-69-6287TLS Coag (PPP) [Relative time]1.1 {INR}Normal [facility] CenterComment on above:INR Therapeutic Range A) Pre- and Peroperative OAT started two weeks before surgery. NOT HIP SURGERY: 1.5 - 2.5 HIP SURGERY: 2 - 3B) Primary and secondary prevention of venous THROMBOSIS: 2 - 3C) Active venous thrombosis, pulmonary embolismand prevention of recurrent venous thrombosis: 2 - 3D) Prevention of arterial thromboembolismincluding patients with mechanical heart valves: 3 - 4.5Result Comment: INR Therapeutic Range A) Pre- and [...] patients with mechanical heart valves: 3 - 4.5Performed By: #### HBSAG, HCV RX PCR, HIVRNAPCR, HBCAB, HBSAB #### [facility] , #### CMP, PT, CBC #### [facility] [address] [place] [address] USAKetones [Presence] in Urine by Test stripOrdered By: Liya Hill on 02-88-8960Kwdisoh Ql (U)NegativeNormalSelect Medical Specialty Hospital [facility], IncComment on above:Order Comment: Name Collection Type:: Clean- Voided MidstreamPerformed By: #### HBSAG, HCV RX PCR, HIVRNAPCR, HBCAB, HBSAB #### [facility] , #### CMP, PT, CBC #### [facility] [address] [place], [place] [id number] USALeukocyte esterase [Presence] in Urine by Test strip Ordered By: Liya Hill on 33-15-8647Bkosguepc esterase Test strip Ql (U) NegativeNormCleveland Clinic Akron General Lodi HospitalComment on above:Order Comment: Name Collection Type:: Clean-Voided MidstreamPerformed By: #### HBSAG, HCV RX PCR, HIVRNAPCR, HBCAB, HBSAB #### [facility] , #### CMP, PT, CBC #### [facility] [address] [place], [place] [address] USALeukocytes [#/volume] corrected for nucleated erythrocytes in Blood by Automated counOrdered By: Liya Hill on 80-85-0349GWL corrected for nucl RBC Auto (Bld) [#/Vol]4.5 10*3/uL4.1-10.5FSumma Health Barberton CampusLeukocytes [#/volume] in Blood by Automated countOrdered By: Liya Hill on 06-85-0716ZFN (Bld) [#/Vol]4.5 10*3/uLNormal4.1-10.5FSumma Health Barberton CampusComment on above:Performed By: #### HBSAG, HCV RX PCR, HIVRNAPCR, HBCAB, HBSAB #### [facility] , #### CMP, PT, CBC #### [facility] [address] [place] [address] USALipase [Enzymatic activity/volume] in Serum or Plasma Ordered By: Liya Hill on 29-34-9185Krgeot [Catalytic activity/Vol]166.0 U/L High11.0-82.0[facility] CenterComment on above:Result Comment: PERFORMED BY: [place] [address] PATHOLOGIST FUNDER TAMEKA CALDERA M.D.Performed By: #### HBSAG, HCV RX PCR, HIVRNAPCR, HBCAB, HBSAB #### [facility] , #### CMP, PT, CBC #### [facility] [address] [place], [place] [address] USALymphocytes [#/volume] in Blood by Automated countOrdered By: Liya Hill on 36-45-4270Fdsadquozde (Bld) [#/Vol]2.1 10*3/uLNormal1.00-4.8 [facility] CenterComment on above:Performed By: #### HBSAG, HCV RX PCR, HIVRNAPCR, HBCAB, HBSAB #### [facility] , #### CMP, PT, CBC #### [facility] [address] [place] [address] USALymphocytes/100 leukocytes in Blood by Automated count Ordered By: Liya Hill on 46-57-1252Mdbdemxwqvd/100 WBC (Bld)46.3 %Normal. [facility] CenterComment on above:Performed By: #### HBSAG, HCV RX PCR, HIVRNAPCR, HBCAB, HBSAB #### [facility] , #### CMP, PT, CBC #### [facility] [address] [place] [address] [Entitic mass] by Automated countOrdered By: Liya Hill on 07-43-6675QFE (RBC) [Entitic mass]33.7 upAuckkp99.5-35.2FSumma Health Barberton CampusComment on above:Performed By: #### HBSAG, HCV RX PCR, HIVRNAPCR, HBCAB, HBSAB #### [facility] , #### CMP, PT, CBC #### [address] Auto (RBC) [Mass/Vol]Ordered By: Liya Hill on 74-71-8686KCXW (RBC) [Mass/Vol]34.8 g/dL32.5-35.6FSumma Health Barberton CampusMCV [Entitic volume] by Automated countOrdered By: Liya Hill on 15-30-6133NFF (RBC) [Entitic vol]96.9 nSMjbhea08.5-101Ohio[facility] CenterComment on above:Performed By: #### HBSAG, HCV RX PCR, HIVRNAPCR, HBCAB, HBSAB #### [facility] , #### CMP, PT, CBC #### [facility] [address] [place] [address] USAMagnesium [Mass/volume] in Serum or PlasmaOrdered By: Liya Watsonb on 19-09-6486Iukkggjym [Mass/Vol]2.0 mg/dLNormal1.9-2.7FSumma Health Barberton CampusComment on above:Performed By: #### HBSAG, HCV RX PCR, HIVRNAPCR, HBCAB, HBSAB #### [facility] , #### CMP, PT, CBC #### [facility] [address] [place] [address] USAMonocyte distribution width [Entitic volume] in Blood by AutomatedOrdered By: Liya Watsonb on 49-82-6183Eanrmmva distribution width Auto (Bld) [Entitic vol]19.73 %0.00-20.00[facility] Health CenterMonocytes [#/volume] in Blood by Automated countOrdered By: Liya Watsonb on 01-01-2025 Monocytes (Bld) [#/Vol]0.3 10*3/uLNormal0.0-0.8[facility] Comment on above:Performed By: #### HBSAG, HCV RX PCR, HIVRNAPCR, HBCAB, HBSAB #### [facility] , #### CMP, PT, CBC #### [facility] [address] [place] [address] USAMonocytes/100 leukocytes in Blood by Automated count Ordered By: Liya Hill on 53-56-9059Zlaunglnz/100 WBC (Bld)7.1 %Normal. [facility] Health CenterComment on above:Performed By: #### HBSAG, HCV RX PCR, HIVRNAPCR, HBCAB, HBSAB #### [facility] , #### CMP, PT, CBC #### [facility] [address] [place] [address] USANeutrophils [#/volume] in Blood by Automated countOrdered By: Liya Watsonb on 64-41-9181Mhuxolhsojy (Bld) [#/Vol]2.1 10*3/uLNormal1.8-7.7 [facility] CenterComment on above:Performed By: #### HBSAG, HCV RX PCR, HIVRNAPCR, HBCAB, HBSAB #### [facility] , #### CMP, PT, CBC #### [facility] [address] [place] [address] USANeutrophils/100 leukocytes in Blood by Automated count Ordered By: Liya Hill on 74-07-6368Wxjlejxgzwh/100 WBC (Bld)45.8 %Normal. [facility] CenterComment on above:Performed By: #### HBSAG, HCV RX PCR, HIVRNAPCR, HBCAB, HBSAB #### [facility] , #### CMP, PT, CBC #### [facility] [address] [place] [address] USANitrite Test strip Ql (U)Ordered By: Liya Hill on 27-08-8397Tvxjetn Ql (U)NegativeNegativeOhiohealth Nelsonville Health CenterNo Panel InformationOrdered By: Liya Hill on 78-16-3160Gjramhbty GFR (CKD-EPI)> 60.0 mL/MinOhiohealth Nelsonville Health CenterPharmacy Creatinine Clearance (Chem 120.47[facility] Health CenterNucleated erythrocytes [Presence] in Blood by Automated countOrdered By: Liya Hill on 49-14-5296Czxxnbcrn RBC Auto Ql (Bld)0.3 /100{WBC}0-0.5FSumma Health Barberton CampusPlatelet mean volume [Entitic volume] in Blood by Automated countOrdered By: Liya Hill on 59-41-1440Zwplzstt mean volume (Bld) [Entitic vol]10.9 fLHigh6.6-10.1FSumma Health Barberton CampusComment on above:Performed By: #### HBSAG, HCV RX PCR, HIVRNAPCR, HBCAB, HBSAB #### [facility] , #### CMP, PT, CBC #### [facility] [address] [place] [address] USAPlatelets [#/volume] in Blood by Automated countOrdered By: Liya Hill on 57-02-6454Skzodrucr (Bld) [#/Vol]118 10*3/aPAed699-346 [facility] CenterComment on above:Performed By: #### HBSAG, HCV RX PCR, HIVRNAPCR, HBCAB, HBSAB #### [facility] , #### CMP, PT, CBC #### [facility] [address] [place] [id number] USAPotassium [Moles/volume] in Serum or PlasmaOrdered By: Liya Hill on 36-39-6024Umtrxndrq [Moles/Vol]4.0 mmol/LNormal3.5-5.1FSumma Health Barberton CampusComment on above:Hemolysis is present at a level that could interfere with the result.Contact lab if redraw is requiredResult Comment: Hemolysis is present at a level that could interfere with the result. Contact lab if redraw is requiredPerformed By: #### HBSAG, HCV RX PCR, HIVRNAPCR, HBCAB, HBSAB #### [facility] , #### CMP, PT, CBC #### [place] [id number] USAProtein Test strip (U) [Mass/Vol]Ordered By: Liya Hill on 62-17-4505Gvobpqk (U) [Mass/Vol]NegativeNegativeOhiohealth Nelsonville Health CenterProtein [Mass/volume] in Serum or PlasmaOrdered By: Liya Hill on 61-05-0671Vkfcmth [Mass/Vol]7.8 g/dLNormal6.4-8.9[facility] CenterComment on above:Performed By: #### HBSAG, HCV RX PCR, HIVRNAPCR, HBCAB, HBSAB #### [facility] , #### CMP, PT, CBC #### [facility] [address] [place] [address] USAProthrombin time (PT)Ordered By: Liya Hill on 01-01-2025 PT Coag (PPP) [Time]13.0 sHigh9.0-12.9[facility] CenterComment on above:A hematocrit value greater than 55% may lead to inaccurate results in coagulation testing. Patientshaving hematocrit values >55% require a special collection tube for coagulation studies. Please contact the laboratory at [phone] for redraw instructions.Result Comment: A hematocrit value greater than 55% may lead to inaccurate results in coagulation testing. Patients having hematocrit values >55% require a special collection tube for coagulation studies. Please contact the laboratory at [phone] for redraw instructions.Performed By: #### HBSAG, HCV RX PCR, HIVRNAPCR, HBCAB, HBSAB #### [facility] , #### CMP, PT, CBC #### [facility] [address] [place] [address] USASerum globulin measurement by calculation (mass/volume) Ordered By: Liya Hill on 53-31-3532Rapgqefg (S) [Mass/Vol]3.7 g/dLNormal [facility] CenterComment on above:Performed By: #### HBSAG, HCV RX PCR, HIVRNAPCR, HBCAB, HBSAB #### [facility] , #### CMP, PT, CBC #### [place] [address] USASerum or plasma albumin/globulin mass ratioOrdered By: Liya Hill on 78-75-7524Afdzkqy/Globulin [Mass ratio]1.1 {ratio}Kettering HealthComment on above:Performed By: #### HBSAG, HCV RX PCR, HIVRNAPCR, HBCAB, HBSAB #### [facility] , #### CMP, PT, CBC #### [place] [id number] USASerum or plasma anion gap determinationOrdered By: Liya Hill on 21-66-6406Zllak gap [Moles/Vol]11.2 mmol/LNormal6.0-15.0[facility] CenterComment on above:Performed By: #### HBSAG, HCV RX PCR, HIVRNAPCR, HBCAB, HBSAB #### [facility] , #### CMP, PT, CBC #### [facility] [address] [place] [address] USASodium [Moles/volume] in Serum or PlasmaOrdered By: Liya Hill on 73-42-9161Shaczo [Moles/Vol]135 mmol/DZbu921-022BqtyolsutOhiohealth Nelsonville Health CenterComment on above:Performed By: #### HBSAG, HCV RX PCR, HIVRNAPCR, HBCAB, HBSAB #### [facility] , #### CMP, PT, CBC #### [facility] [address] [place] [address] USASpecific gravity Test strip (U) [Rel density]Ordered By: Liya Watsonb on 98-93-6094Izklczpr gravity (U) [Rel density]1.0131.001-1.030 [facility] CenterTroponin I High Sensitivityon 01-01-2025 Troponin I High Ojnyofgpcob2Yonzgs1-78Jny [facility] Physician GroupComment on above:Result Comment: The Troponin units of report have been changed to meet the Chest Pain Accreditation requirement, element EC5.M1l2. Troponin units are changed from pg/ml to ng/L. Also, the decimal is removed and results are in whole numbers. PERFORMED BY: [place] [address] PATHOLOGIST FUNDER TAMEKA CALDERA M.D.Performed By: #### HBSAG, HCV RX PCR, HIVRNAPCR, HBCAB, HBSAB #### [facility] , #### CMP, PT, CBC #### [facility] [address] [place] [address] USATroponin I High Fcafzilsmzz7Shopzl8-16Qds [facility] Physician [facility] Memorial HospitalComment on above:Result Comment: The Troponin units of report have been changed to meet the Chest Pain Accreditation requirement, element EC5.M1l2. Troponin units are changed from pg/ml to ng/L. Also, the decimal is removed and results are in whole numbers. PERFORMED BY: [place] [address] PATHOLOGIST FUNDER TAMEKA CALDERA M.D.Performed By: #### HBSAG, HCV RX PCR, HIVRNAPCR, HBCAB, HBSAB #### [facility] , #### CMP, PT, CBC #### [facility] [address] [place] [address] USATroponin I.cardiac [Mass/volume] in Serum or Plasma by Detection limit <= 0.01 ng/mLOrdered By: Liya Liz on 04-59-4918Aozplixb I.cardiac DL <= 0.01 ng/mL [Mass/Vol]7 ng/L0-[facility] Comment on above:The Troponin units of report have been changed to meet the Chest Pain Accreditation requirement, element EC5.M1l2. Troponin units are changed from pg/ml to ng/L. Also, the decimal is removed and results are in whole numbers.Urea nitrogen [Mass/volume] in Serum or PlasmaOrdered By: Liyaelliott Hill on 72-96-6825Ilml nitrogen [Mass/Vol]9 mg/dLNormal12-12[facility] CenterComment on above:Performed By: #### HBSAG, HCV RX PCR, HIVRNAPCR, HBCAB, HBSAB #### [facility] , #### CMP, PT, CBC #### [facility] [address] [place] [address] USAUrinalysison 16-84-5570Rrywqxfjp,UrineNegativeNormal NegativeThe [facility] Physician GroupComment on above:Order Comment: Name Collection Type:: Clean-Voided MidstreamPerformed By: #### HBSAG, HCV RX PCR, HIVRNAPCR, HBCAB, HBSAB #### [facility] , #### CMP, PT, CBC #### [facility] [address] [place] [address] USAGlucose Ql (U)NormalNormalNormalThe [facility] Physician GroupComment on above:Order Comment: Name Collection Type:: Clean-Voided MidstreamPerformed By: #### HBSAG, HCV RX PCR, HIVRNAPCR, HBCAB, HBSAB #### [facility] , #### CMP, PT, CBC #### [place] [address] USANitrite,UrineNegativeNormalNegativeOrlando Health Horizon [facility] Hospital Physician GroupComment on above:Order Comment: Name Collection Type:: Clean-Voided MidstreamPerformed By: #### HBSAG, HCV RX PCR, HIVRNAPCR, HBCAB, HBSAB #### [facility] , #### CMP, PT, CBC #### [place] [address] USAOccult Blood,UrineNegativeNormalNegativeOrlando Health [facility] Hospital Physician GroupComment on above:Order Comment: Name Collection Type:: Clean- Voided MidstreamResult Comment: PERFORMED BY: [place] [address] PATHOLOGIST FUNDER TAMEKA CALDERA M.D.Performed By: #### HBSAG, HCV RX PCR, HIVRNAPCR, HBCAB, HBSAB #### [facility] , #### CMP, PT, CBC #### [place] [address] USAProtein,UrineNegativeNormalNegativeOrlando Health [facility] Hospital Physician GroupComment on above:Order Comment: Name Collection Type:: Clean-Voided MidstreamPerformed By: #### HBSAG, HCV RX PCR, HIVRNAPCR, HBCAB, HBSAB #### [facility] , #### CMP, PT, CBC #### [place] [address] USASpecificy Lagrange,Urine1.818Alqnch0.001-1.030The [facility] Physician GroupComment on above:Order Comment: Name Collection Type:: Clean- Voided MidstreamPerformed By: #### HBSAG, HCV RX PCR, HIVRNAPCR, HBCAB, HBSAB #### [facility] , #### CMP, PT, CBC #### [place] [address] USAUrobilinogen,UrineNormalNormalNormalThe [facility] Physician GroupComment on above:Order Comment: Name Collection Type:: Clean- Voided MidstreamPerformed By: #### HBSAG, HCV RX PCR, HIVRNAPCR, HBCAB, HBSAB #### [facility] , #### CMP, PT, CBC #### [place] [address] USAUrobilinogen Test strip (U) [Mass/Vol]Ordered By: Liya Hill on 79-21-3226Xzxdkygmwqas (U) [Mass/Vol]Normal mg/dLNormalOhiohealth Nelsonville Health CenterX-ray reportOrdered By: Rufus Cruz on 01-01-2025 [address] [place] [address] XRay Report Signed Patient: Jeffry Aguilar MR#: [id number] : 1975 Acct:[id number] Age/Sex: 49 / M ADM Date: 5 Loc: ER Room: Type: [facility] ER Attending Dr: Copies to: Liya Hill [...] ABNORMALITY. Impression dictated by: Rufus Cruz Jr., DYolandaOYolanda 01/01/2025 1:52 PM Dictation Location: [place] [address] Transcribed By: [facility] 01/01/25 1352 Dictated By: Rufus Cruz Jr, DO 01/01/25 1351 Signed By: 01/01/25 1352 [facility] CenterXR chest 2V*on 86-41-9609TY chest 2V*[place] [address] XRay Report Signed Patient: Jeffry Aguilar MR#: [id number] : 1975 Acct:[id number] Age/Sex: 49 / M ADM Date: 01/01/25 Loc: ER Room: Type: [facility] ER Attending Dr: Copies to: Liya Hill [...] ABNORMALITY. Impression dictated by: Rufus Cruz Jr., HarpreetOYolanda 01/01/2025 1:52 PM Dictation Location: [place] [address] Transcribed By: [facility] 01/01/25 1352 Dictated By: Rufus Cruz Jr, DO 01/01/25 1351 Signed By: 01/01/[address] [place] [address] Physician GrouppH of Urine by Test stripOrdered By: Liya Hill on 23-53-4454zD (U)6.0 [pH]Normal5.0-9.0[facility] CenterComment on above:Order Comment: Name Collection Type:: Clean- Voided MidstreamPerformed By: #### HBSAG, HCV RX PCR, HIVRNAPCR, HBCAB, HBSAB #### [facility] , #### CMP, PT, CBC #### [facility] [address] [place] [address] USACNPNon 61-17-7723ZYWIUyawszzou (LI) JEFFRY AGUILAR ([id number]) 1975 M Date Time Provider Department 12/24/24 [...] 10:00 AM Signed Pt has not read Little Red Wagon Technologieshart messages please follow up with patient [...] (None) Encounter Status:Closed by CARLEEN SUERO on 01/02/25NoCleveland Clinic Hillcrest HospitalAlanine aminotransferase [Enzymatic activity/volume] in Serum or Plasma Ordered By: Nakul Patricio on 25-84-3450LLF [Catalytic activity/Vol]277 U/LHigh [facility] CenterComment on above:Order Comment: Reason for Exam MyalgiaPerformed By: #### HBSAG, HCV RX PCR, HIVRNAPCR, HBCAB, HBSAB #### [facility] , #### CMP, PT, CBC #### [facility] [address] [place] [address] USAAlbumin [Mass/volume] in Serum or Plasma by Bromocresol green (BCG) dye binding methoOrdered By: Nakul Patricio on 86-64-2501Gkjgvxs BCG dye [Mass/Vol]4.1 g/dL3.5-5.7FSumma Health Barberton CampusAlkaline phosphatase [Enzymatic activity/volume] in Serum or PlasmaOrdered By: Nakul Patricio on 65-32-0877TTI [Catalytic activity/Vol]58 U/ISrvwhk49-157DrfifpaieOhiohealth Nelsonville Health CenterComment on above:Order Comment: Reason for Exam Myalgia Performed By: #### HBSAG, HCV RX PCR, HIVRNAPCR, HBCAB, HBSAB #### [facility] , #### CMP, PT, CBC #### [facility] [address] [place] [id number] USAAspartate aminotransferase [Enzymatic activity/volume] in Serum or PlasmaOrdered By: Nakul Patricio on 48-72-0797QIZ [Catalytic activity/Vol]264 U/BKhes74-49ToafpiwfsOhiohealth Nelsonville Health CenterComment on above: Order Comment: Reason for Exam MyalgiaPerformed By: #### HBSAG, HCV RX PCR, HIVRNAPCR, HBCAB, HBSAB #### [facility] , #### CMP, PT, CBC #### [facility] [address] [place] [id number] USABilirubin.total [Mass/volume] in Serum or PlasmaOrdered By: Nakul Patricio on 94-53-7852Nhhznxafv [Mass/Vol]0.9 mg/dLNormal0.3-1.0 [facility] CenterComment on above:Order Comment: Reason for Exam MyalgiaPerformed By: #### HBSAG, HCV RX PCR, HIVRNAPCR, HBCAB, HBSAB #### [facility] , #### CMP, PT, CBC #### [facility] [address] [place] [id number] USACalcium [Mass/volume] in Serum or PlasmaOrdered By: Nakul Patricio on 36-80-1038Mshkhdf [Mass/Vol]9.2 mg/dLNormal8.6-10.3FSumma Health Barberton CampusComment on above:Order Comment: Reason for Exam Myalgia Performed By: #### HBSAG, HCV RX PCR, HIVRNAPCR, HBCAB, HBSAB #### [facility] , #### CMP, PT, CBC #### [facility] [address] [place] [address] USACarbon dioxide, total [Moles/volume] in Serum or Plasma Ordered By: Nakul Patricio on 54-86-3646EA6 [Moles/Vol]26.9 mmol/LNormal 21.0-31.0[facility] CenterComment on above:Order Comment: Reason for Exam MyalgiaPerformed By: #### HBSAG, HCV RX PCR, HIVRNAPCR, HBCAB, HBSAB #### [facility] , #### CMP, PT, CBC #### [facility] [address] [place] [address] USAChloride [Moles/volume] in Serum or PlasmaOrdered By: Nakul Patricio on 88-67-8636Ytpuuqdm [Moles/Vol]109 mmol/VRkbo89-378XdkmckiisOhiohealth Nelsonville Health CenterComment on above:Order Comment: Reason for Exam Myalgia Performed By: #### HBSAG, HCV RX PCR, HIVRNAPCR, HBCAB, HBSAB #### [facility] , #### CMP, PT, CBC #### [place] [id number] USAComprehensive Metabolic Panelon 36-25-8216Lkznuay [Mass/Vol]4.1 g/dLNormal3.5-5.7The [facility] Physician GroupComment on above: Order Comment: Reason for Exam MyalgiaPerformed By: #### HBSAG, HCV RX PCR, HIVRNAPCR, HBCAB, HBSAB #### [facility] , #### CMP, PT, CBC #### [facility] [address] [place] [address] USAGFR/1.73 sq M.predicted MDRD (S/P/Bld) [Vol rate/Area] mL/min/{1.73_m2}NormalThe [facility] Physician GroupComment on above:Order Comment: Reason for Exam MyalgiaPerformed By: #### HBSAG, HCV RX PCR, HIVRNAPCR, HBCAB, HBSAB #### [facility] , #### CMP, PT, CBC #### [facility] [address] [place] [address] USACreatine kinase [Enzymatic activity/volume] in Serum or PlasmaOrdered By: Nakul Patricio on 69-69-7977RP [Catalytic activity/Vol]179 U/L Dfbhey50-386EtywjqgpaOhiohealth Nelsonville Health CenterComment on above:Order Comment: Reason for Exam MyalgiaResult Comment: PERFORMED BY: [place] [address] PATHOLOGIST FUNDER TAMEKA CALDERA M.D.Performed By: #### HBSAG, HCV RX PCR, HIVRNAPCR, HBCAB, HBSAB #### [facility] , #### CMP, PT, CBC #### [facility] [address] [place] [address] USACreatinine [Mass/volume] in Serum or PlasmaOrdered By: Nakul Patricio on 81-80-7327Qhhyypksor [Mass/Vol]0.90 mg/dLNormal0.70-1.30 [facility] CenterComment on above:Order Comment: Reason for Exam MyalgiaPerformed By: #### HBSAG, HCV RX PCR, HIVRNAPCR, HBCAB, HBSAB #### [facility] , #### CMP, PT, CBC #### [facility] [address] [place], [place] [id number] USAGlucose [Mass/volume] in Serum or PlasmaOrdered By: Nakul Patricio on 72-88-5300Gkrtmeu [Mass/Vol]96 mg/cWAfiqft94-818QuvnyaxzwOhiohealth Nelsonville Health CenterComment on above:ADA recommended reference rangeRandom Glucose Reference Range is dependent on time and content of last meal. Glucose of more than 200 mg/dL in a nonstressed, ambulatory subject supports the diagnosisof Diabetes Mellitus.Order Comment: Reason for Exam MyalgiaResult Comment: Random Glucose Reference Range is dependent on time and content of last meal. Glucose of more than 200 mg/dL in a nonstressed, ambulatory subject supports the diagnosis of Diabetes Mellitus. ADA recommended reference rangePerformed By: #### HBSAG, HCV RX PCR, HIVRNAPCR, HBCAB, HBSAB #### [facility] , #### CMP, PT, CBC #### [facility] [address] [place] [address] USAMagnesium [Mass/volume] in Serum or PlasmaOrdered By: Nakul Patricio on 29-88-6190Szmapklrg [Mass/Vol]2.1 mg/dLNormal1.9-2.7FSumma Health Barberton CampusComment on above:Order Comment: Reason for Exam Myalgia Result Comment: PERFORMED BY: [place] [address] PATHOLOGIST FUNDER TAMEKA CALDERA M.D.Performed By: #### HBSAG, HCV RX PCR, HIVRNAPCR, HBCAB, HBSAB #### [facility] , #### CMP, PT, CBC #### [facility] [address] [place] [address] USANo Panel InformationOrdered By: Nakul Patricio on 92-70-5539Urzovupay GFR (CKD-EPI)> 60.0 mL/MinOhiohealth Nelsonville Health Center Pharmacy Creatinine Clearance (ChemN/[facility] HospitalPotassium [Moles/volume] in Serum or PlasmaOrdered By: Nakul Patricio on 12-15-2024 Potassium [Moles/Vol]4.4 mmol/LNormal3.5-5.1FSumma Health Barberton Campus Comment on above:Order Comment: Reason for Exam MyalgiaPerformed By: #### HBSAG, HCV RX PCR, HIVRNAPCR, HBCAB, HBSAB #### [facility] , #### CMP, PT, CBC #### [facility] [address] [place] [address] USAProtein [Mass/volume] in Serum or PlasmaOrdered By: Nakul Patricio on 64-37-9139Aiptorc [Mass/Vol]7.3 g/dLNormal6.4-8.9[facility] CenterComment on above:Order Comment: Reason for Exam MyalgiaPerformed By: #### HBSAG, HCV RX PCR, HIVRNAPCR, HBCAB, HBSAB #### [facility] , #### CMP, PT, CBC #### [facility] [address] [place] [address] USASerum globulin measurement by calculation (mass/volume) Ordered By: Nakul Patricio on 88-91-3981Dybxyuyj (S) [Mass/Vol]3.2 g/dLNormal [facility] CenterComment on above:Order Comment: Reason for Exam MyalgiaPerformed By: #### HBSAG, HCV RX PCR, HIVRNAPCR, HBCAB, HBSAB #### [facility] , #### CMP, PT, CBC #### [place] [id number] USASerum or plasma albumin/globulin mass ratioOrdered By: Nakul Patricio on 77-13-7455Gkjbxkz/Globulin [Mass ratio]1.3 {ratio}Normal [facility] CenterComment on above:Order Comment: Reason for Exam MyalgiaPerformed By: #### HBSAG, HCV RX PCR, HIVRNAPCR, HBCAB, HBSAB #### [facility] , #### CMP, PT, CBC #### [place] [id number] USASerum or plasma anion gap determinationOrdered By: Nakul Patricio on 31-95-2391Vthlk gap [Moles/Vol]9.5 mmol/LNormal6.0-15.0[facility] CenterComment on above:Order Comment: Reason for Exam Myalgia Performed By: #### HBSAG, HCV RX PCR, HIVRNAPCR, HBCAB, HBSAB #### [facility] , #### CMP, PT, CBC #### [place] [id number] USASodium [Moles/volume] in Serum or PlasmaOrdered By: Nakul Patricio on 98-07-2417Gmoggh [Moles/Vol]141 mmol/IXtxjre284-649HismxzvksOhiohealth Nelsonville Health CenterComment on above:Order Comment: Reason for Exam Myalgia Performed By: #### HBSAG, HCV RX PCR, HIVRNAPCR, HBCAB, HBSAB #### [facility] , #### CMP, PT, CBC #### [facility] [address] [place] [address] USAUrea nitrogen [Mass/volume] in Serum or PlasmaOrdered By: Nakul Patricio on 46-69-5026Reft nitrogen [Mass/Vol]14 mg/dLNormal12-12[facility] CenterComment on above:Order Comment: Reason for Exam Myalgia Performed By: #### HBSAG, HCV RX PCR, HIVRNAPCR, HBCAB, HBSAB #### [facility] , #### CMP, PT, CBC #### [facility] [address] [place], [place] [id number] USAXR chest 2V*on 46-48-2476UQ chest 2V*[place] [address] [place] [address] XRay Report Signed Patient: Jeffry Aguilar MR#: [id number] : 1975 Acct:[id number] Age/Sex: 49 / M ADM Date: 12/10/24 Loc: RT Room: Type: [facility] Attending Dr: Nakul Patricio DO Copies [...] Spencer M.D. 12/10/2024 2:54 PM Dictation Location: [place] [address] Transcribed By: [facility] 12/10/24 1454 Dictated By: Fredy Spencer DO 12/10/24 1451 Signed By: 12/10/24 1454[facility] HospitalAmphetamine Screen Ql (U)Ordered By: Crystal Meehan on 57-14-9812Vxcvhnnbriqw Ql (U)Amphetamines screenNegative [facility] CenterBarbiturates [Presence] in Urine by Screen methodOrdered By: Imsonu Meehan on 94-74-8316Brnveywtlqdi Screen Ql (U)Barbiturates [Presence] in Urine by Screen methodNegSelect Medical Specialty Hospital [facility] Benzodiazepines Screen Ql (U)Ordered By: Imsonu Meehan on 76-87-7009Wxtpndrbrxbxuxr Ql (U)Benzodiazepines [Presence] in Urine by Screen methodNegSelect Medical Specialty Hospital - AkronBenzoylecgonine [Presence] in Urine by Screen method Ordered By: Crystal Meehan on 04-25-5058Crnzhrfcwlauagq Screen Ql (U)Benzoylecgonine [Presence] in Urine by Screen methodNegSelect Medical Specialty Hospital - [facility] Cannabinoids [Presence] in Urine by Screen methodOrdered By: Crystal Meehan on 13-91-4731Txbcirdiymya Screen Ql (U)Cannabinoids [Presence] in Urine by Screen methodHighNegSelect Medical Specialty Hospital - AkronComment on above:These are unconfirmed results and should not be used for legal purposes. Drug Cut-Off Concentration: AMPH 1000 ng/mL BILLIE 200 ng/mL LOREE 200 ng/mL COCM 300 ng/mL OP 300 ng/mL PCP 25 ng/mL THC 20 ng/mLDrug Screen,Urineon 16-32-3935Efragnczwqj Screen,UrineNegativeNormalNegLoma Linda University Medical CenterComment on above: Performed By: #### HBSAG, HCV RX PCR, HIVRNAPCR, HBCAB, HBSAB #### [facility] , #### CMP, PT, CBC #### [facility] [address] [place] [address] USABarbiturate Screen,UrineNegativeNormwyNegHCA Florida Mer[facility] Hospital Physician [facility] Stennis Memorial HospitalComment on above:Performed By: #### HBSAG, HCV RX PCR, HIVRNAPCR, HBCAB, HBSAB #### [facility] , #### CMP, PT, CBC #### [place] [address] USABenzodiazepines Screen,UrineNegativeNormalNegativeOrlando Health [facility] Hospital Physician GroupComment on above:Performed By: #### HBSAG, HCV RX PCR, HIVRNAPCR, HBCAB, HBSAB #### [facility] , #### CMP, PT, CBC #### [place] [address] USACannabinoid Screen,UrinePositiveHighNegativeThe [facility] Physician GroupComment on above:Result Comment: These are unconfirmed results and should not be used for legal purposes. Drug Cut-Off Concentration: AMPH 1000 ng/mL BILLIE 200 ng/mL LOREE 200 ng/mL COCM 300 ng/mL OP 300 ng/mL PCP 25 ng/mL THC 20 ng/mL PERFORMED BY: [place] [address] PATHOLOGIST FUNDER REJI FERNANDES M.D.Performed By: #### HBSAG, HCV RX PCR, HIVRNAPCR, HBCAB, HBSAB #### [facility] , #### CMP, PT, CBC #### [place] [address] USACocaine Screen,UrineNegativeNormalNegativeThe [facility] Physician GroupComment on above:Performed By: #### HBSAG, HCV RX PCR, HIVRNAPCR, HBCAB, HBSAB #### [facility] , #### CMP, PT, CBC #### [place] [address] USAOpiate Screen,UrineNegativeNormalNegativeOrlando Health [facility] Hospital Physician GroupComment on above:Performed By: #### HBSAG, HCV RX PCR, HIVRNAPCR, HBCAB, HBSAB #### [facility] , #### CMP, PT, CBC #### [place] [address] [place] [id number] USAPhencyclidine Screen,UrineNegativeNormalNegativeThe [facility] Hospital Physician GroupComment on above:Performed By: #### HBSAG, HCV RX PCR, HIVRNAPCR, HBCAB, HBSAB #### [facility] , #### CMP, PT, CBC #### [facility] [address] [place] [id number] USALon 08-11-2024 Specimen: [id number] Received: 08/11/24 Status: MILDRED Pollo Num: [id number] Spec Type: Surgical Subm Dr: Crystal Meehan MD Tissues: A Colon Biopsy (CECAL POLYP COLONOSCOPY) B Colon Biopsy (SIGMOID POLYPS) Procedures: HE/4, Gross/Micro L4/2 Age/ Patient Sex Location Account Attending Physician Jeffry Aguilar/M [id number] Crystal Meehan MD SPEC NUM: [id number] RECD: 08/11/24 STATUS: MILDRED ANDREWSDesire NUM: [id number] CRISTIN: 08/11/[address]: Crystal Meehan MD ENTERED: 08/11/24 [facility] DR: SPEC TYPE: Surgical DEPT: S ENTERED BY: [id number] RECV BY: [id number] ORDERED: HE/4, Gross/Micro L4/2 ORDERED: HE/4, Gross/Micro L4/2 Pathological Diagnosis A. Colon, cecum, [...] submitted in a single cassette. (1, ns, [id number] A) JG Part B is received in formalin labeled with the patients name, date of , and sigmoid colon are two quiroz-toney, focally erythematous, friable, 0.3 and 0.4 cm in greatest dimension polypoid fragments with adherent vegetative material. The specimen is entirely submitted in a single cassette. (1, ns, [id number] B) JG Specimen: Received: 08/11/24 Status: MILDRED Andrewsdesire Num: [id number] Spec Type: Surgical Subm Dr: Crystal Meehan MD Tissues: A Colon Biopsy (CECAL POLYP COLONOSCOPY) B Colon Biopsy (SIGMOID POLYPS) Procedures: William WYATT/Micro L4/2 Patient: LaurenJeffry Elina [id number] (Continued) Specimen: [id number] Received: 08/11/24 (Continued) Signed (signature on file) Duane Pompa MD 08/12/24 1213 Specimen: [id number] Received: 08/11/24 Status: MILDRED Abad Num: [id number] Spec Type: Surgical Subm Dr: Crystal Meehan MD Tissues: A Colon Biopsy (CECAL POLYP COLONOSCOPY) B Colon Biopsy (SIGMOID POLYPS) Procedures: William WYATT/Micro L4/2 Patient: Jeffry Aguilar [id number] (Continued) Specimen: [id number] Received: 08/11/24 (Continued) Microscopic Description A B: Microscopic examination is performed. CPT Codes 05354 x2 Specimen: [id number] Received: 08/11/24 Status: MILDRED Abad Num: [id number] Spec Type: Surgical Subm Dr: Crystal Meehan MD Tissues: A Colon Biopsy (CECAL POLYP COLONOSCOPY) B Colon Biopsy (SIGMOID POLYPS) Procedures: HE/4, Gross/Micro L4/2 Patient: Jeffry Aguilar [id number] (Continued) Signed (signature on file) Duane Pompa MD 08/12/24 1213NoFormerly [facility] Physician [facility] HospitalOpiates [Presence] in Urine by Screen methodOrdered By: Crystal Meehan on 38-45-1178Qhpjalq Screen Ql (U)Opiates [Presence] in Urine by Screen methodNegSelect Medical Specialty Hospital - AkronPhencyclidine Screen Ql (U)Ordered By: Imsonu Meehan on 84-20-6417Irqxqxyvekmaw Ql (U)Phencyclidine [Presence] in Urine by Screen methodNegSelect Medical Specialty Hospital - AkronUS liveron 35-91-7261WC [facility] [place] [address] Ultrasound Report Signed Patient: Jeffry Aguilar MR#: [id number] : 1975 Acct:[id number] Age/Sex: 49 / M ADM Date: 08/08/24 Loc: Room: Type: [facility] Attending Dr: Vel Sevilla APRN Ordering [...] Marie Levine M.D.08/08/2024 1:47 PM Dictation Location: [place] [address] Tech: Penny Niharika Transcribed By: SERGIO 08/08/24 1347 Dictated By: Rose Marie Levine MD 08/08/24 1345 Signed By: 08/08/24 1347NoAlleghany Health Physician GroupHep B Real-Time PCR, Quanton 08-40-4175SDZ As IU/mLNot detectedNormal.[facility] Physician [facility] HospitalComment on above:Performed By: #### HBV PCR #### [facility] ,Log10 HBV (As IU/mL)Normal.The [facility]. Mary Medical CenterComment on above:Result Comment: Result Units: log10 IU/mL Unable to calculate result since non-numeric result obtained for component test.Performed By: #### HBV PCR #### [facility] ,Test Information:CommentNormal.[facility] Physician [facility] St[facility] Memorial HospitalComment on above: Result Comment: The reportable range for this assay is 10 IU/mL to 1 billion IU/mL. Performed at: [address] [id number] Professor Of Biology: Cristo Davalos MD, Phone: [phone] PERFORMED BY: [facility] [address] [place] [address] PATHOLOGIST FUNDER REJI FERNANDES M.D.Performed By: #### HBV PCR #### [facility] ,No Panel InformationOrdered By: Vel Sevilla on 77-54-6832Kvyztiidx B DNA Test InformationComment.[facility] CenterComment on above:The reportable range for this assay is 10 IU/mL to 1billion IU/mL.Performed at: - [facility] [address] [place], [place] [address]Kaf Director: Cristo Davalos MD, Phone: [phone] or plasma hepatitis B virus DNA measurement (units/volume) (viral load) by probOrdered By: Vel Sevilla on 69-61-9308HYB DNA HEATHER+probe QnSerum or plasma hepatitis B virus DNA measurement (units/volume) (viral load) by prob.[facility] Westerum or plasma hepatitis B virus DNA viral load by probe and target amplification meOrdered By: Vel Sevilla on 60-40-2158SZZ DNA HEATHER+probe [#/Vol]Serum or plasma hepatitis B virus DNA viral load by probe and target amplification [facility] HospitalHBV DNA HEATHER+probe [Log units/Vol]Serum or plasma hepatitis B virus DNA viral load by probe and target amplification me.[facility] Health CenterComment on above:Result Units: log10 IU/mLUnable to calculate result since non-numeric resultobtained for component test.A1C with Estimated Average Gluon 55-57-9015Dpuokuw [Mass/Vol]105 mg/dLNormalThMadison Memorial Hospital Physician GroupComment on above:Order Comment: Reason for Exam Weight gainResult Comment: PERFORMED BY: [place] [address] PATHOLOGIST FUNDER REJI FERNANDES M.D.Performed By: #### HBSAG, HCV RX PCR, HIVRNAPCR, HBCAB, HBSAB #### [facility] , #### CMP, PT, CBC #### [facility] [address] [place] [address] OLSXiM8h (Bld) [Mass fraction]5.3 %Normal4.3-5.6The [facility] Physician GroupComment on above:Order Comment: Reason for Exam Weight gainResult Comment: Increased risk for diabetes: 5.7 - 6.4 diabetes: >6.4 glycemic control for adults with diabetes: <7.0Performed By: #### HBSAG, HCV RX PCR, HIVRNAPCR, HBCAB, HBSAB #### [facility] , #### CMP, PT, CBC #### [facility] [address]Alanine aminotransferase [Enzymatic activity/volume] in Serum or PlasmaOrdered By: Nakul Patricio on 71-24-7869XMI [Catalytic activity/Vol]Alanine aminotransferase [Enzymatic activity/volume] in Serum or PlasmaHigh7-52[facility] Health CenterAlbumin [Mass/volume] in Serum or Plasma by Bromocresol green (BCG) dye binding methoOrdered By: Nakul Patricio on 76-90-2624Ebtxyvz BCG dye [Mass/Vol]Albumin [Mass/volume] in Serum or Plasma by Bromocresol green (BCG) dye binding metho3.5-5.7FSumma Health Barberton CampusAlkaline phosphatase [Enzymatic activity/volume] in Serum or PlasmaOrdered By: Nakul Patricio on 02-40-0360EWM [Catalytic activity/Vol]Alkaline phosphatase [Enzymatic activity/volume] in Serum or Fknvam88-073JwsnpsgfsOhiohealth Nelsonville Health CenterAspartate aminotransferase [Enzymatic activity/volume] in Serum or Plasma Ordered By: Nakul Patricio on 64-02-8735HYJ [Catalytic activity/Vol]Aspartate aminotransferase [Enzymatic activity/volume] in Serum or YosnjhOsah40-48 [facility] Health CenterBasophils Auto (Bld) [#/Vol]Ordered By: Nakul Patricio on 57-66-3206Chcyuzxmb (Bld) [#/Vol]Automated basophil count0.0-0.2 [facility] CenterBasophils/100 WBC Auto (Bld)Ordered By: Nakul Patricio on 13-70-9286Funvvnqhb/100 WBC (Bld)Automated basophil %.[facility] Health CenterBilirubin.total [Mass/volume] in Serum or PlasmaOrdered By: Nakul Patricio on 69-62-5599Swbrfcwhz [Mass/Vol]Bilirubin.total [Mass/volume] in Serum or Plasma0.3-1.0[facility] CenterBlood estimated average glucose determination by estimation from glycated hemoglobin Ordered By: Nakul Patricio on 23-82-0086Kwyfsol glucose Estimated from glycated hemoglobin (Bld) [Mass/Vol]Glucose mean value [Mass/volume] in Blood Estimated from glycated hemoglobinOhiohealth Nelsonville Health CenterCalcium [Mass/volume] in Serum or PlasmaOrdered By: Nakul Patricio on 41-56-5043Pfzpyuy [Mass/Vol] Calcium [Mass/volume] in Serum or Plasma8.6-10.3FSumma Health Barberton CampusCarbon dioxide, total [Moles/volume] in Serum or PlasmaOrdered By: Nakul Patricio on 74-03-0047SU7 [Moles/Vol]Carbon dioxide, total [Moles/volume] in Serum or Iipduc15.0-31.0[facility] CenterChloride [Moles/volume] in Serum or PlasmaOrdered By: Nakul Patricio on 63-11-8561Lkrhehts [Moles/Vol] Chloride [Moles/volume] in Serum or Vjglsm20-474VaedejeojOhiohealth Nelsonville Health CenterComplete Blood Count Auto Diffon 12-63-1778Kckkumdgh (Bld) [#/Vol]0.1 10*3/uLNormal0.0-0.2The [facility] Physician GroupComment on above:Order Comment: Reason for Exam Hypertension, essentialResult Comment: PERFORMED BY: [place] [address] PATHOLOGIST FUNDER REJI FERNANDES M.D.Performed By: #### HBSAG, HCV RX PCR, HIVRNAPCR, HBCAB, HBSAB #### [facility] , #### CMP, PT, CBC #### [facility] [address] [place] [address] USABasophils/100 WBC (Bld)0.9 %Normal.The [facility] Physician GroupComment on above:Order Comment: Reason for Exam Hypertension, essential Performed By: #### HBSAG, HCV RX PCR, HIVRNAPCR, HBCAB, HBSAB #### [facility] , #### CMP, PT, CBC #### [facility] [address] [place] [address] USAEosinophils (Bld) [#/Vol]0.1 10*3/uLNormal0.0-0.45The [facility] Physician GroupComment on above:Order Comment: Reason for Exam Hypertension, essentialPerformed By: #### HBSAG, HCV RX PCR, HIVRNAPCR, HBCAB, HBSAB #### [facility] , #### CMP, PT, CBC #### [place] [address] USAEosinophils/100 WBC (Bld)1.9 %Normal.The [facility] Physician GroupComment on above:Order Comment: Reason for Exam Hypertension, essentialPerformed By: #### HBSAG, HCV RX PCR, HIVRNAPCR, HBCAB, HBSAB #### [facility] , #### CMP, PT, CBC #### [place] [address] USAErythrocyte distribution width (RBC) [Ratio]13.8 %Normal 12.0-14.8The [facility] Physician GroupComment on above:Order Comment: Reason for Exam Hypertension, essentialPerformed By: #### HBSAG, HCV RX PCR, HIVRNAPCR, HBCAB, HBSAB #### [facility] , #### CMP, PT, CBC #### [place] [address] USAHematocrit (Bld) [Volume fraction]47.0 %Nxzser32.8-50.0The [facility] Physician GroupComment on above:Order Comment: Reason for Exam Hypertension, essentialPerformed By: #### HBSAG, HCV RX PCR, HIVRNAPCR, HBCAB, HBSAB #### [facility] , #### CMP, PT, CBC #### [place] [address] USAHemoglobin (Bld) [Mass/Vol]16.5 g/tYOivrtm79.0-17.0The [facility] Physician GroupComment on above:Order Comment: Reason for Exam Hypertension, essentialPerformed By: #### HBSAG, HCV RX PCR, HIVRNAPCR, HBCAB, HBSAB #### [facility] , #### CMP, PT, CBC #### [facility] [address] [place] [address] USALymphocytes (Bld) [#/Vol]2.2 10*3/uLNormal1.00-4.8The [facility] Physician GroupComment on above:Order Comment: Reason for Exam Hypertension, essentialPerformed By: #### HBSAG, HCV RX PCR, HIVRNAPCR, HBCAB, HBSAB #### [facility] , #### CMP, PT, CBC #### [facility] [address] [place] [address] USALymphocytes/100 WBC (Bld)31.2 %Normal.The [facility] Physician GroupComment on above:Order Comment: Reason for Exam Hypertension, essentialPerformed By: #### HBSAG, HCV RX PCR, HIVRNAPCR, HBCAB, HBSAB #### [facility] , #### CMP, PT, CBC #### [address]H (RBC) [Entitic mass]33.3 ebHemhup95.5-35.2The [facility] Physician GroupComment on above:Order Comment: Reason for Exam Hypertension, essentialPerformed By: #### HBSAG, HCV RX PCR, HIVRNAPCR, HBCAB, HBSAB #### [facility] , #### CMP, PT, CBC #### [address]V (RBC) [Entitic vol]94.6 jHSenfvs78.5-101The [facility] Physician GroupComment on above:Order Comment: Reason for Exam Hypertension, essentialPerformed By: #### HBSAG, HCV RX PCR, HIVRNAPCR, HBCAB, HBSAB #### [facility] , #### CMP, PT, CBC #### [facility] [address] [place] [address] USAMean Corpuscular HGB Conc35.2 g/tHVzcnxq80.5-35.6The [facility] Physician GroupComment on above:Order Comment: Reason for Exam Hypertension, essentialPerformed By: #### HBSAG, HCV RX PCR, HIVRNAPCR, HBCAB, HBSAB #### [facility] , #### CMP, PT, CBC #### [place] [address] USAMonocytes (Bld) [#/Vol]0.5 10*3/uLNormal0.0-0.8The [facility] Physician GroupComment on above:Order Comment: Reason for Exam Hypertension, essentialPerformed By: #### HBSAG, HCV RX PCR, HIVRNAPCR, HBCAB, HBSAB #### [facility] , #### CMP, PT, CBC #### [facility] [address] [place] [address] USAMonocytes/100 WBC (Bld)6.8 %Normal.The [facility] Physician GroupComment on above:Order Comment: Reason for Exam Hypertension, essential Performed By: #### HBSAG, HCV RX PCR, HIVRNAPCR, HBCAB, HBSAB #### [facility] , #### CMP, PT, CBC #### [facility] [address] [place] [address] USANeutrophils (Bld) [#/Vol]4.2 10*3/uLNormal1.8-7.7The [facility] Physician GroupComment on above:Order Comment: Reason for Exam Hypertension, essentialPerformed By: #### HBSAG, HCV RX PCR, HIVRNAPCR, HBCAB, HBSAB #### [facility] , #### CMP, PT, CBC #### [place] [address] USANeutrophils/100 WBC (Bld)59.2 %Normal.The [facility] Physician GroupComment on above:Order Comment: Reason for Exam Hypertension, essentialPerformed By: #### HBSAG, HCV RX PCR, HIVRNAPCR, HBCAB, HBSAB #### [facility] , #### CMP, PT, CBC #### [facility] [address] [place] [address] USANRBC%0.1 /100{WBC}Normal0-0.5The [facility]ician Group Comment on above:Order Comment: Reason for Exam Hypertension, essentialPerformed By: #### HBSAG, HCV RX PCR, HIVRNAPCR, HBCAB, HBSAB #### [facility] , #### CMP, PT, CBC #### [facility] [address] [place] [address] USAPlatelet mean volume (Bld) [Entitic vol]10.9 fLHigh 6.6-10.1The [facility] Physician GroupComment on above:Order Comment: Reason for Exam Hypertension, essentialPerformed By: #### HBSAG, HCV RX PCR, HIVRNAPCR, HBCAB, HBSAB #### [facility] , #### CMP, PT, CBC #### [facility] [address] [place] [address] USAPlatelets (Bld) [#/Vol]139 10*3/kBZul294-753Gae [facility] Physician GroupComment on above:Order Comment: Reason for Exam Hypertension, essentialPerformed By: #### HBSAG, HCV RX PCR, HIVRNAPCR, HBCAB, HBSAB #### [facility] , #### CMP, PT, CBC #### [facility] [address] [place] [address] USARBC (Bld) [#/Vol]4.97 10*6/uLNormal3.90-5.60The [facility] Physician GroupComment on above:Order Comment: Reason for Exam Hypertension, essentialPerformed By: #### HBSAG, HCV RX PCR, HIVRNAPCR, HBCAB, HBSAB #### [facility] , #### CMP, PT, CBC #### [facility] [address] [place] [address] USAWBC (Bld) [#/Vol]7.1 10*3/uLNormal4.1-10.5The [facility] Physician GroupComment on above:Order Comment: Reason for Exam Hypertension, essentialPerformed By: #### HBSAG, HCV RX PCR, HIVRNAPCR, HBCAB, HBSAB #### [facility] , #### CMP, PT, CBC #### [facility] [address] [place] [address] USAComprehensive Metabolic Panelon 60-42-6206Hwjoutk [Mass/Vol]4.2 g/dLNormal3.5-5.7The [facility] Physician GroupComment on above: Order Comment: Reason for Exam Hypertension, essential;Calf cramp Reason for Exam Hypokalemia Reason for Exam Weight gainPerformed By: #### HBSAG, HCV RX PCR, HIVRNAPCR, HBCAB, HBSAB #### [facility] , #### CMP, PT, CBC #### [facility] [address] [place] [id number] USAAlbumin/Globulin [Mass ratio]1.4 {ratio}NormalThe [facility] Physician GroupComment on above:Order Comment: Reason for Exam Hypertension, essential;Calf cramp Reason for Exam Hypokalemia Reason for Exam Weight gainPerformed By: #### HBSAG, HCV RX PCR, HIVRNAPCR, HBCAB, HBSAB #### [facility] , #### CMP, PT, CBC #### [facility] [address] [place] [address] USAALP [Catalytic activity/Vol]46 U/ZUwumyf72-381Lnr [facility] Physician GroupComment on above:Order Comment: Reason for Exam Hypertension, essential;Calf cramp Reason for Exam Hypokalemia Reason for Exam Weight gainPerformed By: #### HBSAG, HCV RX PCR, HIVRNAPCR, HBCAB, HBSAB #### [facility] , #### CMP, PT, CBC #### [facility] [address] [place] [address] USAALT [Catalytic activity/Vol]235 U/LHigh7-52The [facility] Physician GroupComment on above:Order Comment: Reason for Exam Hypertension, essential;Calf cramp Reason for Exam Hypokalemia Reason for Exam Weight gain Performed By: #### HBSAG, HCV RX PCR, HIVRNAPCR, HBCAB, HBSAB #### [facility] , #### CMP, PT, CBC #### [facility] [address] [place] [id number] USAAnion gap [Moles/Vol]9.0 mmol/LNormal6.0-15.0The [facility] Physician GroupComment on above:Order Comment: Reason for Exam Hypertension, essential;Calf cramp Reason for Exam Hypokalemia Reason for Exam Weight gain Performed By: #### HBSAG, HCV RX PCR, HIVRNAPCR, HBCAB, HBSAB #### [facility] , #### CMP, PT, CBC #### [facility] [address] [place] [id number] USAAST [Catalytic activity/Vol]193 U/BEpop49-28Qxq [facility] Physician GroupComment on above:Order Comment: Reason for Exam Hypertension, essential;Calf cramp Reason for Exam Hypokalemia Reason for Exam Weight gain Performed By: #### HBSAG, HCV RX PCR, HIVRNAPCR, HBCAB, HBSAB #### [facility] , #### CMP, PT, CBC #### [facility] [address] [place] [address] USABilirubin [Mass/Vol]0.7 mg/dLNormal0.3-1.0The [facility] Physician GroupComment on above:Order Comment: Reason for Exam Hypertension, essential;Calf cramp Reason for Exam Hypokalemia Reason for Exam Weight gain Performed By: #### HBSAG, HCV RX PCR, HIVRNAPCR, HBCAB, HBSAB #### [facility] , #### CMP, PT, CBC #### [facility] [address] [place] [id number] USACalcium [Mass/Vol]9.0 mg/dLNormal8.6-10.3The [facility] Physician GroupComment on above:Order Comment: Reason for Exam Hypertension, essential;Calf cramp Reason for Exam Hypokalemia Reason for Exam Weight gain Performed By: #### HBSAG, HCV RX PCR, HIVRNAPCR, HBCAB, HBSAB #### [facility] , #### CMP, PT, CBC #### [facility] [address] [place] [address] USAChloride [Moles/Vol]107 mmol/QOveolo19-815Qxm [facility] Physician GroupComment on above:Order Comment: Reason for Exam Hypertension, essential;Calf cramp Reason for Exam Hypokalemia Reason for Exam Weight gain Performed By: #### HBSAG, HCV RX PCR, HIVRNAPCR, HBCAB, HBSAB #### [facility] , #### CMP, PT, CBC #### [facility] [address] [place] [id number] USACO2 [Moles/Vol]29.5 mmol/QCebxrw71.0-31.0The [facility] Physician GroupComment on above:Order Comment: Reason for Exam Hypertension, essential;Calf cramp Reason for Exam Hypokalemia Reason for Exam Weight gain Performed By: #### HBSAG, HCV RX PCR, HIVRNAPCR, HBCAB, HBSAB #### [facility] , #### CMP, PT, CBC #### [place] [id number] USACreatinine [Mass/Vol]0.92 mg/dLNormal0.70-1.30The [facility] Physician GroupComment on above:Order Comment: Reason for Exam Hypertension, essential;Calf cramp Reason for Exam Hypokalemia Reason for Exam Weight gainPerformed By: #### HBSAG, HCV RX PCR, HIVRNAPCR, HBCAB, HBSAB #### [facility] , #### CMP, PT, CBC #### [facility] [address] [place] [id number] USAGFR/1.73 sq M.predicted MDRD (S/P/Bld) [Vol rate/Area] mL/min/{1.73_m2}NormalThe [facility] Physician GroupComment on above:Order Comment: Reason for Exam Hypertension, essential;Calf cramp Reason for Exam Hypokalemia Reason for Exam Weight gainPerformed By: #### HBSAG, HCV RX PCR, HIVRNAPCR, HBCAB, HBSAB #### [facility] , #### CMP, PT, CBC #### [facility] [address] [place] [address] USAGlobulin (S) [Mass/Vol]3.0 g/dLNormalThe [facility] Physician GroupComment on above:Order Comment: Reason for Exam Hypertension, essential;Calf cramp Reason for Exam Hypokalemia Reason for Exam Weight gain Performed By: #### HBSAG, HCV RX PCR, HIVRNAPCR, HBCAB, HBSAB #### [facility] , #### CMP, PT, CBC #### [facility] [address] [place] [id number] USAGlucose [Mass/Vol]87 mg/pIWtnzij08-154Tez [facility] Physician GroupComment on above:Order Comment: Reason for Exam Hypertension, essential;Calf cramp Reason for Exam Hypokalemia Reason for Exam Weight gain Result Comment: Random Glucose Reference Range is dependent on time and content of last meal. Glucose of more than 200 mg/dL in a nonstressed, ambulatory subject supports the diagnosis of Diabetes Mellitus. ADA recommended reference rangePerformed By: #### HBSAG, HCV RX PCR, HIVRNAPCR, HBCAB, HBSAB #### [facility] , #### CMP, PT, CBC #### [facility] [address] [place] [address] USAPotassium [Moles/Vol]4.5 mmol/LNormal3.5-5.1The [facility] Physician GroupComment on above:Order Comment: Reason for Exam Hypertension, essential;Calf cramp Reason for Exam Hypokalemia Reason for Exam Weight gain Performed By: #### HBSAG, HCV RX PCR, HIVRNAPCR, HBCAB, HBSAB #### [facility] , #### CMP, PT, CBC #### [facility] [address] [place] [id number] USAProtein [Mass/Vol]7.2 g/dLNormal6.4-8.9The [facility] Physician GroupComment on above:Order Comment: Reason for Exam Hypertension, essential;Calf cramp Reason for Exam Hypokalemia Reason for Exam Weight gain Performed By: #### HBSAG, HCV RX PCR, HIVRNAPCR, HBCAB, HBSAB #### [facility] , #### CMP, PT, CBC #### [facility] [address] [place] [id number] USASodium [Moles/Vol]141 mmol/UHqufjr473-891Fux [facility] Physician GroupComment on above:Order Comment: Reason for Exam Hypertension, essential;Calf cramp Reason for Exam Hypokalemia Reason for Exam Weight gain Performed By: #### HBSAG, HCV RX PCR, HIVRNAPCR, HBCAB, HBSAB #### [facility] , #### CMP, PT, CBC #### [facility] [address] [place] [id number] USAUrea nitrogen [Mass/Vol]8 mg/dLNormal7-e [facility] Physician GroupComment on above:Order Comment: Reason for Exam Hypertension, essential;Calf cramp Reason for Exam Hypokalemia Reason for Exam Weight gain Performed By: #### HBSAG, HCV RX PCR, HIVRNAPCR, HBCAB, HBSAB #### [facility] , #### CMP, PT, CBC #### [facility] [address] [place] [id number] USACreatinine [Mass/volume] in Serum or PlasmaOrdered By: Nakul Patricio on 57-87-3093Vqivfxkrly [Mass/Vol]Creatinine [Mass/volume] in Serum or Plasma0.70-1.30[facility] Health CenterEosinophils Auto (Bld) [#/Vol]Ordered By: Nakul Patricio on 71-99-8437Ylnocnaqzom (Bld) [#/Vol] Automated eosinophil count0.0-0.45[facility] Eosinophils/100 WBC Auto (Bld)Ordered By: Nakul Patricio on 08-04-2024 Eosinophils/100 WBC (Bld)Automated eosinophil %.[facility] Health CenterErythrocyte distribution width Auto (RBC) [Ratio]Ordered By: Nakul Patricio on 78-32-0313Zougiifwyxw distribution width (RBC) [Ratio]Erythrocyte distribution width [Ratio] by Automated count12.0-14.8[facility] Health CenterGlobulin Calc (S) [Mass/Vol]Ordered By: Nakul Patricio on 08-04-2024 Globulin (S) [Mass/Vol]Serum globulin measurement by calculation (mass/volume) [facility] CenterGlucose [Mass/volume] in Serum or PlasmaOrdered By: Nakul Patricio on 29-29-5133Kpjpamn [Mass/Vol]Glucose [Mass/volume] in Serum or Rptbuf86-710EiahhbcegOhiohealth Nelsonville Health CenterComment on above:ADA recommended reference rangeRandom Glucose Reference Range is dependent on time and content of last meal. Glucose of more than 200 mg/dL in a nonstressed, ambulatory subject supports the diagnosisof Diabetes Mellitus.Hematocrit Auto (Bld) [Volume fraction]Ordered By: Nakul Patricio on 39-60-8607Trlywjdxrr (Bld) [Volume fraction]Hematocrit [Volume Fraction] of Blood by Automated count 38.8-50.0[facility] Health CenterHemoglobin A1c/Hemoglobin.total in BloodOrdered By: Nakul Patricio on 71-37-1369KoV1n (Bld) [Mass fraction] Hemoglobin A1c percentage4.3-5.6FSumma Health Barberton CampusComment on above:Increased risk for diabetes: 5.7 - 6.4diabetes: >6.4glycemic control for adults with diabetes: <7.0Hemoglobin [Mass/volume] in BloodOrdered By: Nakul Patricio on 98-20-6360Bbyeazsynv (Bld) [Mass/Vol]Hemoglobin [Mass/volume] in Blood13.0-17.0[facility] Health CenterHep C RT-PCR, Qnt (Non-Graph)on 51-10-5769IZQ Fcs304.820Normal.The [facility] Physician GroupComment on above: Order Comment: Reason for Exam Chronic hepatitis C without hepatic comaResult Comment: Result Units: log10 IU/mLPerformed By: #### HBSAG, HCV RX PCR, HIVRNAPCR, HBCAB, HBSAB #### [facility] , #### CMP, PT, CBC #### [facility] [address] [place] [address] USAHepatitis C Pmdxageuhrov2285159 [IU]/mLNormal.[facility] Physician GroupComment on above:Order Comment: Reason for Exam Chronic hepatitis C without hepatic comaPerformed By: #### HBSAG, HCV RX PCR, HIVRNAPCR, HBCAB, HBSAB #### [facility] , #### CMP, PT, CBC #### [facility] [address] [place] [address] USATest Information:CommentNormal.The [facility] Physician GroupComment on above:Order Comment: Reason for Exam Chronic hepatitis C without hepatic comaResult Comment: The quantitative range of this assay is 15 IU/mL to 100 million IU/mL. Performed at: - [address] [id number] Professor Of Biology: Cristo Davalos MD, Phone: [phone] PERFORMED BY: [place] [address] PATHOLOGIST FUNDER REJI FERNANDES M.D.Performed By: #### HBSAG, HCV RX PCR, HIVRNAPCR, HBCAB, HBSAB #### [facility] , #### CMP, PT, CBC #### [facility] [address] [place] [address] USALeukocytes [#/volume] corrected for nucleated erythrocytes in Blood by Automated counOrdered By: Nakul Patricio on 81-24-6510BJP corrected for nucl RBC Auto (Bld) [#/Vol]Leukocytes [#/volume] corrected for nucleated erythrocytes in Blood by Automated coun4.1-10.5FSumma [facility] Campus Lymphocytes Auto (Bld) [#/Vol]Ordered By: Nakul Patricio on 08-04-2024 Lymphocytes (Bld) [#/Vol]Lymphocytes [#/volume] in Blood by Automated count 1.00-4.8[facility] CenterLymphocytes/100 WBC Auto (Bld)Ordered By: Nakul Patricio on 84-89-6416Mmouohtnycn/100 WBC (Bld)Lymphocytes/100 leukocytes in Blood by Automated count.[facility] Auto (RBC) [Entitic mass]Ordered By: Nakul Patricio on 39-68-0861KEC (RBC) [Entitic mass]MCH [Entitic mass] by Automated count27.5-35.2FSumma Health Barberton CampusMCHC Auto (RBC) [Mass/Vol]Ordered By: Nakul Patricio on 08-97-1539IQOY (RBC) [Mass/Vol]MCHC [Mass/volume] by Automated count32.5-35.6FSumma Health Barberton CampusMCV Auto (RBC) [Entitic vol]Ordered By: Nakul Patricio on 92-61-2840LJR (RBC) [Entitic vol]MCV [Entitic volume] by Automated count83.5-101 [facility] CenterMagnesiumon 66-33-8213Fbfzhqtzh [Mass/Vol]2.0 mg/dLNormal1.9-2.7[facility] Physician GroupComment on above:Order Comment: Reason for Exam Hypertension, essential;Calf cramp Reason for Exam Hypokalemia Reason for Exam Weight gainPerformed By: #### HBSAG, HCV RX PCR, HIVRNAPCR, HBCAB, HBSAB #### [facility] , #### CMP, PT, CBC #### [facility] [address] [place] [address] USAMagnesium [Mass/volume] in Serum or PlasmaOrdered By: Nakul Patricio on 40-21-5298Cjtygczvu [Mass/Vol]Magnesium [Mass/volume] in Serum or Plasma1.9-2.7FSumma Health Barberton CampusMonocytes Auto (Bld) [#/Vol] Ordered By: Nakul Patricio on 01-84-0039Krfaflqkr (Bld) [#/Vol]Automated blood monocyte count0.0-0.8[facility] CenterMonocytes/100 WBC Auto (Bld)Ordered By: Nakul Patricio on 39-00-2136Urauuamtu/100 WBC (Bld)Automated monocyte %.[facility] CenterNeutrophils Auto (Bld) [#/Vol] Ordered By: Nakul Patricio on 30-87-2863Hoirqxrlrbw (Bld) [#/Vol]Neutrophils [#/volume] in Blood by Automated count1.8-7.7FSumma Health [facility] Campus Neutrophils/100 WBC Auto (Bld)Ordered By: Nakul Patricio on 08-04-2024 Neutrophils/100 WBC (Bld)Automated neutrophil %.[facility] CenterNo Panel InformationOrdered By: Nakul Patricio on 93-38-3518Iuqsqvike GFR (CKD-EPI)> 60.0 mL/MinOhiohealth Nelsonville Health CenterHepatitis C RNA (PCR) InterpretComment.[facility] CenterComment on above:The quantitative range of this assay is 15 IU/mL to 100million IU/mL.Performed at: [address] [id number] Director: Cristo Davalos MD, Phone: [phone] Creatinine Clearance (ChemN/A [facility] CenterNucleated erythrocytes [Presence] in Blood by Automated countOrdered By: Nakul Patricio on 95-05-5196Lfzmvlvxl RBC Auto Ql (Bld)Nucleated erythrocytes [Presence] in Blood by Automated count0-0.5FSumma Health Barberton CampusPlatelet mean volume Auto (Bld) [Entitic vol]Ordered By: Nakul Patricio on 37-22-5511Zrfazpyh mean volume (Bld) [Entitic vol]Platelet mean volume [Entitic volume] in Blood by Automated countHigh6.6-10.1FSumma Health Barberton CampusPlatelets Auto (Bld) [#/Vol]Ordered By: Nakul Patricio on 76-66-3116Amxeuohwg (Bld) [#/Vol]Platelets [#/volume] in Blood by Automated yfrdtDvx434-642IvhyqdtrtOhiohealth Nelsonville Health CenterPotassium [Moles/volume] in Serum or PlasmaOrdered By: Nakul Patricio on 76-96-3445Vlygkxkvo [Moles/Vol] Potassium [Moles/volume] in Serum or Plasma3.5-5.1FSumma Health Barberton CampusProtein [Mass/volume] in Serum or PlasmaOrdered By: Nakul Patricio on 42-08-2331Xfkapzc [Mass/Vol]Protein [Mass/volume] in Serum or Plasma6.4-8.9 [facility] CenterRBC Auto (Bld) [#/Vol]Ordered By: Nakul Patricio on 92-60-5070OOC (Bld) [#/Vol]Erythrocytes [#/volume] in Blood by Automated count3.90-5.60[facility] Westerum or plasma albumin/globulin mass ratioOrdered By: Nakul Patricio on 08-04-2024 Albumin/Globulin [Mass ratio]Serum or plasma albumin/globulin mass ratio [facility] Westerum or plasma anion gap determinationOrdered By: Nakul Patricio on 13-21-9361Yhjio gap [Moles/Vol]Serum or plasma anion gap determination6.0-15.0[facility] Westerum or plasma hepatitis C virus RNA viral load by probe and target amplification meOrdered By: Nakul Patricio on 65-14-6629TXZ RNA HEATHER+probe [Log units/Vol]Hepatitis C virus RNA [log units/volume] (viral load) in Serum or Plasma by HEATHER with.[facility] CenterComment on above:Result Units: log10 IU/mLSodium [Moles/volume] in Serum or PlasmaOrdered By: Nakul Patricio on 17-43-7751Pazuwv [Moles/Vol]Sodium [Moles/volume] in Serum or Rxqodm320-676QfvtzzsxjOhiohealth Nelsonville Health CenterThyroid Stim Hormone w/Rflxon 21-45-3127Pwftvpt Stim Hormone w/Rflx0.92 u[iU]/mLNormal0.45-5.33[facility] Physician GroupComment on above: Order Comment: Reason for Exam Hypertension, essential;Calf cramp Reason for Exam Hypokalemia Reason for Exam Weight gainResult Comment: PERFORMED BY: [place] [address] PATHOLOGIST FUNDER REJI FERNANDES M.D.Performed By: #### HBSAG, HCV RX PCR, HIVRNAPCR, HBCAB, HBSAB #### [facility] , #### CMP, PT, CBC #### [facility] [address] [place] [address] USAThyrotropin [Units/volume] in Serum or PlasmaOrdered By: Nakul Patricio on 62-90-2983AQM QnThyrotropin [Units/volume] in Serum or Plasma 0.45-5.33[facility] CenterUrea nitrogen [Mass/volume] in Serum or PlasmaOrdered By: Nakul Patricio on 47-16-9864Sgey nitrogen [Mass/Vol]Urea nitrogen [Mass/volume] in Serum or Plasma7-25[facility] WBC Auto (Bld) [#/Vol]Ordered By: Nakul Patricio on 36-40-0860ETG (Bld) [#/Vol] Leukocytes [#/volume] in Blood by Automated count4.1-10.5FSumma Health Barberton CampusAlanine aminotransferase [Enzymatic activity/volume] in Serum or PlasmaOrdered By: Vel Sevilla on 75-98-6817RZO [Catalytic activity/Vol] Alanine aminotransferase [Enzymatic activity/volume] in Serum or PlasmaHigh7-52 [facility] CenterAlbumin [Mass/volume] in Serum or Plasma by Bromocresol green (BCG) dye binding methoOrdered By: Vel Sevilla on 91-27-3216Kbzsoir BCG dye [Mass/Vol]Albumin [Mass/volume] in Serum or Plasma by Bromocresol green (BCG) dye binding metho3.5-5.7FSumma Health Barberton CampusComment on above:Specimen hemolyzed, redraw requestedAlkaline phosphatase [Enzymatic activity/volume] in Serum or PlasmaOrdered By: Vel Sevilla on 35-98-3669IOK [Catalytic activity/Vol]Alkaline phosphatase [Enzymatic activity/volume] in Serum or Tyxehl76-578YlnzeiegiOhiohealth Nelsonville Health Center Aspartate aminotransferase [Enzymatic activity/volume] in Serum or PlasmaOrdered By: Vel Sevilla on 36-13-3644CWJ [Catalytic activity/Vol]Aspartate aminotransferase [Enzymatic activity/volume] in Serum or Fgicby15-07KefhnzgyxOhiohealth Nelsonville Health CenterComment on above:Specimen hemolyzed, redraw requested Basophils Auto (Bld) [#/Vol]Ordered By: Vel Sevilla on 39-09-3022Cniafnmdr (Bld) [#/Vol]Automated basophil count0.0-0.2FSumma Health Barber[facility] Campus Basophils/100 WBC Auto (Bld)Ordered By: Vel Sevilla on 08-01-2024 Basophils/100 WBC (Bld)Automated basophil %.[facility] Bilirubin.total [Mass/volume] in Serum or PlasmaOrdered By: Vel Sevilla on 96-03-4652Whffiochg [Mass/Vol]Bilirubin.total [Mass/volume] in Serum or Plasma 0.3-1.0[facility] CenterCalcium [Mass/volume] in Serum or Plasma Ordered By: Vel Sevilla on 38-98-0337Icpdnfn [Mass/Vol]Calcium [Mass/volume] in Serum or Plasma8.6-10.3FSumma Health Barberton CampusCarbon dioxide, total [Moles/volume] in Serum or PlasmaOrdered By: Vel Sevilla on 99-91-2953GZ8 [Moles/Vol]Carbon dioxide, total [Moles/volume] in Serum or Mpxidr82.0-31.0 [facility] CenterChloride [Moles/volume] in Serum or Plasma Ordered By: Vel Sevilla on 33-90-5069Xmhvqvds [Moles/Vol]Chloride [Moles/volume] in Serum or Zegbwn11-524YnqjqzfmuOhiohealth Nelsonville Health CenterComplete Blood Count Auto Diffon 23-57-3255Nagzfovgn (Bld) [#/Vol]0.1 10*3/uLNormal 0.0-0.2[facility] Physician GroupComment on above:Result Comment: PERFORMED BY: [place] [address] PATHOLOGIST FUNDER REJI FERNANDES M.D.Performed By: #### HBSAG, HCV RX PCR, HIVRNAPCR, HBCAB, HBSAB #### [facility] , #### CMP, PT, CBC #### [facility] [address] [place] [address] USABasophils/100 WBC (Bld)1.3 %Normal.[facility] Physician GroupComment on above:Performed By: #### HBSAG, HCV RX PCR, HIVRNAPCR, HBCAB, HBSAB #### [facility] , #### CMP, PT, CBC #### [facility] [address] [place] [address] USAEosinophils (Bld) [#/Vol]0.3 10*3/uLNormal0.0-0.45The [facility] Physician GroupComment on above:Performed By: #### HBSAG, HCV RX PCR, HIVRNAPCR, HBCAB, HBSAB #### [facility] , #### CMP, PT, CBC #### [place] [address] USAEosinophils/100 WBC (Bld)3.6 %Normal.The [facility] Physician GroupComment on above:Performed By: #### HBSAG, HCV RX PCR, HIVRNAPCR, HBCAB, HBSAB #### [facility] , #### CMP, PT, CBC #### [place] [address] USAErythrocyte distribution width (RBC) [Ratio]13.7 %Normal 12.0-14.8The [facility] Physician GroupComment on above:Performed By: #### HBSAG, HCV RX PCR, HIVRNAPCR, HBCAB, HBSAB #### [facility] , #### CMP, PT, CBC #### [place] [address] USAHematocrit (Bld) [Volume fraction]48.9 %Hdvejr76.8-50.0The [facility] Physician GroupComment on above:Performed By: #### HBSAG, HCV RX PCR, HIVRNAPCR, HBCAB, HBSAB #### [facility] , #### CMP, PT, CBC #### [place] [address] USAHemoglobin (Bld) [Mass/Vol]17.3 g/dLDkqg90.0-17.0The [facility] Physician GroupComment on above:Performed By: #### HBSAG, HCV RX PCR, HIVRNAPCR, HBCAB, HBSAB #### [facility] , #### CMP, PT, CBC #### [place] [address] USALymphocytes (Bld) [#/Vol]2.4 10*3/uLNormal1.00-4.8The [facility] Physician GroupComment on above:Performed By: #### HBSAG, HCV RX PCR, HIVRNAPCR, HBCAB, HBSAB #### [facility] , #### CMP, PT, CBC #### [place] [address] USALymphocytes/100 WBC (Bld)29.3 %Normal.The [facility] Physician GroupComment on above:Performed By: #### HBSAG, HCV RX PCR, HIVRNAPCR, HBCAB, HBSAB #### [facility] , #### CMP, PT, CBC #### [facility] [address] [place], [place] [address]MCH (RBC) [Entitic mass]33.3 xkHqssyz46.5-35.2The [facility] Physician GroupComment on above:Performed By: #### HBSAG, HCV RX PCR, HIVRNAPCR, HBCAB, HBSAB #### [facility] , #### CMP, PT, CBC #### [address]V (RBC) [Entitic vol]94.2 eUXzcove47.5-101The [facility] Physician GroupComment on above:Performed By: #### HBSAG, HCV RX PCR, HIVRNAPCR, HBCAB, HBSAB #### [facility] , #### CMP, PT, CBC #### [facility] [address] [place] [address] USAMean Corpuscular HGB Conc35.3 g/oMFjdddm79.5-35.6The [facility] Physician GroupComment on above:Performed By: #### HBSAG, HCV RX PCR, HIVRNAPCR, HBCAB, HBSAB #### [facility] , #### CMP, PT, CBC #### [facility] [address] [place] [address] USAMonocytes (Bld) [#/Vol]0.6 10*3/uLNormal0.0-0.8The [facility] Physician GroupComment on above:Performed By: #### HBSAG, HCV RX PCR, HIVRNAPCR, HBCAB, HBSAB #### [facility] , #### CMP, PT, CBC #### [place] [address] USAMonocytes/100 WBC (Bld)7.1 %Normal.The [facility] Physician GroupComment on above:Performed By: #### HBSAG, HCV RX PCR, HIVRNAPCR, HBCAB, HBSAB #### [facility] , #### CMP, PT, CBC #### [place] [address] USANeutrophils (Bld) [#/Vol]4.9 10*3/uLNormal1.8-7.7The [facility] Physician GroupComment on above:Performed By: #### HBSAG, HCV RX PCR, HIVRNAPCR, HBCAB, HBSAB #### [facility] , #### CMP, PT, CBC #### [place] [address] USANeutrophils/100 WBC (Bld)58.7 %Normal.The [facility] Physician GroupComment on above:Performed By: #### HBSAG, HCV RX PCR, HIVRNAPCR, HBCAB, HBSAB #### [facility] , #### CMP, PT, CBC #### [facility] [address] [place] [address] USANRBC%0.1 /100{WBC}Normal0-0.5The [facility] Comment on above:Performed By: #### HBSAG, HCV RX PCR, HIVRNAPCR, HBCAB, HBSAB #### [facility] , #### CMP, PT, CBC #### [facility] [address] [place] [address] USAPlatelet mean volume (Bld) [Entitic vol]10.8 fLHigh 6.6-10.1The [facility] Physician GroupComment on above:Performed By: #### HBSAG, HCV RX PCR, HIVRNAPCR, HBCAB, HBSAB #### [facility] , #### CMP, PT, CBC #### [place] [address] USAPlatelets (Bld) [#/Vol]132 10*3/wTXqr266-587Wrd [facility] Physician GroupComment on above:Performed By: #### HBSAG, HCV RX PCR, HIVRNAPCR, HBCAB, HBSAB #### [facility] , #### CMP, PT, CBC #### [place] [address] USARBC (Bld) [#/Vol]5.19 10*6/uLNormal3.90-5.60The [facility] Physician GroupComment on above:Performed By: #### HBSAG, HCV RX PCR, HIVRNAPCR, HBCAB, HBSAB #### [facility] , #### CMP, PT, CBC #### [place] [address] USAWBC (Bld) [#/Vol]8.4 10*3/uLNormal4.1-10.5The [facility] Physician GroupComment on above:Performed By: #### HBSAG, HCV RX PCR, HIVRNAPCR, HBCAB, HBSAB #### [facility] , #### CMP, PT, CBC #### [place] [address] USAComprehensive Metabolic Panelon 79-69-0657Nqjrkvn Level Normal3.5-5.7The [facility] Physician GroupComment on above:Result Comment: Specimen hemolyzed, redraw requestedPerformed By: #### HBSAG, HCV RX PCR, HIVRNAPCR, HBCAB, HBSAB #### [facility] , #### CMP, PT, CBC #### [facility] [address] [place] [address] USAAlbumin/Globulin RatioNormalThe [facility] Comment on above:Result Comment: Specimen hemolyzed, redraw requestedPerformed By: #### HBSAG, HCV RX PCR, HIVRNAPCR, HBCAB, HBSAB #### [facility] , #### CMP, PT, CBC #### [place] [address] USAALP [Catalytic activity/Vol]36 U/FPowmdo22-604Xpn [facility] Physician GroupComment on above:Result Comment: PERFORMED BY: [place] [address] PATHOLOGIST FUNDER REJI FERNANDES M.D.Performed By: #### HBSAG, HCV RX PCR, HIVRNAPCR, HBCAB, HBSAB #### [facility] , #### CMP, PT, CBC #### [place] [address] USAALT [Catalytic activity/Vol]250 U/LHigh7-52The [facility] Physician GroupComment on above:Performed By: #### HBSAG, HCV RX PCR, HIVRNAPCR, HBCAB, HBSAB #### [facility] , #### CMP, PT, CBC #### [place] [address] USAAnion gap [Moles/Vol]Not performedNormal6.0-15.0The [facility] Physician GroupComment on above:Performed By: #### HBSAG, HCV RX PCR, HIVRNAPCR, HBCAB, HBSAB #### [facility] , #### CMP, PT, CBC #### [place] [address] USAAspartate Amino OscupwohedrXnpinp52-90Guh [facility] Physician GroupComment on above:Result Comment: Specimen hemolyzed, redraw requestedPerformed By: #### HBSAG, HCV RX PCR, HIVRNAPCR, HBCAB, HBSAB #### [facility] , #### CMP, PT, CBC #### [place] [address] USABilirubin [Mass/Vol]1.0 mg/dLNormal0.3-1.0The [facility] Physician GroupComment on above:Performed By: #### HBSAG, HCV RX PCR, HIVRNAPCR, HBCAB, HBSAB #### [facility] , #### CMP, PT, CBC #### [place] [address] USACalcium [Mass/Vol]9.2 mg/dLNormal8.6-10.3The [facility] Physician GroupComment on above:Performed By: #### HBSAG, HCV RX PCR, HIVRNAPCR, HBCAB, HBSAB #### [facility] , #### CMP, PT, CBC #### [facility] [address] [place] [address] USAChloride [Moles/Vol]106 mmol/UFtzdhz90-279Eca [facility] Physician GroupComment on above:Performed By: #### HBSAG, HCV RX PCR, HIVRNAPCR, HBCAB, HBSAB #### [facility] , #### CMP, PT, CBC #### [facility] [address] [place] [address] USACO2 [Moles/Vol]25.1 mmol/YKykyoc83.0-31.0The [facility] Physician GroupComment on above:Performed By: #### HBSAG, HCV RX PCR, HIVRNAPCR, HBCAB, HBSAB #### [facility] , #### CMP, PT, CBC #### [place] [address] USACreatinine [Mass/Vol]0.99 mg/dLNormal0.70-1.30The [facility] Physician GroupComment on above:Performed By: #### HBSAG, HCV RX PCR, HIVRNAPCR, HBCAB, HBSAB #### [facility] , #### CMP, PT, CBC #### [place] [address] USAGFR/1.73 sq M.predicted MDRD (S/P/Bld) [Vol rate/Area] mL/min/{1.73_m2}NormalThe [facility] Physician GroupComment on above:Performed By: #### HBSAG, HCV RX PCR, HIVRNAPCR, HBCAB, HBSAB #### [facility] , #### CMP, PT, CBC #### [place] [address] USAGlobulinNormalThe [facility] Physician GroupComment on above:Result Comment: Specimen hemolyzed, redraw requestedPerformed By: #### HBSAG, HCV RX PCR, HIVRNAPCR, HBCAB, HBSAB #### [facility] , #### CMP, PT, CBC #### [place] [address] USAGlucose [Mass/Vol]102 mg/cOYgmu12-014Ota [facility] Physician GroupComment on above:Result Comment: Random Glucose Reference Range is dependent on time and content of last meal. Glucose of more than 200 mg/dL in a nonstressed, ambulatory subject supports the diagnosis of Diabetes Mellitus. ADA recommended reference rangePerformed By: #### HBSAG, HCV RX PCR, HIVRNAPCR, HBCAB, HBSAB #### [facility] , #### CMP, PT, CBC #### [facility] [address] [place] [address] USAPotassiumNormal3.5-5.1The [facility] Physician GroupComment on above:Result Comment: Specimen hemolyzed, redraw requestedPerformed By: #### HBSAG, HCV RX PCR, HIVRNAPCR, HBCAB, HBSAB #### [facility] , #### CMP, PT, CBC #### [facility] [address] [place] [address] PZEItgqkfPncbev908-799Zam [facility] Physician GroupComment on above:Result Comment: Specimen hemolyzed, redraw requestedPerformed By: #### HBSAG, HCV RX PCR, HIVRNAPCR, HBCAB, HBSAB #### [facility] , #### CMP, PT, CBC #### [place] [address] USATotal ProteinNormal6.4-8.9The [facility] Comment on above:Result Comment: Specimen hemolyzed, redraw requestedPerformed By: #### HBSAG, HCV RX PCR, HIVRNAPCR, HBCAB, HBSAB #### [facility] , #### CMP, PT, CBC #### [facility] [address] [place] [address] USAUrea nitrogen [Mass/Vol]10 mg/dLNormal7-e [facility] Physician GroupComment on above:Performed By: #### HBSAG, HCV RX PCR, HIVRNAPCR, HBCAB, HBSAB #### [facility] , #### CMP, PT, CBC #### [facility] [address] [place] [id number] USACreatinine [Mass/volume] in Serum or PlasmaOrdered By: Vel Sevilla on 04-12-1300Aqlrywqntw [Mass/Vol]Creatinine [Mass/volume] in Serum or Plasma0.70-1.30[facility] CenterDiagnostic impression interpretation by molecular genetics method narrativeOrdered By: Vel Sevilla on 34-13-1995Bkbhkbtstt impression Molgen Aung (Unsp spec) [Interp]Diagnostic impression [Interpretation] in Specimen Narrative.[facility] CenterComment on above:Positive HCV antibody screen with the presence of HCV RNAis consistent with active infection.Performed at: - [facility] [id number] Director: Narendra Aquino PhD, Phone: [phone] at: [facility] [id number]: Cristo Davalos MD, Phone: [phone] Auto (Bld) [#/Vol]Ordered By: Vel Sevilla on 76-79-4794Vjsamdesqrk (Bld) [#/Vol] Automated eosinophil count0.0-0.45[facility] Eosinophils/100 WBC Auto (Bld)Ordered By: Vel Sevilla on 08-01-2024 Eosinophils/100 WBC (Bld)Automated eosinophil %.[facility] CenterErythrocyte distribution width Auto (RBC) [Ratio]Ordered By: Vel Sevilla on 80-46-1349Owvkdnollnk distribution width (RBC) [Ratio]Erythrocyte distribution width [Ratio] by Automated count12.0-14.8[facility] Health CenterGlobulin Calc (S) [Mass/Vol]Ordered By: Vel Sevilla on 08-01-2024 Globulin (S) [Mass/Vol]Serum globulin measurement by calculation (mass/volume) [facility] CenterComment on above:Specimen hemolyzed, redraw requestedGlucose [Mass/volume] in Serum or PlasmaOrdered By: Vel Sevilla on 88-41-0339Ljdvuhy [Mass/Vol]Glucose [Mass/volume] in Serum or WgustnDxzd78-883 [facility] CenterComment on above:ADA recommended reference rangeRandom Glucose Reference Range is dependent on time and content of last meal. Glucose of more than 200 mg/dL in a nonstressed, ambulatory subject supports the diagnosisof Diabetes Mellitus.HIV 1 RNA viral load measurement (log number/volume)Ordered By: Vel Sevilla on 94-98-4441NYN 1 RNA HEATHER+probe (Unsp spec) [Log #/Vol]HIV 1 RNA viral load measurement (log number/volume).[facility] CenterComment on above:Result Units: ulm33vkob/mLUnable to calculate result since non-numeric resultobtained for componenttest.Performed at: [facility] [address] [id number] Director: Cristo Davalos MD, Phone: [phone] 1 RNA viral load measurement by probe and target amplification method (number/volOrdered By: Vel Sevilla on 81-14-6688ISL 1 RNA HEATHER+probe (Unsp spec) [#/Vol]HIV 1 RNA viral load measurement by probe and target amplification method (number/vol.[facility] CenterComment on above:HIV-1 RNA not detectedThe reportable range for this assay is 20 to 10,000,000copies HIV-1 RNA/mL.HIV RNA, Real Time PCRon 04-26-1593FNT 1 RNA HEATHER+probe [#/Vol]{copies}/mLNormal.The [facility] Physician GroupComment on above:Result Comment: HIV-1 RNA not detected The reportable range for this assay is 20 to 10,000,000 copies HIV-1 RNA/mL.Performed By: #### HBSAG, HCV RX PCR, HIVRNAPCR, HBCAB, HBSAB #### [facility] , #### CMP, PT, CBC #### [place] [address] VGJYwy08 HIV-1 RNANormal.The [facility] Physician GroupComment on above:Result Comment: Result Units: sjj23wguq/mL Unable to calculate result since non-numeric result obtained for component test. Performed at: [facility] [address] [id number] Professor Of Biology: Cristo Davalos MD, Phone: [phone] PERFORMED BY: [place] [address] PATHOLOGIST FUNDER REJI FERNANDES M.D.Performed By: #### HBSAG, HCV RX PCR, HIVRNAPCR, HBCAB, HBSAB #### [facility] , #### CMP, PT, CBC #### [place] [address] USAHematocrit Auto (Bld) [Volume fraction]Ordered By: Vle Sevilla on 62-93-1834Iwgnhxwonp (Bld) [Volume fraction]Hematocrit [Volume Fraction] of Blood by Automated count38.8-50.0[facility] Hemoglobin [Mass/volume] in BloodOrdered By: Vel Sevilla on 08-01-2024 Hemoglobin (Bld) [Mass/Vol]Hemoglobin [Mass/volume] in ZepboTbzv38.0-17.0 [facility] CenterHep C Ab wRfx to Qnt PCRon 47-30-4355KCC Log10 6.512Normal.The [facility] Physician GroupComment on above:Result Comment: Result Units: log10 IU/mLPerformed By: #### HBSAG, HCV RX PCR, HIVRNAPCR, HBCAB, HBSAB #### [facility] , #### CMP, PT, CBC #### [place] [address] USAHepatitis C Hmylwnufhhdp0869279 [IU]/mLNormal.The [facility] Physician GroupComment on above:Performed By: #### HBSAG, HCV RX PCR, HIVRNAPCR, HBCAB, HBSAB #### [facility] , #### CMP, PT, CBC #### [place] [address] USAHepatitis C Virus AntibodyReactiveCritically abnormalNon ReactiveThe [facility] Physician GroupComment on above:Performed By: #### HBSAG, HCV RX PCR, HIVRNAPCR, HBCAB, HBSAB #### [facility] , #### CMP, PT, CBC #### [place] [address] USAInterpretationCommentNormal.[facility] Comment on above:Result Comment: Positive HCV antibody screen with the presence of HCV RNA is consistent with active infection. Performed at: [facility] [address] [id number] Professor Of Biology: Narendra Aquion PhD, Phone: [phone] Performed at: [facility] [address] [id number] Professor Of Biology: Cristo Davalos MD, Phone: [phone] By: #### HBSAG, HCV RX PCR, HIVRNAPCR, HBCAB, HBSAB #### [facility] , #### CMP, PT, CBC #### [place] [address] USATest Information:CommentNormal.[facility] Physician GroupComment on above:Result Comment: The quantitative range of this assay is 15 IU/mL to 100 million IU/mL.Performed By: #### HBSAG, HCV RX PCR, HIVRNAPCR, HBCAB, HBSAB #### [facility] , #### CMP, PT, CBC #### [place] [address] USAHepatitis B Core Antibodyon 95-86-7135Envrbmicp B Core AntibodyPositiveCritically abnormalNegativeThe [facility] Physician [facility] HospitalComment on above:Result Comment: Performed at: [facility] [address] [place], [place] [id number] Professor Of Biology: Narendra Aquino PhD, Phone: [phone] By: #### HBSAG, HCV RX PCR, HIVRNAPCR, HBCAB, HBSAB #### [facility] , #### CMP, PT, CBC #### [facility] [address] [place] [address] USAHepatitis B Surface Antibodyon 23-17-9359Rjtwqgvqr B Surface AntibodyReactiveNormal.[facility] Physician GroupComment on above: Result Comment: Non Reactive: Not immune to HBV infection. Equivocal: Unable to determine if anti-HBs is present at levels consistent with immunity. Reactive: Anti-HBs concentration detected at greater than 10 mIU/mL. Individual is considered to be immune to infection with HBV.Performed By: #### HBSAG, HCV RX PCR, HIVRNAPCR, HBCAB, HBSAB #### [facility] , #### CMP, PT, CBC #### [facility] [address] [place] [address] USAHepatitis B Surface Antigenon 59-22-0806NFxXr Screen NegativeNormalNegativeThe St. Mary Medical CenterComment on above:Result Comment: PERFORMED BY: [place] [address] PATHOLOGIST FUNDER REJI FERNANDES M.D.Performed By: #### HBSAG, HCV RX PCR, HIVRNAPCR, HBCAB, HBSAB #### [facility] , #### CMP, PT, CBC #### [facility] [address] [place] [address] USAHepatitis B virus core antibody assayOrdered By: Vel Sevilla on 50-74-7134Ybmxnudkw B Core Total AntibodyPositiveAbnormalNegative [facility] CenterComment on above:Performed at: [facility] LabcoSaint [facility] CenterWjwhop[address] [place], [place] [id number] Director: Narendra Aquino PhD, Phone: [phone] C virus IgG Ab [Presence] in Serum or Plasma by ImmunoassayOrdered By: Vel Sevilla on 36-56-2063OYH IgG IA QlHepatitis C virus IgG Ab [Presence] in Serum or Plasma by ImmunoassayAbnormalNon Reactive [facility] CenterINR in Platelet poor plasma by Coagulation assayOrdered By: Vel Sevilla on 79-50-2158JZS Coag (PPP) [Relative time]INR in Platelet poor plasma by Coagulation assayOhiohealth Nelsonville Health Center Comment on above:INR Therapeutic Range A) Pre- and Peroperative OAT started two weeks before surgery. NOT HIP SURGERY: 1.5 - 2.5 HIP SURGERY: 2 - 3B) Primary and secondary prevention of venous THROMBOSIS: 2 - 3C) Active venous thrombosis, pulmonary embolismand prevention of recurrent venous thrombosis: 2 - 3D) Preve ntion of arterial thromboembolismincluding patients with mechanical heart valves: 3 - 4.5Leukocytes [#/volume] corrected for nucleated erythrocytes in Blood by Automated counOrdered By: Vel Sevilla on 18-35-2447ZBO corrected for nucl RBC Auto (Bld) [#/Vol]Leukocytes [#/volume] corrected for nucleated erythrocytes in Blood by Automated coun4.1-10.5FSumma Health [facility] Campus Lymphocytes Auto (Bld) [#/Vol]Ordered By: Vel Sevilla on 08-01-2024 Lymphocytes (Bld) [#/Vol]Lymphocytes [#/volume] in Blood by Automated count 1.00-4.8[facility] Health CenterLymphocytes/100 WBC Auto (Bld)Ordered By: Vel Sevilla on 46-21-8404Fxqoxuemmcx/100 WBC (Bld)Lymphocytes/100 leukocytes in Blood by Automated count.[facility] Auto (RBC) [Entitic mass]Ordered By: Vel Sevilla on 95-59-0986NUJ (RBC) [Entitic mass]MCH [Entitic mass] by Automated count27.5-35.2FTriHealth Good Samaritan HospitalHC Auto (RBC) [Mass/Vol]Ordered By: Vel Sevilla on 69-66-0742JMRB (RBC) [Mass/Vol]MCHC [Mass/volume] by Automated count32.5-35.6FSumma Health Barberton CampusMCV Auto (RBC) [Entitic vol]Ordered By: Vel Sevilla on 57-35-9074KXA (RBC) [Entitic vol]MCV [Entitic volume] by Automated count83.5-101 [facility] CenterMonocytes Auto (Bld) [#/Vol]Ordered By: Vel Sevilla on 98-26-2462Qqgucratu (Bld) [#/Vol]Automated blood monocyte count 0.0-0.8[facility] CenterMonocytes/100 WBC Auto (Bld)Ordered By: Vel Sevilla on 06-82-4147Cdzhgixqk/100 WBC (Bld)Automated monocyte %. [facility] Health CenterNeutrophils Auto (Bld) [#/Vol]Ordered By: Vel Sevilla on 35-86-4700Snffjbnatsx (Bld) [#/Vol]Neutrophils [#/volume] in Blood by Automated count1.8-7.7FSumma Health Barberton CampusNeutrophils/100 WBC Auto (Bld)Ordered By: Vel Sevilla on 32-73-3831Vhnihpwedag/100 WBC (Bld) Automated neutrophil %.[facility] CenterNo Panel Information Ordered By: Vel Sevilla on 74-18-3458Wrsoktlnm GFR (CKD-EPI)> 60.0 mL/Min [facility] Health CenterHepatitis C RNA Qnt (PCR) Test InfoComment. [facility] CenterComment on above:The quantitative range of this assay is 15 IU/mL to 100million IU/mL.Pharmacy Creatinine Clearance (ChemN/A [facility] Health CenterNucleated erythrocytes [Presence] in Blood by Automated countOrdered By: Vel Sevilla on 64-06-6306Ulyjcsmip RBC Auto Ql (Bld)Nucleated erythrocytes [Presence] in Blood by Automated count0-0.5FSumma Health Barberton CampusPlatelet mean volume Auto (Bld) [Entitic vol]Ordered By: Vel Sevilla on 00-27-5979Aqvrrglo mean volume (Bld) [Entitic vol]Platelet mean volume [Entitic volume] in Blood by Automated countHigh6.6-10.1FSumma Health Barberton CampusPlatelets Auto (Bld) [#/Vol]Ordered By: Vel Sevilla on 44-02-6954Ppxdlgoin (Bld) [#/Vol]Platelets [#/volume] in Blood by Automated cwdiyMxa912-341SrfhtlzdcOhiohealth Nelsonville Health CenterPotassium [Moles/volume] in Serum or PlasmaOrdered By: Vel Sevilla on 91-21-5506Wdwrzvedi [Moles/Vol] Potassium [Moles/volume] in Serum or Plasma3.5-5.1FSumma Health Barberton CampusComment on above:Specimen hemolyzed, redraw requestedProtein [Mass/volume] in Serum or PlasmaOrdered By: Vel Sevilla on 29-57-5659Jsinlma [Mass/Vol] Protein [Mass/volume] in Serum or Plasma6.4-8.9[facility] Comment on above:Specimen hemolyzed, redraw requestedProthrombin Time INRon 95-11-7119PAQ Coag (PPP) [Relative time]1.1 {INR}NormalThe [facility] Hospital Physician GroupComment on above:Result Comment: INR Therapeutic Range A) Pre- and [...] heart valves: 3 - 4.5 PERFORMED BY: [place] [id number] PATHOLOGIST FUNDER REJI FERNANDES M.D.Performed By: #### HBSAG, HCV RX PCR, HIVRNAPCR, HBCAB, HBSAB #### [facility] , #### CMP, PT, CBC #### [facility] [address] [place] [address] USAPT Coag (PPP) [Time]12.7 sNormal9.0-12.9The [facility] Physician GroupComment on above:Result Comment: A hematocrit value greater than 55% may lead to inaccurate results in coagulation testing. Patients having hematocrit values >55% require a special collection tube for coagulation studies. Please contact the laboratory at [phone] for redraw instructions.Performed By: #### HBSAG, HCV RX PCR, HIVRNAPCR, HBCAB, HBSAB #### [facility] , #### CMP, PT, CBC #### [facility] [address] [id number] USAProthrombin time (PT)Ordered By: Vel Sevilla on 82-10-3119OT Coag (PPP) [Time]Prothrombin time (PT)9.0-12.9[facility] Health CenterComment on above:A hematocrit value greater than 55% may lead to inaccurate results in coagulation testing. Patientshaving hematocrit values >55% require a special collection tube for coagulation studies. Please contact the laboratory at [phone] for redraw instructions.RBC Auto (Bld) [#/Vol]Ordered By: Vel Sevilla on 98-15-6985OIE (Bld) [#/Vol]Erythrocytes [#/volume] in Blood by Automated count3.90-5.60[facility] Westerum hepatitis B virus surface antibody detectionOrdered By: Vel Sevilla on 98-30-0401TSV surface Ab Ql (S)Hepatitis B virus surface Ab [Presence] in Serum. [facility] CenterComment on above:Non Reactive: Not immune to HBV infection. Equivocal: Unable to determine if anti-HBs is present atlevels consistent with immunity. Reactive: Anti-HBs concentration detected at greater than 10 mIU/mL. Individual is considered to be immune to infection with HBV. Serum or plasma albumin/globulin mass ratioOrdered By: Vel Sevilla on 86-56-9696Wapbmdo/Globulin [Mass ratio]Serum or plasma albumin/globulin mass ratioOhiohealth Nelsonville Health CenterComment on above:Specimen hemolyzed, redraw requestedSerum or plasma anion gap determinationOrdered By: Vel Sevilla on 37-00-6981Uuzar gap [Moles/Vol]Serum or plasma anion gap determinationOhiohealth Nelsonville Health CenterComment on above:Test not performedSerum or plasma hepatitis B virus surface antigen detection by immunoassayOrdered By: Vel Sevilla on 42-35-7869LQZ surface Ag IA QlHepatitis B virus surface Ag [Presence] in Serum or Plasma by ImmunoassayNegative [facility] Westerum or plasma hepatitis C virus RNA viral load by probe and target amplification meOrdered By: Vel Sevilla on 51-18-9390YUV RNA HEATHER+probe [Log units/Vol]Hepatitis C virus RNA [log units/volume] (viral load) in Serum or Plasma by HEATHER with.[facility] CenterComment on above:Result Units: log10 IU/mLSerum or plasma hepatitis C virus genotype identification by probe and target amplifiOrdered By: Vel Sevilla on 02-06-6052HCQ genotype HEATHER+probe NomHCV genotyping ser/plas amplified probe.[facility] CenterComment on above:This test was developed and its performance characteristicsdetermined by [employer]. It has not been cleared orapproved by the Food and Drug Administration.Performed at: [address] [id number] Director: Cristo Davalos MD, Phone: [phone] [Moles/volume] in Serum or PlasmaOrdered By: Vel Sevilla on 57-47-0837Rmiput [Moles/Vol]Sodium [Moles/volume] in Serum or Lpgpxw347-002GnibiczgpOhiohealth Nelsonville Health CenterComment on above:Specimen hemolyzed, redraw requestedUrea nitrogen [Mass/volume] in Serum or PlasmaOrdered By: Vel Sevilla on 21-71-9681Sxrn nitrogen [Mass/Vol]Urea nitrogen [Mass/volume] in Serum or Plasma7-25[facility] CenterWBC Auto (Bld) [#/Vol]Ordered By: Vel Sevilla on 33-92-4528UTZ (Bld) [#/Vol]Leukocytes [#/volume] in Blood by Automated count4.1-10.5FSumma Health Barberton Campus Coding Summaryon 63-46-3076Pfqawc SummaryHTMLBase 64 UfrxobazIUm0yDy+PGhlYWQ+XX1YDPScN99yhQJhpI6eK5NOIPhMWxnxVTTCONgIRiOaymBvTM7vvWTd ZXJu [file] bGx (more content not included)...NormalKnox Community Hospital HospitalCoding SummaryHTMLBase 64 TcxletuvSMp6bMb+PGhlYWQ+TI4UZKPaF72ubATrbY2qQ0ZENXuRWtyxVNTEIXmMGpYceqOqSI1qrRJm ZXJu [file] bGx (more content not included)...[facility].Auto Diff 1on 69-33-9215Tckr [place] %6 %Normal1-12[facility] HospitalComment on above:Performed By: #### [id number], 4231298711, 1272303, 28326014, 7997995976, 6900698 #### [facility] (DEFAULT) [address] [place] [address]Cxie Abs#0.1 f89Inxoqz5.0-0.2Magrwooster community hospital HospitalComment on above:Performed By: #### [id number], 8891419911, 1182614, 87128675, 6258216227, 6922866 #### [facility] (DEFAULT) [address] [place] [address] 99452Ssiwswpji/100 WBC (Bld)1.3 %Normal0.2-2.0[facility] Hospital Comment on above:Performed By: #### [id number], 4765635870, 8173908, 29672344, 9774999165, 8911226 #### [facility] (DEFAULT) [address] [place] [address] 94112Mcb Abs#0.1 q59Infnvp8.0-0.4[facility] HospitalComment on above:Performed By: #### [id number], 8877482847, 4405501, 76533429, 3938821873, 6885796 #### [facility] (DEFAULT) [address] [place] [address] 99618Jutdgvaydnh/100 WBC (Bld)1.3 %Normal0.9-4.0[facility] HospitalComment on above:Performed By: #### [id number], 8989895352, 2503687, 31909687, 5926329226, 6418405 #### [facility] (DEFAULT) [address] [place] [address] 84874Zqyun Abs#3.5 p01Rajo9.3-2.9[facility] HospitalComment on above:Performed By: #### [id number], 9320800364, 7031807, 59142498, 8207230786, 0623266 #### [facility] (DEFAULT) [address] [place] [address] 19951Bbnbusdljlf/100 WBC (Bld)44 %Cowpbz74-59Hdxjckej Hospital Comment on above:Performed By: #### [id number], 8433565816, 8049460, 14430518, 3879694720, 5125008 #### [facility] (DEFAULT) [address] [place] [address] 56617Irtf Abs#0.5 p48Wsnicf1.0-0.8[facility] HospitalComment on above:Performed By: #### [id number], 0243145761, 1034092, 09088989, 1854409973, 2859792 #### [facility] (DEFAULT) [address] [place] [address] 09695Jrdk Abs#3.8 q86Aiuqyl6.5-9.2Mmemorial health system HospitalComment on above:Performed By: #### [id number], 2701880777, 5844632, 03886462, 4331937420, 8331400 #### [facility] (DEFAULT) [address] [place] [address] 45227Fjsawgaqzlx/100 WBC (Bld)48 %Pwbsjd12-11Fvlxhvna Hospital Comment on above:Performed By: #### [id number], 3778849440, 3532653, 22753703, 4034240233, 5746874 #### [facility] (DEFAULT) [address] [place] [address]64[address]XHR w/ Auto Diffon 43-41-4918Ryborjuloyd distribution width (RBC) [Ratio]13.9 %Wsfmkv56.5-15.0[facility] HospitalComment on above: Performed By: #### [id number], 4746439062, 8511951, 68080333, 9307186066, 4092388 #### [facility] (DEFAULT) [address] [place], [place] [address]Hematocrit (Bld) [Volume fraction]46.8 %Mouwmu60.8-51.9 [facility] HospitalComment on above:Performed By: #### [id number], 4182970483, 0162770, 24031000, 0231636607, 4030359 #### [facility] (DEFAULT) [address] [place], [place] [address]Hemoglobin (Bld) [Mass/Vol]16.3 g/vAMvugai23.8-17.7 [facility] HospitalComment on above:Performed By: #### [id number], 6565376217, 7343505, 95354996, 8875022591, 2826181 #### [facility] (DEFAULT) [address] [place] [address] 04394Ltf Diff?AutoInvalid Interpretation CodeAvita Health System Galion Hospital Comment on above:Performed By: #### [id number], 2034005964, 8345291, 59731488, 7020355133, 7833743 #### [facility] (DEFAULT) [address] [place] [address] 93613MPK (RBC) [Entitic mass]32 iePqtmrf62-31[facility] Comment on above:Performed By: #### [id number], 6840144015, 1936168, 54424208, 5397609175, 0007788 #### [facility] (DEFAULT) [address] [place] [address] 11531WPLV (RBC) [Mass/Vol]35 g/lMAulkvt03-85O[facility]ca [facility] Comment on above:Performed By: #### 5492305886, 5843261301, 4171329, 23932840, 3946044452, 6098274 #### [facility] (DEFAULT) [address] [place] [address] 71305CEZ (RBC) [Entitic vol]94 xFWybekz40-020Tgfgurtf Hospital Comment on above:Performed By: #### [id number], 0463161029, 2370463, 21300919, 8670675539, 1857946 #### [facility] (DEFAULT) [address] [place] [address] 28292Rfidhufr234 p44Vtjarz771-531Ehobnzut HospitalComment on above:Performed By: #### 9966870792, 3614680576, 8994088, 47703715, 8630748399, 1792079 #### [facility] (DEFAULT) [address] [place] [address] 08530Uuxfryys mean volume (Bld) [Entitic vol]11.0 fLHigh 6.3-10.2Mmemorial health system HospitalComment on above:Performed By: #### [id number], 2353932773, 7068895, 83571654, 4833893172, 4595605 #### [facility] (DEFAULT) [address] [place] [address] 88690VKO6.00 s58Kiwsfo5.70-5.30[facility] HospitalComment on above:Performed By: #### [id number], 6272734557, 6215290, 05429991, 4945509642, 6465345 #### [facility] (DEFAULT) [address] [place] [address] 94232YHB6.0 h86Ymwrcf0.5-10.5[facility] HospitalComment on above: Result Comment: Slide ReviewedPerformed By: #### [id number], 3507959384, 5166803, 33943917, 1404713372, 5306679 #### [facility] (DEFAULT) [address] [place] [address] 62612MYX Standardon 52-17-5007oION Non AA>60Invalid Interpretation CodeKnox Community Hospital HospitalComment on above:Performed By: #### [id number], 9182156579, 8113801, 22885763, 4772536210, 3230533 #### [facility] (DEFAULT) [address] [place] [address] 91312mDZS AA>60Invalid Interpretation CodeAvita Health System [facility] Hospital Comment on above:Performed By: #### [id number], 2327433706, 4797839, 77845922, 4499073144, 6270352 #### [facility] (DEFAULT) [address] [place] [address] 58100Useyjnw [Mass/Vol]4.1 g/dLNormal3.5-5.0[facility] Comment on above:Performed By: #### [id number], 3700214446, 7672733, 66708267, 8523167614, 6095965 #### [facility] (DEFAULT) [address] [place] [address] 02250Kcapuzw/Globulin [Mass ratio]1.1 {ratio}Low1.4-2.6MOhioHealth Shelby HospitalComment on above:Performed By: #### [id number], 4782325566, 9518202, 40391234, 5726842964, 5716113 #### [facility] (DEFAULT) [address] [place] [address] 65583Xvy Phos40 IU/KKyywgg86-95Ngjoignd HospitalComment on above:Performed By: #### 0543959084, 7019080138, 1745875, 72492436, 0022714181, 4472215 #### [facility] (DEFAULT) [address] [place] [address] 21350HXX [Catalytic activity/Vol]145.0 U/LHigh17.0-63.0[facility] HospitalComment on above:Performed By: #### [id number], 4181313627, 4158032, 59610081, 1331876566, 5644731 #### [facility] (DEFAULT) [address] [place] [address] 10116Kbawk gap [Moles/Vol]8.3 mmol/LNormal5.0-19.0[facility] HospitalComment on above:Performed By: #### 7106939676, 8029527233, 3129906, 81704442, 8396135309, 0419294 #### [facility] (DEFAULT) [address] [place] [address] 16452XOO [Catalytic activity/Vol]97 U/JQyeq60-81Vrryhjrq HospitalComment on above:Performed By: #### 5551213364, 3614568971, 0277091, 93570315, 1301875912, 9042467 #### [facility] (DEFAULT) [address] [place] [address] 26072Eflt Total0.8 mg/dLNormal0.3-1.2[facility] HospitalComment on above:Performed By: #### 5365313028, 5889937933, 5880365, 77433614, 0744981372, 5032137 #### [facility] (DEFAULT) [address] [place] [address] 04680Wkfbxsn [Mass/Vol]8.8 mg/dLLow8.9-10.3MOhioHealth Shelby Hospital Comment on above:Performed By: #### 1104758336, 0153284809, , 83233093, 6117173417, 6273759 #### [facility] (DEFAULT) [address] [place] [address] 17886Jdsjxuwj [Moles/Vol]107 mmol/CBjhvzk333-801Pkqiuvcv HospitalComment on above:Performed By: #### 3272416297, 7465215530, 2364238, 16687900, 0838784999, 3050259 #### [facility] (DEFAULT) [address] [place] [address] 37651XM4 [Moles/Vol]24 mmol/LCyycru69-03Cfyzgwvj Hospital Comment on above:Performed By: #### 3629435372, 8424269069, 4219338, 50822791, 2563550574, 5198916 #### [facility] (DEFAULT) [address] [place] [address] 17189Tepegxgntt [Mass/Vol]0.90 mg/dLNormal0.90-1.30[facility] HospitalComment on above:Performed By: #### 6917314987, 7928986355, 3802800, 28547742, 9610548229, 2027255 #### [facility] (DEFAULT) [address] [place] [address] 69563Oqmxadfc (S) [Mass/Vol]3.6 g/dLNormal1.5-4.3Mmemorial health system HospitalComment on above:Performed By: #### [id number], 8653365021, 2473489, 25512076, 4610587804, 1795471 #### [facility] (DEFAULT) [address] [place] [address] 96135Pwstlej [Mass/Vol]106.0 mg/lRTycrsx43.0-118.0[facility] HospitalComment on above:Performed By: #### [id number], 0287017789, 7555124, 58239163, 2629431736, 5538464 #### [facility] (DEFAULT) [address] [place] [address] 83684Lngjjcnfuk260 mOsm/LInvalid Interpretation CodeKnox Community Hospital HospitalComment on above:Performed By: #### [id number], 7656516794, 8684841, 55765117, 1780974882, 6237920 #### [facility] (DEFAULT) [address] [place] [address] 33280Qgaknvjcy [Moles/Vol]3.3 mmol/LLow3.6-5.1MOhioHealth [facility] Hospital Comment on above:Performed By: #### [id number], 9232847739, 0413567, 64552810, 6244037438, 1180598 #### [facility] (DEFAULT) [address] [place] [address] 56526Tecwalw [Mass/Vol]7.7 g/dLNormal6.5-8.1MOhioHealth [facility] Hospital Comment on above:Performed By: #### 1415886861, 5493334292, 0456603, 51791301, 9426287744, 5090720 #### [facility] (DEFAULT) [address] [place] [address] 95849Oavtzr [Moles/Vol]136.0 mmol/UYkdaxn048.0-144.0[facility] HospitalComment on above:Performed By: #### [id number], 1116797539, 8420992, 44370094, 8547396448, 0981931 #### [facility] (DEFAULT) [address] [place] [address] 66629Crxg nitrogen [Mass/Vol]10 mg/dLNormal8-26MaKeenan Private HospitalComment on above:Performed By: #### [id number], 2955041872, 3621741, 00893396, 7431286184, 6156151 #### [facility] (DEFAULT) [address] [place] [address] 06381Ndmk nitrogen/Creatinine [Mass ratio]11.1 mg/mgNormal 4.6-16.2Mmemorial health system HospitalComment on above:Performed By: #### [id number], 3573091005, 1641005, 56196413, 4303559117, 4158209 #### [facility] (DEFAULT) [address] [place] [address] 55632VX Clinical Summaryon 61-71-1781GD Clinical Summary [facility] Emergency Department [address] [place] [address] ED Clinical Summary PERSON INFORMATION Name: JEFFRY AGUILAR Age: 49 Years Sex: MALE : 1975 MRN: Acct#: Visit Reason: UC - Muscle Twitches; Diarrhea; Abdominal pain; BILATERAL LEG SPASM, LFT BACK PAIN, DIARRHEA Arrival: 01/24/2024 12:55:30 Discharge: 01/24/2024 16:04:00 LOS: 000 03:09 Check In: 01/24/2024 12:55:30 Checkout:01/24/2024 16:04:00 Address: [address] [place] [address] PCP: PROVIDER INFORMATION Provider Role Assigned Unassigned Rosita Rios RN ED Nurse 01/24/2024 13:48:43 Sebastian Chirinos MD ED Provider 01/24/2024 13:55:00 Itzel Alfred-C ED PA 01/24/2024 13:55:20 01/24/2024 13:58:15 VITALS [...] EDUCATION INFORMATION Instructions: Muscle Cramps and Spasms, Cnrz-vz-Rynd; Hypocalcemia, Adult; Hypokalemia Follow-Up: With: Address: When: TAMIKA FRIEDMAN [address] [place], [place] [id number] Business (1) Within 5 to 7 days Comments: Review after care instructions. Continue with the current treatment as outlined by the ER physician, Dr Chirinos. Take medication as prescribed. Contact your assigned on-call doctor for a follow-up appointment if you do not have a local family doctor or PCP. Alternatively, you may also follow-up in the Urgent Care at [facility] if you are not able to [...] - Patient/family/caregiver verbalizes understanding of instructions given Comment:[facility] - Physicianon [id number] Note - PhysicianPatient: JEFFRY AGUILAR Age: 49 years Sex: MALE : [...] leg. Stated that he had lived in [place]. Stated that he came appeared to help his mother with recent in the family. Stated that he had been running out of the gabapentin so he has been breaking the medication in half, taking half tablet. He stated that he had schedule appointment to see primary provider but does not yet have an appointment. In the last several nights,has been having some recurrent muscle pain and [...] Normal range of motio (more content not included)...[facility] HospitalED Note-Nursingon 65-23-0397NR Note-NursingPt ambulatory back to ED RM 8 C/O [...] active bowel sounds. Pt denies being around anyone who's been sick. pt is A/Ox4 call light within reach oMercy Health Anderson HospitalED Patient Summaryon 28-08-8699HH [facility] [address] [id number] PATIENT DISCHARGE INSTRUCTIONS Patient Information Name: JEFFRY AGUILAR Age: 49 Years Date of : 1975 Reason For Visit: UC - Muscle Twitches; Diarrhea; Abdominal pain; BILATERAL LEG SPASM, LFT BACK PAIN, DIARRHEA Arrival Time: 01/24/2024 12:55:30 Primary Care Physician: Attending Physician: Sebastian Chirinos MD Comment: Visit Diagnosis: Diagnoses This Visit Abdominal pain ([id number]) Acute hypokalemia (E87.6) Diarrhea ([id number]) Hypocalcemia (E83.51) Muscle cramps at night (R25.2) UC - Muscle Twitches ([id number]) The Pharmacy at [facility] is open Sunday through Sunday from 9A to 6P and Sunday and Sunday from 9A to 5P Prescription Information: If you have been given a prescription for narcotics, seek immediate medical attention if you have any difficulty breathing or any sudden status changes such as confusion andsleepiness. If you or anyone you know is experiencing suicidal thoughts, mental health, alcohol and/or drug addiction problems; contact the [facility] 11/12 Crisis Hotline -Text 7OYBP bo 318813. If you received any narcotics, sedation, or [...] legal documents With: Address: When: TAMIKA FRIEDMAN [address] [place], [place] [address] Business (1) Within 5 to 7 days Comments: Review after care instructions. Continue with the current treatment as outlined by the ER physician, Dr Chirinos. Take medication as prescribed. Contact your assigned on-call doctor for a follow-up appointment if you do not have a local family doctor or PCP. Alternatively, you may also follow-up in the [facility]gent [facility] at [facility] if you are not able to get an appointment with a family doctor within the recommended time. Call the emergency department if you have any questions or concerns regarding your treatment today. Return to the emergency department if you have significant symptoms that concerns you. Medication Information: The exam and treatment you received today in the [facility] Emergency Department were for an urgent problem and are not intended as complete care. It is important for you to follow up with a doctor, nurse practitioner, or physician?s teacher assistant for ongoing care. If your symptoms become worse or you donot improve as expected and you are unable [...] so we can reach you if necessary. [facility] Emergency Department has provided you with a complete list of medications post discharge. Please inform your curator herbarium/provider of your visit and for further instruction [...] mEq oral tablet, effervescent) 1 tab(s) Oral (givenby mouth) every day for 7 Days. dissolve [...] Mean Arterial Pressure, Cuff (more content not included)...NormalAvita Health System Galion HospitalExtra Blueon 96-76-4708Vkgw CollectedYesInvalid Interpretation Code [facility] HospitalComment on above:Performed By: #### [id number] #### [facility] (DEFAULT) [address] [place] [address]Peissecypso 30-36-8905Coaqlbsjr [Mass/Vol]2.02 mg/dLNormal 1.80-2.50Av[facility] Gal[facility] HospitalComment on above:Performed By: #### [id number], [id number] #### [facility] (DEFAULT) [address] [place] [address] 69979Yhacfocletrovbnnusn 03-38-8031TakeyaezbznwqhbywMszcyg [facility] Vital Signs Date TimeVital SignValuePerforming QbzfivyjeLcopqudx25-56-7890 16:20-0400Heart rate65 /[employer] Work Phone: [facility]08-14-2025 16:20-0400 Respiratory rate16 /[employer] [facility] Work Phone: [facility]08-14-2025 16:20-0400 SaO2% (BldA) [Mass fraction]99 %Services [employer] Work Phone: [phone] [place], [place] 6774408-14-2025 15:06-0400 Diastolic blood mrgucsxk70 mm[Hg]Services [employer] Work Phone: [phone])[address]08-14-2025 15:06-0400 Systolic blood jwiknupb216 mm[Hg]Services [employer] Work Phone: 1(428)[address] [place], [place] 6[address]4808-14-2025 12:00-0400 Body fxaktt790.96 cmSMap[employer] Work Phone: [phone]08-14-2025 12:00-0400 Body tdjovgfnbcs47.9 [degF]Services [employer] Work Phone: [phone]08-14-2025 12:00-0400 Body tmkjob297 kgSerQReserve Inc[employer] Work Phone: 1(063)[address] [place], [place] 6284803-24-2025 13:35-0400 Diastolic blood dktzztie36 mm[Hg]Services [employer] Work Phone: [phone])[address]03-24-2025 13:35-0400 Heart rate57 /[employer] Work Phone: [phone])[address]03-24-2025 13:35-0400 Respiratory rate18 /[employer] Work Phone: [phone])[address]03-24-2025 13:35-0400 SaO2% (BldA) [Mass fraction]97 %Services [employer] Work Phone: [phone])[address]03-24-2025 13:35-0400 Systolic blood jfemsnmf479 mm[Hg]Services [employer] Work Phone: 1(168)[address] [place], [place] 6284803-24-2025 11:06-0400 Body dhuckl626.96 cmS[employer] Work Phone: 1(507)[address] [place], [place] 6284803-24-2025 11:06-0400 Body .59 kg[employer] Work Phone: [phone])[address]03-12-2025 09:05-0400 Body .96 cmSSelect Medical [facility] Work Phone: [facility]03-12-2025 09:05-0400 Body mass index (BMI) [Ratio]30.2 kg/i8QihqcdlpArkansas Methodist Medical Center Work Phone: [facility]03-12-2025 09:05-0400 Body bzgusp094.59 kgSerTwin County Regional Healthcare Work Phone: [facility] Encounters Encounter DateEncounter TypeCare ProviderFacilityStart: 58-98-9843jqnktvlrfs [facility] 01-01-2025 End: 28-73-5979Hsthtvygj department patient visitSSelect [facility] Work Phone: [phone]-Gbtamqjii Room Work Phone: Start: 12-24-2024 End: 32-95-5316Jebwenxqq encounterKobe Berman MD Work Phone: RheumatologyComment on above:Appointment Rescheduled Start: 12-15-2024 End: 04-65-3941Tmctvgx encounter procedureNakul Patricio DO-[facility] Work Phone: Start: 12-15-2024 End: 71-71-0270vbvhwrvrmkInwdtbrbBradley County Medical Center Work Phone: [facility] Work Phone: Start: 12-10-2024 End: 70-10-2986ndmrtnyxjfFialmeob Family HealthFacility:[facility]tart: 68-47-7907Gwg-patient / Non-visitChristopher Elina Fatima MD- [facility] Work Phone: Start: 10-24-2024 End: 96-80-8677Mjwvrwgzva Brooklynn Patricio DO Work Phone: Referring PhysicianComment on above:Rheumatoid arthritis, involving unspecified site, unspecified whether rheumatoid factor present (HCC) (Primary Dx)Start: 08-13-2024 End: 08-11-7010Cvoqyjv encounter procedureServices Family Health Work Phone: [facility] Work Phone: Start: 08-13-2024 End: 48-71-8972xspowqgszsYutkbrki [facility] Work Phone: [facility] Work Phone: Start: 55-48-3039Zff-patient / Non-visitServices Family Health Work Phone: [facility] Work Phone: Start: 08-11-2024 End: 22-25-9017Bktsfjwpa to same day surgery centerServices [employer] [facility] Work Phone: [facility] Work Phone: Start: 08-11-2024 End: 76-33-7893ovomcrquaeDgqskcpu Family [facility] Work Phone: [facility] Work Phone: Start: 08-08-2024 End: 19-88-7166Hvddimj encounter procedureServices [employer] [facility] Work Phone: [facility]-Ultrasound [place] Work Phone: Start: 08-08-2024 End: 59-88-9591qyngfjmubrGbrpgfqe Family [facility] Work Phone: [facility] Work Phone: Start: 08-06-2024 End: 24-95-2942Vmwptyq encounter procedureServices [employer] Work Phone: [facility] [place] Work Phone: Start: 08-06-2024 End: 86-23-0757gmbpezkkusDrlbzips [facility] Work Phone: [facility] Work Phone: Start: 08-04-2024 End: 00-18-9711Rizytnh encounter procedureSSelect [facility] Work Phone: [facility] [place] Work Phone: Start: 08-04-2024 End: 46-88-2577sxrbuhcoahBxewxkxn Family Health Work Phone: [facility] Work Phone: Start: 08-01-2024 End: 27-84-0074Pthvvqz encounter procedureServCarolinas ContinueCARE Hospital at University Work Phone: [facility] [place] Work Phone: Start: 08-01-2024 End: 32-08-1354orsyaponrdXngntoyq Family Health Work Phone: [facility] Work Phone: Start: 07-30-2024 End: 90-63-2462Vbfooay encounter procedureSSelect [facility] Work Phone: [facility] GroupRe[facility] Work Phone: Start: 01-24-2024 End: 00-78-5429Hwqrgtrcm department patient visitQuang K LeFacility:[facility] HospitalStart: 11-22-2016 End: 12-62-8918OfehukbrgvHpvxp GreeneFacility:[facility] Procedures DateProcedureProcedure DetailPerforming ClinicianStart: 89-36-4585Thfazptm tomography of abdomen and pelvis with contrastServCarolinas [facility] Work Phone: Start: 44-28-7481Eahiq chest X-rayServCarolinas [facility] [employer] Phone: Start: 30-22-2908Fwjruivorm elastography of liver Services [facility] [employer] Phone: Start: 67-08-4774Jcbdgansd colonoscopySergeisinger [facility] hospital [employer] [facility] [employer] Phone: Start: 85-94-7439Ttvozudmjribuja of liverServCarolinas ContinueC[facility] [employer] Phone: Plan of Treatment DateCare ActivityDetailAuthorStart: 14-29-8697Knhjknwv ScreeningDiabetes ScreeningDelaware County Hospitaltart: 96-50-3101Ikaqrctnn vaccinationInfluenza Vaccine (#1)[facility] Hospitaltart: 74-92-1196KmqulkieiRegency Hospital Cleveland Westtart: 23-76-5450PgemxuvwkRegency Hospital Cleveland Westtart: 40-51-4735Xweaqmmrc B core antibody measurementRegency Hospital Cleveland Westtart: 03-98-5155Tpbhxblur B virus surface Ab [Presence] in SerumRegency Hospital Cleveland Westtart: 15-92-9552IvdhcctlbRegency Hospital Cleveland Westtart: 62-74-2603Uwwkkpcstkqs Vaccine: 50+ (1 of 1 - PCV)Pneumococcal Vaccine: 50+ (1 of 1 - PCV)[facility] Hospitaltart: 80-32-6884Nsfizrmk Vaccine (1 of 2)Shingrix Vaccine (1 of 2) [facility] Hospitaltart: 07-44-6759Ghioxkeql for malignant neoplasm of colon [facility] Hospitaltart: 02-34-1203Qwbel panelLipid ScreeningK[facility]tering Health [facility] Memorial Start: 91-32-8068Lrgmglzgb B Vaccine (1 of 3 - 19+ 3-dose series)Hepatitis B Vaccine (1 of 3 - 19+ 3-dose series)[facility] Hospitaltart: 00-53-2333Cqwvi microalbumin profileDTaP,Tdap,Td Vaccine (1 - Tdap)[facility] Hospitaltart: 80-51-7506Xusvjaq ScreeningAnxiety ScreeningDelaware County Hospitaltart: 01-23-1992 Depression ScreeningDepression ScreeningDelaware County Hospitaltart: 01-23-1992 Hepatitis C screeningHepatitis C ScreeningDelaware County Hospitaltart: 10-21-6948GPV screeningHIV ScreeningKettering Health Greene MemorialGlucose measurement estimated from glycated hemoglobinOhiohealth Nelsonville Health CenterHemoglobin A1c/Hemoglobin.total in BloodOhiohealth Nelsonville Health CenterHepatitis B virus DNA [#/volume] (viral load) in Serum or Plasma by HEATHER with probe detection [facility] CenterHepatitis B virus DNA [log units/volume] (viral load) in Serum or Plasma by HEATHER with probe detectionOhiohealth Nelsonville Health CenterHepatitis B virus DNA [Units/volume] (viral load) in Serum or Plasma by HEATHER with probe detectionOhiohealth Nelsonville Health CenterHewest valley hospital and health center B virus surface Ag [Presence] in Serum or Plasma by ImmunoassayOhiohealth Nelsonville Health CenterHewest valley hospital and health center C virus IgG Ab [Presence] in Serum or Plasma by ImmunoassayOhiohealth Nelsonville Health CenterHewest valley hospital and health center C virus RNA [log units/volume] (viral load) in Serum or Plasma by HEATHER with probe detection [facility] CenterHIV 1 RNA [#/volume] (viral load) in Unspecified specimen by HEATHER with probe detectionOhiohealth Nelsonville Health CenterHIV 1 RNA [Log #/volume] (viral load) in Unspecified specimen by HEATHER with probe detectionOhiohealth Nelsonville Health CenterPatient EducationWhite Hospital Ctr Work Phone: Patient referralWhite Hospital Ctr Work Phone: US LiverOhiohealth Nelsonville Health Center Payers DatePayer CategoryPayerPolicy [id number] 2025Self-pay2025Medicaid [facility] Member Subscriber Plan / Payer (Effective 2024- Present) Name: Jeffry Aguilar Relation to Subscriber: Self Name: Jeffry Aguilar Payer ID: Not on file Group ID: Not on file Type: Medicaid Address: [address] [id number] 2024Medicaid [id number] [id number] [id number] .[id number] .[id number] [id number] .[id number] [id number] 2.16.840.1.711835.3.579.2.531 [id number] 2.16.840.1.4[id number] 2.16.840.1.6[id number] 2.16.840.1.759946.3.579.2.531 [id number] 2.16.840.1.5[id number] 2.16.840.1.599267.3.579.2.531 Social History DateTypeDetailFacilityStart: 08-01-2024 End: 97-95-4646Ursshun smoking status NHISSmoker (finding)[facility] Westtart: 08-02-2024 End: 90-65-5920LlpDubh (finding)[facility] Westtart: 05-90-8221Tgm Assigned At [facility] HospitalTobaoklahoma state [facility] smoking status NHISTobacco smoking consumption unknownDelaware County Hospitaltart: 80-26-4039Aom assigned at birthNot on [facility] Hospitaltart: 12-17-2024 End: 74-66-1911Xlsflu identityNot on [facility] Hospitaltart: 08-11-2024 End: 66-55-1467Tujckid smoking status NHISSmokes tobacco daily (finding) [facility]tart: 12-17-2024 End: 11-67-1606Fnyhric of Social functionDelaware County Hospitaltart: 74-98-2768Kumfs Depression Screening Fqbhhxymrc4Urrkjsqtw Clinic Goals DatePatient GoalDesired Activity/State Clinical Notes 01-24-2024 to 01-02-2025 Note Date & FpenPvvsVyqekwfc25-13-9202 Telephone encounter Note* Telephone Encounter - Carleen Suero - 01/02/2025 11:03 AM EDT Called patient several times Straight to VM LM on VM (x2) and My Chart asking to call and reschedule missed appointment Carleen Bustilloviviana January 02, 2025 11:04 AM [facility]08-15-2025 Miscellaneous Notes* Telephone Encounter - Carleen Suero - 01/02/2025 11:03 AM EDT Called patient several times Straight to VM LM on VM (x2) and My Chart asking to call and reschedule missed appointment Carleen Irais January 02, 2025 11:04 AM * Telephone Encounter - Leonela Martinez MA - 01/02/2025 9:59 AM EDT Pt has not read [employer] messages please follow up with patient for [...] - new consults RA documented in this encounterK[facility]tering Health [facility]08-15-2025 Telephone encounter Note * Telephone Encounter - Leonela Martinez MA - 01/02/2025 9:59 AM EDT Pt has not read mychart messages please follow up with patient for scheduling new consult for RA [facility]08-14-2025 Radiology Diagnostic study [facility] [place] [address] [place], [place] [id number] CT Scan Report Signed Patient: Jeffry Aguilar MR#: [id number] : 1975 Acct:[id number] Age/Sex: 49 / M ADM Date: 5 Loc: ER Room: Type: [facility] ER Attending Dr: Copies to: Liya Hill [...] steatosis. Impression dictated by: Rufus Cruz Jr., DYolandaOYolanda 01/01/2025 1:51 PM Dictation Location: [place] [address] Transcribed By: [facility] 01/01/25 1351 Dictated By: Rufus Cruz Jr, DO 01/01/25 1348 Signed By: 01/01/25 1351 [facility]08-14-2025 Hospital Discharge instructions Additional Instructions Rest. Push fluids. Take [...] referral. Return here if symptoms persist or worsen.[facility] Work Phone: [phone]) 292-642708-07-2025 Telephone encounter Note* Telephone Encounter - Marielos Orozco - 12/25/2024 10:14 AM EDT 1st attempt, left voicemail for patient to call back and schedule new pt appt 2nd, mychart sent [facility]08-06-2025 Telephone encounter Note* Telephone Encounter - Leonela Martinez MA - 12/24/2024 2:48 PM EDT Please contact pt to reschedule his missed VV appt that was scheduled today @2pm .with Dr Berman - shane consults RA [facility]03-24-2025 [place] [address] Colonoscopy Procedure Report Signed Patient: Jeffry Aguilar MR#: [id number] : 1975 Acct:[id number] Age/Sex: 49 / M Adm Date: 5 Loc: Room: Type: [facility] Attending Dr: Crystal Meehan MD Copies to: [facility] Crystal Meehan MD~ Colonoscopy Date/Provider 08/11/2024 Crystal Meehan MD Colonoscopy Findings: Procedure: Colonoscopy with polypectomy Indication: 49-year-old man here for screening colonoscopy Pre-operative diagnosis: Colon cancer screening Post-operative diagnosis: Colonic polyps, internal hemorrhoids. Sedation: propofol per anesthesia dept O2 oximetry, hemodynamic monitoring was performed pre, during, and post procedure. Patient was identified, H&P completed, patient was given full explanation of the procedure as well as associatedrisks and written consent wasobtained prior to procedure. Patient expressed complete understanding of the procedure as well as alternatives to the procedure and to anesthesia and agreed to proceed with the procedure as indicated. Patient was immediately reassessed prior to IV sedation. Under IV sedation, patient was placed in the left lateral decubitus position. Digital rectal exam was performed and normal. Colonoscope was inserted and passed proximally to the cecum, which was identified by the ileocecal valve, appendiceal orifice and cecal floor. Colonoscope was slowly withdrawnwith the findings as below. [place] bowel prep score was good. Findings: Cecum: A 1 cm polyp adjacent to the appendiceal orifice, removed using hot snare Ascending colon: Normal. Hepatic flexure: Normal. Transverse colon: Normal. Splenic flexure: Normal. Descending colon: Normal. Sigmoid colon: 2 polyps(5-7 mm) removed using cold snare Rectum: Normal. Retroflexed views: Rectum did show internal hemorrhoids. Biopsy taken: No Complications: None EBL: None Recommendations: -Repeat colonoscopy in 3 years -Follow up pathology Following a period of recovery, patient was seen and given full explanation of the procedure. Patient tolerated the procedure well and will be discharged in satisfactory, stable condition. Crystal Meehan M.D. Documented By: Crystal Meehan MD 08/11/24 1245 Signed By: 08/11/24 1301 [facility]03-21-2025 Radiology Diagnostic study note [place] [address] Ultrasound Report Signed Patient: Jeffry Aguilar MR#: [id number] : 1975 Acct:[id number] Age/Sex: 49 / M ADM Date: 5 Loc: Room: Type: [facility] Attending Dr: Vel Sevilla APRN Ordering [...] is evident. The common duct measures 4 -5 mm. The liver shows increased echogenicity and decreased penetration, possibly due to fatty infilt ration. No focal intrahepatic masses are seen. There is appropriate hepatopetal flow within the main portal vein. The pancreas is poorly visualizedfor assessment. Cursory evaluation of the right kidney reveals no hydronephrosisor fluid within Owusu's pouch. US/US liver IMPRESSION: NO GALLBLADDER PATHOLOGY. POTENTIAL FATTY LIVER. Impression dictated by: Rose Marie Levine M.D.08/08/2024 1:47 PM Dictation Location: [place] [address] Tech: Penny Niharika Transcribed By: SERGIO 08/08/241346 Dictated By: Rose Marie Levine MD 08/08/241344 Signed By: 08/08/241346 [facility] Work Phone: 1(542) 400-520103-12-2025 Evaluation note* Diagnosis Onset Date Resolution Status Admit Date Abdominal pain acuteFire[facility] 2024 8:58amHepatitis CacuteFirelands Regional Medical Center [facility] 2024 8:58am [facility] Work Phone: 1(256) 785-339809-05-2024 NoteEducation Materials Endocrinology Hypocalcemia, Adult Hypocalcemia is [...] provider. Document Revised: 10/12/2021 Document Reviewed: 10/12/2021 [employer] Patient Education ? 2023 [employer]. Gastroenterology Hypokalemia Hypokalemia means that the amount [...] levels in the bod (more content not included)...[facility] HospitalEvalubayhealth emergency [facility], [place] note* Diagnosis Rheumatoid arthritis, involving unspecified site, unspecified whether rheumatoid factor present (HCC)- Primary documented in this encounter [facility]alub[facility] [place] noteNo assessment information availableSelect Medical [facility]ty [facility] Work Phone: Reason for referral (narrative)No reason for referral information availableSelect Medical Specialty [facility] Work Phone: Summary Purpose Family History No Family History Records Found Relationship Condition Age at Onset Recorded Date/T maco father Chronic obstructive pulmonary disease Unk nown Heart diseaseUnknown Advance Directives No Advanced Directives Records Found Advance Directive Response Recorded Date/ Time Advance Directives No June 05, 2024 2:58pm Chief Complaint and Reason for Visit Chief Complaint Admit Date Refer by [facility]: Hep C July 30, 2024 8:5 8am [...] 1:21pm Chief Complaint Admit Date Refer by [facility]: Hep C July 30, 2024 8:5 8am B19.20 August 01, 2024 1:3 1pm B19.20 - Unspecified viral hepatitis C w ithout hep August 04, 2024 1:21pm B19.August 06, 2024 2:1 5pm Chief Complaint Admit Date Refer by [facility]: Hep C July 30, 2024 8:5 8am B19.August 01, 2024 1:3 1pm B19.20 - Unspecified [...] Hep C July 30, 2024 8:5 8am B19.August 01, 2024 1:3 1pm B19.20 - Unspecified [...] section and content) DATE CREATED AUTHOR 11/14/2017 [facility] DATE CREATED AUTHOR AUTHOR'S ORGANIZ ATION 02/01/2024 [facility] DATE CREATED AUTHOR AUTHOR'S ORGANIZ ATION 01/03/2025 [facility] DATE CREATED AUTHOR AUTHOR'S ORGANIZ ATION 01/04/2025 [facility] DATE CREATED AUTHOR AUTHOR'S ORGANIZ ATION 02/13/2025 [facility] Care Teams (unrecognized sec tion and content) Team Status: Active Member Role Status Dates Services Family [facility] Primary Care Provider Active Team Status: Active Member Role Status Dates Services Family [facility] Primary Care Provider Active Start: December 10, 2024 Marissa Roberts ProviderActiveStart: December 10, 2024 Enrike Fatima MDAttdenise ProviderActiveStart: December 10, 2024 Team Status: Inactive Member Role Status Dates Vel Sevilla APRN Attending Provider Active Start: July 30, 2024 End: July 30, 2024[facility] Care ProviderActiveStart: July 30, 2024 End: July 30Gabbie Hogan ProviderActiveStart: July 30, 2024 End: July 30, 2024 Team Status: Inactive Member Role Status Dates Services [facility] Primary Care Provider Active Start: August 01, 2024 End: August 01, 2024Anisha Quitnanilla ProviderActiveStart: August 01, 2024 End: August 01, 2024 Team Status: Inactive Member Role Status Dates Services [facility] Primary Care Provider Active Start: August 04, 2024 End: August 04, 2024Anisha Quintanilla ProviderActiveStart: August 04, 2024 End: August 04, 2024 Team Status: Inactive Member Role Status Dates Services [facility] Primary Care Provider Active Start: August 06, 2024 End: August 06, 2024Anisha Quintanilla ProviderActiveStart: August 06, 2024 End: August 06, 2024 Team Status: Inactive Member Role Status Dates Services [facility] Primary Care Provider Active Start: August 08, 2024 End: August 08, 2024Anisha Quintanilla ProviderActiveStart: August 08, 2024 End: August 08, 2024 Team Status: Inactive Member Role Status Dates Services [facility] Primary Care Provider Active Start: August 11, 2024 End: August 11, 2024Imad Zoran , MDAttending ProviderActiveStart: August 11, 2024 End: August 11, 2024 Team Status: Active Member Role Status Dates Services [facility] Primary Care Provider Active Start: August 11, 2024 Imad Zoran , MDAttending Provider, Other ProviderActiveStart: August 11, 2024 Team Status: Inactive Member Role Status Dates Services [facility] Primary Care Provider Active Start: August 13, 2024 End: August 13, 2024Temporary FibroscanAttending ProviderActiveStart: August 13, 2024 End: August 13, 2024Vel Sevilla APRNReferring ProviderActiveStart: August 13, 2024 End: August 13, 2024Team MemberRelationshipSpecialtyStart DateEnd Date Nakul Patricio DO [address] [place] [address] PCP - [facility]10/24/24 Nakul Patricio DO [address] [place] [address] [facility]10/24/24 Team Status: Inactive Member Role Status Dates Services [facility] Primary Care Provider Active Start: December 15, 2024 End: December 15salvador Patricio DOAttdenise ProviderActiveStart: December 15, 2024 End: December 15, 2024 Team Status: Inactive Member Role Status Dates Services [facility] Primary Care Provider Active Start: January 01, 2025 End: January 01Raymond Escobar ProviderActiveStart: January 01, 2025 End: January 01, 2025Team MemberRelationshipSpecialtyStart DateEnd Date Nakul Patricio DO [address] [place] [address] [facility] Nakul Patricio DO [address] [place] [address] ReferringFamily Medicine10/24/24 Goals (unrecognized section and content) Goals may [...] or prosecute any alcohol or drug abuse patient.[facility] MemorialIn the event this information is protected by the Federal Confidentiality of Alcohol and Drug Abuse Patient Records regulations: The Federal rules restrict any use of the information to criminally investigate or prosecute any alcohol or drug abuse patient.[facility] Reason for Visit (unrecogniz ed section and content) ReasonCommentsAppointment Rescheduled FOR RECORDS PERTAINING TO PATIENTS WHO [...] BE BASED ON THE PRIMARY CLINICAL RECORDS. [facility]. provides no warranty or guarantee of the accuracy or completeness of information in this document.
[2025-04-07] MEDS: METHYLPREDNISOLONE SOD SUCC PF 125 MG/2 ML VIAL IVP (00:49)
[2025-04-07] MEDS: 0.9 % SODIUM CHLORIDE 1,000 ML 999 ML IV (00:49)
[2025-04-07 00:54] LABS: Lactate/Lactic Acid 1.6 mmol/L (0.4-2.0)
[2025-04-07 01:01] LABS: Alanine Aminotransferase 186 U/L (16-63); Albumin Globulin Ratio 0.9; Albumin Level 3.5 g/dL (3.4-5.0); Alkaline Phosphatase 73 U/L (46-116); Anion Gap 13.6; Aspartate Amino Transferase 198 U/L (15-37); Blood Urea Nitrogen 7.0 mg/dL (7.0-18.0); Calcium 8.9 mg/dL (8.5-10.1); Carbon Dioxide 25.2 mmol/L (21.0-32.0); Chloride 106 mmol/L (98-107); Estimated GFR (African America >60 (>=60 mL/min/1.73m^2); Estimated GFR (Non-African Ame >60 (>=60 mL/min/1.73m^2); Globulin 4.1 g/dL; Glucose 113 mg/dL (74-106); Lipase 87.0 U/L (16.0-77.0); Potassium 3.8 mmol/L (3.5-5.1); Sodium 141 mmol/L (136-145); Total Protein 7.6 g/dL (6.4-8.2)
[2025-04-07] MEDS: PANTOPRAZOLE SODIUM 40 MG TABLET.DR PO (05:01)
== END 2025-04-07 05:00 | disposition home or self-care (01) ==
PROVIDERS: Emergency Provider Internal Medicine; PCP Student in an Organized Health Care Education/Training Program
DX: R10.11 Right upper quadrant pain (principal); F10.129 Alcohol abuse with intoxication, unspecified; Y90.6 Blood alcohol level of 120-199 mg/100 ml; F17.210 Nicotine dependence, cigarettes, uncomplicated; J44.9 Chronic obstructive pulmonary disease, unspecified
CPT/HCPCS: 36415; 74177; 80053; 80320; 83605; 83690; 84484; 85025; 93005; 94640; 96361; 96374; 99285; J2919; Q9967

== ENCOUNTER 2025-04-29 18:34 | Emergency (ER) | payer OTHER, SELFPAY ==
[2025-04-29] VITALS (23 sets, daily range): BP systolic 122–164; BP diastolic 69–102; PULSE 99–119; TEMP 37.2; O2SAT 87–99; BMI 32.9
--- NOTE | 2025-04-29 18:49 | CT_ITS ---
The [address] [address] Patient Name: JEFFRY MARTIN MRN: [facility]:[id number] date: 1975 Sex: M Assigned Patient Location: ED.MAIN Current Patient Location: ED.MAIN Accession/Order Number: [id number] Exam Date: 04/29/2025 19:15 Report Date: 04/29/2025 20:10 At the request of: FELI SHIPMAN Procedure: CT abdomen pelvis w con CT ABDOMEN AND PELVIS WITH INTRAVENOUS CONTRAST: CLINICAL HISTORY: left-sided abd pain COMPARISON: 01/15/2025: TECHNIQUE: Spiral images were obtained through the abdomen and pelvis following the administration of intravenous contrast. This CT exam was performed using one or more following dose reduction techniques: Automated exposure control, adjustment of the mA and/or kV according to patient size, or use of iterative reconstruction technique. FINDINGS: Lung Bases: [Hypoventilatory changes.] Organs:Fatty liver. Gallbladder is contracted. Spleen, adrenals, kidneys, pancreas unremarkable.[ GI: Mild retained stool the colon. No bowel obstruction. Colonic abnormality was noted. Appendix unremarkable.[ Pelvis:[Bladder collapsed. Prostate unremarkable.] Peritoneum/Retroperitoneum:No free air or fluid. Jeke-wj-carzimfl plaque involving the nonaneurysmal aorta. Cluster of lymph nodes pericaval/libby hepatis region noted possibly reactive.[ Abd wall/Bones:Levocurvature lumbar spine. Multilevel degenerative change. CT/CT abdomen pelvis w con IMPRESSION: Negative acute inflammatory process or bowel obstruction. Colonic diverticulosis. Impression dictated by: Donis Cummings M.D. 04/29/2025 8:10 PM Dictation Location: [facility] Electronically authenticated by: [id number] Y Date: 04/29/2025 20:10
--- NOTE | 2025-04-29 18:50 | ED.GENADUL1 ---
HPI HPI - General Adult General Chief complaint: Abdominal Pain Stated complaint: ABDOMINAL PAIN Time Seen by Provider: 04/29/25 18:41 Source: patient Mode of arrival: ambulance Limitations: no limitations History of Present Illness HPI narrative: 50 year old male presents to the ED via EMS for left-sided abd pain. It became worse today after coughing. States he felt something pop. He has been evaluated here x2 for this pain. He has an appointment with a satellite manager tomorrow. Denies fever, chills, N/V/D, urinary symptoms. Denies CP, rib pain, SOB. Rates his pain 10/10. The pain is worse with movement, inspiration, and even light palpation. Related Data Home Medications ?Medication ?Instructions ?Recorded ?Confirmed gabapentin 600 mg tablet 800 mg PO Q8H 11/19/24 04/29/25 losartan 25 mg tablet 25 mg PO DAILY 11/19/24 04/29/25 Previous Rx's ?Medication ?Instructions ?Recorded meloxicam 15 mg tablet 15 mg PO DAILY PRN pain #10 tabs 01/15/25 orphenadrine citrate 100 mg 100 mg PO BID PRN muscle spasm #10 01/15/25 tablet,extended release tabs Allergies Allergy/AdvReac Type Severity Reaction Status Date / Time codeine Allergy Severe Hives Verified 04/29/25 18:37 Opioid HPI Opioid Management Most Recent Opioid Data: Last Pain Scale 8 Today, 20:41 Last MAR Pain Assessment Today, 20:41 Review of Systems ROS Constitutional Denies: fever or chills Ears, nose, mouth, and throat Denies: throat pain or neck pain Cardiovascular Denies: chest pain Respiratory Denies: shortness of breath or cough Gastrointestinal Reports: abdominal pain; Denies: nausea, vomiting or diarrhea Genitourinary Denies: painful urination or blood in urine Musculoskeletal Denies: back pain Integumentary/Breast Denies: rash Neurological Denies: headache or dizziness PFSH PFS Medical History (Updated 04/29/25 @ 20:58 by Christi Stewart) Hepatitis C ?B19.20 - Unspecified viral hepatitis C without hepatic coma (ICD-10) Opiate addiction ?F11.20 - Opioid dependence, uncomplicated (ICD-10) Fatty liver ?K76.0 - Fatty (change of) liver, not elsewhere classified (ICD-10) Social History (Updated 01/15/25 @ 07:19 by Naa Austin RN) Smoking status: Current every day smoker Non-prescribed substance use: former substance user Little interest or pleasure in doing things: not at all Feeling down, depressed, or hopeless: not at all Exam Constitutional Vital Signs, click to edit/add: Last Vital Signs Temp 99.0 F 04/29/25 18:37 Pulse 99 H 04/29/25 20:30 Resp 25 H 04/29/25 20:30 BP 135/82 04/29/25 20:00 Pulse Ox 99 04/29/25 20:30 O2 Del Method Room Air 04/29/25 18:37 Common normals: no apparent distress and oriented x3 General appearance: cooperative HENMT Common normals: moist oral mucous membranes Eye Common normals: conjunctivae normal and no scleral icterus Neck & C-Spine Common normals: supple Chest Chest: symmetrical chest wall rise Respiratory Common normals: normal respiratory effort and clear to auscultation bilaterally Effort & inspection: able to speak in complete sentences and symmetric chest movement Cardio Common normals: regular rate and regular rhythm GI Common normals: soft to palpation Palpation: tender Details: LLQ and LUQ Other: No rash, bruising, erythema, or wounds noted to abdomen or chest. Examination was limited initially due to patient's pain. He would move and raise his voice due to discomfort with just light palpation of the skin of his abdomen. Neuro Common normals: oriented x3, moves all extremities and no focal motor deficits Sensorium/orientation: awake and alert Speech: speech normal Course Vital Signs Vital signs: Vital Signs Temperature 99.0 F 04/29/25 18:37 Pulse Rate 119 H 04/29/25 18:37 Respiratory Rate 21 H 04/29/25 18:37 Blood Pressure 155/102 H 04/29/25 18:37 Pulse Oximetry 94 L 04/29/25 18:37 Oxygen Delivery Method Room Air 04/29/25 18:37 Temperature 99.0 F 04/29/25 18:37 Pulse Rate 99 H 04/29/25 20:30 Respiratory Rate 25 H 04/29/25 20:30 Blood Pressure 135/82 04/29/25 20:00 Pulse Oximetry 99 04/29/25 20:30 Oxygen Delivery Method Room Air 04/29/25 18:37 Medical Decision Making MDM Narrative Medical decision making narrative: CBC and CMP were unremarkable when compared to previous. CT scan was negative for acute findings. Findings were discussed with the patient. He was offered Toradol; he declined. He agreed to a dose of Tylenol. The patient has hx IV drug abuse per his records; opiates were avoided. His pain was worse with movement and inspiration; musculoskeletal pain was suspected. He has an appointment with GI tomorrow. He was encouraged to follow up as scheduled. Follow up with pcp for further evaluation and treatment. Return to the ED for worsening symptoms. The patient requested to speak with the ED attending; Dr. Nash spoke with the patient at bedside. The patient was then in agreement with receiving Toradol and Valium. Family/friend was present at bedside for a ride home. Medical Records Medical records reviewed: Yes I reviewed the patient's medical records Lab Data Lab results reviewed: Yes I reviewed the patient's lab results Labs: Lab Results 04/29/25 Range/Units 18:47 WBC 7.0 (4.0-11.0) 10^3/uL RBC 4.83 (4.70-6.10) 10^6/uL Hgb 16.6 (14.0-18.0) g/dL Hct 47.9 (42.0-54.0) % MCV 99.2 H (80.0-94.0) fL MCH 34.4 H (25.9-34.0) pg MCHC 34.7 (29.9-35.2) g/dL RDW 12.4 (11.0-15.0) % Plt Count 149 L (150-450) 10^3/uL MPV 11.9 (9.5-13.5) fL Neut % (Auto) 63.7 (43.0-75.0) % Lymph % (Auto) 26.4 (20.5-60.0) % Page % (Auto) 7.1 (1.7-12.0) % Eos % (Auto) 1.6 (0.9-7.0) % Baso % (Auto) 0.9 (0.2-2.0) % Neut # (Auto) 4.5 (1.4-6.5) 10^3/uL Lymph # (Auto) 1.9 (1.2-3.8) 10^3/uL Page # (Auto) 0.5 (0.3-0.8) 10^3/uL Eos # (Auto) 0.1 (0.0-0.7) 10^3/uL Baso # (Auto) 0.1 (0.0-0.1) 10^3/uL Abs Immat Gran (auto) 0.02 (0.00-0.03) 10^3/uL Imm/Tot Granulo (auto) 0.3 (0.0-0.5) % Sodium 135 L (136-145) mmol/L Potassium 4.4 (3.5-5.1) mmol/L Chloride 101 (98-107) mmol/L Carbon Dioxide 26.5 (21.0-32.0) mmol/L Anion Gap 11.9 BUN 7.0 (7.0-18.0) mg/dL Creatinine 1.04 (0.70-1.30) mg/dL Est GFR ( Amer) >60 (>=60 mL/min/1.73m^2) Est GFR (Non-Af Amer) >60 (>=60 mL/min/1.73m^2) BUN/Creatinine Ratio 6.7 Glucose 166 H (74-106) mg/dL Calcium 8.9 (8.5-10.1) mg/dL Total Bilirubin 0.7 (0.2-1.0) mg/dL AST 219 H (15-37) U/L ALT 199 H (16-63) U/L Alkaline Phosphatase 95 (46-116) U/L Total Protein 7.6 (6.4-8.2) g/dL Albumin 3.2 L (3.4-5.0) g/dL Globulin 4.4 g/dL Albumin/Globulin Ratio 0.7 Lipase 65.0 (16.0-77.0) U/L Ethanol Quant <3 mg/dL Imaging Data CT scan - abdomen: Attestation: I have reviewed the pertinent imaging results. Radiologist's impression: ITS Impressions Abdomen/Pelvis CT 04/29/25 18:49 IMPRESSION: Negative acute inflammatory process or bowel obstruction. Colonic diverticulosis. Impression dictated by: Donis Cummings M.D. 04/29/2025 8:10 PM Dictation Location: [place] [address] Electronically authenticated by: [id number] Y Date: 04/29/2025 20:10 Discharge Plan Discharge Chief Complaint: Abdominal Pain Clinical Impression: Musculoskeletal pain Abdominal pain Qualifiers: Abdominal location: left lower quadrant Qualified Code(s): R10.32 - Left lower quadrant pain Patient Disposition: Home, Self-Care Condition: Good Mode of Transportation: Private Vehicle Prescriptions / Home Meds: No Action losartan 25 mg tablet 25 mg PO DAILY gabapentin 600 mg tablet 800 mg PO Q8H meloxicam 15 mg tablet 15 mg PO DAILY PRN (Reason: pain) Qty: 10 0RF orphenadrine citrate 100 mg tablet extended release 100 mg PO BID PRN (Reason: muscle spasm) Qty: 10 0RF Print Language: Icelandic Instructions: Abdominal Pain (ED) Additional Instructions: Follow up with your satellite manager tomorrow as scheduled. Return to the ED for worsening symptoms. Referrals: Nakul Patricio DO [Primary Care Provider] - 1 week
[2025-04-29 18:56] LABS: Hematocrit 47.9 % (42.0-54.0); Hemoglobin 16.6 g/dL (14.0-18.0); Immature Granulocytes Abs Auto 0.02 10^3/uL (0.00-0.03); Immature Granulocytes Pct Auto 0.3 % (0.0-0.5); Lymphocytes Absolute Auto 1.9 10^3/uL (1.2-3.8); Mean Corpuscular HGB Conc 34.7 g/dL (29.9-35.2); Mean Corpuscular Hemoglobin 34.4 pg (25.9-34.0); Mean Corpuscular Volume 99.2 fL (80.0-94.0); Platelet Count 149 10^3/uL (150-450); Red Blood Count 4.83 10^6/uL (4.70-6.10); White Blood Count 7.0 10^3/uL (4.0-11.0)
[2025-04-29 19:16] LABS: Alanine Aminotransferase 199 U/L (16-63); Albumin Globulin Ratio 0.7; Albumin Level 3.2 g/dL (3.4-5.0); Alkaline Phosphatase 95 U/L (46-116); Anion Gap 11.9; Aspartate Amino Transferase 219 U/L (15-37); Blood Urea Nitrogen 7.0 mg/dL (7.0-18.0); Calcium 8.9 mg/dL (8.5-10.1); Carbon Dioxide 26.5 mmol/L (21.0-32.0); Chloride 101 mmol/L (98-107); Estimated GFR (African America >60 (>=60 mL/min/1.73m^2); Estimated GFR (Non-African Ame >60 (>=60 mL/min/1.73m^2); Globulin 4.4 g/dL; Glucose 166 mg/dL (74-106); Lipase 65.0 U/L (16.0-77.0); Potassium 4.4 mmol/L (3.5-5.1); Sodium 135 mmol/L (136-145); Total Protein 7.6 g/dL (6.4-8.2)
[2025-04-29] MEDS: ACETAMINOPHEN 500 MG TABLET 1000 MG PO (20:41)
--- NOTE | 2025-04-29 21:04 | ECG_ITS ---
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
[2025-04-29] MEDS: DIAZEPAM 10 MG/2 ML SYRINGE 5 MG IV (21:12)
[2025-04-29] MEDS: KETOROLAC TROMETHAMINE 30 MG/ML VIAL 15 MG IVP (21:13)
== END 2025-04-29 21:48 | disposition home or self-care (01) ==
PROVIDERS: Nurse Practitioner Family; Emergency Provider Student in an Organized Health Care Education/Training Program; PCP Student in an Organized Health Care Education/Training Program
DX: R10.32 Left lower quadrant pain (principal); M79.18 Myalgia, other site; F17.200 Nicotine dependence, unspecified, uncomplicated; F19.11 Other psychoactive substance abuse, in remission; K57.30 Diverticulosis of large intestine without perforation or abscess without bleeding
CPT/HCPCS: 36415; 74177; 80053; 80320; 83690; 85025; 93005; 96374; 96375; 99284; J1885; J3360; Q9967